=== PATIENT | male | born 1935 | race Caucasian/White ===

== ENCOUNTER 2022-09-28 23:37 | Inpatient (IN) ==
[2022-09-29] MEDS ORDERED: methylPREDNISolone 125 MG/2 ML VIAL IV STA (00:19)
--- NOTE | 2022-09-29 00:24 | Emergency Department Note ---
Impression & Plan Acute exacerbation of chronic obstructive pulmonary disease Admit to [facility] service ED Provider Note NAME: BORIS VASQUEZ AGE: 87 SEX: M ARRIVES VIA: Ambulance INFORMANT: Patient EMS ED PROVIDER(S): Lisa Fisher DO CHIEF COMPLAINT: Shortness of breath PLAN: Disposition: Admit to [facility] [place] Condition: Fair MEDICAL DECISION MAKING: This is an 87-year-old male patient with a history of COPD who presents to the emergency department with sudden worsening of shortness of breath this evening. Patient was seen here 3 days ago with similar complaints but they resolved. Patient describes sudden worsening of symptoms tonight with hypoxia. The pat ient normally uses 3 to 4 L of home oxygen but could not catch his breath. [facility] but dramatically worsened tonight. He received multiple DuoNeb treatments and albuterol treatments by EMS before he felt any improvement in his shortness of breath and wheezing. Chest x-ray here was unremarkable. EKG was unchanged. Troponin was negative. However, the patient had increased oxygen demands. He was given IV Solu-Medrol for what appears to be a COPD exacerbation. He was also given additional DuoNeb treatments. I did have some concern for fluid overload as the patient had rales on exam and had pitting edema in his lower extremities. BNP was unremarkable and chest x-ray showed no evidence of heart failure. I discussed the case with the [facility] and they will evaluate for further management. Triage Nursing notes reviewed and agree with them. Additional history obtained from EMS and the patient's son arrived at the bedside. Prior medical records reviewed including previous hospitalizations Vital Signs: reviewed and unremarkable Differential diagnosis: COPD exacerbation, CHF, pneumonia, bronchitis ER treatment provided: Cardiac monitoring, twelve-lead EKG, IV Solu-Medrol, supplemental O2, DuoNeb treatment Diagnostics interpreted by me: ECG: Normal sinus rhythm at a rate of 76 with PACs and right bundle branch block. There are no signs of ischemia Cardiac Monitoring: Normal sinus rhythm at 70 Laboratory studies: See below Imaging studies: As per my independent interpretation Portable chest x-ray: Chronic emphysematous changes but no obvious CHF. HPI: 87/M arrives for evaluation of shortness of breath. Patient describes h aving a fairly normal day until this evening when he developed sudden worsening of shortness of breath. He has a history of COPD and states that he was using his inhaler so much that he could not count anymore. He describes having tacos for supper and this seems to have made his symptoms worse including increasing abdominal pain. Patient has noted swelling in both of his legs that is worsened over the past 1 to 2 weeks. PAST MEDICAL HISTORY:See Below PAST SURGICAL HISTORY:See Below FAMILY HISTORY:See Below SOCIAL HISTORY:See Below HOME MEDICATIONS:See list ALLERGIES:See list VITALS:See Below PHYSICAL EXAMINATION: HEENT: Head - normocephalic and atraumatic. Patient has obvious left-sided facial droop which is chronic for him. Pupils are equal, round, and reactive to light. Extraocular eye muscles are intact, and sclera are anicteric. Nose - moist nasal mucosa without discharge. Mouth - moist buccal mucosa. Oropharynx is nonerythematous and there is no tonsillar exudate or edema noted. 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 Heart: Regular rate and rhythm. There is a normal S1 and S2 with no murmurs, clicks, or gallops appreciated. Lungs: Rales in all lung cox with expiratory wheezes Abdomen: Soft, completely nontender, nondistended, with good bowel sounds. There are no palpable pulsatile masses or hepatosplenomegaly. There is no guarding, rigidity, or rebound noted. Extremities: 2+ pitting edema there are easily palpable peripheral pulses. Skin: warm and dry with good turgor and no rashes. ED COURSE: Times/Reassessments: 2350: Patient was evaluated in room C5. A complete history and physical was performed. An order was placed for continuous cardiac monitoring. The patient is in a normal sinus rhythm at a rate of 70. A twelve- lead EKG was obtained as described above. Patient was given a dose of IV Solu- Medrol. He had continuous supplemental O2 by nasal cannula. Lisa Fisher DO Past Med/Surg History Medical History (Updated 09/29/22 @ 22:50 by Lisa Fisher DO) History of COPD Hx of agent [place] exposure Family History Other Family history non-contributory Social History Smoking Status: Former smoker Tobacco Type: Smokeless Tobacco (Dip or Chew) Smoking End Date: 1977; Hx Alcohol Use: No Hx Substance Use: No Preferred Language: Citizen Of [place] Communication Ability: Effective [employer] Required: No Beliefs That Will Affect Care: None marital status: Current Living Situation: Family Current Living Situation Comment: Patient lives with two sons current occupational status: retired Other Information That Helps Us Care for You: No Feels Safe at Home: Yes Safety Concerns: Feels Safe At This Time Assistive Devices: Cane, Denture - Upper, Denture - Lower, Oxygen - Continuous, Walker and Wheelchair Allergies Allergies Allergy/AdvReac Type Severity Reaction Status Date / Time ertapenem Allergy Unknown Unknown Verified 09/29/22 03:44 levofloxacin [From Levaquin] Allergy Unknown Unknown Verified 09/29/22 03:46 Home Meds Home Medications Medication Instructions Recorded Confirmed albuterol sulfate 2.5 mg/3 mL 3 ml inhalation Q6 PRN Shortness 10/04/18 09/29/22 (0.083 %) solution for nebulization Of Breath albuterol sulfate 90 mcg/actuation 2 puff inhalation Q6H PRN 10/04/18 09/29/22 aerosol inhaler Shortness Of Breath aspirin 81 mg tablet,delayed 81 mg PO DAILY 10/04/18 09/29/22 release budesonide-formoterol HFA 160 2 puff inhalation BID 10/04/18 09/29/22 mcg-4.5 mcg/actuation aerosol inhaler carboxymethylcellulose 0.5 1 drp ophthalmic (eye) QID 10/04/18 09/29/22 %-glycerin 0.9 % eye drops (Lubricating Drops) ferrous sulfate 325 mg (65 mg 325 mg PO DAILY 10/04/18 09/29/22 iron) tablet guaifenesin 200 mg tablet 400 mg PO TID 10/04/18 09/29/22 levothyroxine 25 mcg tablet 25 mcg PO DAILYBB 10/04/18 09/29/22 meclizine 12.5 mg tablet 12.5 mg PO QAM 10/04/18 09/29/22 omeprazole 20 mg capsule,delayed 20 mg PO DAILY 10/04/18 09/29/22 release tiotropium bromide 2.5 2 puff inhalation DAILY 10/04/18 09/29/22 mcg/actuation mist for inhalation diclofenac sodium 1 % topical gel 2 gm topical QID PRN Pain 09/26/22 09/29/22 roflumilast 500 mcg tablet 500 mcg PO DAILY 09/26/22 09/29/22 erythromycin 5 mg/gram (0.5 %) eye 1 applic ophthalmic (eye) HS 09/29/22 09/29/22 ointment isosorbide mononitrate 60 mg 30 mg PO QAM 09/29/22 09/29/22 tablet,extended release 24 hr multivitamin 1 tab PO DAILY 09/29/22 09/29/22 nitroglycerin 0.4 mg sublingual 0.4 mg sublingual UD PRN Chest Pain 09/29/22 09/29/22 tablet (Nitrostat) oxycodone-acetaminophen 5 mg-325 1 - 2 tab PO QID PRN Pain 09/29/22 09/29/22 mg tablet turmeric 450 mg-turmeric root 2 cap PO DAILY 09/29/22 09/29/22 extract 50 mg capsule Results & Data (ED) Vital Signs Vital Signs - 24 hr 09/28/22 23:41 09/28/22 23:46 09/29/22 00:21 Temperature 36.6 C Temperature Source Oral Pulse Rate 82 70 62 Pulse Rhythm Regular Respiratory Rate 14 22 Respiratory Effort / Characteristics Non-Labored Spontaneous Respiratory Depth Normal Respiratory Pattern Regular Blood Pressure 118/60 Blood Pressure Mean 79 Pulse Oximetry 96 99 Oxygen Delivery Method Room Air Room Air Sepsis Recent Fever Within 48 Hours No Sepsis New/Unexplained Change in Mental Status No Sepsis Action Taken by Nursing No Action Required 09/29/22 01:01 09/29/22 01:30 09/29/22 02:17 Temperature Temperature Source Pulse Rate 73 65 78 Pulse Rhythm Respiratory Rate 25 H 22 18 Respiratory Effort / Characteristics Respiratory Depth Respiratory Pattern Blood Pressure 129/65 125/73 111/61 Blood Pressure Mean 86 90 77 Pulse Oximetry 99 99 98 Oxygen Delivery Method Sepsis Recent Fever Within 48 Hours Sepsis New/Unexplained Change in Mental Status Sepsis Action Taken by Nursing 09/29/22 03:52 09/29/22 03:00 09/29/22 04:06 Temperature Temperature Source Pulse Rate 59 L 58 L 66 Pulse Rhythm Respiratory Rate 22 22 Respiratory Effort / Characteristics Respiratory Depth Respiratory Pattern Blood Pressure 134/59 L 121/66 Blood Pressure Mean 84 84 Pulse Oximetry 99 99 Oxygen Delivery Method Sepsis Recent Fever Within 48 Hours Sepsis New/Unexplained Change in Mental Status Sepsis Action Taken by Nursing Laboratory Data 09/29/22 06:47 09/29/22 06:47 Lab Results 09/28/22 09/28/22 09/28/22 Range/Units 23:51 23:51 23:51 WBC 7.94 (4.8-10.8) K/ul RBC 3.83 L (4.70-6.10) M/uL Hgb 9.1 L (14.0-18.0) g/dl Hct 30.9 L (42.0-52.0) % MCV 80.7 (80.0-100.0) fL MCH 23.8 L (25.0-34.0) pg MCHC 29.4 L (32.0-36.0) g/dL RDW Std Deviation 56.7 H (36.4-46.3) fL RDW Coeff of Jeison 19.2 H (11.5-14.5) % Plt Count 340 (130-400) K/uL MPV 9.5 (9.4-12.4) fL Immature Gran % (Auto) 0.6 % Neut % (Auto) 69.3 % Lymph % (Auto) 12.5 % [place] % (Auto) 15.0 % Eos % (Auto) 2.3 % Baso % (Auto) 0.3 % Neut # (Auto) 5.51 (1.40-6.50) K/uL Lymph # (Auto) 0.99 L (1.2-3.4) K/uL [place] # (Auto) 1.19 H (0.11-0.59) K/uL Eos # (Auto) 0.18 (0-0.50) K/uL Baso # (Auto) 0.02 (0-0.2) K/uL Immature Gran # (Auto) 0.05 (0.01-0.20) K/uL APTT (21.0-31.0) Seconds PTT Ratio Sodium 139 (136-145) mmol/L Potassium 4.4 (3.5-5.1) mmol/L Chloride 99 (98-107) mmol/L Carbon Dioxide 35 H (21-32) mmol/L Anion Gap 5 (3-11) BUN 21 (6-23) mg/dl Creatinine 1.01 (0.6-1.4) mg/dl Est Cr Clr Drug Dosing 46.4 ml/min Est GFR ( Amer) 76.1 ml/min Est GFR (Non-Af Amer) 65.6 ml/min BUN/Creatinine Ratio 20.8 H (10-20) Glucose 111 H (70-99(Fasting)) mg/dl Calcium 8.9 (8.6-10.3) mg/dl Magnesium 1.9 (1.7-2.4) mg/dl Total Bilirubin 0.4 (0.2-1.0) mg/dl AST 16 (13-39) U/L ALT 8 (7-52) U/L Alkaline Phosphatase 54 (34-104) U/L Troponin I High Sens 11.5 (0-20) pg/ml B-Natriuretic Peptide 42 (0-100) pg/ml Total Protein 6.5 (6.0-8.3) gm/dl Albumin 3.7 (3.4-5.0) gm/dl Globulin 2.8 (2.5-4.0) gm/dl Albumin/Globulin Ratio 1.3 (0.9-2) Lipase 17 (11-82) U/L TSH (0.300-4.500) uIu/ml Urine Color Urine Appearance (Clear) Urine pH (4.5-7.5) Ur Specific [place] (1.000-1.030) Urine Protein (Negative) Urine Glucose (UA) (Negative) Urine Ketones (Negative) Urine Blood (Negative) Urine Nitrite (Negative) Urine Bilirubin (Negative) Urine Urobilinogen (Negative) Ur Leukocyte Esterase (Negative) Urine WBC (Auto) (0-5) /hpf Urine RBC (Auto) (0-4) /hpf U Hyaline Cast (Auto) (0-5) /lpf U Epithel Cells (Auto) (0-5) /lpf Urine Bacteria (Auto) (Negative) 09/28/22 09/28/22 09/29/22 Range/Units 23:51 23:51 01:00 WBC (4.8-10.8) K/ul RBC (4.70-6.10) M/uL Hgb (14.0-18.0) g/dl Hct (42.0-52.0) % MCV (80.0-100.0) fL MCH (25.0-34.0) pg MCHC (32.0-36.0) g/dL RDW Std Deviation (36.4-46.3) fL RDW Coeff of Jeison (11.5-14.5) % Plt Count (130-400) K/uL MPV (9.4-12.4) fL Immature Gran % (Auto) % Neut % (Auto) % Lymph % (Auto) % [place] % (Auto) % Eos % (Auto) % Baso % (Auto) % Neut # (Auto) (1.40-6.50) K/uL Lymph # (Auto) (1.2-3.4) K/uL [place] # (Auto) (0.11-0.59) K/uL Eos # (Auto) (0-0.50) K/uL Baso # (Auto) (0-0.2) K/uL Immature Gran # (Auto) (0.01-0.20) K/uL APTT 30.9 (21.0-31.0) Seconds PTT Ratio 1.1 Sodium (136-145) mmol/L Potassium (3.5-5.1) mmol/L Chloride (98-107) mmol/L Carbon Dioxide (21-32) mmol/L Anion Gap (3-11) BUN (6-23) mg/dl Creatinine (0.6-1.4) mg/dl Est Cr Clr Drug Dosing ml/min Est GFR ( Amer) ml/min Est GFR (Non-Af Amer) ml/min BUN/Creatinine Ratio (10-20) Glucose (70-99(Fasting)) mg/dl Calcium (8.6-10.3) mg/dl Magnesium (1.7-2.4) mg/dl Total Bilirubin (0.2-1.0) mg/dl AST (13-39) U/L ALT (7-52) U/L Alkaline Phosphatase (34-104) U/L Troponin I High Sens (0-20) pg/ml B-Natriuretic Peptide (0-100) pg/ml Total Protein (6.0-8.3) gm/dl Albumin (3.4-5.0) gm/dl Globulin (2.5-4.0) gm/dl Albumin/Globulin Ratio (0.9-2) Lipase (11-82) U/L TSH 3.363 (0.300-4.500) uIu/ml Urine Color Dark Yellow Urine Appearance Clear (Clear) Urine pH 5.5 (4.5-7.5) Ur Specific Sullivan 1.025 (1.000-1.030) Urine Protein Trace H (Negative) Urine Glucose (UA) Negative (Negative) Urine Ketones Trace H (Negative) Urine Blood Negative (Negative) Urine Nitrite Negative (Negative) Urine Bilirubin Negative (Negative) Urine Urobilinogen Negative (Negative) Ur Leukocyte Esterase Negative (Negative) Urine WBC (Auto) 1-5 (0-5) /hpf Urine RBC (Auto) 0-4 (0-4) /hpf U Hyaline Cast (Auto) 0 (0-5) /lpf U Epithel Cells (Auto) 0-5 (0-5) /lpf Urine Bacteria (Auto) Negative (Negative) Administered Medications Albuterol (Albut/Ipratrop 3mg/0.5mg Neb 3 Ml Vial) 3 ml NEB Q2H PRN; Protocol PRN Reason: Shortness Of Breath Or Wheezing Stop: 10/29/22 09:59 Last Admin: 09/29/22 09:59 Dose: 3 ml Documented By: MARGI Artificial Tears (Artificial Tears) 1 drops OP QID [facility] Stop: 10/29/22 08:59 Last Admin: 09/29/22 20:31 Dose: 1 drops Documented By: [id number] Admin: 09/29/22 15:32 Dose: 1 drops Documented By: Admin: 09/29/22 12:52 Dose: Not Given Documented By: Admin: 09/29/22 11:29 Dose: Not Given Documented By: JONA Aspirin (Aspirin 81 Mg Ectab) 81 mg PO DAILY [facility] Stop: 10/29/22 08:59 Last Admin: 09/29/22 08:12 Dose: 81 mg Documented By: JONA Clindamycin HCl (Clindamycin Hcl 150 Mg Cap) 300 mg PO TID [facility] Stop: 10/06/22 13:59 Last Admin: 09/29/22 20:26 Dose: 300 mg Documented By: [id number] Admin: 09/29/22 14:26 Dose: 300 mg Documented By: JONA Erythromycin (Erythromycin Op Oint 5 Mg/Gm 3.5 Gm Tube) 1 appln OP HS ILIANA Stop: 10/09/22 20:59 Last Admin: 09/29/22 21:32 Dose: 1 appln Documented By: [id number] Ferrous Sulfate (Ferrous Sulfate 325 Mg Tab) 325 mg PO DAILY [facility] Stop: 10/29/22 08:59 Last Admin: 09/29/22 09:22 Dose: 325 mg Documented By: JONA Methylprednisolone 40 mg/ (Syringe) 0.64 mls @ 1.5 mls/min IV BID ILIANA Stop: 10/29/22 09:59 Last Admin: 09/29/22 20:26 Dose: 1.5 mls/min Documented By: [id number] Admin: 09/29/22 11:56 Dose: 1.5 mls/min Documented By: JONA Ipratropium [place] (Ipratropium [place] Neb Soln 0.02% 2.5 Ml Vial) 0.5 mg INH Q6R ILIANA Stop: 10/29/22 06:59 Last Admin: 09/29/22 19:58 Dose: 0.5 mg Documented By: Admin: 09/29/22 12:49 Dose: 0.5 mg Documented By: Admin: 09/29/22 07:21 Dose: 0.5 mg Documented By: JACQUIE Isosorbide Mononitrate (Isosorbide [place] Extended Rel 30 Mg Tabcr) 30 mg PO QAM [facility] Stop: 10/29/22 08:59 Last Admin: 09/29/22 09:22 Dose: 30 mg Documented By: JONA Levalbuterol HCl (Levalbuterol 1.25mg/0.5ml Neb) 1.25 mg INH Q6R ILIANA Stop: 10/29/22 06:59 Last Admin: 09/29/22 19:58 Dose: 1.25 mg Documented By: Admin: 09/29/22 12:49 Dose: 1.25 mg Documented By: Admin: 09/29/22 07:21 Dose: 1.25 mg Documented By: JACQUIE Levothyroxine Sodium (Levothyroxine Sodium 25 Mcg Tablet) 25 mcg PO DAILYBB [facility] Stop: 10/29/22 06:53 Last Admin: 09/29/22 09:22 Dose: 25 mcg Documented By: JONA Multivitamins (Multivitamin Tab) 1 tab PO DAILY [facility] Stop: 10/29/22 08:59 Last Admin: 09/29/22 08:13 Dose: 1 tab Documented By: JONA Pantoprazole Sodium (Pantoprazole 40 Mg Tab) 40 mg PO DAILY [facility] Stop: 10/29/22 08:59 Last Admin: 09/29/22 08:13 Dose: 40 mg Documented By: JONA Roflumilast (Roflumilast 500 Mcg Tab) 500 mcg PO DAILY [facility] Stop: 10/29/22 08:59 Last Admin: 09/29/22 09:22 Dose: 500 mcg Documented By: JONA Umeclidinium [place] (Umeclidinium [place] 62.5mcg/Blister 7 Puffs/Inhaler) 1 puffs INH DAILY [facility] Stop: 10/29/22 08:59 Last Admin: 09/29/22 08:13 Dose: 1 puffs Documented By: JONA Discontinued Medications Albuterol (Albut/Ipratrop 3mg/0.5mg Neb 3 Ml Vial) 3 ml NEB NOW STA; Protocol Stop: 09/29/22 02:24 Last Admin: 09/29/22 02:28 Dose: 3 ml Documented By: PETR Furosemide (Furosemide Inj 20 Mg/2 Ml Vial) 20 mg IV ONE ONE Stop: 09/29/22 04:18 Last Admin: 09/29/22 06:05 Dose: 20 mg Documented By: PETR Furosemide (Furosemide Inj 20 Mg/2 Ml Vial) 20 mg IV ONE ONE Stop: 09/29/22 08:55 Last Admin: 09/29/22 09:18 Dose: 20 mg Documented By: JONA Magnesium Sulfate/Dextrose (Magnesium Sulfate / D5w) 1 gm in 100 mls @ 50 mls/hr IV ONE ONE Stop: 09/29/22 05:31 Last Infusion: 09/29/22 07:51 Dose: 0 mls/hr Documented By: Admin: 09/29/22 04:35 Dose: 50 mls/hr Documented By: PETR Sodium Chloride (Nss 1000ml) 1,000 mls @ 60 mls/hr IV .[id number] ONE Stop: 09/29/22 20:14 Last Admin: 09/29/22 08:47 Dose: Not Given Documented By: JONA Albumin Human (Albumin 25% 100 Ml) 25 gm in 100 mls @ 50 mls/hr IV ONE ONE Stop: 09/29/22 05:48 Last Infusion: 09/29/22 07:51 Dose: 0 mls/hr Documented By: Admin: 09/29/22 04:36 Dose: 50 mls/hr Documented By: PETR Clindamycin Phosphate (Cleocin/D5w) 600 mg in 50 mls @ 100 mls/hr IV NOW ONE Stop: 09/29/22 04:49 Last Infusion: 09/29/22 08:46 Dose: 0 mls/hr Documented By: Admin: 09/29/22 07:50 Dose: 100 mls/hr Documented By: JONA Ioversol (Optiray 320 500ml) 125 ml IV ONCE ONE Stop: 09/29/22 05:24 Last Admin: 09/29/22 05:24 Dose: 117 ml Documented By: KELI Methylprednisolone (Methylprednisolone 125 Mg/2 Ml Vial) 125 mg IV NOW STA Stop: 09/29/22 00:20 Last Admin: 09/29/22 00:37 Dose: 125 mg Documented By: PETR Discharge Plan Visit Data Chief Complaint: Respiratory Problems ED Provider: Lisa Fisher Discharge Problem: Acute exacerbation of chronic obstructive pulmonary disease Patient Disposition: Admitted As Inpatient Discharge Instructions Interventions: ED Discharge Assessment Last Done: 09/29/22 06:55
[2022-09-29 00:42] LABS: Albumin Globulin Ratio 1.3 (0.9-2); Albumin Level 3.7 gm/dl (3.4-5.0); BUN Creatinine Ratio 20.8 (10-20); Bilirubin,Total 0.4 mg/dl (0.2-1.0); Calcium 8.9 mg/dl (8.6-10.3); Creatinine Clr Calc Pharmacy 46.4 ml/min; Est GFR (African American) 76.1 ml/min; Est GFR (Non-African American) 65.6 ml/min; Globulin 2.8 gm/dl (2.5-4.0); Potassium 4.4 mmol/L (3.5-5.1); Total Protein 6.5 gm/dl (6.0-8.3)
[2022-09-29 00:48] LABS: Basophils # (auto) 0.02 K/uL (0-0.2); Basophils % (auto) 0.3 %; Eosinophils # (auto) 0.18 K/uL (0-0.50); Eosinophils % (auto) 2.3 %; Hematocrit (blood only) 30.9 % (42.0-52.0); Hemoglobin 9.1 g/dl (14.0-18.0); Immature Granulocytes # (auto) 0.05 K/uL (0.01-0.20); Immature Granulocytes % (auto) 0.6 %; Lymphocytes # (auto) 0.99 K/uL (1.2-3.4); Lymphocytes % (auto) 12.5 %; Mean Corpuscular Hemoglobin 23.8 pg (25.0-34.0); Mean Corpuscular Hgb Conc 29.4 g/dL (32.0-36.0); Mean Corpuscular Volume 80.7 fL (80.0-100.0); Mean Platelet Volume 9.5 fL (9.4-12.4); Monocytes # (auto) 1.19 K/uL (0.11-0.59); Neutrophils # (auto) 5.51 K/uL (1.40-6.50); Neutrophils % (auto) 69.3 %; Platelet Count 340 K/uL (130-400); RDW Coefficient of Variation 19.2 % (11.5-14.5); RDW Standard Deviation 56.7 fL (36.4-46.3); Red Blood Count 3.83 M/uL (4.70-6.10); Troponin I High Sensitivity 11.5 pg/ml (0-20); White Blood Count 7.94 K/ul (4.8-10.8)
[2022-09-29 01:17] LABS: Appearance Urine Clear (Clear); Bilirubin Urine Negative (Negative); Blood Urine Negative (Negative); Color Urine Dark Yellow; Glucose Urine UA Negative (Negative); Ketones Urine Trace (Negative); Leukocyte Esterase Urine Negative (Negative); Nitrite Urine Negative (Negative); Protein Urine Trace (Negative); Specific Gravity Urine 1.025 (1.000-1.030); Urobilinogen Urine Negative (Negative); pH Urine 5.5 (4.5-7.5)
[2022-09-29 01:42] LABS: Bacteria Urine Automated Negative (Negative); Cast Urine Automated 0 /lpf (0-5); Epithelial Cell Urine Auto 0-5 /lpf (0-5); RBC Urine Automated 0-4 /hpf (0-4)
[2022-09-29] MEDS ORDERED: ALBUT/IPRATROP 3MG/0.5MG NEB 3 ML VIAL NEB STA (02:23)
[2022-09-29] MEDS ORDERED: MAGNESIUM SULFATE / D5W 1 GM/100 ML BAG IV ONE (03:32)
[2022-09-29] MEDS ORDERED: SODIUM CHLORIDE 0.9% 1000ML 1,000 ML IV ONE (03:35)
[2022-09-29] MEDS ORDERED: ALBUMIN 25% 100 mL 25 GM/100 ML VIAL IV ONE (03:49)
[2022-09-29 04:07] LABS: Magnesium 1.9 mg/dl (1.7-2.4)
[2022-09-29] MEDS ORDERED: FUROSEMIDE INJ 20 MG/2 ML VIAL IV ONE ×2 (04:17→08:54)
[2022-09-29] MEDS ORDERED: CLINDAMYCIN/D5W 600 MG/50 ML BAG IV ONE (04:20)
[2022-09-29 04:41] LABS: Partial Thromboplastin Ratio 1.1; Partial Thromboplastin Time 30.9 Seconds (21.0-31.0)
[2022-09-29 05:06] LABS: iSTAT Arterial Blood Gas HCO3 33 meg/L (19-24); iSTAT Arterial Blood Gas pCO2 57 mmHg (35-46); iSTAT Arterial Blood Gas pH 7.37 (7.35-7.45); iSTAT Arterial Blood Gas pO2 133 mmHg (80-95); iSTAT Carbon Dioxide 35 mmol/L (24-31); iSTAT Hematocrit 29 % (42-52); iSTAT Hemoglobin 9.9 g/dl (14.0-18.0); iSTAT Potassium 4.5 mmol/L (3.3-5.0); iSTAT Sodium 136 mmol/L (135-144)
[2022-09-29] MEDS ORDERED: OPTIRAY 320 500ml IV ONE (05:23)
--- NOTE | 2022-09-29 05:28 | History & Physical Report ---
Date of Service September 29, 2022 Assessment & Plan (1) SOB (shortness of breath): Plan: Worsening shortness of breath COPD exacerbation, possible aspiration pneumonitis no sepsis for now Rule out right-sided heart failure/underlying pulmonary hypertension given mamadou pheral edema without overt congestion on CXR hx chronic respiratory failure secondary to COPD on home O2 Rule out pulm embolism given hx of malignancy, hx head and neck cancer status post surgery currently on immunotherapy, patient family concerned about side effects of immunotherapy HTN, stable hx PVD on aspirin Rx hypothyroidism, euthyroid as of today stage Chronic anemia, hemoglobin at baseline, hx recent GI bleed 3 months ago as per family, hx gastric erosions/AVM as per records Postop left neck wound, no infection as per son. 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 Teds for now; SCDs if LE Dopplers negative for DVT Re: History GI bleed Full code as per family Patient son requesting updates providers. Mr. Rafael Dobbins, contact #[phone]. Total critical care time was 45 minutes. Text document was generated using [employer] voice recognition software. It may contain grammatical or spelling errors. Kindly contact undersigned for clarification of any documentation item in question. History of Present Illness Chief Complaint: Worsening shortness of breath Primary Care Provider: CT History obtained from patient, family, and records. 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 Patient underwent head and neck surgery for squamous cell cancer of the left ear at [place] last March 2022. Immunotherapy started a week ago as per family. Few days ago, patient noted cough symptoms productive of junky sputum with some shortness of breath. No chest pain. Patient admits to coughing with meals/water intake if not careful. Rash noted by patient's family. Patient consulted ER 3 days ago. Patient treated for COPD exacerbation. Admission offered by ER provider but patient declined. Worsening symptoms at home. Patient also with achy abdominal pain/distention complaints. Denies headache. Legs more swollen than usual. Patient family concerned about patient's symptoms as side effects of immunotherapy. Solu-Medrol and neb treatment administered at the ER for COPD exacerbation. 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, lives with sons Allergies Allergy/AdvReac Type Severity Reaction Status Date / Time ertapenem Allergy Unknown Unknown Verified 09/29/22 03:44 levofloxacin [From Levaquin] Allergy Unknown Unknown Verified 09/29/22 03:46 Home Medications Medication Instructions Recorded Confirmed Type albuterol sulfate 2.5 mg/3 mL 3 ml inhalation Q6 PRN Shortness 10/04/18 09/29/22 History (0.083 %) solution for nebulization Of Breath albuterol sulfate 90 mcg/actuation 2 puff inhalation Q6H PRN 10/04/18 09/29/22 History aerosol inhaler Shortness Of Breath aspirin 81 mg tablet,delayed 81 mg PO DAILY 10/04/18 09/29/22 History release budesonide-formoterol HFA 160 2 puff inhalation BID 10/04/18 09/29/22 History mcg-4.5 mcg/actuation aerosol inhaler carboxymethylcellulose 0.5 1 drp ophthalmic (eye) QID 10/04/18 09/29/22 History %-glycerin 0.9 % eye drops (Lubricating Drops) ferrous sulfate 325 mg (65 mg 325 mg PO DAILY 10/04/18 09/29/22 History iron) tablet guaifenesin 200 mg tablet 400 mg PO TID 10/04/18 09/29/22 History levothyroxine 25 mcg tablet 25 mcg PO DAILYBB 10/04/18 09/29/22 History meclizine 12.5 mg tablet 12.5 mg PO QAM 10/04/18 09/29/22 History omeprazole 20 mg capsule,delayed 20 mg PO DAILY 10/04/18 09/29/22 History release tiotropium bromide 2.5 2 puff inhalation DAILY 10/04/18 09/29/22 History mcg/actuation mist for inhalation diclofenac sodium 1 % topical gel 2 gm topical QID PRN Pain 09/26/22 09/29/22 History roflumilast 500 mcg tablet 500 mcg PO DAILY 09/26/22 09/29/22 History erythromycin 5 mg/gram (0.5 %) eye 1 applic ophthalmic (eye) HS 09/29/22 09/29/22 History ointment isosorbide mononitrate 60 mg 30 mg PO QAM 09/29/22 09/29/22 History tablet,extended release 24 hr multivitamin 1 tab PO DAILY 09/29/22 09/29/22 History nitroglycerin 0.4 mg sublingual 0.4 mg sublingual UD PRN Chest Pain 09/29/22 09/29/22 History tablet (Nitrostat) oxycodone-acetaminophen 5 mg-325 1 - 2 tab PO QID PRN Pain 09/29/22 09/29/22 History mg tablet turmeric 450 mg-turmeric root 2 cap PO DAILY 09/29/22 09/29/22 History extract 50 mg capsule Past Med/Surg History Medical History (Updated 09/29/22 @ 07:20 by Anthony Husain MD) History of COPD Hx of agent [place] exposure Family History Other Family history non-contributory Social History Smoking Status: Former smoker Tobacco Type: Smokeless Tobacco (Dip or Chew) Smoking End Date: 1977; Hx Alcohol Use: No Hx Substance Use: No Preferred Language: Hebrew Communication Ability: Effective Folding 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 Required: No Beliefs That Will Affect Care: None marital status: Current Living Situation: Family Current Living Situation Comment: Patient lives with two sons current occupational status: retired Other Information That Helps Us Care for You: No Feels Safe at Home: Yes Safety Concerns: Feels Safe At This Time Assistive Devices: Cane, Denture - Upper, Denture - Lower, Oxygen - Continuous, Walker and Wheelchair Review of Systems Review of Systems: As per HPI, all other systems reviewed and negative Physical Exam Physical Exam: GENERAL: Slightly uncomfortable, chronically ill, slightly hard of hearing, intermittent abdominal breathing SKIN: Pallor, warm HEENT: Pale palpebral conjunctiva, right, eye patch over left, left facial asymmetry (chronic as per family post surgery), dry buccal mucosa, nasal cannula in place NECK : Dressing over left neck, supple, minimal left cervical tenderness CHEST : Decreased breath sounds, bibasilar rales, expiratory wheezes, no tenderness HEART : Bradycardic, no obvious murmurs ABDOMEN: Some distention, nontender RECTAL : Intact sphincter, dark brown stool (FOBT negative) EXTREMITIES : Bilateral LE swelling, no LE tenderness, no other conspicuous deformities noted NEUROLOGIC : Coherent, chronic facial asymmetry, mild hearing impairment, gait and stance not assessed Results & Data Results & Data Vital Signs (Past 12 Hours) Vital Signs Temp Pulse Resp BP Pulse Ox O2 Del Method 09/29/22 04:06 66 22 121/66 99 09/29/22 03:00 58 L 22 134/59 L 99 09/29/22 03:52 59 L 09/29/22 02:17 78 18 111/61 98 09/29/22 01:30 65 22 125/73 99 09/29/22 01:01 73 25 H 129/65 99 09/29/22 00:21 62 22 99 Room Air 09/28/22 23:46 70 09/28/22 23:41 36.6 C 82 14 118/60 96 Room Air Laboratory Results Laboratory Results WBC 7.94 K/ul (4.8-10.8) 09/28/22 23:51 RBC 3.83 M/uL (4.70-6.10) L 09/28/22 23:51 Hgb 9.1 g/dl (14.0-18.0) L 09/28/22 23:51 POC Hgb 9.9 g/dl (14.0-18.0) L 09/29/22 04:52 Hct 30.9 % (42.0-52.0) L 09/28/22 23:51 POC Hct 29 % (42-52) L 09/29/22 04:52 MCV 80.7 fL (80.0-100.0) 09/28/22 23:51 MCH 23.8 pg (25.0-34.0) L 09/28/22 23:51 MCHC 29.4 g/dL (32.0-36.0) L 09/28/22 23:51 RDW Std Deviation 56.7 fL (36.4-46.3) H 09/28/22 23:51 RDW Coeff of Jeison 19.2 % (11.5-14.5) H 09/28/22 23:51 Plt Count 340 K/uL (130-400) 09/28/22 23:51 MPV 9.5 fL (9.4-12.4) 09/28/22 23:51 Immature Gran % (Auto) 0.6 % 09/28/22 23:51 Neut % (Auto) 69.3 % 09/28/22 23:51 Lymph % (Auto) 12.5 % 09/28/22 23:51 Smith % (Auto) 15.0 % 09/28/22 23:51 Eos % (Auto) 2.3 % 09/28/22 23:51 Baso % (Auto) 0.3 % 09/28/22 23:51 Neut # (Auto) 5.51 K/uL (1.40-6.50) 09/28/22 23:51 Lymph # (Auto) 0.99 K/uL (1.2-3.4) L 09/28/22 23:51 Smith # (Auto) 1.19 K/uL (0.11-0.59) H 09/28/22 23:51 Eos # (Auto) 0.18 K/uL (0-0.50) 09/28/22 23:51 Baso # (Auto) 0.02 K/uL (0-0.2) 09/28/22 23:51 Immature Gran # (Auto) 0.05 K/uL (0.01-0.20) 09/28/22 23:51 APTT 30.9 Seconds (21.0-31.0) 09/28/22 23:51 PTT Ratio 1.1 09/28/22 23:51 POC pH 7.37 (7.35-7.45) 09/29/22 04:52 POC pCO2 57 mmHg (35-46) H 09/29/22 04:52 POC pO2 133 mmHg (80-95) H 09/29/22 04:52 POC HCO3 33 surendra/L (19-24) H 09/29/22 04:52 POC Total CO2 35 mmol/L (24-31) H 09/29/22 04:52 POC Base Excess 7.0 surendra/L (-9-1.8) H 09/29/22 04:52 POC ABG O2 Sat 99.0 % (90-95) H 09/29/22 04:52 POC Sodium 136 mmol/L (135-144) 09/29/22 04:52 Sodium 139 mmol/L (136-145) 09/28/22 23:51 POC Potassium 4.5 mmol/L (3.3-5.0) 09/29/22 04:52 Potassium 4.4 mmol/L (3.5-5.1) 09/28/22 23:51 Chloride 99 mmol/L (98-107) 09/28/22 23:51 Carbon Dioxide 35 mmol/L (21-32) H 09/28/22 23:51 Anion Gap 5 (3-11) 09/28/22 23:51 BUN 21 mg/dl (6-23) 09/28/22 23:51 Creatinine 1.01 mg/dl (0.6-1.4) 09/28/22 23:51 Est Cr Clr Drug Dosing 46.4 ml/min 09/28/22 23:51 Est GFR ( Amer) 76.1 ml/min 09/28/22 23:51 Est GFR (Non-Af Amer) 65.6 ml/min 09/28/22 23:51 BUN/Creatinine Ratio 20.8 (10-20) H 09/28/22 23:51 Glucose 111 mg/dl (70-99(Fasting)) H 09/28/22 23:51 Calcium 8.9 mg/dl (8.6-10.3) 09/28/22 23:51 Magnesium 1.9 mg/dl (1.7-2.4) 09/28/22 23:51 Total Bilirubin 0.4 mg/dl (0.2-1.0) 09/28/22 23:51 AST 16 U/L (13-39) 09/28/22 23:51 ALT 8 U/L (7-52) 09/28/22 23:51 Alkaline Phosphatase 54 U/L (34-104) 09/28/22 23:51 Troponin I High Sens 11.5 pg/ml (0-20) 09/28/22 23:51 B-Natriuretic Peptide 42 pg/ml (0-100) 09/28/22 23:51 Total Protein 6.5 gm/dl (6.0-8.3) 09/28/22 23:51 Albumin 3.7 gm/dl (3.4-5.0) 09/28/22 23:51 Globulin 2.8 gm/dl (2.5-4.0) 09/28/22 23:51 Albumin/Globulin Ratio 1.3 (0.9-2) 09/28/22 23: Lipase 17 U/L (11-82) 09/28/22 23: TSH 3.363 uIu/ml (0.300-4.500) 09/28/22 23:51 Urine Color Dark Yellow 09/29/22 01:00 Urine Appearance Clear (Clear) 09/29/22 01:00 Urine pH 5.5 (4.5-7.5) 09/29/22 01:00 Ur Specific [place] 1.025 (1.000-1.030) 09/29/22 01:00 Urine Protein Trace (Negative) H 09/29/22 01:00 Urine Glucose (UA) Negative (Negative) 09/29/22 01:00 Urine Ketones Trace (Negative) H 09/29/22 01:00 Urine Blood Negative (Negative) 09/29/22 01:00 Urine Nitrite Negative (Negative) 09/29/22 01:00 Urine Bilirubin Negative (Negative) 09/29/22 01:00 Urine Urobilinogen Negative (Negative) 09/29/22 01:00 Ur Leukocyte Esterase Negative (Negative) 09/29/22 01:00 Urine WBC (Auto) 1-5 /hpf (0-5) 09/29/22 01:00 Urine RBC (Auto) 0-4 /hpf (0-4) 09/29/22 01:00 U Hyaline Cast (Auto) 0 /lpf (0-5) 09/29/22 01:00 U Epithel Cells (Auto) 0-5 /lpf (0-5) 09/29/22 01:00 Urine Bacteria (Auto) Negative (Negative) 09/29/22 01:00 SARS-CoV-2, RNA, NAAT NEGATIVE (NEGATIVE) 09/29/22 04:50 Diagnostic Findings Chest x-ray as per my interpretation cardiomegaly, atelectasis EKG as per my interpretation : Rate 75, NSR, LAD, LAFB, RBBB, septal infarct, no ischemia Code Status & VTE Plan VTE Prophylaxis Plan VTE Prophylaxis will be ordered: Yes
[2022-09-29] MEDS ORDERED: XOPENEX/ATROVENT 1.25mg/0.5MG NEB COMBO NEB SCH (06:00)
[2022-09-29] MEDS ORDERED: PROMETHAZINE HCL 6.25 MG in SODIUM CHLORIDE 0.9% 50 ML IV PRN (06:54)
[2022-09-29] MEDS ORDERED: DICLOFENAC SOD 1% GEL 100 GM TUBE EXT PRN (06:54)
[2022-09-29] MEDS ORDERED: oxyCODONE HCL IR 5 MG TAB (IMMEDIATE RELEASE) PO PRN (06:54)
[2022-09-29 07:14] LABS: Basophils # (auto) 0.01 K/uL (0-0.2); Basophils % (auto) 0.2 %; Eosinophils # (auto) 0.01 K/uL (0-0.50); Eosinophils % (auto) 0.2 %; Hematocrit (blood only) 28.2 % (42.0-52.0); Hemoglobin 8.5 g/dl (14.0-18.0); Immature Granulocytes # (auto) 0.04 K/uL (0.01-0.20); Immature Granulocytes % (auto) 0.8 %; Lymphocytes # (auto) 0.44 K/uL (1.2-3.4); Lymphocytes % (auto) 8.4 %; Mean Corpuscular Hemoglobin 24.1 pg (25.0-34.0); Mean Corpuscular Hgb Conc 30.1 g/dL (32.0-36.0); Mean Corpuscular Volume 80.1 fL (80.0-100.0); Mean Platelet Volume 9.2 fL (9.4-12.4); Monocytes # (auto) 0.11 K/uL (0.11-0.59); Monocytes % (auto) 2.1 %; Neutrophils # (auto) 4.62 K/uL (1.40-6.50); Neutrophils % (auto) 88.3 %; Platelet Count 274 K/uL (130-400); RDW Coefficient of Variation 19.1 % (11.5-14.5); RDW Standard Deviation 55.7 fL (36.4-46.3); Red Blood Count 3.52 M/uL (4.70-6.10); Reticulocyte % 1.5 % (0.5-2.0); Reticulocytes # 0.05 10^6/uL (0.02-0.10); White Blood Count 5.23 K/ul (4.8-10.8)
[2022-09-29] MEDS: IPRATROPIUM BROMIDE NEB SOLN 0.02% 2.5 ML VIAL INH SCH ×3 (07:21→19:58)
[2022-09-29] MEDS: LEVALBUTEROL 1.25MG/0.5ML NEB INH SCH ×3 (07:21→19:58)
--- NOTE | 2022-09-29 07:31 | XRay Report ---
XR chest 1V portable CLINICAL HISTORY: Dyspnea TECHNIQUE: Single frontal radiograph of the chest was obtained. Comparison: Comparison is made to chest radiographs September 26, 2022 FINDINGS: No lines and tubes are seen. Cardiomegaly is noted. Minimal atelectasis is noted in the bilateral low er lungs. No evidence of pleural effusion or pneumothorax. IMPRESSION: No acute chest disease. ACT 112: Negative or not required by law. Electronically signed by: Tyree Madison M.D. 09/29/2022 7:30 AM
[2022-09-29 07:39] LABS: Calcium 8.8 mg/dl (8.6-10.3); Potassium 4.5 mmol/L (3.5-5.1)
--- NOTE | 2022-09-29 07:40 | Ultrasound Report ---
ULTRASOUND BILATERAL LOWER EXTREMITY VENOUS CLINICAL HISTORY: Lower extremity edema. COMPARISON STUDY: No priors. TECHNIQUE: Real-time, grayscale, and color Doppler sonography of the deep veins of the right and left lower extremity was performed from the inguinal crease to the calf. Compression and augmentation wer e utilized. FINDINGS: There is no sonographic evidence of deep venous thrombosis identified in the right or left lower extremity. The common femoral, superficial femoral, and popliteal veins are patent and normally compressible bilaterally. The greater saphenous vein and the profunda femoris vein at the junction w ith the common femoral vein are clear in both legs. The visualized calf veins are patent bilaterally. IMPRESSION: There is no sonographic evidence of deep venous thrombosis identified in the right or lef t lower extremity. ACT 112: Negative or not required by law. Electronically signed by: Clark Juarez M.D. 09/29/2022 7:39 AM
[2022-09-29 07:45] LABS: BUN Creatinine Ratio 21.6 (10-20); Creatinine Clr Calc Pharmacy 48.3 ml/min; Est GFR (African American) 79.9 ml/min; Est GFR (Non-African American) 68.9 ml/min
[2022-09-29 07:49] LABS: Vitamin B12 485 pg/ml (180-914)
--- NOTE | 2022-09-29 07:59 | CT Scan Report ---
CT angio chest PE protocol CLINICAL HISTORY: sob TECHNIQUE: Multidetector row helical CT of the chest was performed with angiographic protocol. Telles l and sagittal reformations were obtained. Coronal and sagittal MIPS were obtained from the axial manuela a set and were submitted for review. Automated dose lowering techniques and/or adjustment according to patient size were utilized for this exam. Comparison: Comparison is made to CTA chest 10/04/2018 FINDINGS: Lungs and pleura: Emphysema is seen with bronchial wall thickening and bronchiectasis. No consolidati on is seen. Calcified granulomata are seen without suspicious pulmonary nodules. Heart and pericardium: Heart size is normal. No pericardial effusion. Vessels: No evidence of pulmonary embolism. Pulmonary trunk measures 34 mm. Mediastinum and yonny: Unremarkable. Chest wall and lower neck: Subcentimeter axillary lymph nodes noted. Abdomen: For findings below the diaphragm, please refer to CT of the abdomen dated the same. Bones: Degenerative changes in the thoracic spine. IMPRESSION: 1. No pulmonary embolus is seen. 2. Emphysema with pulmonary artery hypertension. 3. No interspace disease. ACT 112: Negative or not required by law. Electronically signed by: Tyree Madison M.D. 09/29/2022 7:56 AM
[2022-09-29 08:00] LABS: Ferritin 39.9 ng/ml (8-388)
[2022-09-29 08:08] LABS: Estimated Average Glucose 134 mg/dl; Hemoglobin A1C 6.3 % (4.5-5.6)
--- NOTE | 2022-09-29 08:08 | CT Scan Report ---
CT abd pelvis IV con only CLINICAL HISTORY: abd pain TECHNIQUE: Helical axial images of the abdomen and pelvis were obtained and displayed. Automated dose lowering techniques and/or adjustment according to patient size were utilized for this exam. This e xam was performed with intravenous contrast. CT DOSE: 749.83 mGy.cm COMPARISON: None available at the time of this dictation. FINDINGS: Lower chest: For findings above the diaphragm, please see CT chest performed same day. Liver: Unremarkable. No focal lesions are seen. Gallbladder and biliary tree: Cholelithiasis is seen without evidence of cholecystitis. No wall thick ening or pericholecystic fluid is seen. No intra- or extrahepatic biliary ductal dilation. Pancreas: Unremarkable, no focal lesions. Spleen: Unremarkable. Adrenals: Unremarkable. Kidneys and ureters: Unremarkable. Bladder: Unremarkable. Reproductive organs: Prostatic calcifications are seen which may represent prior hemorrhage or granul omatous disease. Bowel: The appendix is normal. A duodenal diverticulum is seen. A few diverticula are seen in the sig moid colon without evidence of acute diverticulitis. Lymph nodes Retroperitoneal: Unremarkable. Pelvic: Unremarkable. Mesenteric: Unremarkable. Peritoneum: Normal. Vessels: Atherosclerotic calcifications are seen. Abdominal wall: Left fat containing inguinal hernia. Bones: Degenerative changes in the visualized spine and bilateral hip joints. IMPRESSION: 1. No acute abnormalities are seen to explain abdominal pain. 2. Cholelithiasis without cholecystitis. ACT 112: Negative or not required by law. Electronically signed by: Tyree Madison M.D. 09/29/2022 8:07 AM
[2022-09-29] MEDS: ASPIRIN 81 MG ECTAB PO SCH (08:12)
[2022-09-29] MEDS: PANTOprazole 40 MG TAB PO SCH (08:13)
[2022-09-29] MEDS: MULTIVITAMIN TAB PO SCH (08:13)
[2022-09-29] MEDS: UMECLIDINIUM BROMIDE 62.5MCG/BLISTER 7 PUFFS/INHALER INH SCH (08:13)
[2022-09-29] MEDS: FERROUS SULFATE 325 MG TAB PO SCH (09:22)
[2022-09-29] MEDS: LEVOTHYROXINE SODIUM 25 MCG TABLET PO SCH (09:22)
[2022-09-29] MEDS: ROFLUMILAST 500 MCG TAB PO SCH (09:22)
[2022-09-29] MEDS: ISOSORBIDE MONO EXTENDED REL 30 MG TABCR PO SCH (09:22)
[2022-09-29] MEDS: ALBUT/IPRATROP 3MG/0.5MG NEB 3 ML VIAL NEB PRN (09:59)
[2022-09-29] MEDS: ARTIFICIAL TEARS OP SCH ×4 (11:29→20:31)
[2022-09-29] MEDS: methylPREDNISolone 40 MG in SYRINGE 0 ML IV SCH ×2 (11:56→20:26)
[2022-09-29] MEDS: CLINDAMYCIN HCL 150 MG CAP PO SCH ×2 (14:26→20:26)
--- NOTE | 2022-09-29 15:06 | Hospitalist Progress Note ---
Date of Service September 29, 2022 Assessment & Plan (1) Acute exacerbation of chronic obstructive airways disease: Plan: History of COPD and has been on home oxygen Worsening shortness of breath for the last few days No fever and/or chest pain Has significant exacerbation of COPD with possible aspiration No pneumonia on chest x-ray and/or CT scan and no pulmonary embolism Appreciate speech therapy input and evaluation Clears has been started will advance as tolerated Has been getting bronchodilators as needed and also Solu-Medrol small doses Clinically better Bibasilar crackles suggestive of edema No chest x-ray evidence of CHF Received Lasix 20 mg x 2 since admission with significant improvement of shortness of breath No history of CHF-echo of the heart showed normal EF with grade 1 diastolic dysfunction (2) SOB (shortness of breath): Plan: As above (3) Hypertension: Plan: Blood pressure remains on the lower side of normal Will monitor (4) Hypothyroidism: Plan: Hypothyroidism, euthyroid as of today stage (5) Chronic anemia: Plan: Chronic anemia, hemoglobin at baseline, hx recent GI bleed 3 months ago as per family, hx gastric erosions/AVM as per records Globin stable at 8.5 Iron level is low Will start oral iron (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 Wound care nurse consult for left neck wound Retrieve outpatient records from patient's PCP Plan History of PVD on aspirin DVT prophylaxis. Teds for now; SCDs if LE Dopplers negative for DVT Re: History GI bleed Full code as per family Patient son requesting updates providers. Mr. Rafael Dobbins, contact #[phone]. Admission and Anticipated Discharge Date Admission Date: September 29, 2022 Subjective 09/29/2022 The patient was seen and examined in telemetry unit He was noted to be very short of breath and wheezing this morning When I saw him he was conversing normally with minimal wheezing and shortness of breath Does not have any chest pain or palpitation but has cough Has been feeling a little better Review of Systems Review of Systems: All systems reviewed and are unremarkable except as noted below Respiratory: Minimal respiratory distress Physical Exam Physical Exam: Sitting at the edge of the bed with minimal respiratory distress Constitutional: + ill appearing and average body habitus Eyes: PERRL, conjunctivae normal, anicteric sclerae ENMT: external ear and nose normal, oropharynx normal Neck: trachea midline, no thyromegaly Respiratory: + respiratory distress (Mild to moderate respiratory distress) Auscultation: + diminished lung sounds, + crackles (Bibasilar crackles) and + wheezes (All over) Cardiovascular: Rate/Rhythm: regular rate, regular rhythm and + bradycardic Heart Sounds: normal S1, normal S2 and + murmur Extremities: + edema (Trace edema bilaterally) Gastrointestinal (Abdomen): Inspection/Auscultation: normal bowel sounds; abdomen not distended Percussion/Palpation: abdomen soft; abdomen nontender Musculoskeletal: No acute arthritis involving any joint Neurologic: Alert, awake and oriented x3. Generally very weak and lethargic Results & Data Results & Data Vital Signs (Past 12 Hours) Vital Signs Temp Pulse Pulse Resp BP BP Pulse Ox 09/29/22 08:00 543 H 09/29/22 12:49 59 L 20 95 09/29/22 11:05 36.5 C 58 L 18 108/63 100 09/29/22 08:00 09/29/22 09:57 62 22 95 09/29/22 07:22 54 L 28 H 100 09/29/22 06:54 36.4 C L 55 L 22 148/72 H 100 09/29/22 06:24 09/29/22 06:06 51 L 20 118/53 L 100 09/29/22 05:53 66 20 127/55 L 100 09/29/22 04:30 59 L 24 134/67 99 09/29/22 04:06 66 22 121/66 99 09/29/22 03:00 58 L 22 134/59 L 99 09/29/22 03:52 59 L O2 Del Method O2 Flow Rate 09/29/22 08:00 09/29/22 12:49 Nasal Cannula 3 09/29/22 11:05 Room Air 09/29/22 08:00 Nasal Cannula 3 09/29/22 09:57 Nasal Cannula 3 09/29/22 07:22 Nasal Cannula 6 09/29/22 06:54 Nasal Cannula 5 09/29/22 06:24 Nasal Cannula 09/29/22 06:06 09/29/22 05:53 09/29/22 04:30 09/29/22 04:06 09/29/22 03:00 09/29/22 03:52 Laboratory Results Short CBC 09/28/22 09/29/22 Range/Units 23:51 06:47 WBC 7.94 5.23 (4.8-10.8) K/ul Hgb 9.1 L 8.5 L (14.0-18.0) g/dl Hct 30.9 L 28.2 L (42.0-52.0) % Plt Count 340 274 (130-400) K/uL BMP 09/28/22 09/29/22 23:51 06:47 Sodium 139 136 Potassium 4.4 4.5 Chloride 99 97 L Carbon Dioxide 35 H 33 H BUN 21 21 Creatinine 1.01 0.97 Glucose 111 H 172 H Calcium 8.9 8.8 Liver Function 09/28/22 Range/Units 23:51 Total Bilirubin 0.4 (0.2-1.0) mg/dl AST 16 (13-39) U/L ALT 8 (7-52) U/L Alkaline Phosphatase 54 (34-104) U/L Albumin 3.7 (3.4-5.0) gm/dl Urine 09/29/22 Range/Units 01:00 Urine Color Dark Yellow Urine Appearance Clear (Clear) Urine pH 5.5 (4.5-7.5) Ur Specific [place] 1.025 (1.000-1.030) Urine Protein Trace H (Negative) Urine Glucose (UA) Negative (Negative) Medications Administered Current Inpatient Medications Acetaminophen (Acetaminophen 325 Mg Tab) 650 mg PO Q4H PRN PRN Reason: Pain or Fever Stop: 10/29/22 06:53 Albuterol (Albut/Ipratrop 3mg/0.5mg Neb 3 Ml Vial) 3 ml NEB Q2H PRN; Protocol PRN Reason: Shortness Of Breath Or Wheezing Stop: 10/29/22 09:59 Last Admin: 09/29/22 09:59 Dose: 3 ml Artificial Tears (Artificial Tears) 1 drops OP QID ILIANA Stop: 10/29/22 08:59 Last Admin: 09/29/22 12:52 Dose: Not Given Aspirin (Aspirin 81 Mg Ectab) 81 mg PO DAILY ILIANA Stop: 10/29/22 08:59 Last Admin: 09/29/22 08:12 Dose: 81 mg Clindamycin HCl (Clindamycin Hcl 150 Mg Cap) [address] [facility] Stop: 10/06/22 13:59 Last Admin: 09/29/22 14:26 Dose: 300 mg Diclofenac Sodium (Diclofenac Sod 1% Gel 100 Gm Tube) 2 gm EXT QID PRN; Protocol PRN Reason: Pain Stop: 10/29/22 06:53 Erythromycin (Erythromycin Op Oint 5 Mg/Gm 3.5 Gm Tube) [address] [facility] Stop: 10/09/22 20:59 Ferrous Sulfate (Ferrous Sulfate 325 Mg Tab) 325 mg PO DAILY ILIANA Stop: 10/29/22 08:59 Last Admin: 09/29/22 09:22 Dose: 325 mg Promethazine HCl 6.25 mg/ (Sodium Chloride) 50.25 mls @ 201 mls/hr IV Q6H PRN PRN Reason: Nausea And Vomiting Stop: 10/29/22 06:53 Methylprednisolone 40 mg/ (Syringe) 0.64 mls @ 1.5 mls/min IV BID ILIANA Stop: 10/29/22 09:59 Last Admin: 09/29/22 11:56 Dose: 1.5 mls/min Ipratropium Catarina (Ipratropium Catarina Neb Soln 0.02% 2.5 Ml Vial) 0.[address] [facility] Stop: 10/29/22 06:59 Last Admin: 09/29/22 12:49 Dose: 0.5 mg Isosorbide Mononitrate (Isosorbide Terry Extended Rel 30 Mg Tabcr) 30 mg PO QAM ILIANA Stop: 10/29/22 08:59 Last Admin: 09/29/22 09:22 Dose: 30 mg Levalbuterol HCl (Levalbuterol 1.25mg/0.5ml Neb) 1.[address] [facility] Stop: 10/29/22 06:59 Last Admin: 09/29/22 12:49 Dose: 1.25 mg Levothyroxine Sodium (Levothyroxine Sodium 25 Mcg Tablet) [address] [facility] Stop: 10/29/22 06:53 Last Admin: 09/29/22 09:22 Dose: 25 mcg Multivitamins (Multivitamin Tab) 1 tab PO DAILY ILIANA Stop: 10/29/22 08:59 Last Admin: 09/29/22 08:13 Dose: 1 tab Oxycodone HCl (Oxycodone Hcl Ir 5 Mg Tab (Immediate Release)) 5 mg PO Q4H PRN PRN Reason: Pain Stop: 10/13/22 06:53 Pantoprazole Sodium (Pantoprazole 40 Mg Tab) [address] [facility] Stop: 10/29/22 08:59 Last Admin: 09/29/22 08:13 Dose: 40 mg Roflumilast (Roflumilast 500 Mcg Tab) 500 mcg PO DAILY ILIANA Stop: 10/29/22 08:59 Last Admin: 09/29/22 09:22 Dose: 500 mcg Umeclidinium Catarina (Umeclidinium Catarina 62.5mcg/Blister 7 Puffs/Inhaler) 1 puffs INH DAILY ILIANA Stop: 10/29/22 08:59 Last Admin: 09/29/22 08:13 Dose: 1 puffs
[2022-09-29] MEDS: ERYTHROMYCIN OP OINT 5 MG/GM 3.5 GM TUBE OP SCH (21:32)
[2022-09-30] MEDS: IPRATROPIUM BROMIDE NEB SOLN 0.02% 2.5 ML VIAL INH SCH ×4 (01:11→19:59)
[2022-09-30] MEDS: LEVALBUTEROL 1.25MG/0.5ML NEB INH SCH ×4 (01:11→19:59)
--- NOTE | 2022-09-30 05:49 | Electrocardiogram Report ---
Test Reason : Blood Pressure : / mmHG Vent. Rate : 076 BPM Atrial Rate : 076 BPM P-R Int : 168 ms QRS Dur : 130 ms QT Int : 440 ms P-R-T Axes : 042 -53 058 degrees QTc Int : 495 ms Sinus rhythm with Premature atrial complexes Left axis deviation Right bundle branch block Septal infarct , age undetermined Abnormal ECG When compared with ECG of 26-SEP-2022 01:56, No significant change Confirmed by Ry Rivas ([id number]) on 09/30/2022 5:49:03 AM Referred By: REFERRED SELF Confirmed By:Ry Rivas
[2022-09-30] MEDS: LEVOTHYROXINE SODIUM 25 MCG TABLET PO SCH (06:04)
[2022-09-30] MEDS: ACETAMINOPHEN 325 MG TAB PO PRN ×2 (06:33→20:10)
[2022-09-30 06:55] LABS: Basophils # (auto) 0.01 K/uL (0-0.2); Basophils % (auto) 0.1 %; Hematocrit (blood only) 27.3 % (42.0-52.0); Hemoglobin 8.3 g/dl (14.0-18.0); Immature Granulocytes # (auto) 0.07 K/uL (0.01-0.20); Immature Granulocytes % (auto) 0.8 %; Lymphocytes # (auto) 0.77 K/uL (1.2-3.4); Mean Corpuscular Hemoglobin 23.9 pg (25.0-34.0); Mean Corpuscular Hgb Conc 30.4 g/dL (32.0-36.0); Mean Corpuscular Volume 78.7 fL (80.0-100.0); Mean Platelet Volume 9.3 fL (9.4-12.4); Monocytes # (auto) 0.67 K/uL (0.11-0.59); Monocytes % (auto) 7.8 %; Neutrophils # (auto) 7.02 K/uL (1.40-6.50); Neutrophils % (auto) 82.3 %; Platelet Count 339 K/uL (130-400); RDW Coefficient of Variation 18.9 % (11.5-14.5); RDW Standard Deviation 53.6 fL (36.4-46.3); Red Blood Count 3.47 M/uL (4.70-6.10); White Blood Count 8.54 K/ul (4.8-10.8)
[2022-09-30 07:12] LABS: BUN Creatinine Ratio 23.7 (10-20); Calcium 8.8 mg/dl (8.6-10.3); Creatinine Clr Calc Pharmacy 39.7 ml/min; Est GFR (Non-African American) 54.4 ml/min; Magnesium 2.1 mg/dl (1.7-2.4)
[2022-09-30] MEDS ORDERED: predniSONE 20 MG TAB PO SCH (09:00)
[2022-09-30] MEDS: ARTIFICIAL TEARS OP SCH ×4 (09:18→20:11)
[2022-09-30] MEDS: ASPIRIN 81 MG ECTAB PO SCH (09:19)
[2022-09-30] MEDS: CLINDAMYCIN HCL 150 MG CAP PO SCH ×3 (09:20→20:10)
[2022-09-30] MEDS: FERROUS SULFATE 325 MG TAB PO SCH (09:22)
[2022-09-30] MEDS: methylPREDNISolone 40 MG in SYRINGE 0 ML IV SCH ×2 (09:23→20:10)
[2022-09-30] MEDS: ISOSORBIDE MONO EXTENDED REL 30 MG TABCR PO SCH (09:23)
[2022-09-30] MEDS: ROFLUMILAST 500 MCG TAB PO SCH (09:24)
[2022-09-30] MEDS: MULTIVITAMIN TAB PO SCH (09:24)
[2022-09-30] MEDS: PANTOprazole 40 MG TAB PO SCH (09:24)
[2022-09-30] MEDS: UMECLIDINIUM BROMIDE 62.5MCG/BLISTER 7 PUFFS/INHALER INH SCH (09:25)
--- NOTE | 2022-09-30 16:16 | Hospitalist Progress Note ---
Date of Service September 30, 2022 Assessment & Plan (1) Acute exacerbation of chronic obstructive airways disease: Plan: History of COPD and has been on home oxygen Worsening shortness of breath for the last few days No fever and/or chest pain Has significant exacerbation of COPD with possible aspiration No pneumonia on chest x-ray and/or CT scan and no pulmonary embolism Appreciate speech therapy input and evaluation Clears has been started will advance as tolerated Has been getting bronchodilators as needed and also Solu-Medrol small doses Has cough with productive yellowish phlegm Sputum culture is pending but growing mixed daniel Will give Hycodan to suppress cough and take care of pain Bibasilar crackles suggestive of edema No chest x-ray evidence of CHF Received Lasix 20 mg x 2 since admission with significant improvement of shortness of breath No history of CHF-echo of the heart showed normal EF with grade 1 diastolic dysfunction Will give another small dose of Lasix this afternoon (2) SOB (shortness of breath): Plan: As above (3) Hypertension: Plan: Blood pressure remains on the lower side of normal Will monitor (4) Hypothyroidism: Plan: Hypothyroidism, euthyroid as of today stage (5) Chronic anemia: Plan: Chronic anemia, hemoglobin at baseline, hx recent GI bleed 3 months ago as per family, hx gastric erosions/AVM as per records Globin stable at 8.5 Iron level is low Will start oral iron (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 Wound care nurse consult for left neck wound Retrieve outpatient records from patient's PCP Denies any significant symptoms regarding the neck Plan History of PVD on aspirin DVT prophylaxis. Teds for now; SCDs if LE Dopplers negative for DVT Re: History GI bleed Full code as per family Patient son requesting updates providers. Mr. Rafael Dobbins, contact #[phone]. Admission and Anticipated Discharge Date Admission Date: September 29, 2022 Subjective 09/29/2022 The patient was seen and examined in telemetry unit He was noted to be very short of breath and wheezing this morning When I saw him he was conversing normally with minimal wheezing and shortness of breath Does not have any chest pain or palpitation but has cough Has been feeling a little better 09/30/2022 The patient was seen and examined in telemetry unit He has been feeling a little better and his breathing has improved There is no fever and or chills but he still has a cough which is causing some pain in the abdomen and lower chest wall He does not have any complaint regarding his neck Review of Systems Review of Systems: All systems reviewed and are unremarkable except as noted below Respiratory: Minimal respiratory distress Physical Exam Physical Exam: Sitting at the edge of the bed with minimal respiratory distress Constitutional: + ill appearing and average body habitus Eyes: PERRL, conjunctivae normal, anicteric sclerae ENMT: external ear and nose normal, oropharynx normal Neck: trachea midline, no thyromegaly Left neck is bandaged and has a wound. Ectropion involving the left lower lid Respiratory: + respiratory distress (Mild to moderate respiratory distress) Auscultation: + diminished lung sounds, + crackles (Bibasilar crackles) and + wheezes (All over) Cardiovascular: Rate/Rhythm: regular rate, regular rhythm and + bradycardic Heart Sounds: normal S1, normal S2 and + murmur Extremities: + edema (Trace edema bilaterally) Gastrointestinal (Abdomen): Inspection/Auscultation: normal bowel sounds; abdomen not distended Percussion/Palpation: abdomen soft; abdomen nontender Musculoskeletal: No acute arthritis involving any joint Neurologic: normal touch/pain/proprioception and moves all extremities Lymphatic: no cervical or axillary lymphadenopathy Results & Data Results & Data Vital Signs (Past 12 Hours) Vital Signs Temp Pulse Pulse Resp BP BP Pulse Ox 09/30/22 12:30 80 22 96 09/30/22 11:26 36.3 C L 66 16 138/62 96 09/30/22 10:06 67 09/30/22 09:16 108/49 L 09/30/22 09:10 09/30/22 06:54 09/30/22 07:56 36.4 C L 60 18 132/67 94 09/30/22 07:34 71 20 93 Pulse Ox O2 Del Method O2 Del Method O2 Flow Rate O2 Flow Rate 09/30/22 12:30 Nasal Cannula 3 09/30/22 11:26 Nasal Cannula 3 09/30/22 10:06 09/30/22 09:16 09/30/22 09:10 Nasal Cannula 3 09/30/22 06:54 94 Nasal Cannula 3 09/30/22 07:56 Nasal Cannula 3 09/30/22 07:34 Nasal Cannula 3 Laboratory Results Short CBC 09/30/22 Range/Units 05:59 WBC 8.54 (4.8-10.8) K/ul Hgb 8.3 L (14.0-18.0) g/dl Hct 27.3 L (42.0-52.0) % Plt Count 339 (130-400) K/uL BMP 09/30/22 05:59 Sodium 138 Potassium 4.0 Chloride 97 L Carbon Dioxide 36 H BUN 28 H Creatinine 1.18 Glucose 142 H Calcium 8.8 Medications Administered Current Inpatient Medications Acetaminophen (Acetaminophen 325 Mg Tab) 650 mg PO Q4H PRN PRN Reason: Pain or Fever Stop: 10/29/22 06:53 Last Admin: 09/30/22 06:33 Dose: 650 mg Albuterol (Albut/Ipratrop 3mg/0.5mg Neb 3 Ml Vial) 3 ml NEB Q2H PRN; Protocol PRN Reason: Shortness Of Breath Or Wheezing Stop: 10/29/22 09:59 Last Admin: 09/29/22 09:59 Dose: 3 ml Artificial Tears (Artificial Tears) 1 drops OP QID [place] Stop: 10/29/22 08:59 Last Admin: 09/30/22 13:45 Dose: 1 drops Aspirin (Aspirin 81 Mg Ectab) 81 mg PO DAILY [facility] Stop: 10/29/22 08:59 Last Admin: 09/30/22 09:19 Dose: 81 mg Clindamycin HCl (Clindamycin Hcl 150 Mg Cap) 300 mg PO TID [facility] Stop: 10/06/22 13:59 Last Admin: 09/30/22 13:45 Dose: 300 mg Diclofenac Sodium (Diclofenac Sod 1% Gel 100 Gm Tube) 2 gm EXT QID PRN; Protocol PRN Reason: Pain Stop: 10/29/22 06:53 Erythromycin (Erythromycin Op Oint 5 Mg/Gm 3.5 Gm Tube) 1 appln OP HS [facility] Stop: 10/09/22 20:59 Last Admin: 09/29/22 21:32 Dose: 1 appln Ferrous Sulfate (Ferrous Sulfate 325 Mg Tab) 325 mg PO DAILY [facility] Stop: 10/29/22 08:59 Last Admin: 09/30/22 09:22 Dose: 325 mg Hydrocodone Bit/Homatropine Methylb (Hydrocodone/Homatropine Syrup 5mg/1.5mg 5ml Udp) 5 ml PO Q6H PRN PRN Reason: Cough Stop: 10/14/22 10:10 Promethazine HCl 6.25 mg/ (Sodium Chloride) 50.25 mls @ 201 mls/hr IV Q6H PRN PRN Reason: Nausea And Vomiting Stop: 10/29/22 06:53 Methylprednisolone 40 mg/ (Syringe) 0.64 mls @ 1.5 mls/min IV BID [facility] Stop: 10/29/22 09:59 Last Admin: 09/30/22 09:23 Dose: 1.5 mls/min Ipratropium [place] (Ipratropium [place] Neb Soln 0.02% 2.5 Ml Vial) 0.5 mg INH Q6R [facility] Stop: 10/29/22 06:59 Last Admin: 09/30/22 12:30 Dose: 0.5 mg Isosorbide Mononitrate (Isosorbide [place] Extended Rel 30 Mg Tabcr) 30 mg PO QAM [facility] Stop: 10/29/22 08:59 Last Admin: 09/30/22 09:23 Dose: 30 mg Levalbuterol HCl (Levalbuterol 1.25mg/0.5ml Neb) 1.25 mg INH Q6R [facility] Stop: 10/29/22 06:59 Last Admin: 09/30/22 12:30 Dose: 1.25 mg Levothyroxine Sodium (Levothyroxine Sodium 25 Mcg Tablet) 25 mcg PO DAILYBB [facility] Stop: 10/29/22 06:53 Last Admin: 09/30/22 06:04 Dose: 25 mcg Multivitamins (Multivitamin Tab) 1 tab PO DAILY [facility] Stop: 10/29/22 08:59 Last Admin: 09/30/22 09:24 Dose: 1 tab Oxycodone HCl (Oxycodone Hcl Ir 5 Mg Tab (Immediate Release)) 5 mg PO Q4H PRN PRN Reason: Pain Stop: 10/13/22 06:53 Pantoprazole Sodium (Pantoprazole 40 Mg Tab) 40 mg PO DAILY [facility] Stop: 10/29/22 08:59 Last Admin: 09/30/22 09:24 Dose: 40 mg Roflumilast (Roflumilast 500 Mcg Tab) 500 mcg PO DAILY [facility] Stop: 10/29/22 08:59 Last Admin: 09/30/22 09:24 Dose: 500 mcg Umeclidinium [place] (Umeclidinium [place] 62.5mcg/Blister 7 Puffs/Inhaler) 1 puffs INH DAILY [facility] Stop: 10/29/22 08:59 Last Admin: 09/30/22 09:25 Dose: 1 puffs
[2022-09-30] MEDS ORDERED: FUROSEMIDE INJ 20 MG/2 ML VIAL IV ONE (16:19)
[2022-09-30] MEDS: ERYTHROMYCIN OP OINT 5 MG/GM 3.5 GM TUBE OP SCH (20:10)
[2022-09-30] MEDS: ALBUT/IPRATROP 3MG/0.5MG NEB 3 ML VIAL NEB PRN (22:53)
[2022-09-30] MEDS: HYDROcodone/HOMATROPINE SYRUP 5MG/1.5MG 5ML UDP PO PRN (23:27)
[2022-10-01] MEDS: IPRATROPIUM BROMIDE NEB SOLN 0.02% 2.5 ML VIAL INH SCH ×4 (01:19→20:10)
[2022-10-01] MEDS: LEVALBUTEROL 1.25MG/0.5ML NEB INH SCH ×4 (01:19→20:10)
[2022-10-01] MEDS: LEVOTHYROXINE SODIUM 25 MCG TABLET PO SCH (06:29)
[2022-10-01] MEDS: HYDROcodone/HOMATROPINE SYRUP 5MG/1.5MG 5ML UDP PO PRN ×3 (06:31→20:51)
[2022-10-01 06:36] LABS: Basophils # (auto) 0.01 K/uL (0-0.2); Basophils % (auto) 0.1 %; Hematocrit (blood only) 29.2 % (42.0-52.0); Hemoglobin 8.8 g/dl (14.0-18.0); Immature Granulocytes # (auto) 0.13 K/uL (0.01-0.20); Lymphocytes % (auto) 5.3 %; Mean Corpuscular Hemoglobin 23.6 pg (25.0-34.0); Mean Corpuscular Hgb Conc 30.1 g/dL (32.0-36.0); Mean Corpuscular Volume 78.3 fL (80.0-100.0); Mean Platelet Volume 9.1 fL (9.4-12.4); Monocytes # (auto) 1.05 K/uL (0.11-0.59); Monocytes % (auto) 7.9 %; Neutrophils # (auto) 11.38 K/uL (1.40-6.50); Neutrophils % (auto) 85.7 %; Platelet Count 405 K/uL (130-400); RDW Standard Deviation 53.7 fL (36.4-46.3); Red Blood Count 3.73 M/uL (4.70-6.10); White Blood Count 13.27 K/ul (4.8-10.8)
[2022-10-01 06:37] LABS: BUN Creatinine Ratio 21.9 (10-20); Creatinine Clr Calc Pharmacy 36.6 ml/min; Est GFR (African American) 57.1 ml/min; Est GFR (Non-African American) 49.3 ml/min; Potassium 3.6 mmol/L (3.5-5.1)
[2022-10-01] MEDS: UMECLIDINIUM BROMIDE 62.5MCG/BLISTER 7 PUFFS/INHALER INH SCH (08:59)
[2022-10-01] MEDS: FERROUS SULFATE 325 MG TAB PO SCH (09:01)
[2022-10-01] MEDS: CLINDAMYCIN HCL 150 MG CAP PO SCH ×3 (09:01→20:48)
[2022-10-01] MEDS: ASPIRIN 81 MG ECTAB PO SCH (09:01)
[2022-10-01] MEDS: methylPREDNISolone 40 MG in SYRINGE 0 ML IV SCH ×2 (09:01→20:49)
[2022-10-01] MEDS: PANTOprazole 40 MG TAB PO SCH (09:01)
[2022-10-01] MEDS: MULTIVITAMIN TAB PO SCH (09:01)
[2022-10-01] MEDS: ROFLUMILAST 500 MCG TAB PO SCH (09:01)
[2022-10-01] MEDS: ISOSORBIDE MONO EXTENDED REL 30 MG TABCR PO SCH (09:01)
[2022-10-01] MEDS: ARTIFICIAL TEARS OP SCH ×4 (09:02→20:48)
[2022-10-01] MEDS ORDERED: FUROSEMIDE 40 MG/4 ML VIAL IV ONE (10:04)
[2022-10-01] MEDS: FLUTICASONE/VILANTEROL 100/25MCG 14 PUFFS/INHALER INH SCH (11:31)
--- NOTE | 2022-10-01 14:18 | Hospitalist Progress Note ---
Date of Service October 01, 2022 Assessment & Plan (1) Acute exacerbation of chronic obstructive airways disease: Plan: History of COPD and has been on home oxygen Worsening shortness of breath for the last few days No fever and/or chest pain Has significant exacerbation of COPD with possible aspiration No pneumonia on chest x-ray and/or CT scan and no pulmonary embolism Appreciate speech therapy input and evaluation Clears has been started will advance as tolerated Has been getting bronchodilators as needed and also Solu-Medrol small doses Has cough with productive yellowish phlegm Sputum culture is pending but growing mixed daniel Will give Hycodan to suppress cough and take care of pain Clinically a little better-taking longer time to recover We will get PT and OT evaluation Bibasilar crackles suggestive of edema No chest x-ray evidence of CHF Received Lasix 20 mg x 2 since admission with significant improvement of shortness of breath No history of CHF-echo of the heart showed normal EF with grade 1 diastolic dysfunction We will give another dose of Lasix of 40 mg IV today (2) SOB (shortness of breath): Plan: As above (3) Hypertension: Plan: Blood pressure remains on the lower side of normal Will monitor (4) Hypothyroidism: Plan: Hypothyroidism, euthyroid as of today stage (5) Chronic anemia: Plan: Chronic anemia, hemoglobin at baseline, hx recent GI bleed 3 months ago as per family, hx gastric erosions/AVM as per records Globin stable at 8.5 Iron level is low Will start oral iron (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 Wound care nurse consult for left neck wound Retrieve outpatient records from patient's PCP Denies any significant symptoms regarding the neck Will discuss with the son about further management of the neck wound as an outpatient Plan History of PVD on aspirin DVT prophylaxis. Teds for now; SCDs if LE Dopplers negative for DVT Re: History GI bleed Full code as per family Patient son requesting updates providers. Mr. Rafael Dobbins, contact #[phone]. Admission and Anticipated Discharge Date Admission Date: September 29, 2022 Subjective 09/29/2022 The patient was seen and examined in telemetry unit He was noted to be very short of breath and wheezing this morning When I saw him he was conversing normally with minimal wheezing and shortness of breath Does not have any chest pain or palpitation but has cough Has been feeling a little better 09/30/2022 The patient was seen and examined in telemetry unit He has been feeling a little better and his breathing has improved There is no fever and or chills but he still has a cough which is causing some pain in the abdomen and lower chest wall He does not have any complaint regarding his neck 10/01/2022 The patient was seen and examined in telemetry unit He has been feeling a little better but he still has cough and shortness of breath at rest Denies any other significant symptoms he wants to go home Review of Systems Review of Systems: All systems reviewed and are unremarkable except as noted below Respiratory: Minimal respiratory distress Physical Exam Physical Exam: Sitting at the edge of the bed with minimal respiratory distress Constitutional: + ill appearing and average body habitus Eyes: PERRL, conjunctivae normal, anicteric sclerae ENMT: external ear and nose normal, oropharynx normal Neck: Has neck neck lesions under care of home health nurse and the outpatient provider Respiratory: + respiratory distress (Mild to moderate respiratory distress) Auscultation: + diminished lung sounds, + crackles (Bibasilar crackles) and + wheezes (All over) Cardiovascular: Rate/Rhythm: regular rate, regular rhythm and + bradycardic Heart Sounds: normal S1, normal S2 and + murmur Extremities: + edema (Trace edema bilaterally) Gastrointestinal (Abdomen): Inspection/Auscultation: normal bowel sounds; abdomen not distended Percussion/Palpation: abdomen soft; abdomen nontender Musculoskeletal: No acute arthritis involving any joint Neurologic: normal touch/pain/proprioception and moves all extremities Lymphatic: no cervical or axillary lymphadenopathy Results & Data Results & Data Vital Signs (Past 12 Hours) Vital Signs Temp Pulse Pulse Resp BP Pulse Ox O2 Del Method 10/01/22 08:00 72 10/01/22 13:27 99 H 22 94 Nasal Cannula 10/01/22 11:08 36.8 C 89 22 120/48 L 100 Nasal Cannula 10/01/22 07:27 80 18 96 Nasal Cannula 10/01/22 07:05 36.6 C 87 20 137/63 94 Nasal Cannula, Oxymask 10/01/22 05:07 36.8 C 75 18 126/65 97 Nasal Cannula O2 Flow Rate 04/14/23 08:00 10/01/22 13:27 4 10/01/22 11:08 4 10/01/22 07:27 3 10/01/22 07:05 3 10/01/22 05:07 3.0 Laboratory Results Short CBC 10/01/22 Range/Units 06:01 WBC 13.27 H (4.8-10.8) K/ul Hgb 8.8 L (14.0-18.0) g/dl Hct 29.2 L (42.0-52.0) % Plt Count 405 H (130-400) K/uL BMP 10/01/22 06:01 Sodium 140 Potassium 3.6 Chloride 98 Carbon Dioxide 35 H BUN 28 H Creatinine 1.28 Glucose 150 H Calcium 9.0 Medications Administered Current Inpatient Medications Acetaminophen (Acetaminophen 325 Mg Tab) 650 mg PO Q4H PRN PRN Reason: Pain or Fever Stop: 10/29/22 06:53 Last Admin: 09/30/22 20:10 Dose: 650 mg Albuterol (Albut/Ipratrop 3mg/0.5mg Neb 3 Ml Vial) 3 ml NEB Q2H PRN; Protocol PRN Reason: Shortness Of Breath Or Wheezing Stop: 10/29/22 09:59 Last Admin: 09/30/22 22:53 Dose: 3 ml Artificial Tears (Artificial Tears) 1 drops OP QID ILIANA Stop: 10/29/22 08:59 Last Admin: 10/01/22 12:47 Dose: 1 drops Aspirin (Aspirin 81 Mg Ectab) 81 mg PO DAILY [facility] Stop: 10/29/22 08:59 Last Admin: 10/01/22 09:01 Dose: 81 mg Clindamycin HCl (Clindamycin Hcl 150 Mg Cap) 300 mg PO TID [facility] Stop: 10/06/22 13:59 Last Admin: 10/01/22 09:01 Dose: 300 mg Diclofenac Sodium (Diclofenac Sod 1% Gel 100 Gm Tube) 2 gm EXT QID PRN; Protocol PRN Reason: Pain Stop: 10/29/22 06:53 Erythromycin (Erythromycin Op Oint 5 Mg/Gm 3.5 Gm Tube) 1 appln OP HS [facility] Stop: 10/09/22 20:59 Last Admin: 09/30/22 20:10 Dose: 1 appln Ferrous Sulfate (Ferrous Sulfate 325 Mg Tab) 325 mg PO DAILY [facility] Stop: 10/29/22 08:59 Last Admin: 10/01/22 09:01 Dose: 325 mg Fluticasone/Vilanterol (Fluticasone/Vilanterol 100/25mcg 14 Puffs/Inhaler) 1 puffs INH DAILY [facility] Stop: 10/31/22 10:14 Last Admin: 10/01/22 11:31 Dose: 1 puffs Hydrocodone Bit/Homatropine Methylb (Hydrocodone/Homatropine Syrup 5mg/1.5mg 5ml Udp) 5 ml PO Q6H PRN PRN Reason: Cough Stop: 10/14/22 10:10 Last Admin: 10/01/22 06:31 Dose: 5 ml Promethazine HCl 6.25 mg/ (Sodium Chloride) 50.25 mls @ 201 mls/hr IV Q6H PRN PRN Reason: Nausea And Vomiting Stop: 10/29/22 06:53 Methylprednisolone 40 mg/ (Syringe) 0.64 mls @ 1.5 mls/min IV BID [facility]IANA Stop: 10/29/22 09:59 Last Admin: 10/01/22 09:01 Dose: 1.5 mls/min Ipratropium [place] (Ipratropium [place] Neb Soln 0.02% 2.5 Ml Vial) 0.5 mg INH Q6R [facility] Stop: 10/29/22 06:59 Last Admin: 10/01/22 13:26 Dose: 0.5 mg Isosorbide Mononitrate (Isosorbide [place] Extended Rel 30 Mg Tabcr) 30 mg PO QAM [facility] Stop: 10/29/22 08:59 Last Admin: 10/01/22 09:01 Dose: 30 mg Levalbuterol HCl (Levalbuterol 1.25mg/0.5ml Neb) 1.25 mg INH Q6R [facility] Stop: 10/29/22 06:59 Last Admin: 10/01/22 13:27 Dose: 1.25 mg Levothyroxine Sodium (Levothyroxine Sodium 25 Mcg Tablet) 25 mcg PO DAILYBB [facility] Stop: 10/29/22 06:53 Last Admin: 10/01/22 06:29 Dose: 25 mcg Multivitamins (Multivitamin Tab) 1 tab PO DAILY [facility] Stop: 10/29/22 08:59 Last Admin: 10/01/22 09:01 Dose: 1 tab Oxycodone HCl (Oxycodone Hcl Ir 5 Mg Tab (Immediate Release)) 5 mg PO Q4H PRN PRN Reason: Pain Stop: 10/13/22 06:53 Pantoprazole Sodium (Pantoprazole 40 Mg Tab) 40 mg PO DAILY [facility] Stop: 10/29/22 08:59 Last Admin: 10/01/22 09:01 Dose: 40 mg Roflumilast (Roflumilast 500 Mcg Tab) 500 mcg PO DAILY [facility] Stop: 10/29/22 08:59 Last Admin: 10/01/22 09:01 Dose: 500 mcg Umeclidinium [place] (Umeclidinium [place] 62.5mcg/Blister 7 Puffs/Inhaler) 1 puffs INH DAILY [facility] Stop: 10/29/22 08:59 Last Admin: 10/01/22 08:59 Dose: 1 puffs
[2022-10-01] MEDS: ERYTHROMYCIN OP OINT 5 MG/GM 3.5 GM TUBE OP SCH (20:48)
[2022-10-02] MEDS: IPRATROPIUM BROMIDE NEB SOLN 0.02% 2.5 ML VIAL INH SCH ×4 (01:06→19:59)
[2022-10-02] MEDS: LEVALBUTEROL 1.25MG/0.5ML NEB INH SCH ×4 (01:06→19:59)
[2022-10-02] MEDS: LEVOTHYROXINE SODIUM 25 MCG TABLET PO SCH (05:42)
[2022-10-02 06:35] LABS: Hemoglobin 8.3 g/dl (14.0-18.0); Immature Granulocytes # (auto) 0.09 K/uL (0.01-0.20); Immature Granulocytes % (auto) 0.9 %; Lymphocytes # (auto) 0.67 K/uL (1.2-3.4); Lymphocytes % (auto) 6.7 %; Mean Corpuscular Hemoglobin 23.9 pg (25.0-34.0); Mean Corpuscular Hgb Conc 30.7 g/dL (32.0-36.0); Mean Corpuscular Volume 77.6 fL (80.0-100.0); Mean Platelet Volume 9.2 fL (9.4-12.4); Monocytes # (auto) 1.05 K/uL (0.11-0.59); Monocytes % (auto) 10.5 %; Neutrophils # (auto) 8.21 K/uL (1.40-6.50); Neutrophils % (auto) 81.9 %; Platelet Count 418 K/uL (130-400); RDW Coefficient of Variation 19.1 % (11.5-14.5); RDW Standard Deviation 54.5 fL (36.4-46.3); Red Blood Count 3.48 M/uL (4.70-6.10); White Blood Count 10.02 K/ul (4.8-10.8)
[2022-10-02 07:01] LABS: BUN Creatinine Ratio 26.2 (10-20); Calcium 8.9 mg/dl (8.6-10.3); Est GFR (African American) 56.1 ml/min; Est GFR (Non-African American) 48.4 ml/min; Potassium 4.1 mmol/L (3.5-5.1)
[2022-10-02] MEDS: ARTIFICIAL TEARS OP SCH ×4 (08:54→20:35)
[2022-10-02] MEDS: CLINDAMYCIN HCL 150 MG CAP PO SCH (08:54)
[2022-10-02] MEDS: ROFLUMILAST 500 MCG TAB PO SCH (08:56)
[2022-10-02] MEDS: PANTOprazole 40 MG TAB PO SCH (08:56)
[2022-10-02] MEDS: MULTIVITAMIN TAB PO SCH (08:56)
[2022-10-02] MEDS: ASPIRIN 81 MG ECTAB PO SCH (08:57)
[2022-10-02] MEDS: FLUTICASONE/VILANTEROL 100/25MCG 14 PUFFS/INHALER INH SCH (08:57)
[2022-10-02] MEDS: ISOSORBIDE MONO EXTENDED REL 30 MG TABCR PO SCH (08:57)
[2022-10-02] MEDS: FERROUS SULFATE 325 MG TAB PO SCH (08:57)
[2022-10-02] MEDS: UMECLIDINIUM BROMIDE 62.5MCG/BLISTER 7 PUFFS/INHALER INH SCH (08:58)
[2022-10-02] MEDS: methylPREDNISolone 40 MG in SYRINGE 0 ML IV SCH ×2 (08:58→20:23)
[2022-10-02] MEDS: ACETAMINOPHEN 325 MG TAB PO PRN (09:06)
[2022-10-02] MEDS ORDERED: oxyCODONE/ACETAMINOPHEN 5mg/325mg TAB PO PRN (09:34)
[2022-10-02] MEDS: CIPROFLOXACIN / D5W 400 MG/200 ML BAG IV SCH ×2 (10:37→22:29)
[2022-10-02] MEDS: ALBUT/IPRATROP 3MG/0.5MG NEB 3 ML VIAL NEB PRN (13:12)
--- NOTE | 2022-10-02 16:38 | Hospitalist Progress Note ---
Date of Service October 02, 2022 Assessment & Plan (1) Acute exacerbation of chronic obstructive airways disease: Plan: History of COPD and has been on home oxygen Worsening shortness of breath for the last few days No fever and/or chest pain Has significant exacerbation of COPD with possible aspiration No pneumonia on chest x-ray and/or CT scan and no pulmonary embolism Appreciate speech therapy input and evaluation Clears has been started will advance as tolerated Has been getting bronchodilators as needed and also Solu-Medrol small doses Has cough with productive yellowish phlegm Sputum culture is pending but growing mixed daniel Will give Hycodan to suppress cough and take care of pain Clinically a little better-taking longer time to recover We will get PT and OT evaluation Sputum culture grew Pseudomonas and is sensitive to fluoroquinolone He has a history of allergic reaction to levofloxacin but the patient cannot remember and there is no history of throat swelling or shortness of breath Discussed with the pharmacy and the patient and the family members and will try intravenous ciprofloxacin Plan to send him home on oral Cipro or Levaquin Bibasilar crackles suggestive of edema No chest x-ray evidence of CHF Received Lasix 20 mg x 2 since admission with significant improvement of shortness of breath No history of CHF-echo of the heart showed normal EF with grade 1 diastolic dysfunction We will give another dose of Lasix of 40 mg IV today Clinically better (2) SOB (shortness of breath): Plan: As above (3) Hypertension: Plan: Blood pressure remains on the lower side of normal Will monitor (4) Hypothyroidism: Plan: Hypothyroidism, euthyroid as of today stage (5) Chronic anemia: Plan: Chronic anemia, hemoglobin at baseline, hx recent GI bleed 3 months ago as per family, hx gastric erosions/AVM as per records Globin stable at 8.5 Iron level is low Will start oral iron (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 Wound care nurse consult for left neck wound Retrieve outpatient records from patient's PCP Denies any significant symptoms regarding the neck Will discuss with the son about further management of the neck wound as an outpatient Discussed with the son and the patient has an appointment with his outpatient provider for the neck wound Plan History of PVD on aspirin DVT prophylaxis. Teds for now; SCDs if LE Dopplers negative for DVT Re: History GI bleed Full code as per family Patient son requesting updates providers. Mr. Rafael Dobbins, contact #[phone]. Admission and Anticipated Discharge Date Admission Date: September 29, 2022 Subjective 09/29/2022 The patient was seen and examined in telemetry unit He was noted to be very short of breath and wheezing this morning When I saw him he was conversing normally with minimal wheezing and shortness of breath Does not have any chest pain or palpitation but has cough Has been feeling a little better 09/30/2022 The patient was seen and examined in telemetry unit He has been feeling a little better and his breathing has improved There is no fever and or chills but he still has a cough which is causing some pain in the abdomen and lower chest wall He does not have any complaint regarding his neck 10/01/2022 The patient was seen and examined in telemetry unit He has been feeling a little better but he still has cough and shortness of breath at rest Denies any other significant symptoms he wants to go home 10/02/2022 The patient was seen and examined in telemetry unit in presence of the family members specially the son He has been feeling much better Sputum has been growing Pseudomonas We will start Cipro intravenously Review of Systems Review of Systems: All systems reviewed and are unremarkable except as noted below Respiratory: Minimal respiratory distress Physical Exam Physical Exam: Sitting at the edge of the bed with minimal respiratory distress Constitutional: + ill appearing and average body habitus Eyes: PERRL, conjunctivae normal, anicteric sclerae ENMT: external ear and nose normal, oropharynx normal Neck: trachea midline, no thyromegaly Respiratory: + respiratory distress (Mild to moderate respiratory distress) Auscultation: + diminished lung sounds, + crackles (Bibasilar crackles) and + wheezes (All over) Cardiovascular: Rate/Rhythm: regular rate, regular rhythm and + bradycardic Heart Sounds: normal S1, normal S2 and + murmur Extremities: + edema (Trace edema bilaterally) Gastrointestinal (Abdomen): Inspection/Auscultation: normal bowel sounds; abdomen not distended Percussion/Palpation: abdomen soft; abdomen nontender Neurologic: normal touch/pain/proprioception and moves all extremities Lymphatic: no cervical or axillary lymphadenopathy Results & Data Results & Data Vital Signs (Past 12 Hours) Vital Signs Temp Pulse Pulse Resp BP Pulse Ox O2 Del Method 10/02/22 15:00 96 H 10/02/22 13:14 82 18 96 Nasal Cannula 10/02/22 11:48 36.7 C 86 21 117/50 L 93 Nasal Cannula 10/02/22 09:00 Nasal Cannula 10/02/22 08:03 36.9 C 77 20 132/62 98 Nasal Cannula 10/02/22 07:17 72 20 97 Nasal Cannula 10/02/22 07:00 79 O2 Flow Rate 10/02/22 15:00 10/02/22 13:14 3 10/02/22 11:48 3 10/02/22 09:00 4 10/02/22 08:03 3 10/02/22 07:17 3 10/02/22 07:00 Laboratory Results Short CBC 10/02/22 Range/Units 05:38 WBC 10.02 (4.8-10.8) K/ul Hgb 8.3 L (14.0-18.0) g/dl Hct 27.0 L (42.0-52.0) % Plt Count 418 H (130-400) K/uL BMP 10/02/22 05:38 Sodium 140 Potassium 4.1 Chloride 97 L Carbon Dioxide 38 H BUN 34 H Creatinine 1.30 Glucose 143 H Calcium 8.9 Medications Administered Current Inpatient Medications Acetaminophen (Acetaminophen 325 Mg Tab) 650 mg PO Q4H PRN PRN Reason: Mild Pain or Fever Stop: 10/29/22 06:53 Last Admin: 10/02/22 09:06 Dose: 650 mg Albuterol (Albut/Ipratrop 3mg/0.5mg Neb 3 Ml Vial) 3 ml NEB Q2H PRN; Protocol PRN Reason: Shortness Of Breath Or Wheezing Stop: 10/29/22 09:59 Last Admin: 09/30/22 22:53 Dose: 3 ml Artificial Tears (Artificial Tears) 1 drops OP QID [facility] Stop: 10/29/22 08:59 Last Admin: 10/02/22 16:20 Dose: Not Given Aspirin (Aspirin 81 Mg Ectab) 81 mg PO DAILY [facility] Stop: 10/29/22 08:59 Last Admin: 10/02/22 08:57 Dose: 81 mg Diclofenac Sodium (Diclofenac Sod 1% Gel 100 Gm Tube) 2 gm EXT QID PRN; Pr otocol PRN Reason: Pain Stop: 10/29/22 06:53 Erythromycin (Erythromycin Op Oint 5 Mg/Gm 3.5 Gm Tube) 1 appln OP HS [facility] Stop: 10/09/22 20:59 Last Admin: 10/01/22 20:48 Dose: 1 appln Ferrous Sulfate (Ferrous Sulfate 325 Mg Tab) 325 mg PO DAILY [facility] Stop: 10/29/22 08:59 Last Admin: 10/02/22 08:57 Dose: 325 mg Fluticasone/Vilanterol (Fluticasone/Vilanterol 100/25mcg 14 Puffs/Inhaler) 1 p uffs INH DAILY [facility] Stop: 10/31/22 10:14 Last Admin: 10/02/22 08:57 Dose: 1 puffs Hydrocodone Bit/Homatropine Methylb (Hydrocodone/Homatropine Syrup 5mg/1.5mg 5ml Udp) 5 ml PO Q6H PRN PRN Reason: Cough Stop: 10/14/22 10:10 Last Admin: 10/01/22 20:51 Dose: 5 ml Promethazine HCl 6.25 mg/ (Sodium Chloride) 50.25 mls @ 201 mls/hr IV Q6H PRN PRN Reason: Nausea And Vomiting Stop: 10/29/22 06:53 Methylprednisolone 40 mg/ (Syringe) 0.64 mls @ 1.5 mls/min IV BID [facility] Stop: 10/29/22 09:59 Last Admin: 10/02/22 08:58 Dose: 1.5 mls/min Ciprofloxacin (Cipro / D5w) 400 mg in 200 mls @ 100 mls/hr IV Q12H [facility]; Protocol Stop: 10/09/22 10:29 Last Infusion: 10/02/22 12:45 Dose: Infused Ipratropium [place] (Ipratropium [place] Neb Soln 0.02% 2.5 Ml Vial) 0.5 mg INH Q6R [facility] Stop: 10/29/22 06:59 Last Admin: 10/02/22 13:13 Dose: 0.5 mg Isosorbide Mononitrate (Isosorbide [place] Extended Rel 30 Mg Tabcr) 30 mg PO QAM [facility] Stop: 10/29/22 08:59 Last Admin: 10/02/22 08:57 Dose: 30 mg Levalbuterol HCl (Levalbuterol 1.25mg/0.5ml Neb) 1.25 mg INH Q6R [facility] Stop: 10/29/22 06:59 Last Admin: 10/02/22 13:13 Dose: 1.25 mg Levothyroxine Sodium (Levothyroxine Sodium 25 Mcg Tablet) 25 mcg PO DAILYBB [facility] Stop: 10/29/22 06:53 Last Admin: 10/02/22 05:42 Dose: 25 mcg Multivitamins (Multivitamin Tab) 1 tab PO DAILY [facility] Stop: 10/29/22 08:59 Last Admin: 10/02/22 08:56 Dose: 1 tab Oxycodone HCl (Oxycodone Hcl Ir 5 Mg Tab (Immediate Release)) 5 mg PO Q4H PRN PRN Reason: Pain Stop: 10/13/22 06:53 Oxycodone/Acetaminophen (Oxycodone/Acetaminophen 5mg/325mg Tab) 1 tab PO QID PRN PRN Reason: Moderate to severe pain Stop: 10/16/22 09:33 Pantoprazole Sodium (Pantoprazole 40 Mg Tab) 40 mg PO DAILY [facility] Stop: 10/29/22 08:59 Last Admin: 10/02/22 08:56 Dose: 40 mg Roflumilast (Roflumilast 500 Mcg Tab) 500 mcg PO DAILY [facility] Stop: 10/29/22 08:59 Last Admin: 10/02/22 08:56 Dose: 500 mcg Umeclidinium [place] (Umeclidinium [place] 62.5mcg/Blister 7 Puffs/Inhaler) 1 puffs INH DAILY [facility] Stop: 10/29/22 08:59 Last Admin: 10/02/22 08:58 Dose: 1 puffs
[2022-10-02] MEDS: ERYTHROMYCIN OP OINT 5 MG/GM 3.5 GM TUBE OP SCH (20:35)
[2022-10-03] MEDS: IPRATROPIUM BROMIDE NEB SOLN 0.02% 2.5 ML VIAL INH SCH ×4 (00:15→20:29)
[2022-10-03] MEDS: LEVALBUTEROL 1.25MG/0.5ML NEB INH SCH ×4 (00:15→20:29)
[2022-10-03] MEDS: LEVOTHYROXINE SODIUM 25 MCG TABLET PO SCH (05:13)
[2022-10-03 06:16] LABS: Basophils # (auto) 0.01 K/uL (0-0.2); Basophils % (auto) 0.1 %; Hematocrit (blood only) 30.1 % (42.0-52.0); Hemoglobin 9.1 g/dl (14.0-18.0); Immature Granulocytes # (auto) 0.18 K/uL (0.01-0.20); Immature Granulocytes % (auto) 1.3 %; Lymphocytes % (auto) 6.7 %; Mean Corpuscular Hemoglobin 23.7 pg (25.0-34.0); Mean Corpuscular Hgb Conc 30.2 g/dL (32.0-36.0); Mean Corpuscular Volume 78.4 fL (80.0-100.0); Mean Platelet Volume 9.2 fL (9.4-12.4); Monocytes # (auto) 1.21 K/uL (0.11-0.59); Neutrophils % (auto) 82.9 %; Platelet Count 472 K/uL (130-400); RDW Coefficient of Variation 19.4 % (11.5-14.5); RDW Standard Deviation 54.5 fL (36.4-46.3); Red Blood Count 3.84 M/uL (4.70-6.10)
[2022-10-03 06:28] LABS: BUN Creatinine Ratio 29.2 (10-20); Creatinine Clr Calc Pharmacy 41.4 ml/min; Est GFR (African American) 66.4 ml/min; Est GFR (Non-African American) 57.3 ml/min; Potassium 4.8 mmol/L (3.5-5.1)
--- NOTE | 2022-10-03 07:21 | Electrocardiogram Report ---
Test Reason : Blood Pressure : / mmHG Vent. Rate : 076 BPM Atrial Rate : 076 BPM P-R Int : 140 ms QRS Dur : 122 ms QT Int : 434 ms P-R-T Axes : 094 -44 052 degrees QTc Int : 488 ms Normal sinus rhythm Left axis deviation Right bundle branch block Abnormal ECG When compared with ECG of 28-SEP-2022 23:42, Premature atrial complexes are no longer Present Confirmed by Ash Barahona ([id number]) on 10/03/2022 7:21:01 AM Referred By: REFERRED SELF Confirmed By:Daniel Barahona
[2022-10-03] MEDS: ASPIRIN 81 MG ECTAB PO SCH (09:03)
[2022-10-03] MEDS: UMECLIDINIUM BROMIDE 62.5MCG/BLISTER 7 PUFFS/INHALER INH SCH (09:03)
[2022-10-03] MEDS: FLUTICASONE/VILANTEROL 100/25MCG 14 PUFFS/INHALER INH SCH (09:03)
[2022-10-03] MEDS: ISOSORBIDE MONO EXTENDED REL 30 MG TABCR PO SCH (09:03)
[2022-10-03] MEDS: ARTIFICIAL TEARS OP SCH ×4 (09:04→22:53)
[2022-10-03] MEDS: PANTOprazole 40 MG TAB PO SCH (09:04)
[2022-10-03] MEDS: ROFLUMILAST 500 MCG TAB PO SCH (09:04)
[2022-10-03] MEDS: FERROUS SULFATE 325 MG TAB PO SCH (09:04)
[2022-10-03] MEDS: MULTIVITAMIN TAB PO SCH (09:04)
[2022-10-03] MEDS: methylPREDNISolone 40 MG in SYRINGE 0 ML IV SCH ×2 (09:04→22:11)
[2022-10-03] MEDS: CIPROFLOXACIN / D5W 400 MG/200 ML BAG IV SCH ×2 (10:08→22:54)
--- NOTE | 2022-10-03 13:15 | Hospitalist Progress Note ---
Date of Service October 03, 2022 Assessment & Plan (1) Acute exacerbation of chronic obstructive airways disease: Plan: History of COPD and has been on home oxygen Worsening shortness of breath for the last few days No fever and/or chest pain Has significant exacerbation of COPD with possible aspiration No pneumonia on chest x-ray and/or CT scan and no pulmonary embolism Appreciate speech therapy input and evaluation Clears has been started will advance as tolerated Has been getting bronchodilators as needed and also Solu-Medrol small doses Has cough with productive yellowish phlegm Sputum culture is pending but growing mixed daniel Will give Hycodan to suppress cough and take care of pain Clinically a little better-taking longer time to recover We will get PT and OT evaluation Sputum culture grew Pseudomonas and is sensitive to fluoroquinolone He has a history of allergic reaction to levofloxacin but the patient cannot remember and there is no history of throat swelling or shortness of breath Discussed with the pharmacy and the patient and the family members and will try intravenous ciprofloxacin Tolerating intravenous ciprofloxacin well without any side effect and or allergic reaction Clinically much better Plan to discharge home on oral Levaquin to finish the course Bibasilar crackles suggestive of edema No chest x-ray evidence of CHF Received Lasix 20 mg x 2 since admission with significant improvement of shortness of breath No history of CHF-echo of the heart showed normal EF with grade 1 diastolic dysfunction We will give another dose of Lasix of 40 mg IV today Clinically better We will give a small amount of oral Fosamax on discharge (2) SOB (shortness of breath): Plan: As above (3) Hypertension: Plan: Blood pressure remains on the lower side of normal Will monitor (4) Hypothyroidism: Plan: Hypothyroidism, euthyroid as of today stage (5) Chronic anemia: Plan: Chronic anemia, hemoglobin at baseline, hx recent GI bleed 3 months ago as per family, hx gastric erosions/AVM as per records Globin stable at 8.5 Iron level is low Will start oral iron (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 Wound care nurse consult for left neck wound Retrieve outpatient records from patient's PCP Denies any significant symptoms regarding the neck Will discuss with the son about further management of the neck wound as an outpatient Discussed with the son and the patient has an appointment with his outpatient provider for the neck wound Plan History of PVD on aspirin DVT prophylaxis. Teds for now; SCDs if LE Dopplers negative for DVT Re: History GI bleed Full code as per family Patient son requesting updates providers. Mr. Rafael Dobbins, contact #[phone]. Admission and Anticipated Discharge Date Admission Date: September 29, 2022 Subjective 09/29/2022 The patient was seen and examined in telemetry unit He was noted to be very short of breath and wheezing this morning When I saw him he was conversing normally with minimal wheezing and shortness of breath Does not have any chest pain or palpitation but has cough Has been feeling a little better 09/30/2022 The patient was seen and examined in telemetry unit He has been feeling a little better and his breathing has improved There is no fever and or chills but he still has a cough which is causing some pain in the abdomen and lower chest wall He does not have any complaint regarding his neck 10/01/2022 The patient was seen and examined in telemetry unit He has been feeling a little better but he still has cough and shortness of breath at rest Denies any other significant symptoms he wants to go home 10/02/2022 The patient was seen and examined in telemetry unit in presence of the family members specially the son He has been feeling much better Sputum has been growing Pseudomonas We will start Cipro intravenously 10/03/2022 The patient was seen and examined in telemetry unit He has been feeling much better Cough and shortness of breath are improved No issues with intravenous ciprofloxacin We will do physical therapy and probable discharge tomorrow Review of Systems Review of Systems: All systems reviewed and are unremarkable except as noted below Respiratory: Minimal respiratory distress Physical Exam Physical Exam: Sitting at the edge of the bed with minimal respiratory distress Constitutional: + ill appearing and average body habitus Eyes: PERRL, conjunctivae normal, anicteric sclerae ENMT: external ear and nose normal, oropharynx normal Neck: trachea midline, no thyromegaly Respiratory: + respiratory distress (Mild to moderate respiratory distress) Auscultation: + diminished lung sounds, + crackles (Bibasilar crackles) and + wheezes (All over) Cardiovascular: Rate/Rhythm: regular rate, regular rhythm and + bradycardic Heart Sounds: normal S1, normal S2 and + murmur Extremities: + edema (Trace edema bilaterally) Gastrointestinal (Abdomen): Inspection/Auscultation: normal bowel sounds; abdomen not distended Percussion/Palpation: abdomen soft; abdomen nontender Neurologic: normal touch/pain/proprioception and moves all extremities Lymphatic: no cervical or axillary lymphadenopathy Results & Data Results & Data Vital Signs (Past 12 Hours) Vital Signs Temp Pulse Pulse Resp BP BP Pulse Ox 10/03/22 12:30 78 18 97 10/03/22 11:46 36.7 C 64 20 144/73 H 98 10/03/22 08:27 10/03/22 08:27 10/03/22 07:43 36.8 C 75 20 151/71 H 98 10/03/22 07:00 76 10/03/22 07:33 80 18 98 10/03/22 03:23 36.6 C 74 18 137/67 98 Pulse Ox O2 Del Method O2 Del Method O2 Flow Rate O2 Flow Rate 10/03/22 12:30 Nasal Cannula 3 10/03/22 11:46 Nasal Cannula 3.0 10/03/22 08:27 Nasal Cannula 3 10/03/22 08:27 98 Nasal Cannula 3 10/03/22 07:43 Nasal Cannula 3.0 10/03/22 07:00 10/03/22 07:33 Nasal Cannula 3 10/03/22 03:23 Nasal Cannula 3.0 Laboratory Results Short CBC 10/03/22 Range/Units 05:26 WBC 13.40 H (4.8-10.8) K/ul Hgb 9.1 L (14.0-18.0) g/dl Hct 30.1 L (42.0-52.0) % Plt Count 472 H (130-400) K/uL BMP 10/03/22 05:26 Sodium 138 Potassium 4.8 Chloride 98 Carbon Dioxide 35 H BUN 33 H Creatinine 1.13 Glucose 121 H Calcium 9.0 Medications Administered Current Inpatient Medications Acetaminophen (Acetaminophen 325 Mg Tab) 650 mg PO Q4H PRN PRN Reason: Mild Pain or Fever Stop: 10/29/22 06:53 Last Admin: 10/02/22 09:06 Dose: 650 mg Albuterol (Albut/Ipratrop 3mg/0.5mg Neb 3 Ml Vial) 3 ml NEB Q2H PRN; Protocol PRN Reason: Shortness Of Breath Or Wheezing Stop: 10/29/22 09:59 Last Admin: 09/30/22 22:53 Dose: 3 ml Artificial Tears (Artificial Tears) 1 drops OP QID [facility] Stop: 10/29/22 08:59 Last Admin: 10/03/22 12:04 Dose: Not Given Aspirin (Aspirin 81 Mg Ectab) 81 mg PO DAILY [facility] Stop: 10/29/22 08:59 Last Admin: 10/03/22 09:03 Dose: 81 mg Diclofenac Sodium (Diclofenac Sod 1% Gel 100 Gm Tube) 2 gm EXT QID PRN; Prot ocol PRN Reason: Pain Stop: 10/29/22 06:53 Erythromycin (Erythromycin Op Oint 5 Mg/Gm 3.5 Gm Tube) 1 appln OP HS [facility] Stop: 10/09/22 20:59 Last Admin: 10/02/22 20:35 Dose: Not Given Ferrous Sulfate (Ferrous Sulfate 325 Mg Tab) 325 mg PO DAILY [facility] Stop: 10/29/22 08:59 Last Admin: 10/03/22 09:04 Dose: 325 mg Fluticasone/Vilanterol (Fluticasone/Vilanterol 100/25mcg 14 Puffs/Inhaler) 1 p uffs INH DAILY [facility] Stop: 10/31/22 10:14 Last Admin: 10/03/22 09:03 Dose: 1 puffs Hydrocodone Bit/Homatropine Methylb (Hydrocodone/Homatropine Syrup 5mg/1.5mg 5ml Udp) 5 ml PO Q6H PRN PRN Reason: Cough Stop: 10/14/22 10:10 Last Admin: 10/01/22 20:51 Dose: 5 ml Promethazine HCl 6.25 mg/ (Sodium Chloride) 50.25 mls @ 201 mls/hr IV Q6H PRN PRN Reason: Nausea And Vomiting Stop: 10/29/22 06:53 Methylprednisolone 40 mg/ (Syringe) 0.64 mls @ 1.5 mls/min IV BID [facility] Stop: 10/29/22 09:59 Last Admin: 10/03/22 09:04 Dose: 1.5 mls/min Ciprofloxacin (Cipro / D5w) 400 mg in 200 mls @ 100 mls/hr IV Q12H [facility]; Protocol Stop: 10/09/22 10:29 Last Infusion: 10/03/22 12:04 Dose: Infused Ipratropium [place] (Ipratropium [place] Neb Soln 0.02% 2.5 Ml Vial) 0.5 mg INH Q6R [facility] Stop: 10/29/22 06:59 Last Admin: 10/03/22 12:30 Dose: 0.5 mg Isosorbide Mononitrate (Isosorbide [place] Extended Rel 30 Mg Tabcr) 30 mg PO QAM [facility] Stop: 10/29/22 08:59 Last Admin: 10/03/22 09:03 Dose: 30 mg Levalbuterol HCl (Levalbuterol 1.25mg/0.5ml Neb) 1.25 mg INH Q6R [facility] Stop: 10/29/22 06:59 Last Admin: 10/03/22 12:30 Dose: 1.25 mg Levothyroxine Sodium (Levothyroxine Sodium 25 Mcg Tablet) 25 mcg PO DAILYBB [facility] Stop: 10/29/22 06:53 Last Admin: 10/03/22 05:13 Dose: 25 mcg Multivitamins (Multivitamin Tab) 1 tab PO DAILY [facility] Stop: 10/29/22 08:59 Last Admin: 10/03/22 09:04 Dose: 1 tab Oxycodone HCl (Oxycodone Hcl Ir 5 Mg Tab (Immediate Release)) 5 mg PO Q4H PRN PRN Reason: Pain Stop: 10/13/22 06:53 Oxycodone/Acetaminophen (Oxycodone/Acetaminophen 5mg/325mg Tab) 1 tab PO QID PRN PRN Reason: Moderate to severe pain Stop: 10/16/22 09:33 Last Admin: 10/03/22 05:13 Dose: 1 tab Pantoprazole Sodium (Pantoprazole 40 Mg Tab) 40 mg PO DAILY [facility] Stop: 10/29/22 08:59 Last Admin: 10/03/22 09:04 Dose: 40 mg Roflumilast (Roflumilast 500 Mcg Tab) 500 mcg PO DAILY [facility] Stop: 10/29/22 08:59 Last Admin: 10/03/22 09:04 Dose: 500 mcg Umeclidinium [place] (Umeclidinium [place] 62.5mcg/Blister 7 Puffs/Inhaler) 1 puffs INH DAILY [facility] Stop: 10/29/22 08:59 Last Admin: 10/03/22 09:03 Dose: 1 puffs
[2022-10-03] MEDS ORDERED: guaiFENesin SUGAR FREE 200 MG/10 ML UDC PO PRN (21:54)
[2022-10-03] MEDS: ALBUT/IPRATROP 3MG/0.5MG NEB 3 ML VIAL NEB PRN (22:06)
[2022-10-03] MEDS: ERYTHROMYCIN OP OINT 5 MG/GM 3.5 GM TUBE OP SCH (22:53)
[2022-10-04] MEDS: LEVALBUTEROL 1.25MG/0.5ML NEB INH SCH ×3 (01:45→13:17)
[2022-10-04] MEDS: IPRATROPIUM BROMIDE NEB SOLN 0.02% 2.5 ML VIAL INH SCH ×3 (01:45→13:17)
[2022-10-04] MEDS: LEVOTHYROXINE SODIUM 25 MCG TABLET PO SCH (07:27)
[2022-10-04] MEDS: ARTIFICIAL TEARS OP SCH ×2 (09:07→13:40)
[2022-10-04] MEDS: FLUTICASONE/VILANTEROL 100/25MCG 14 PUFFS/INHALER INH SCH (09:10)
[2022-10-04] MEDS: UMECLIDINIUM BROMIDE 62.5MCG/BLISTER 7 PUFFS/INHALER INH SCH (09:11)
[2022-10-04] MEDS: methylPREDNISolone 40 MG in SYRINGE 0 ML IV SCH (09:13)
[2022-10-04] MEDS: CIPROFLOXACIN / D5W 400 MG/200 ML BAG IV SCH (09:22)
[2022-10-04] MEDS: ASPIRIN 81 MG ECTAB PO SCH (10:40)
[2022-10-04] MEDS: ISOSORBIDE MONO EXTENDED REL 30 MG TABCR PO SCH (10:41)
[2022-10-04] MEDS: FERROUS SULFATE 325 MG TAB PO SCH (10:41)
[2022-10-04] MEDS: MULTIVITAMIN TAB PO SCH (10:42)
[2022-10-04] MEDS: PANTOprazole 40 MG TAB PO SCH (10:42)
[2022-10-04] MEDS: ROFLUMILAST 500 MCG TAB PO SCH (10:43)
--- NOTE | 2022-10-04 12:44 | Hospitalist Progress Note ---
Date of Service October 04, 2022 Assessment & Plan (1) Acute exacerbation of chronic obstructive airways disease: Plan: History of COPD and has been on home oxygen Worsening shortness of breath for the last few days No fever and/or chest pain Has significant exacerbation of COPD with possible aspiration No pneumonia on chest x-ray and/or CT scan and no pulmonary embolism Appreciate speech therapy input and evaluation Clears has been started will advance as tolerated Has been getting bronchodilators as needed and also Solu-Medrol small doses Has cough with productive yellowish phlegm Sputum culture is pending but growing mixed daniel Will give Hycodan to suppress cough and take care of pain Clinically a little better-taking longer time to recover We will get PT and OT evaluation Sputum culture grew Pseudomonas and is sensitive to fluoroquinolone He has a history of allergic reaction to levofloxacin but the patient cannot remember and there is no history of throat swelling or shortness of breath Discussed with the pharmacy and the patient and the family members and will try intravenous ciprofloxacin Tolerating intravenous ciprofloxacin well without any side effect and or allergic reaction Stable and denies any other symptoms Levaquin as prescribed for the next few days to finish the course Bibasilar crackles suggestive of edema No chest x-ray evidence of CHF Received Lasix 20 mg x 2 since admission with significant improvement of shortness of breath No history of CHF-echo of the heart showed normal EF with grade 1 diastolic dysfunction We will give another dose of Lasix of 40 mg IV today Clinically better We will give a small amount of oral furosemide on discharge (2) SOB (shortness of breath): Plan: As above (3) Hypertension: Plan: Blood pressure remains on the lower side of normal Will monitor (4) Hypothyroidism: Plan: Hypothyroidism, euthyroid as of today stage (5) Chronic anemia: Plan: Chronic anemia, hemoglobin at baseline, hx recent GI bleed 3 months ago as per family, hx gastric erosions/AVM as per records Globin stable at 8.5 Iron level is low Will start oral iron (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 Wound care nurse consult for left neck wound Retrieve outpatient records from patient's PCP Denies any significant symptoms regarding the neck Will discuss with the son about further management of the neck wound as an outpatient Discussed with the son and the patient has an appointment with his outpatient provider for the neck wound Strongly advised to make an appointment with his oncologist Plan History of PVD on aspirin DVT prophylaxis. Teds for now; SCDs if LE Dopplers negative for DVT Re: History GI bleed Full code as per family Patient son requesting updates providers. Mr. Rafael Dobbins, contact #[phone]. Admission and Anticipated Discharge Date Admission Date: September 29, 2022 Subjective 09/29/2022 The patient was seen and examined in telemetry unit He was noted to be very short of breath and wheezing this morning When I saw him he was conversing normally with minimal wheezing and shortness of breath Does not have any chest pain or palpitation but has cough Has been feeling a little better 09/30/2022 The patient was seen and examined in telemetry unit He has been feeling a little better and his breathing has improved There is no fever and or chills but he still has a cough which is causing some pain in the abdomen and lower chest wall He does not have any complaint regarding his neck 10/01/2022 The patient was seen and examined in telemetry unit He has been feeling a little better but he still has cough and shortness of breath at rest Denies any other significant symptoms he wants to go home 10/02/2022 The patient was seen and examined in telemetry unit in presence of the family members specially the son He has been feeling much better Sputum has been growing Pseudomonas We will start Cipro intravenously 10/03/2022 The patient was seen and examined in telemetry unit He has been feeling much better Cough and shortness of breath are improved No issues with intravenous ciprofloxacin We will do physical therapy and probable discharge tomorrow 10/04/2022 The patient was seen and examined in telemetry unit He is ready to be discharged and already dressed up before I started the round Denies any significant symptoms Does not require 2 steps as he has been on oxygen already Review of Systems Review of Systems: All systems reviewed and are unremarkable except as noted below Respiratory: Minimal respiratory distress Physical Exam Physical Exam: Sitting at the edge of the bed with minimal respiratory distress Constitutional: + ill appearing and average body habitus Eyes: PERRL, conjunctivae normal, anicteric sclerae ENMT: external ear and nose normal, oropharynx normal Neck: trachea midline, no thyromegaly Respiratory: + respiratory distress (Mild to moderate respiratory distress) Auscultation: + diminished lung sounds, + crackles (Bibasilar crackles) and + wheezes (All over) Cardiovascular: Rate/Rhythm: regular rate, regular rhythm and + bradycardic Heart Sounds: normal S1, normal S2 and + murmur Extremities: + edema (Trace edema bilaterally) Gastrointestinal (Abdomen): Inspection/Auscultation: normal bowel sounds; abdomen not distended Percussion/Palpation: abdomen soft; abdomen nontender Neurologic: normal touch/pain/proprioception and moves all extremities Lymphatic: no cervical or axillary lymphadenopathy Results & Data Results & Data Vital Signs (Past 12 Hours) Vital Signs Temp Pulse Resp BP BP Pulse Ox Pulse Ox 10/04/22 11:39 10/04/22 11:32 36.7 C 74 18 129/49 L 92 10/04/22 08:00 95 10/04/22 10:38 77 135/65 10/04/22 07:57 36.8 C 76 18 125/69 96 10/04/22 07:10 79 18 95 10/04/22 04:09 36.8 C 85 20 122/55 L 95 10/04/22 01:46 18 94 O2 Del Method O2 Del Method O2 Flow Rate O2 Flow Rate 10/04/22 11:39 Room Air 10/04/22 11:32 Room Air 10/04/22 08:00 Nasal Cannula 2 10/04/22 10:38 10/04/22 07:57 Nasal Cannula 2 10/04/22 07:10 Nasal Cannula 2 10/04/22 04:09 Nasal Cannula 10/04/22 01:46 Nasal Cannula 3
--- NOTE | 2022-10-04 18:34 | Discharge Summary ---
Date of Service October 04, 2022 Admission HPI Per Admitting Provider History obtained from patient, family, and records. 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 Patient underwent head and neck surgery for squamous cell cancer of the left ear at [facility] last March 2022. Immunotherapy started a week ago as per family. Few days ago, patient noted cough symptoms productive of junky sputum with some shortness of breath. No chest pain. Patient admits to coughing with meals/water intake if not careful. Rash noted by patient's family. Patient consulted ER 3 days ago. Patient treated for COPD exacerbation. Admission offered by ER provider but patient declined. Worsening symptoms at home. Patient also with achy abdominal pain/distention complaints. Denies headache. Legs more swollen than usual. Patient family concerned about patient's symptoms as side effects of immunotherapy. Solu-Medrol and neb treatment administered at the ER for COPD exacerbation. 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, lives with sons Admission Exam Per Admitting Provider Physical Exam: GENERAL: Slightly uncomfortable, chronically ill, slightly hard of hearing, intermittent abdominal breathing SKIN: Pallor, warm HEENT: Pale palpebral conjunctiva, right, eye patch over left, left facial asymmetry (chronic as per family post surgery), dry buccal mucosa, nasal cannula in place NECK : Dressing over left neck, supple, minimal left cervical tenderness CHEST : Decreased breath sounds, bibasilar rales, expiratory wheezes, no tenderness HEART : Bradycardic, no obvious murmurs ABDOMEN: Some distention, nontender RECTAL : Intact sphincter, dark brown stool (FOBT negative) EXTREMITIES : Bilateral LE swelling, no LE tenderness, no other conspicuous deformities noted NEUROLOGIC : Coherent, chronic facial asymmetry, mild hearing impairment, gait and stance not assessed Principal Diagnosis Acute exacerbation of chronic obstructive airway disease, possible diastolic CHF, hypertension, history of neck cancer status post surgery and currently on immunotherapy and has left neck wound Discharge Exam Sitting at the edge of the bed with minimal respiratory distress Constitutional + ill appearing and average body habitus Eyes PERRL, conjunctivae normal, anicteric sclerae ENMT external ear and nose normal, oropharynx normal Neck trachea midline, no thyromegaly Respiratory + respiratory distress (Mild to moderate respiratory distress) Auscultation: + diminished lung sounds, + crackles (Bibasilar crackles) and + wheezes (All over) Cardiovascular Rate/Rhythm: regular rate, regular rhythm and + bradycardic Heart Sounds: normal S1, normal S2 and + murmur Extremities: + edema (Trace edema bilaterally) Gastrointestinal (Abdomen) Inspection/Auscultation: normal bowel sounds; abdomen not distended Percussion/Palpation: abdomen soft; abdomen nontender Neurologic normal touch/pain/proprioception and moves all extremities Lymphatic no cervical or axillary lymphadenopathy Discharge Data Allergies Allergy/AdvReac Type Severity Reaction Status Date / Time ertapenem Allergy Unknown Unknown Verified 09/29/22 03:44 levofloxacin [From Levaquin] Allergy Unknown Unknown Verified 09/29/22 03:46 Consultations 09/29/22 03:17 ED Decision to Admit Stat 09/29/22 04:52 HIM [Consult Health Information Management] Routine Ordered Studies 09/29/22 04:19 CT Abd and Pelvis [CT abd pelvis IV con only] Stat CT angio chest PE protocol Stat US venous doppler LE Stat Hospital Course (1) Acute exacerbation of chronic obstructive airways disease: History of COPD and has been on home oxygen Worsening shortness of breath for the last few days No fever and/or chest pain Has significant exacerbation of COPD with possible aspiration No pneumonia on chest x-ray and/or CT scan and no pulmonary embolism Appreciate speech therapy input and evaluation Clears has been started will advance as tolerated Has been getting bronchodilators as needed and also Solu-Medrol small doses Has cough with productive yellowish phlegm Sputum culture is pending but growing mixed daniel Will give Hycodan to suppress cough and take care of pain Clinically a little better-taking longer time to recover We will get PT and OT evaluation Sputum culture grew Pseudomonas and is sensitive to fluoroquinolone He has a history of allergic reaction to levofloxacin but the patient cannot remember and there is no history of throat swelling or shortness of breath Discussed with the pharmacy and the patient and the family members and will try intravenous ciprofloxacin Tolerating intravenous ciprofloxacin well without any side effect and or allergic reaction Stable and denies any other symptoms Levaquin as prescribed for the next few days to finish the course Bibasilar crackles suggestive of edema No chest x-ray evidence of CHF Received Lasix 20 mg x 2 since admission with significant improvement of shor tness of breath No history of CHF-echo of the heart showed normal EF with grade 1 diastolic dysfunction We will give another dose of Lasix of 40 mg IV today Clinically better We will give a small amount of oral furosemide on discharge (2) SOB (shortness of breath): As above (3) Hypertension: Blood pressure remains on the lower side of normal Will monitor (4) Hypothyroidism: Hypothyroidism, euthyroid as of today stage (5) Chronic anemia: Chronic anemia, hemoglobin at baseline, hx recent GI bleed 3 months ago as per family, hx gastric erosions/AVM as per records Globin stable at 8.5 Iron level is low Will start oral iron (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 Wound care nurse consult for left neck wound Retrieve outpatient records from patient's PCP Denies any significant symptoms regarding the neck Will discuss with the son about further management of the neck wound as an outpatient Discussed with the son and the patient has an appointment with his outpatient provider for the neck wound Strongly advised to make an appointment with his oncologist Plan History of PVD on aspirin DVT prophylaxis. Teds for now; SCDs if LE Dopplers negative for DVT Re: History GI bleed Full code as per family Patient son requesting updates providers. Mr. Rafael Dobbins, contact #[phone]. Total Time Total Time Spent Total Time Spent (In Minutes): 40 [facility] Discharge Plan Discharge Items Patient Disposition: Home - Home Health Services Reason For Visit: RESPIATORY FAILURE, POSSIBLE CHF Discharge Diagnosis: Acute exacerbation of chronic obstructive airway disease, possible diastolic CHF, hypertension, history of neck cancer status post surgery and currently on immunotherapy and has left neck wound Condition on Discharge: Fair Activity: Resume your previous activity Non-emergency contact: Primary Care Provider Call non-emergency contact if: you have any medication questions and your symptoms worsen [facility] - (Please make an appointment with your PCP within 1 week) Diet: Carb Consistent or DM2 Addtl Attending Provider Instructions: Please take precautions to avoid fall Finish the course of her antibiotic Take your medications as advised Please give a follow-up appointment with your primary care provider and also your outpatient oncologist for the neck wound Pending Studies at Discharge: No Stand-Alone Forms: My On[employer], Smoking Cessation Medications and DC Order Prescriptions: New prednisone 10 mg tablet 10 mg PO DIRECTED Qty: 20 0RF Rx Instructions: 4 p.o. daily for 2 days, 3 p.o. daily for 2 days, 2 p.o. daily for 2 days and then 1 p.o. daily for 2 days levofloxacin 500 mg tablet 500 mg PO DAILY 3 Days Qty: 3 0RF furosemide 20 mg tablet 20 mg PO UD Qty: 30 0RF Rx Instructions: Take 1 tablet daily for a day or 2 if there is weight gain of 2 to 3 pounds in a week. Continued albuterol sulfate 2.5 mg /3 mL (0.083 %) Solution For Nebulization 3 ml INHALATION Q6 PRN (Reason: Shortness Of Breath) meclizine 12.5 mg Tablet 12.5 mg PO QAM aspirin 81 mg Tablet,Delayed Release (Dr/Ec) 81 mg PO DAILY guaifenesin 200 mg Tablet 400 mg PO TID levothyroxine 25 mcg Tablet 25 mcg PO DAILYBB ferrous sulfate 325 mg (65 mg iron) Tablet 325 mg PO DAILY omeprazole 20 mg Capsule,Delayed Release(Dr/Ec) 20 mg PO DAILY albuterol sulfate 90 mcg/actuation Hfa Aerosol Inhaler 2 puff INHALATION Q6H PRN (Reason: Shortness Of Breath) budesonide-formoterol 160-4.5 mcg/actuation Hfa Aerosol Inhaler 2 puff INHALATION BID Lubricating Drops 0.5-0.9 % Drops 1 drp OPHTHALMIC (EYE) QID tiotropium bromide 2.5 mcg/actuation Mist 2 puff INHALATION DAILY roflumilast 500 mcg tablet 500 mcg PO DAILY diclofenac sodium 1 % gel 2 gm TOP QID PRN (Reason: Pain) Rx Instructions: apply to R upper chest area of pain oxycodone-acetaminophen 5-325 mg tablet 1 - 2 tab PO QID PRN (Reason: Pain) nitroglycerin [Nitrostat] 0.4 mg tablet, sublingual 0.4 mg sublingual UD PRN (Reason: Chest Pain) turmeric-turmeric root extract 450-50 mg capsule 2 cap PO DAILY multivitamin Tablet 1 tab PO DAILY isosorbide mononitrate 60 mg tablet extended release 24 hr 30 mg PO QAM erythromycin 5 mg/gram (0.5 %) ointment 1 applic ophthalmic (eye) HS Discharge Orders: Discharge Order (Routine); Ordered 10/04/22 Ordered By: Ariana Cannon/Other Patient Handouts: Prediabetes Admission Data Admit Date/Time: 09/29/22 04:25 Attending Provider: Ariana Hurst Admit Provider: Anthony Husain Primary Care Provider: PCP,NO Other Providers: Anthony Husain ; [facility] Other Interventions: Discharge Summary Assessment (RN) Last Done: 10/04/22 13:10
--- NOTE | 2022-10-07 13:48 | Coding Query ---
To promote full compliance with coding requirements relating to patient care, provider participation is requested in all cases of auditing coder uncertainty. Please assist us with the question(s) below: Coding Question(s): The diagnosis(es) below was documented on the 09/30 progres note and then subsequently fell off all further documentation. Please indicate if it is still a possible diagnosis or ruled out. Physician's Response(s): ACUTE HFpEF ( ) Diagnosed and POA ( +) Diagnosed and not POA ( ) Ruled out ( ) Other (please specify) Thank you, Marge Daniels - [employer] KALEYD
== END 2022-10-04 14:11 | disposition home health service (06) | DRG 190 ==
LOC: ED 23:37 → 2S 09-29 04:25

== ENCOUNTER 2023-01-19 13:31 | Inpatient (IN) ==
[2023-01-19] MEDS ORDERED: methylPREDNISolone 125 MG/2 ML VIAL IV STA ×2 (14:08→16:25)
[2023-01-19] MEDS ORDERED: ALBUT/IPRATROP 3MG/0.5MG NEB 3 ML VIAL NEB STA ×3 (14:08→17:10)
[2023-01-19 14:21] LABS: Basophils # (auto) 0.04 K/uL (0-0.2); Basophils % (auto) 0.5 %; Hematocrit (blood only) 27.4 % (42.0-52.0); Hemoglobin 8.5 g/dl (14.0-18.0); Immature Granulocytes # (auto) 0.09 K/uL (0.01-0.20); Immature Granulocytes % (auto) 1.2 %; Lymphocytes # (auto) 0.89 K/uL (1.2-3.4); Mean Corpuscular Hemoglobin 25.7 pg (25.0-34.0); Mean Corpuscular Volume 82.8 fL (80.0-100.0); Mean Platelet Volume 9.9 fL (9.4-12.4); Monocytes # (auto) 1.02 K/uL (0.11-0.59); Monocytes % (auto) 13.7 %; Neutrophils # (auto) 5.39 K/uL (1.40-6.50); Neutrophils % (auto) 72.6 %; Platelet Count 386 K/uL (130-400); RDW Coefficient of Variation 19.5 % (11.5-14.5); RDW Standard Deviation 58.4 fL (36.4-46.3); Red Blood Count 3.31 M/uL (4.70-6.10); White Blood Count 7.43 K/ul (4.8-10.8)
[2023-01-19 14:28] LABS: Albumin Globulin Ratio 1.3 (0.9-2); Albumin Level 3.5 gm/dl (3.4-5.0); Bilirubin,Total 0.2 mg/dl (0.2-1.0); Calcium 8.4 mg/dl (8.6-10.3); Creatinine Clr Calc Pharmacy 37.3 ml/min; Est GFR (African American) 61.1 ml/min; Est GFR (Non-African American) 52.8 ml/min; Globulin 2.7 gm/dl (2.5-4.0); Magnesium 1.9 mg/dl (1.7-2.4); Total Protein 6.2 gm/dl (6.0-8.3)
[2023-01-19 14:34] LABS: Troponin I High Sensitivity 3.7 pg/ml (0-20)
[2023-01-19 14:38] LABS: Partial Thromboplastin Ratio 1.1; Partial Thromboplastin Time 31.3 Seconds (21.0-31.0)
--- NOTE | 2023-01-19 14:51 | XRay Report ---
XR chest 1V portable CLINICAL HISTORY: Sepsis. COMPARISON STUDY: Chest radiograph and chest CT September 29, 2021. FINDINGS: Underlying emphysema is present. There is no pneumothorax or pleural effusion. Cardiac size is normal. There has been interval development of patchy right midlung airspace opacity. There may b e left basilar opacity. No evidence for pulmonary edema. IMPRESSION: 1. Interval development of right midlung opacity and possible left basilar opacity. The findings sugg est pneumonia. Posttreatment radiographs to ensure resolution are recommended. 2. Emphysema. ACT 112: Negative or not required by law. Electronically signed by: Skinny Raza M.D. 01/19/2023 2:50 PM
[2023-01-19 14:53] LABS: Base Excess VBG 5.3 mEq/L; HCO3 VBG 33 mmol/L; Oxygen Saturation VBG < 60.0 %; PCO2 VBG 63 mmHg (38-50); PO2 VBG 20 mmHg; pH VBG 7.33 (7.36-7.41)
--- NOTE | 2023-01-19 16:56 | History & Physical Report ---
Date of Service January 19, 2023 Assessment & Plan (1) Pneumonia: Plan: - Admit to med surg with tele - Sputum culture, mucinex, duonebs QID and Q2H prn, tessalon pearls - Wean O2 prn - wears 3-4 L at baseline - Covid negative - WBC at time of admission = 7.43 - BCx x 2, follow, check urine culture - Tmax = afebrile - Lactic acid and Procalcitonin pending - CXR reviewed as above showing LLL pneumonia - Antibiotic therapy with cefepime and azithromycin started - Patient appears to be on azithromycin 250 mg daily per med rec, he cannot recall what he takes this for, possible maintenance therapy for COPD versus purulent discharge from the left eye? - Consider pulmonology consultation with hx of pseudomonas infection in the lung - Check legionella urine (2) Acute exacerbation of chronic obstructive pulmonary disease: Plan: - Pt was given solumedrol 125 mg IV in the ER two times on review of AUG---no further steroids at this time. 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 Due for next session on Jan 30, occurs every 3 weeks - [facility] (4) Chronic anemia: Plan: - Hgb of 8.5 on admission, appears to be near his baseline as in September was also around 8-9. Will monitor with am labs - Pt has received blood transfusion before, currently no indication for transfusion - cont iron supplementation (5) Hypertension: (6) Diastolic CHF: Plan: - Last echo was completed on 09/29/2022 showing LVEF of 60 to 65%, grade 1 diastolic dysfunction, aortic valve moderately calcified, mild to moderate aortic stenosis, no left ventricular wall motion abnormalities. -Continue amlodipine daily, baby aspirin (7) Hypothyroidism: Plan: - cont levothyroxine 25 mcg daily DVT ppx: teds, scds, consider chemical ppx within 24 hrs CODE: FULL Dispo: From home, likely to remain in the hospital x 1-2 days A total of 76 minutes were spent with greater than 50% of that time face to face with the patient, personally reviewing all current laboratories, imaging studies, past medication reconciliation, outpatient chart review, and discussion with specialists to collaborate care for the patient with attending. Please see attending documentation for corrections and/or additions. History of Present Illness Chief Complaint: NAUSEA Primary Care Provider: Tyree Jones MD This is an 87-year-old male with PMHx of HTN, diastolic CHF, COPD, squamous cell carcinoma of the ear, head and neck, status post lesion removal, diagnosed October 2021. Pt has residual neck wound, currently on immunotherapy. Other history includes hypothyroidism, chronic anemia, blindness in left eye since 2013, who was recently admitted here to the hospital in September for COPD exacerbation with possible aspiration pneumonitis. He was discharged on a small amount of lasix for shortness of breath and associated pulmonary edema at time of discharge to use on an as needed basis which he has not needed. Pt notes that for the past few days he hasn't been feeling well. Pt admits to walking only 2 steps and feels short of breath and weak. Reports that he is having trouble breathing and wears 3-4 L NC at all times. Coughing up large amounts of sputum which he describes is bubblegum like in texture, but due to not being to able to see, cant describe it. Denies fever, chills or sweats. Pt has sometimes has trouble swallowing due to his cancer hx but otherwise eats and drinks normally, last ate cheerios this morning with some cherries. He is nauseous and having dry heaves intermittently today, no vomiting, diarrhea or abdominal pain. 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 Arroyo who plans to do surgery on the eyelid to correct it in Feb. Describes his eyelid as drooping. He cannot confirm antibiotic use for this but does use ointment in the eye. Denies pain. No visual changes with his right eye. Pt is on immunotherapy for head and neck cancer, had his last treatment on January 10, and is scheduled every 3 weeks, most recently competed his 6th cycle. He has had several blood transfusions in the past year due to low blood counts. Allergies Allergy/AdvReac Type Severity Reaction Status Date / Time cefuroxime Allergy Intermediate Rash Verified 01/19/23 17:04 ertapenem Allergy Unknown Unknown Verified 01/19/23 17:04 levofloxacin [From Levaquin] Allergy Unknown Unknown Verified 01/19/23 17:04 BETA-LACTAMS Allergy Intermediate Rash Uncoded 01/19/23 17:04 FLUOROQUINOLONES Allergy Intermediate Rash Uncoded 01/19/23 17:04 Home Medications Medication Instructions Recorded Confirmed Type albuterol sulfate 2.5 mg/3 mL 3 ml inhalation QID PRN Shortness 10/04/18 01/19/23 History (0.083 %) solution for nebulization Of Breath albuterol sulfate 90 mcg/actuation 2 puff inhalation Q4H PRN SHORT OF 10/04/18 01/19/23 History aerosol inhaler BREATH/COUGH/WHEEZING aspirin 81 mg tablet,delayed 81 mg PO DAILY 10/04/18 01/19/23 History release ferrous sulfate 325 mg (65 mg 325 mg PO DAILY 10/04/18 01/19/23 History iron) tablet levothyroxine 25 mcg tablet 25 mcg PO DAILYBB 10/04/18 01/19/23 History meclizine 12.5 mg tablet 12.5 mg PO TID PRN Dizziness 10/04/18 01/19/23 History tiotropium bromide 2.5 2 puff inhalation DAILY 10/04/18 01/19/23 History mcg/actuation mist for inhalation roflumilast 500 mcg tablet 500 mcg PO DAILY 09/26/22 01/19/23 History erythromycin 5 mg/gram (0.5 %) eye 1 applic OPL HS 09/29/22 01/19/23 History ointment isosorbide mononitrate 60 mg 30 mg PO QAM 09/29/22 01/19/23 History tablet,extended release 24 hr amlodipine 5 mg tablet 5 mg PO DAILY 01/19/23 01/19/23 History ascorbic acid (vitamin C) 500 mg 100 mg PO DAILY 01/19/23 01/19/23 History tablet (Vitamin C) azithromycin 250 mg tablet 250 mg PO DAILY 01/19/23 01/19/23 History cholecalciferol (vitamin D3) 25 25 mcg PO DAILY 01/19/23 01/19/23 History mcg (1,000 unit) capsule (Vitamin D3) fluticasone 250 mcg-salmeterol 50 1 inh inhalation BID 01/19/23 01/19/23 History mcg/dose blistr powdr for inhalation pantoprazole 40 mg tablet,delayed 40 mg PO DAILY 01/19/23 01/19/23 History release peg 400-propylene glycol (PF) 0.4 1 drp OPL BID 01/19/23 01/19/23 History %-0.3 % eye drops in a dropperette (Lubricant Eye (PG-PEG 400) (PF)) polyvinyl alcohol 1.4 % eye drops 1 drp ophthalmic (eye) QID PRN Dry 01/19/23 01/19/23 History (Artificial Tears (polyvinyl Eyes alcohol)) ropinirole 0.25 mg tablet 0.25 mg PO HS 01/19/23 01/19/23 History zonisamide 25 mg capsule 25 mg PO HS 01/19/23 01/19/23 History Past Med/Surg History Medical History Chronic anemia COPD (chronic obstructive pulmonary disease) Diastolic CHF Hx of agent [place] exposure Hypertension Hypothyroidism Squamous cell cancer of external ear Family History Other Family history non-contributory Social History Smoking Status: Former smoker Tobacco Type: Smokeless Tobacco (Dip or Chew) Hx Alcohol Use: No Hx Substance Use: No Preferred Language: [place]olan Communication Ability: Effective Supervisor Maintenance Required: No Beliefs That Will Affect Care: None marital status: Current Living Situation: Family Current Living Situation Comment: Patient lives with two sons current occupational status: retired Feels Safe at Home: Yes Assistive Devices: Nebulizer, Oxygen - Continuous and Wheelchair Review of Systems Review of Systems: Constitutional: No fever, sweats or chills Eyes: No diplopia, no worsening or blurred vision ENT: normal hearing, no trouble swallowing Respiratory: As per HPI, +cough, sputum, dyspnea at rest and on exertion Cardiovascular: No chest pain, tightness or palpitations Abdomen: No pain, +nausea, no vomiting, diarrhea or constipation Musculoskeletal: No joint pain, calf pain, swelling Neurologic: + generalized weakness, no numbness/tingling, or balance problems Psychiatric: No anxiety or depression Skin: No rash or itch Physical Exam Physical Exam: General: awake, alert, no apparent distress Head: Normocephalic, Left eye covered with patch, wound behind the left ear, previous mouth surgery with left sided lip droop ENT: PERRL, EOMI, no pharyngeal exudate, mucous membranes moist Chest: Coarse breath sounds throughout, + wheezing, on 4 L via NC, o2 sats 92% Cardiac: Regular rate and rhythm, no murmur, no JVD, normal peripheral pulses, good capillary refill Abdominal: NABS x 4 quadrants, soft, nondistended, nontender to palpation, no rebound or guarding Extremities: Normal inspection, no peripheral edema or erythema, calfs nontender to palpation Psych: Normal mood and affect Neuro: AAO x 3, strength intact bilaterally and rated 5/5, no motor deficits, speech is clear, no peripheral sensory deficits Results & Data Results & Data Vital Signs (Past 12 Hours) Vital Signs Temp Pulse Pulse Resp BP Pulse Ox O2 Del Method 01/19/23 14:40 105 H 01/19/23 14:48 81 20 148/45 H 95 Nasal Cannula 01/19/23 14:03 95 H 20 116/87 100 Nasal Cannula 01/19/23 13:53 100 Nasal Cannula 01/19/23 13:53 100 Nasal Cannula 01/19/23 13:45 87 20 134/74 98 Nasal Cannula 01/19/23 13:34 36.7 C 143 H 28 H 88 L Nasal Cannula O2 Flow Rate 01/19/23 14:40 01/19/23 14:48 4 01/19/23 14:03 4 01/19/23 13:53 4 01/19/23 13:53 4 01/19/23 13:45 4 01/19/23 13:34 4 Laboratory Results 01/19/23 13:58 Aerobic Blood Culture - Pending Blood Anaerobic Blood Culture - Pending 01/19/23 13:53 Aerobic Blood Culture - Pending Blood Anaerobic Blood Culture - Pending 01/19/23 01/19/23 01/19/23 14:42 14:42 14:42 WBC RBC Hgb Hct MCV MCH MCHC RDW Std Deviation RDW Coeff of Jeison Plt Count MPV Immature Gran % (Auto) Neut % (Auto) Lymph % (Auto) [place] % (Auto) Eos % (Auto) Baso % (Auto) Neut # (Auto) Lymph # (Auto) [place] # (Auto) Eos # (Auto) Baso # (Auto) Immature Gran # (Auto) PT INR APTT PTT Ratio VBG pH 7.33 L VBG pCO2 63 H VBG pO2 20 VBG HCO3 33 VBG O2 Saturation < 60.0 VBG Base Excess 5.3 Sodium Potassium Chloride Carbon Dioxide Anion Gap BUN Creatinine Est Cr Clr Drug Dosing Est GFR ( Amer) Est GFR (Non-Af Amer) BUN/Creatinine Ratio Glucose Lactate Calcium Magnesium Total Bilirubin AST ALT Alkaline Phosphatase Troponin I High Sens C-Reactive Protein B-Natriuretic Peptide 13 Total Protein Albumin Globulin Albumin/Globulin Ratio Procalcitonin Blood Type O Positive Antibody Screen NEGATIVE 01/19/23 01/19/23 01/19/23 13:53 13:53 13:53 WBC RBC Hgb Hct MCV MCH MCHC RDW Std Deviation RDW Coeff of Jeison Plt Count MPV Immature Gran % (Auto) Neut % (Auto) Lymph % (Auto) [place] % (Auto) Eos % (Auto) Baso % (Auto) Neut # (Auto) Lymph # (Auto) [place] # (Auto) Eos # (Auto) Baso # (Auto) Immature Gran # (Auto) PT 11.0 INR 1.0 APTT 31.3 H PTT Ratio 1.1 VBG pH VBG pCO2 VBG pO2 VBG HCO3 VBG O2 Saturation VBG Base Excess Sodium 139 Potassium 4.0 Chloride 104 Carbon Dioxide 30 Anion Gap 5 BUN 52 H Creatinine 1.21 Est Cr Clr Drug Dosing 37.3 Est GFR ( Amer) 61.1 Est GFR (Non-Af Amer) 52.8 BUN/Creatinine Ratio 43.0 H Glucose 153 H Lactate Calcium 8.4 L Magnesium 1.9 Total Bilirubin 0.2 AST 12 L ALT 6 L Alkaline Phosphatase 61 Troponin I High Sens 3.7 C-Reactive Protein 2.69 H B-Natriuretic Peptide Total Protein 6.2 Albumin 3.5 Globulin 2.7 Albumin/Globulin Ratio 1.3 Procalcitonin < 0.05 Blood Type Antibody Screen 01/19/23 01/19/23 13:53 13:53 WBC 7.43 RBC 3.31 L Hgb 8.5 L Hct 27.4 L MCV 82.8 MCH 25.7 MCHC 31.0 L RDW Std Deviation 58.4 H RDW Coeff of Jeison 19.5 H Plt Count 386 MPV 9.9 Immature Gran % (Auto) 1.2 Neut % (Auto) 72.6 Lymph % (Auto) 12.0 [place] % (Auto) 13.7 Eos % (Auto) 0.0 Baso % (Auto) 0.5 Neut # (Auto) 5.39 Lymph # (Auto) 0.89 L [place] # (Auto) 1.02 H Eos # (Auto) 0.00 Baso # (Auto) 0.04 Immature Gran # (Auto) 0.09 PT INR APTT PTT Ratio VBG pH VBG pCO2 VBG pO2 VBG HCO3 VBG O2 Saturation VBG Base Excess Sodium Potassium Chloride Carbon Dioxide Anion Gap BUN Creatinine Est Cr Clr Drug Dosing Est GFR ( Amer) Est GFR (Non-Af Amer) BUN/Creatinine Ratio Glucose Lactate 1.7 Calcium Magnesium Total Bilirubin AST ALT Alkaline Phosphatase Troponin I High Sens C-Reactive Protein B-Natriuretic Peptide Total Protein Albumin Globulin Albumin/Globulin Ratio Procalcitonin Blood Type Antibody Screen Diagnostic Findings Chest X-Ray 01/19/23 13:44 XR chest 1V portable CLINICAL HISTORY: Sepsis. COMPARISON STUDY: Chest radiograph and chest CT September 29, 2021. FINDINGS: Underlying emphysema is present. There is no pneumothorax or pleural effusion. Cardiac size is normal. There has been interval development of patchy right midlung airspace opacity. There may be left basilar opacity. No evidence for pulmonary edema. IMPRESSION: 1. Interval development of right midlung opacity and possible left basilar o pacity. The findings suggest pneumonia. Posttreatment radiographs to ensure resolution are recommended. 2. Emphysema. ACT 112: Negative or not required by law. Electronically signed by: Skinny Raza M.D. 01/19/2023 2:50 PM ECG Additional Comments: 19-JAN-2023 13:46:41 [facility]-EDSTAT ROUTINE RETRIEVAL Sinus rhythm with Premature supraventricular complexes Left axis deviation Right bundle branch block Septal infarct , age undetermined Abnormal ECG When compared with ECG of 03-OCT-2022 05:05, Premature supraventricular complexes are now Present Right bundle branch block has replaced RSR' pattern in V1 Septal infarct is now Present Vent. rate 92 BPM MD interval 152 ms QRS duration 124 ms QT/QTc 394/487 ms Code Status & VTE Plan Code Status Full code - discussed with pt at bedside Supervising Physician Co-Signing Physician Notes I have seen and examined the patient and have discussed the case with the provider above. I agree with the assessment and plan as stated with the following exceptions. 87 yo M with head and neck cancer presents with nausea and malaise and shortness of breath with productive cough over the past few days. He is undergoing treatments, takes baby aspirin and PP daily. He is on iron supplementation and reports that his baseline Hb is around 8.5. He denies any lightheadedness. He reports living with his two sons who help him as he is blind, however, they dont help him go to the toilet or wipe after a BM. He himself is not able to evaluate his BMs because he cannot see them, and these now appear to be blackish in color with some bright red blood mixed in. He is desperate for some ice water which was given to him and later he asked for a half cup of coffee. On exam he is mentating clearly and has a patch on his left eye. He is elderly and sitting on the side of the bed in NAD. He has a significant tremor present in hands. Lungs are difficult to assess as he is not taking deep breaths, but appear clear to auscultation in both posterior and anterior cox. CV exam reveals S1/2 without murmur. No peripheral edema. He appears euvolemic to dry. 1. multifocal pneumonia 2. GI bleeding 3. Tremor 4. chronic anemia 5. Squamous cell cancer head 6. Blindness Labs/images/ekg reviewed. Hb 8.5 and this is his baseline per record review. Normal WBC and PLTs. Some mild hypercarbia on VBG with pH 7.33 and pCO2 63. Baseline pCO2 is around 57. CRP elevated to 2.69. CXR with multifocal pneumonia and emphysema. In the ER he was given multiple bronchodilator treatments and back to back solumedrol 125mg IV. This may be contributing to his significant tremors. He was started on Cefepime and azithromycin. He has a h/o positive sputum culture for pseudomonas in the past. Will hold off on further steroids, especially in light of new GI bleeding and he was started on a PPI drip with GI consulted. Iron supplement may be contributing to blackish color of the stool. Cont IVF DO Mir
[2023-01-19] MEDS ORDERED: VANCOMYCIN CONSULT ACTIVE PRN (17:16)
[2023-01-19] MEDS ORDERED: PIPERACILLIN/TAZOBACTAM 4.5 GM in DEXTROSE 5% 100 ML IV ONE (17:16)
[2023-01-19] MEDS ORDERED: VANCOMYCIN HCL 1,000 MG in SODIUM CHLORIDE 0.9% 500 ML IV ONE (17:17)
[2023-01-19] MEDS ORDERED: PIPERACILLIN/TAZOBACTAM 4.5 GM/120ML D5W IV ONE (17:22)
[2023-01-19] MEDS ORDERED: ONDANSETRON INJ 2 MG/ML 2 ML VIAL IV STA (17:32)
[2023-01-19] MEDS ORDERED: METOCLOPRAMIDE HCL INJ 5 MG/ML 2 ML VIAL IV ONE (17:40)
[2023-01-19 17:54] LABS: C Reactive Protein 2.69 mg/dl (0-0.5)
[2023-01-19] MEDS ORDERED: AZITHROMYCIN 500 MG in DEXTROSE 5% 250 ML IV ONE (18:15)
[2023-01-19] MEDS: CEFEPIME 2,000 MG/20 ML VIAL ONE ×2 (18:37→18:38)
--- NOTE | 2023-01-19 19:57 | Emergency Department Note ---
History of Present Illness General Chief Complaint: Illness Stated Complaint: LOW BLOOD COUNT,SOB,WEAKNESS Time Seen by Provider: 01/19/23 14:03 History of Present Illness Provider Complaint: shortness of breath Onset (ago): week(s) (1) Severity: similar to previous episodes Consistency/Duration: + intermittent and + progressively worsening Relieved By: + nothing Exacerbated By: + exertion Context: no recent illness Known history of: COPD and congestive heart failure Associated symptoms: + wheezing; no chest pain, no pain with inspiration, no fever, no cough, no sputum production, no orthopnea or no hemoptysis HPI Narrative: Patient reports that it feels similar to when he needed a blood transfusion secondary to anemia. 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 Related Data Home oxygen amount: 4 liters Home Medications Medication Instructions Recorded Confirmed Type albuterol sulfate 2.5 mg/3 mL 3 ml inhalation QID PRN Shortness 10/04/18 01/19/23 History (0.083 %) solution for nebulization Of Breath albuterol sulfate 90 mcg/actuation 2 puff inhalation Q4H PRN SHORT OF 10/04/18 01/19/23 History aerosol inhaler BREATH/COUGH/WHEEZING aspirin 81 mg tablet,delayed 81 mg PO DAILY 10/04/18 01/19/23 History release ferrous sulfate 325 mg (65 mg 325 mg PO DAILY 10/04/18 01/19/23 History iron) tablet levothyroxine 25 mcg tablet 25 mcg PO DAILYBB 10/04/18 01/19/23 History meclizine 12.5 mg tablet 12.5 mg PO TID PRN Dizziness 10/04/18 01/19/23 History tiotropium bromide 2.5 2 puff inhalation DAILY 10/04/18 01/19/23 History mcg/actuation mist for inhalation roflumilast 500 mcg tablet 500 mcg PO DAILY 09/26/22 01/19/23 History erythromycin 5 mg/gram (0.5 %) eye 1 applic OPL HS 09/29/22 01/19/23 History ointment isosorbide mononitrate 60 mg 30 mg PO QAM 09/29/22 01/19/23 History tablet,extended release 24 hr amlodipine 5 mg tablet 5 mg PO DAILY 01/19/23 01/19/23 History ascorbic acid (vitamin C) 500 mg 100 mg PO DAILY 01/19/23 01/19/23 History tablet (Vitamin C) azithromycin 250 mg tablet 250 mg PO DAILY 01/19/23 01/19/23 History cholecalciferol (vitamin D3) 25 25 mcg PO DAILY 01/19/23 01/19/23 History mcg (1,000 unit) capsule (Vitamin D3) fluticasone 250 mcg-salmeterol 50 1 inh inhalation BID 01/19/23 01/19/23 History mcg/dose blistr powdr for inhalation pantoprazole 40 mg tablet,delayed 40 mg PO DAILY 01/19/23 01/19/23 History release peg 400-propylene glycol (PF) 0.4 1 drp OPL BID 01/19/23 01/19/23 History %-0.3 % eye drops in a dropperette (Lubricant Eye (PG-PEG 400) (PF)) polyvinyl alcohol 1.4 % eye drops 1 drp ophthalmic (eye) QID PRN Dry 01/19/23 01/19/23 History (Artificial Tears (polyvinyl Eyes alcohol)) ropinirole 0.25 mg tablet 0.25 mg PO HS 01/19/23 01/19/23 History zonisamide 25 mg capsule 25 mg PO HS 01/19/23 01/19/23 History Allergies Allergy/AdvReac Type Severity Reaction Status Date / Time cefuroxime Allergy Intermediate Rash Verified 01/19/23 17:04 ertapenem Allergy Unknown Unknown Verified 01/19/23 17:04 levofloxacin [From Levaquin] Allergy Unknown Unknown Verified 01/19/23 17:04 BETA-LACTAMS Allergy Intermediate Rash Uncoded 01/19/23 17:04 FLUOROQUINOLONES Allergy Intermediate Rash Uncoded 01/19/23 17:04 Past Med/Surg History Medical History Chronic anemia COPD (chronic obstructive pulmonary disease) Diastolic CHF Hx of agent [place] exposure Hypertension Hypothyroidism Squamous cell cancer of external ear Family History Other Family history non-contributory Social History Smoking Status: Former smoker Tobacco Type: Smokeless Tobacco (Dip or Chew) Hx Alcohol Use: No Hx Substance Use: No Preferred Language: Lao Communication Ability: Effective Ginseng Farmer Required: No Beliefs That Will Affect Care: None marital status: Current Living Situation: Family Current Living Situation Comment: Patient lives with two sons current occupational status: retired Feels Safe at Home: Yes Assistive Devices: Nebulizer, Oxygen - Continuous and Wheelchair Physical Exam Vital Signs: Vital Signs - 24 hr 01/19/23 13:34 01/19/23 13:45 01/19/23 13:53 Temperature 36.7 C Temperature Source Temporal Artery Sc an Pulse Rate 143 H Pulse Rate [Left A pical] 87 Pulse Rate from Sp O2 Sensor Pulse Rhythm [Left Apical] Regular Pulse Strength [Le ft Apical] Normal Respiratory Rate 28 H 20 Respiratory Effort / Characteristics Non-Labored Sponta neous Respiratory Depth Normal Blood Pressure Blood Pressure [Ri ght Arm] 134/74 Blood Pressure Charity n Blood Pressure Charity n [Right Arm] 94 Pulse Oximetry 88 L 98 100 Oxygen Delivery Me thod Nasal Cannula Nasal Cannula Nasal Cannula Oxygen Flow Rate 4 4 4 Sepsis Recent Feve r Within 48 Hours No Sepsis New/Unexpla ined Change in Men dao Status No Sepsis Action Take n by Nursing No Action Required 01/19/23 13:53 01/19/23 14:03 01/19/23 14:48 Temperature Temperature Source Pulse Rate Pulse Rate [Left A pical] 95 H 81 Pulse Rate from Sp O2 Sensor Pulse Rhythm [Left Apical] Irregular Regular Pulse Strength [Le ft Apical] Normal Respiratory Rate 20 20 Respiratory Effort / Characteristics Non-Labored Sponta neous Non-Labored Sponta neous Respiratory Depth Normal Normal Blood Pressure Blood Pressure [Ri ght Arm] 116/87 148/45 H Blood Pressure Charity n Blood Pressure Charity n [Right Arm] 96 79 Pulse Oximetry 100 100 95 Oxygen Delivery Me thod Nasal Cannula Nasal Cannula Nasal Cannula Oxygen Flow Rate 4 4 4 Sepsis Recent Feve r Within 48 Hours Sepsis New/Unexpla ined Change in Men dao Status Sepsis Action Take n by Nursing 01/19/23 14:40 01/19/23 18:05 01/19/23 13:45 Temperature Temperature Source Pulse Rate 105 H 88 Pulse Rate [Left A pical] Pulse Rate from Sp O2 Sensor Pulse Rhythm [Left Apical] Pulse Strength [Le ft Apical] Respiratory Rate 27 H Respiratory Effort / Characteristics Respiratory Depth Blood Pressure Blood Pressure [Ri ght Arm] Blood Pressure Charity n Blood Pressure Charity n [Right Arm] Pulse Oximetry Oxygen Delivery Me thod Oxygen Flow Rate Sepsis Recent Feve r Within 48 Hours Sepsis New/Unexpla ined Change in Men dao Status Sepsis Action Take n by Nursing 01/19/23 13:46 01/19/23 13:46 01/19/23 14:00 Temperature Temperature Source Pulse Rate 87 Pulse Rate [Left A pical] Pulse Rate from Sp O2 Sensor Pulse Rhythm [Left Apical] Pulse Strength [Le ft Apical] Respiratory Rate 28 H Respiratory Effort / Characteristics Respiratory Depth Blood Pressure 134/74 116/87 Blood Pressure [Ri ght Arm] Blood Pressure Charity n 90 97 Blood Pressure Charity n [Right Arm] Pulse Oximetry Oxygen Delivery Me thod Oxygen Flow Rate Sepsis Recent Feve r Within 48 Hours Sepsis New/Unexpla ined Change in Men dao Status Sepsis Action Take n by Nursing 01/19/23 14:00 01/19/23 14:30 01/19/23 14:31 Temperature Temperature Source Pulse Rate 86 91 H Pulse Rate [Left A pical] Pulse Rate from Sp O2 Sensor 82 78 Pulse Rhythm [Left Apical] Pulse Strength [Le ft Apical] Respiratory Rate 23 29 H Respiratory Effort / Characteristics Respiratory Depth Blood Pressure 148/45 H Blood Pressure [Ri ght Arm] Blood Pressure Charity n 69 Blood Pressure Charity n [Right Arm] Pulse Oximetry 98 98 Oxygen Delivery Me thod Nasal Cannula Oxygen Flow Rate 4 Sepsis Recent Feve r Within 48 Hours Sepsis New/Unexpla ined Change in Men dao Status Sepsis Action Take n by Nursing 01/19/23 14:31 01/19/23 15:00 01/19/23 15:01 Temperature Temperature Source Pulse Rate 83 87 85 Pulse Rate [Left A pical] Pulse Rate from Sp O2 Sensor 101 H 81 88 Pulse Rhythm [Left Apical] Pulse Strength [Le ft Apical] Respiratory Rate 38 H 22 21 Respiratory Effort / Characteristics Respiratory Depth Blood Pressure Blood Pressure [Ri ght Arm] Blood Pressure Charity n Blood Pressure Charity n [Right Arm] Pulse Oximetry 97 100 100 Oxygen Delivery Me thod Nasal Cannula Oxygen Flow Rate Sepsis Recent Feve r Within 48 Hours Sepsis New/Unexpla ined Change in Men dao Status Sepsis Action Take n by Nursing 01/19/23 15:30 01/19/23 15:30 01/19/23 16:00 Temperature Temperature Source Pulse Rate 91 H Pulse Rate [Left A pical] Pulse Rate from Sp O2 Sensor Pulse Rhythm [Left Apical] Pulse Strength [Le ft Apical] Respiratory Rate 23 Respiratory Effort / Characteristics Respiratory Depth Blood Pressure 132/87 142/57 H Blood Pressure [Ri ght Arm] Blood Pressure Charity n 100 94 Blood Pressure Charity n [Right Arm] Pulse Oximetry 98 Oxygen Delivery Me thod Nasal Cannula Oxygen Flow Rate 4 Sepsis Recent Feve r Within 48 Hours Sepsis New/Unexpla ined Change in Men dao Status Sepsis Action Take n by Nursing 01/19/23 16:00 01/19/23 16:30 01/19/23 16:30 Temperature Temperature Source Pulse Rate 87 93 H Pulse Rate [Left A pical] Pulse Rate from Sp O2 Sensor Pulse Rhythm [Left Apical] Pulse Strength [Le ft Apical] Respiratory Rate 26 H 25 H Respiratory Effort / Characteristics Respiratory Depth Blood Pressure 124/68 Blood Pressure [Ri ght Arm] Blood Pressure Charity n 99 Blood Pressure Charity n [Right Arm] Pulse Oximetry 92 98 Oxygen Delivery Me thod Nasal Cannula Oxygen Flow Rate 4 Sepsis Recent Feve r Within 48 Hours Sepsis New/Unexpla ined Change in Men dao Status Sepsis Action Take n by Nursing 01/19/23 17:00 01/19/23 17:00 01/19/23 17:30 Temperature Temperature Source Pulse Rate 92 H 89 Pulse Rate [Left A pical] Pulse Rate from Sp O2 Sensor 83 Pulse Rhythm [Left Apical] Pulse Strength [Le ft Apical] Respiratory Rate 25 H 18 Respiratory Effort / Characteristics Respiratory Depth Blood Pressure 128/64 Blood Pressure [Ri ght Arm] Blood Pressure Charity n 108 Blood Pressure Charity n [Right Arm] Pulse Oximetry 100 98 Oxygen Delivery Me thod Nasal Cannula Oxygen Flow Rate 4 Sepsis Recent Feve r Within 48 Hours Sepsis New/Unexpla ined Change in Men dao Status Sepsis Action Take n by Nursing 01/19/23 17:31 01/19/23 17:31 01/19/23 18:00 Temperature Temperature Source Pulse Rate 94 H 88 Pulse Rate [Left A pical] Pulse Rate from Sp O2 Sensor 78 Pulse Rhythm [Left Apical] Pulse Strength [Le ft Apical] Respiratory Rate 24 17 Respiratory Effort / Characteristics Respiratory Depth Blood Pressure 118/100 Blood Pressure [Ri ght Arm] Blood Pressure Charity n 111 Blood Pressure Charity n [Right Arm] Pulse Oximetry 92 100 Oxygen Delivery Me thod Oxygen Flow Rate Sepsis Recent Feve r Within 48 Hours Sepsis New/Unexpla ined Change in Men dao Status Sepsis Action Take n by Nursing 01/19/23 18:30 01/19/23 18:32 01/19/23 18:32 Temperature Temperature Source Pulse Rate 87 87 Pulse Rate [Left A pical] Pulse Rate from Sp O2 Sensor 69 Pulse Rhythm [Left Apical] Pulse Strength [Le ft Apical] Respiratory Rate 24 22 Respiratory Effort / Characteristics Respiratory Depth Blood Pressure 118/60 Blood Pressure [Ri ght Arm] Blood Pressure Charity n 77 Blood Pressure Charity n [Right Arm] Pulse Oximetry 93 93 Oxygen Delivery Me thod Oxygen Flow Rate Sepsis Recent Feve r Within 48 Hours Sepsis New/Unexpla ined Change in Men dao Status Sepsis Action Take n by Nursing 01/19/23 19:00 01/19/23 19:30 Temperature Temperature Source Pulse Rate 87 110 H Pulse Rate [Left A pical] Pulse Rate from Sp O2 Sensor Pulse Rhythm [Left Apical] Pulse Strength [Le ft Apical] Respiratory Rate 24 25 H Respiratory Effort / Characteristics Respiratory Depth Blood Pressure Blood Pressure [Ri ght Arm] Blood Pressure Charity n Blood Pressure Charity n [Right Arm] Pulse Oximetry 100 98 Oxygen Delivery Me thod Nasal Cannula Oxygen Flow Rate 4 Sepsis Recent Feve r Within 48 Hours Sepsis New/Unexpla ined Change in Men dao Status Sepsis Action Take n by Nursing Physical Exam: Physical Exam GENERAL: oriented to person, place, and time. appears well-developed and well- nourished. HENT: Exam performed. - Head: Normocephalic and atraumatic. EYES: Conjunctivae and EOM are normal. Right eye exhibits no discharge. Left eye exhibits no discharge. No scleral icterus. NECK: Normal range of motion. Neck supple. No JVD present. CV: Normal rate, regular rhythm, normal heart sounds and intact distal pulses. There is no peripheral edema. Palpable radial pulses bue. PULM/CHEST: Diffuse expiratory wheezes bilaterally. ABD: The abdomen is soft. There is no tenderness. NEURO: Motor and sensation grossly intact. SKIN: Skin is warm and dry. He is not diaphoretic. PSYCH: normal mood and affect. Behavior is normal. Judgment and thought content normal. Course Course 1403: The patient was evaluated in room B7. A complete history and physical exam was performed Cardiac monitoring: An order was placed for continuous cardiac monitoring. The monitor shows a rate of 100 with sinus rhythm interpreted by me 1715: Vital signs stable on home oxygen. Status post 2 DuoNeb's and Solu-Medrol in the emergency department the patient's wheezing is improved however the patient still states he feels short of breath. Labs show hemoglobin 8.5 white blood cell count 7.43 VBG shows venous pH 7.33 venous PCO2 of 63. BNP negative. Troponin negative. Chest x-ray read by radiology shows a right midlung opacity and possible left basilar opacity suggestive of pneumonia. Antibiotics will be ordered for the patient. Patient will be admitted to the hospital. Discussed case with [facility] hospitalist team for Dr. Hester. She re quested lactic and blood cultures to be ordered. CURB-65 Score for Pneumonia Severity from [employer] on 01/19/2023 All calculations should be rechecked by clinician prior to use RESULT SUMMARY: 3 points Severe risk group: 14.0% 30-day mortality. Consider inpatient treatment with possible intensive care admission. INPUTS: Confusion > 0 = No BUN >19 mg/dL (>7 mmol/L urea) > 1 = Yes Respiratory Rate >=0 > 1 = Yes Systolic BP <90 mmHg or Diastolic BP <=0 mmHg > 0 = No Age >=5 > 1 = Yes PSI/PORT Score: Pneumonia Severity Index for CAP from [employer] on 01/19/2023 All calculations should be rechecked by clinician prior to use RESULT SUMMARY: 179 points Risk Class V, 27.0-29.2% mortality. Hospitalization recommended based on risk. INPUTS: Age > 89 years Sex > 0 = Male [facility] resident > 0 = No Neoplastic disease > 30 = Yes Liver disease history > 0 = No CHF history > 10 = Yes Cerebrovascular disease history > 0 = No Renal disease history > 0 = No Altered mental status > 0 = No Respiratory rate >=0 breaths/min > 20 = Yes Systolic blood pressure <90 mmHg > 0 = No Temperature <35&deg;C (95&deg;F) or >39.9&deg;C (103.8&deg;F) > 0 = No Pulse >=25 beats/min > 0 = No pH <7.35 > 0 = No BUN >=0 mg/dL or >=1 mmol/L > 20 = Yes Sodium <130 mmol/L > 0 = No Glucose >=50 mg/dL or >=4 mmol/L > 0 = No Hematocrit <30% > 10 = Yes Partial pressure of oxygen <60 mmHg or <8 kPa > 0 = No Pleural effusion on x-ray > 0 = No Administered Medications Azithromycin 500 mg/ Dextrose 255 mls @ 125 mls/hr IV ONE ONE Stop: 01/19/23 20:17 Last Admin: 01/19/23 18:38 Dose: 125 mls/hr Documented By: ARS Discontinued Medications Albuterol (Albut/Ipratrop 3mg/0.5mg Neb 3 Ml Vial) 3 ml NEB NOW STA; Protocol Stop: 01/19/23 14:09 Last Admin: 01/19/23 14:13 Dose: 3 ml Documented By: TW Albuterol (Albut/Ipratrop 3mg/0.5mg Neb 3 Ml Vial) 3 ml NEB NOW STA; Protocol Stop: 01/19/23 14:10 Last Admin: 01/19/23 14:48 Dose: 3 ml Documented By: SELMA Albuterol (Albut/Ipratrop 3mg/0.5mg Neb 3 Ml Vial) 3 ml NEB NOW STA; Protocol Stop: 01/19/23 17:11 Last Admin: 01/19/23 18:38 Dose: 3 ml Documented By: VINH Cefepime HCl (Cefepime 2,000 Mg/20 Ml Vial) Confirm Administered Dose 2,000 mg .ROUTE .STK-MED ONE Stop: 01/19/23 18:34 Last Admin: 01/19/23 18:38 Dose: 2,000 mg Documented By: Admin: 01/19/23 18:37 Dose: Not Given Documented By: VINH Piperacillin Sod/Tazobactam (Sod 4.5 gm/ Dextrose) 120 mls @ 200 mls/hr IV NOW ONE; Protocol Stop: 01/19/23 17:51 Last Admin: 01/19/23 18:37 Dose: Not Given Documented By: VINH Vancomycin HCl 1,000 mg/ (Sodium Chloride) 520 mls @ 200 mls/hr IV ONCE ONE Stop: 01/19/23 19:52 Last Admin: 01/19/23 18:38 Dose: Not Given Documented By: VINH Methylprednisolone (Methylprednisolone 125 Mg/2 Ml Vial) 125 mg IV NOW STA Stop: 01/19/23 14:09 Last Admin: 01/19/23 14:13 Dose: 125 mg Documented By: TW Methylprednisolone (Methylprednisolone 125 Mg/2 Ml Vial) 125 mg IV NOW STA Stop: 01/19/23 16:26 Last Admin: 01/19/23 16:58 Dose: 125 mg Documented By: VINH Metoclopramide HCl (Metoclopramide Hcl Inj 5 Mg/Ml 2 Ml Vial) 5 mg IV ONE ONE Stop: 01/19/23 17:41 Last Admin: 01/19/23 18:38 Dose: 5 mg Documented By: VINH Ondansetron HCl (Ondansetron Inj 2 Mg/Ml 2 Ml Vial) 4 mg IV NOW STA Stop: 01/19/23 17:33 Last Admin: 01/19/23 18:44 Dose: Not Given Documented By: VINH Piperacillin Sod/Tazobactam Sod (Piperacillin/Tazobactam 4.5 Gm/120ml D5w) Confirm Administered Dose 4.5 gm IV .STK-MED ONE Stop: 01/19/23 17:23 Last Admin: 01/19/23 18:07 Dose: Not Given Documented By: VINH Medical Decision Making Laboratory Data Attestation: I reviewed the patient's lab results. 01/19/23 13:53 01/19/23 13:53 Lab Results 01/19/23 01/19/23 01/19/23 Range/Units 13:53 13:53 13:53 WBC 7.43 (4.8-10.8) K/ul RBC 3.31 L (4.70-6.10) M/uL Hgb 8.5 L (14.0-18.0) g/dl Hct 27.4 L (42.0-52.0) % MCV 82.8 (80.0-100.0) fL MCH 25.7 (25.0-34.0) pg MCHC 31.0 L (32.0-36.0) g/dL RDW Std Deviation 58.4 H (36.4-46.3) fL RDW Coeff of Jeison 19.5 H (11.5-14.5) % Plt Count 386 (130-400) K/uL MPV 9.9 (9.4-12.4) fL Immature Gran % (Auto) 1.2 % Neut % (Auto) 72.6 % Lymph % (Auto) 12.0 % Grimes % (Auto) 13.7 % Eos % (Auto) 0.0 % Baso % (Auto) 0.5 % Neut # (Auto) 5.39 (1.40-6.50) K/uL Lymph # (Auto) 0.89 L (1.2-3.4) K/uL Grimes # (Auto) 1.02 H (0.11-0.59) K/uL Eos # (Auto) 0.00 (0-0.50) K/uL Baso # (Auto) 0.04 (0-0.2) K/uL Immature Gran # (Auto) 0.09 (0.01-0.20) K/uL PT 11.0 (9.0-12.0) Seconds INR 1.0 (0.9-1.1) APTT 31.3 H (21.0-31.0) Seconds PTT Ratio 1.1 VBG pH (7.36-7.41) VBG pCO2 (38-50) mmHg VBG pO2 mmHg VBG HCO3 mmol/L VBG O2 Saturation % VBG Base Excess mEq/L Sodium (136-145) mmol/L Potassium (3.5-5.1) mmol/L Chloride (98-107) mmol/L Carbon Dioxide (21-32) mmol/L Anion Gap (3-11) BUN (6-23) mg/dl Creatinine (0.6-1.4) mg/dl Est Cr Clr Drug Dosing ml/min Est GFR ( Amer) ml/min Est GFR (Non-Af Amer) ml/min BUN/Creatinine Ratio (10-20) Glucose (70-99(Fasting)) mg/dl Lactate 1.7 (0.4-2.0) mmol/L Calcium (8.6-10.3) mg/dl Magnesium (1.7-2.4) mg/dl Total Bilirubin (0.2-1.0) mg/dl AST (13-39) U/L ALT (7-52) U/L Alkaline Phosphatase (34-104) U/L Troponin I High Sens (0-20) pg/ml C-Reactive Protein (0-0.5) mg/dl B-Natriuretic Peptide (0-100) pg/ml Total Protein (6.0-8.3) gm/dl Albumin (3.4-5.0) gm/dl Globulin (2.5-4.0) gm/dl Albumin/Globulin Ratio (0.9-2) Procalcitonin (0-0.5) ng/ml Blood Type Antibody Screen 01/19/23 01/19/23 01/19/23 Range/Units 13:53 13:53 14:42 WBC (4.8-10.8) K/ul RBC (4.70-6.10) M/uL Hgb (14.0-18.0) g/dl Hct (42.0-52.0) % MCV (80.0-100.0) fL MCH (25.0-34.0) pg MCHC (32.0-36.0) g/dL RDW Std Deviation (36.4-46.3) fL RDW Coeff of Jeison (11.5-14.5) % Plt Count (130-400) K/uL MPV (9.4-12.4) fL Immature Gran % (Auto) % Neut % (Auto) % Lymph % (Auto) % Grimes % (Auto) % Eos % (Auto) % Baso % (Auto) % Neut # (Auto) (1.40-6.50) K/uL Lymph # (Auto) (1.2-3.4) K/uL Grimes # (Auto) (0.11-0.59) K/uL Eos # (Auto) (0-0.50) K/uL Baso # (Auto) (0-0.2) K/uL Immature Gran # (Auto) (0.01-0.20) K/uL PT (9.0-12.0) Seconds INR (0.9-1.1) APTT (21.0-31.0) Seconds PTT Ratio VBG pH (7.36-7.41) VBG pCO2 (38-50) mmHg VBG pO2 mmHg VBG HCO3 mmol/L VBG O2 Saturation % VBG Base Excess mEq/L Sodium 139 (136-145) mmol/L Potassium 4.0 (3.5-5.1) mmol/L Chloride 104 (98-107) mmol/L Carbon Dioxide 30 (21-32) mmol/L Anion Gap 5 (3-11) BUN 52 H (6-23) mg/dl Creatinine 1.21 (0.6-1.4) mg/dl Est Cr Clr Drug Dosing 37.3 ml/min Est GFR ( Amer) 61.1 ml/min Est GFR (Non-Af Amer) 52.8 ml/min BUN/Creatinine Ratio 43.0 H (10-20) Glucose 153 H (70-99(Fasting)) mg/dl Lactate (0.4-2.0) mmol/L Calcium 8.4 L (8.6-10.3) mg/dl Magnesium 1.9 (1.7-2.4) mg/dl Total Bilirubin 0.2 (0.2-1.0) mg/dl AST 12 L (13-39) U/L ALT 6 L (7-52) U/L Alkaline Phosphatase 61 (34-104) U/L Troponin I High Sens 3.7 (0-20) pg/ml C-Reactive Protein 2.69 H (0-0.5) mg/dl B-Natriuretic Peptide (0-100) pg/ml Total Protein 6.2 (6.0-8.3) gm/dl Albumin 3.5 (3.4-5.0) gm/dl Globulin 2.7 (2.5-4.0) gm/dl Albumin/Globulin Ratio 1.3 (0.9-2) Procalcitonin < 0.05 (0-0.5) ng/ml Blood Type O Positive Antibody Screen NEGATIVE 01/19/23 01/19/23 Range/Units 14:42 14:42 WBC (4.8-10.8) K/ul RBC (4.70-6.10) M/uL Hgb (14.0-18.0) g/dl Hct (42.0-52.0) % MCV (80.0-100.0) fL MCH (25.0-34.0) pg MCHC (32.0-36.0) g/dL RDW Std Deviation (36.4-46.3) fL RDW Coeff of Jeison (11.5-14.5) % Plt Count (130-400) K/uL MPV (9.4-12.4) fL Immature Gran % (Auto) % Neut % (Auto) % Lymph % (Auto) % Grimes % (Auto) % Eos % (Auto) % Baso % (Auto) % Neut # (Auto) (1.40-6.50) K/uL Lymph # (Auto) (1.2-3.4) K/uL Grimes # (Auto) (0.11-0.59) K/uL Eos # (Auto) (0-0.50) K/uL Baso # (Auto) (0-0.2) K/uL Immature Gran # (Auto) (0.01-0.20) K/uL PT (9.0-12.0) Seconds INR (0.9-1.1) APTT (21.0-31.0) Seconds PTT Ratio VBG pH 7.33 L (7.36-7.41) VBG pCO2 63 H (38-50) mmHg VBG pO2 20 mmHg VBG HCO3 33 mmol/L VBG O2 Saturation < 60.0 % VBG Base Excess 5.3 mEq/L Sodium (136-145) mmol/L Potassium (3.5-5.1) mmol/L Chloride (98-107) mmol/L Carbon Dioxide (21-32) mmol/L Anion Gap (3-11) BUN (6-23) mg/dl Creatinine (0.6-1.4) mg/dl Est Cr Clr Drug Dosing ml/min Est GFR ( Amer) ml/min Est GFR (Non-Af Amer) ml/min BUN/Creatinine Ratio (10-20) Glucose (70-99(Fasting)) mg/dl Lactate (0.4-2.0) mmol/L Calcium (8.6-10.3) mg/dl Magnesium (1.7-2.4) mg/dl Total Bilirubin (0.2-1.0) mg/dl AST (13-39) U/L ALT (7-52) U/L Alkaline Phosphatase (34-104) U/L Troponin I High Sens (0-20) pg/ml C-Reactive Protein (0-0.5) mg/dl B-Natriuretic Peptide 13 (0-100) pg/ml Total Protein (6.0-8.3) gm/dl Albumin (3.4-5.0) gm/dl Globulin (2.5-4.0) gm/dl Albumin/Globulin Ratio (0.9-2) Procalcitonin (0-0.5) ng/ml Blood Type Antibody Screen Imaging Data Radiologist's Impression: Chest X-Ray 01/19/23 13:44 XR chest 1V portable CLINICAL HISTORY: Sepsis. COMPARISON STUDY: Chest radiograph and chest CT September 29, 2021. FINDINGS: Underlying emphysema is present. There is no pneumothorax or pleural effusion. Cardiac size is normal. There has been interval development of patchy right midlung airspace opacity. There may be left basilar opacity. No evidence for pulmonary edema. IMPRESSION: 1. Interval development of right midlung opacity and possible left basilar opacity. The findings suggest pneumonia. Posttreatment radiographs to ensure resolution are recommended. 2. Emphysema. ACT 112: Negative or not required by law. Electronically signed by: Skinny Raza M.D. 01/19/2023 2:50 PM ECG Data Attestation: I personally reviewed and interpreted this ECG as follows: Interpretation: Sinus rhythm with a rate of 92. [place] 152 QRS [address] elevation or ST depression. Right bundle branch block present. [facility] Narrative 1403: The patient was evaluated in room B7. A complete history and physical exam was performed Cardiac monitoring: An order was placed for continuous cardiac monitoring. The monitor shows a rate of 100 with sinus rhythm interpreted by nv 1715: Vital signs stable on home oxygen. Status post 2 DuoNeb's and Solu-Medrol in the emergency department the patient's wheezing is improved however the patient still states he feels short of breath. Labs show hemoglobin 8.5 white blood cell count 7.43 VBG shows venous pH 7.33 venous PCO2 of 63. BNP negative. Troponin negative. Chest x-ray read by radiology shows a right midlung opacity and possible left basilar opacity suggestive of pneumonia. Antibiotics will be ordered for the patient. Patient will be admitted to the hospital. Discussed case with [facility] hospitalist team for Dr. Hester. She requested lactic and blood cultures to be ordered. CURB-65 Score for Pneumonia Severity from [email or web address] on 01/19/2023 All calculations should be rechecked by clinician prior to use RESULT SUMMARY: 3 points Severe risk group: 14.0% 30-day mortality. Consider inpatient treatment with possible intensive care admission. INPUTS: Confusion > 0 = No BUN >19 mg/dL (>7 mmol/L urea) > 1 = Yes Respiratory Rate >=0 > 1 = Yes Systolic BP <90 mmHg or Diastolic BP <=0 mmHg > 0 = No Age >=5 > 1 = Yes PSI/PORT Score: Pneumonia Severity Index for CAP from [employer] on 01/19/2023 All calculations should be rechecked by clinician prior to use RESULT SUMMARY: 179 points Risk Class V, 27.0-29.2% mortality. Hospitalization recommended based on risk. INPUTS: Age > 89 years Sex > 0 = Male [facility] resident > 0 = No Neoplastic disease > 30 = Yes Liver disease history > 0 = No CHF history > 10 = Yes Cerebrovascular disease history > 0 = No Renal disease history > 0 = No Altered mental status > 0 = No Respiratory rate >=0 breaths/min > 20 = Yes Systolic blood pressure <90 mmHg > 0 = No Temperature <35&deg;C (95&deg;F) or >39.9&deg;C (103.8&deg;F) > 0 = No Pulse >=25 beats/min > 0 = No pH <7.35 > 0 = No BUN >=0 mg/dL or >=1 mmol/L > 20 = Yes Sodium <130 mmol/L > 0 = No Glucose >=50 mg/dL or >=4 mmol/L > 0 = No Hematocrit <30% > 10 = Yes Partial pressure of oxygen <60 mmHg or <8 kPa > 0 = No Pleural effusion on x-ray > 0 = No Impression & Plan Pneumonia, Acute exacerbation of chronic obstructive pulmonary disease Discharge Plan Visit Data Chief Complaint: Illness Stated Complaint: LOW BLOOD COUNT,SOB,WEAKNESS ED Provider: Anthony Johnston Discharge Problem: Pneumonia, Acute exacerbation of chronic obstructive pulmonary disease Patient Disposition: Admitted As Inpatient Forms Stand Alone Forms: [facility] Prescriptions Prescriptions: No Action albuterol sulfate 2.5 mg /3 mL (0.083 %) Solution For Nebulization 3 ml INHALATION QID PRN (Reason: Shortness Of Breath) meclizine 12.5 mg Tablet 12.5 mg PO TID PRN (Reason: Dizziness) aspirin 81 mg Tablet,Delayed Release (Dr/Ec) 81 mg PO DAILY levothyroxine 25 mcg Tablet 25 mcg PO DAILYBB ferrous sulfate 325 mg (65 mg iron) Tablet 325 mg PO DAILY albuterol sulfate 90 mcg/actuation Hfa Aerosol Inhaler 2 puff INHALATION Q4H PRN (Reason: SHORT OF BREATH/COUGH/WHEEZING) tiotropium bromide 2.5 mcg/actuation Mist 2 puff INHALATION DAILY roflumilast 500 mcg tablet 500 mcg PO DAILY isosorbide mononitrate 60 mg tablet extended release 24 hr 30 mg PO QAM erythromycin 5 mg/gram (0.5 %) ointment 1 applic OPL HS polyvinyl alcohol [Artificial Tears (polyvin alc)] 1.4 % Drops 1 drp OPHTHALMIC (EYE) QID PRN (Reason: Dry Eyes) amlodipine 5 mg Tablet 5 mg PO DAILY ascorbic acid (vitamin C) [Vitamin C] 500 mg Tablet 100 mg PO DAILY cholecalciferol (vitamin D3) [Vitamin D3] 25 mcg (1,000 unit) Capsule 25 mcg PO DAILY fluticasone propion-salmeterol 250-50 mcg/dose Blister With Device 1 inh INHALATION BID azithromycin 250 mg Tablet 250 mg PO DAILY ropinirole 0.25 mg Tablet 0.25 mg PO HS Rx Instructions: administer 1-3 hours before bedtime pantoprazole 40 mg Tablet,Delayed Release (Dr/Ec) 40 mg PO DAILY zonisamide 25 mg Capsule 25 mg PO HS Lubricant Eye (PG-PEG 400)(PF) 0.4-0.3 % Dropperette 1 drp OPL BID Referrals Referrals: Tyree Nieves MD [Primary Care Provider] -
[2023-01-19] MEDS ORDERED: ACETAMINOPHEN 325 MG TAB PO PRN (21:08)
[2023-01-19] MEDS ORDERED: ALBUT/IPRATROP 3MG/0.5MG NEB 3 ML VIAL NEB SCH (21:08)
[2023-01-19] MEDS ORDERED: ONDANSETRON INJ 2 MG/ML 2 ML VIAL IV PRN (21:08)
[2023-01-19] MEDS ORDERED: PANTOPRAZOLE BOLUS/DRIP 1 EACH IV STA (21:39)
[2023-01-19] MEDS ORDERED: PANTOprazole 80 MG in DEXTROSE 5% 100 ML IV ONE (21:39)
[2023-01-19] MEDS ORDERED: ALBUTEROL HFA 8 GM INHALER INH PRN (22:21)
[2023-01-19] MEDS: SODIUM CHLORIDE 0.9% 1000ML 1,000 ML IV SCH (22:24)
[2023-01-19] MEDS: BENZONATATE 100 MG CAPSULE PO SCH (22:24)
[2023-01-19] MEDS: guaiFENesin 600 MG TABCR PO SCH (22:24)
[2023-01-19] MEDS ORDERED: ALBUT/IPRATROP 3MG/0.5MG NEB 3 ML VIAL NEB PRN (22:26)
[2023-01-19] MEDS: PANTOprazole 40 MG in DEXTROSE 5% 100 ML IV SCH (22:58)
[2023-01-19] MEDS: rOPINIRole HCL 0.25 MG TABLET PO SCH (23:37)
[2023-01-20] MEDS ORDERED: DICLOFENAC SOD 1% GEL 100 GM TUBE EXT PRN (02:48)
[2023-01-20 03:20] LABS: Appearance Urine Clear (Clear); Bacteria Urine Automated Negative (Negative); Bilirubin Urine Negative (Negative); Blood Urine 2+ (Negative); Color Urine Yellow; Glucose Urine UA Negative (Negative); Ketones Urine Negative (Negative); Leukocyte Esterase Urine Negative (Negative); Nitrite Urine Negative (Negative); Protein Urine Trace (Negative); RBC Urine Automated 0-4 /hpf (0-4); Specific Gravity Urine 1.022 (1.000-1.030); Urobilinogen Urine Negative (Negative)
[2023-01-20] MEDS: PANTOprazole 40 MG in DEXTROSE 5% 100 ML IV SCH ×5 (03:49→23:50)
[2023-01-20] MEDS: LEVOTHYROXINE SODIUM 25 MCG TABLET PO SCH (05:42)
[2023-01-20] MEDS: CEFEPIME 2,000 MG in SYRINGE 0 ML IV SCH ×2 (05:42→17:48)
[2023-01-20] MEDS ORDERED: METOPROLOL TARTRATE 1 MG/ML VIAL IV STA (06:06)
[2023-01-20 07:59] LABS: Hematocrit (blood only) 20.7 % (42.0-52.0); Hemoglobin 6.5 g/dl (14.0-18.0); Mean Corpuscular Hemoglobin 25.8 pg (25.0-34.0); Mean Corpuscular Hgb Conc 31.4 g/dL (32.0-36.0); Mean Corpuscular Volume 82.1 fL (80.0-100.0); Mean Platelet Volume 9.7 fL (9.4-12.4); Platelet Count 338 K/uL (130-400); RDW Coefficient of Variation 19.7 % (11.5-14.5); RDW Standard Deviation 58.2 fL (36.4-46.3); Red Blood Count 2.52 M/uL (4.70-6.10); White Blood Count 7.37 K/ul (4.8-10.8)
[2023-01-20] MEDS: ISOSORBIDE MONO EXTENDED REL 30 MG TABCR PO SCH (08:01)
[2023-01-20] MEDS: UMECLIDINIUM BROMIDE 62.5MCG/BLISTER 7 PUFFS/INHALER INH SCH (08:01)
[2023-01-20] MEDS: BENZONATATE 100 MG CAPSULE PO SCH ×3 (08:01→20:45)
[2023-01-20] MEDS: guaiFENesin 600 MG TABCR PO SCH ×2 (08:02→20:45)
[2023-01-20] MEDS: ROFLUMILAST 500 MCG TAB PO SCH (08:02)
[2023-01-20 08:03] LABS: BUN Creatinine Ratio 44.9 (10-20); Calcium 8.3 mg/dl (8.6-10.3); Creatinine Clr Calc Pharmacy 35.6 ml/min; Est GFR (African American) 57.7 ml/min; Est GFR (Non-African American) 49.8 ml/min; Potassium 4.5 mmol/L (3.5-5.1)
[2023-01-20] MEDS: FLUTICASONE/VILANTEROL 200/25MCG 14 PUFFS/INHALER INH SCH (08:03)
[2023-01-20 08:14] LABS: Basophils # (auto) 0.01 K/uL (0-0.2); Basophils % (auto) 0.1 %; Hypochromasia Present; Immature Granulocytes # (auto) 0.16 K/uL (0.01-0.20); Immature Granulocytes % (auto) 2.2 %; Lymphocytes # (auto) 0.48 K/uL (1.2-3.4); Lymphocytes % (auto) 6.5 %; Monocytes # (auto) 0.29 K/uL (0.11-0.59); Monocytes % (auto) 3.9 %; Neutrophils # (auto) 6.43 K/uL (1.40-6.50); Neutrophils % (auto) 87.3 %; Polychromasia 1+
[2023-01-20] MEDS ORDERED: SODIUM CHLORIDE 0.9% 250 ML IV PRN (08:14)
--- NOTE | 2023-01-20 10:15 | Gastrointestinal Consultation ---
Date of Consultation January 20, 2023 Assessment & Plan (1) Melena: (2) Hematochezia: Most likely an UGI bleed from ulcer or gastritis vs a lower GI bleed - possibly proximal diverticular bleed. Plan 1. Will try to manage conservatively. 2. Continue PPI drip, IV fluids, careful monitoring of stool outputs, and blood indices. 3. Appreciate primary services management of blood and fluid resuscitation. 4. I placed a request for records for EGD and colonoscopy from [facility] and [facility]. He tells me he had both about 6m ago. 5. Full liquid diet today. History of Present Illness Reason for Consultation: blood per rectum Requesting Physician: Dr. Myers Attending Physician: Ariana Hurst MD History of Present Illness Mr. 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 Yesterday, his son happened to follow him into the bathroom when he had not flush the toilet and noticed that there was black/dark red blood and clots in the toilet. It looked like "dark cherries." For this reason he was brought to the emergency department. The patient denies any abdominal pain nausea or vomiting. However, he and his son who is in the room tell me that about 6 months ago he had vomited up dark black clots and underwent EGD by Sanju giraldo. However, they are unaware of the results of the EGD. Since then, he has been maintained on daily oral pantoprazole 40 mg. On arrival, hemoglobin 8.5-> 6.5 this morning. BUN is elevated at 57.Chest x- ray question and pneumonia, however patient is on O2 continuously at home NT tells me that his breathing is the same as his usual. He has been kept NPO. He is on Protonix drip. His nurse tells me that he had small black bowel movements through the night but has not had any bowel movements since 7 AM. He has not had any vomiting. Allergies Allergy/AdvReac Type Severity Reaction Status Date / Time cefuroxime Allergy Intermediate Rash Verified 01/19/23 17:04 ertapenem Allergy Unknown Unknown Verified 01/19/23 17:04 levofloxacin [From Levaquin] Allergy Unknown Unknown Verified 01/19/23 17:04 BETA-LACTAMS Allergy Intermediate Rash Uncoded 01/19/23 17:04 FLUOROQUINOLONES Allergy Intermediate Rash Uncoded 01/19/23 17:04 Home Medications Medication Instructions Recorded Confirmed Type albuterol sulfate 2.5 mg/3 mL 3 ml inhalation QID PRN Shortness 10/04/1801/19 History (0.083 %) solution for nebulization Of Breath albuterol sulfate 90 mcg/actuation 2 puff inhalation Q4H PRN SHORT OF 10/04/18 01/19/23 History aerosol inhaler BREATH/COUGH/WHEEZING aspirin 81 mg tablet,delayed 81 mg PO DAILY 10/04/18 01/19/23 History release ferrous sulfate 325 mg (65 mg 325 mg PO DAILY 10/04/18 01/19/23 History iron) tablet levothyroxine 25 mcg tablet 25 mcg PO DAILYBB 10/04/18 01/19/23 History meclizine 12.5 mg tablet 12.5 mg PO TID PRN Dizziness 10/04/18 01/19/23 History tiotropium bromide 2.5 2 puff inhalation DAILY 10/04/18 01/19/23 History mcg/actuation mist for inhalation roflumilast 500 mcg tablet 500 mcg PO DAILY 09/26/22 01/19/23 History erythromycin 5 mg/gram (0.5 %) eye 1 applic OPL HS 09/29/22 01/19/23 History ointment isosorbide mononitrate 60 mg 30 mg PO QAM 09/29/22 01/19/23 History tablet,extended release 24 hr amlodipine 5 mg tablet 5 mg PO DAILY 01/19/23 01/19/23 History ascorbic acid (vitamin C) 500 mg 100 mg PO DAILY 01/19/23 01/19/23 History tablet (Vitamin C) azithromycin 250 mg tablet 250 mg PO DAILY 01/19/23 01/19/23 History cholecalciferol (vitamin D3) 25 25 mcg PO DAILY 01/19/23 01/19/23 History mcg (1,000 unit) capsule (Vitamin D3) fluticasone 250 mcg-salmeterol 50 1 inh inhalation BID 01/19/23 01/19/23 History mcg/dose blistr powdr for inhalation pantoprazole 40 mg tablet,delayed 40 mg PO DAILY 01/19/23 01/19/23 History release peg 400-propylene glycol (PF) 0.4 1 drp OPL BID 01/19/23 01/19/23 History %-0.3 % eye drops in a dropperette (Lubricant Eye (PG-PEG 400) (PF)) polyvinyl alcohol 1.4 % eye drops 1 drp ophthalmic (eye) QID PRN Dry 01/19/23 01/19/23 History (Artificial Tears (polyvinyl Eyes alcohol)) ropinirole 0.25 mg tablet 0.25 mg PO HS 01/19/23 01/19/23 History zonisamide 25 mg capsule 25 mg PO HS 01/19/23 01/19/23 History Patient History Medical History Chronic anemia COPD (chronic obstructive pulmonary disease) Diastolic CHF Hx of agent [place] exposure Hypertension Hypothyroidism Squamous cell cancer of external ear Family History Other Family history non-contributory Social History Smoking Status: Former smoker Tobacco Type: Smokeless Tobacco (Dip or Chew) Second Hand Exposure: No; Do You Dip or Chew Tobacco: No; Hx Alcohol Use: No Hx Substance Use: No Preferred Language: Kiswahili Communication Ability: Effective Cribber Required: No Beliefs That Will Affect Care: None marital status: Current Living Situation: Family Current Living Situation Comment: Home with 2 Sons current occupational status: retired Other Information That Helps Us Care for You: No Feels Safe at Home: Yes Assistive Devices: Glasses and Oxygen - Continuous Review of Systems Review of Systems: ROS: Gen: Denies weakness, fevers, weight loss Eyes: No eye redness, or pain, no recent vision changes Resp: + chronic exertional SOB and chronic - not worsened Cardio: No palpitations/irregular beats, no chest pain GI: + as per HPI, otherwise (-); No abdominal pain, no nausea/vomiting : Denies pain on urination Skin: No jaundice, itching or new rashes Neuro: + chronic tremor Physical Exam Constitutional: + ill appearing (chronically), + thin, cooperative and comfortable sitting up, legs dangling off the side of the bed. Able to provide a detailed hx. Eyes: PERRL, conjunctivae normal, anicteric sclerae ENMT: left pinna surgical deformity; dressing in place near the posterior base of left pinna. Neck: trachea midline, no thyromegaly Respiratory: normal respiratory effort, lungs clear to auscultation Cardiovascular: RRR, no murmur, no edema Gastrointestinal (Abdomen): normal bowel sounds, soft, nontender, no hepatosplenomegaly Musculoskeletal: no cyanosis or clubbing, extremities motor strength 5/5 Skin: no rashes, warm and dry Neurologic: PERRL, EOMI, accommodation nl, no face palsy, no dysarthria (tremor of hands, head) Psychiatric: A+Ox3, euthymic affect Lymphatic: no cervical or axillary lymphadenopathy Results & Data Vital Signs (Past 12 Hours) Vital Signs Temp Pulse Pulse Pulse Resp BP Pulse Ox 01/20/23 09:42 85 01/20/23 07:39 36.4 C L 87 20 104/53 L 100 01/20/23 06:09 95 H 18 125/72 97 01/20/23 03:03 36.3 C L 74 18 141/50 H 100 01/19/23 22:53 36.5 C 18 139/53 L 01/19/23 22:13 86 96 O2 Del Method O2 Flow Rate 01/20/23 09:42 01/20/23 07:39 Nasal Cannula 3 01/20/23 06:09 Nasal Cannula 3 01/20/23 03:03 Nasal Cannula 3 01/19/23 22:53 01/19/23 22:13 Nasal Cannula 4 Laboratory Results WBC 7.3, Hb 6.5, HCT 20, PLT 338, NA 137, K4.5, CL 105, CO2 25, BUN 57, CR 1.27 Diagnostic Findings CXR 01/20/23: 1. Interval development of right midlung opacity and possible left basilar opacity. The findings suggest pneumonia. Posttreatment radiographs to ensure resolution are recommended. 2. Emphysema.
[2023-01-20] MEDS: SODIUM CHLORIDE 0.9% 1000ML 1,000 ML IV SCH (12:11)
--- NOTE | 2023-01-20 15:44 | Hospitalist Progress Note ---
Date of Service January 20, 2023 Assessment & Plan (1) Pneumonia: Plan: - Admit to med telemetry unit -Right midlung and left basilar infiltration - Sputum culture-pending, blood cultures -negative so far -Started on intravenous cefepime and azithromycin -Supportive measures for cough and wheezing - Wean O2 prn - wears 3-4 L at baseline - Covid negative -Lactic acid has been negative and procalcitonin negative to but CRP is mildly elevated - Consider pulmonology consultation with hx of pseudomonas infection in the lung - Check legionella urine-pending for now -Stable clinically and will continue current antibiotic GI bleed Likely lower given the history of melena Has chronic anemia Hemoglobin dropped to 6.5 this morning He will receive 2 units of PRBC Appreciate GI input and recommendation for outpatient EGD and colonoscopy We will monitor CBC (2) Acute exacerbation of chronic obstructive pulmonary disease: Plan: - Pt was given solumedrol 125 mg IV in the ER two times on review of AUG---no further steroids at this time. 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 Due for next session on Jan 30, occurs every 3 weeks - [facility] (4) Chronic anemia: Plan: - Hgb of 8.5 on admission, appears to be near his baseline as in September was also around 8-9. Will monitor with am labs - Pt has received blood transfusion before, currently no indication for transfusion - cont iron supplementation -As above (5) Hypertension: (6) Diastolic CHF: Plan: - Last echo was completed on 09/29/2022 showing LVEF of 60 to 65%, grade 1 diastolic dysfunction, aortic valve moderately calcified, mild to moderate aortic stenosis, no left ventricular wall motion abnormalities. -Continue amlodipine daily, baby aspirin (7) Hypothyroidism: Plan: - cont levothyroxine 25 mcg daily DVT ppx: teds, scds, consider chemical ppx within 24 hrs CODE: FULL Dispo: From home, likely to remain in the hospital x 1-2 days Discussed with the son Admission and Anticipated Discharge Date Admission Date: January 19, 2023 Subjective 01/20/2023 The patient was seen and examined in medical telemetry unit He has been stable and complains to have shortness of breath with exertion and some right-sided chest pain Has had black stool recently but no history of hematemesis Hemoglobin went down to below 7 this morning Review of Systems Review of Systems: All systems reviewed and are unremarkable except as noted below Physical Exam Physical Exam: Sitting at the edge of the bed without any acute distress Constitutional: well developed, well nourished, + ill appearing and average body habitus Eyes: PERRL, conjunctivae normal, anicteric sclerae ENMT: external ear and nose normal, oropharynx normal Neck: trachea midline, no thyromegaly Respiratory: + respiratory distress (Minimal distress at rest) Auscultation: + diminished lung sounds and + crackles (Right-sided crackles) Cardiovascular: Rate/Rhythm: regular rate and regular rhythm; not tachycardic Heart Sounds: normal S1 and normal S2; no murmur Extremities: no edema Gastrointestinal (Abdomen): Inspection/Auscultation: normal bowel sounds; abdomen not distended Percussion/Palpation: abdomen soft; abdomen nontender Musculoskeletal: No acute arthritis involving any joint Neurologic: normal touch/pain/proprioception and moves all extremities; no focal motor deficits Lymphatic: no cervical or axillary lymphadenopathy Results & Data Results & Data Vital Signs (Past 12 Hours) Vital Signs Temp Pulse Pulse Resp BP BP Pulse Ox 01/20/23 14:25 36.4 C L 74 18 114/48 L 99 01/20/23 13:55 36.6 C 80 18 122/68 98 01/20/23 13:40 36.6 C 72 18 114/86 98 01/20/23 13:58 36.3 C L 81 20 122/38 L 94 01/20/23 13:41 36.6 C 113 H 18 95/53 L 92 01/20/23 13:23 36.3 C L 73 18 133/69 99 01/20/23 13:20 36.3 C L 73 18 133/69 99 01/20/23 13:03 36.3 C L 72 18 126/72 97 01/20/23 12:03 36.6 C 68 18 101/50 L 98 01/20/23 11:03 36.4 C L 80 18 110/66 94 01/20/23 11:00 36.6 C 71 20 102/54 L 97 01/20/23 10:33 36.4 C L 72 20 108/60 96 01/20/23 10:18 36.1 C L 75 18 131/64 96 01/20/23 10:15 36.2 C L 71 18 190/115 H 98 01/20/23 10:00 36.2 C L 75 18 121/49 L 99 01/20/23 09:42 85 01/20/23 07:39 36.4 C L 87 20 104/53 L 100 01/20/23 06:09 95 H 18 125/72 97 O2 Del Method O2 Flow Rate 01/20/23 14:25 3 01/20/23 13:55 3 01/20/23 13:40 3 01/20/23 13:58 3 01/20/23 13:41 01/20/23 13:23 3 01/20/23 13:20 3 01/20/23 13:03 3 01/20/23 12:03 3 01/20/23 11:03 3 01/20/23 11:00 3 01/20/23 10:33 3 01/20/23 10:18 3 01/20/23 10:15 3 01/20/23 10:00 3 01/20/23 09:42 01/20/23 07:39 Nasal Cannula 3 01/20/23 06:09 Nasal Cannula 3 Laboratory Results Short CBC 01/20/23 Range/Units 07:30 WBC 7.37 (4.8-10.8) K/ul Hgb 6.5 L* (14.0-18.0) g/dl Hct 20.7 L* (42.0-52.0) % Plt Count 338 (130-400) K/uL BMP 01/20/23 07:30 Sodium 137 Potassium 4.5 Chloride 105 Carbon Dioxide 25 BUN 57 H Creatinine 1.27 Glucose 151 H Calcium 8.3 L Urine 01/20/23 Range/Units 00:45 Urine Color Yellow Urine Appearance Clear (Clear) Urine pH 5.0 (4.5-7.5) Ur Specific [place] 1.022 (1.000-1.030) Urine Protein Trace H (Negative) Urine Glucose (UA) Negative (Negative) Medications Administered Current Inpatient Medications Acetaminophen (Acetaminophen 325 Mg Tab) 650 mg PO Q4H PRN PRN Reason: Moderate Pain (Scale 4, 5, 6) Stop: 02/18/23 21:07 Last Admin: 01/20/23 14:12 Dose: 650 mg Albuterol (Albuterol Hfa 8 Gm Inhaler) 2 puffs INH Q4H PRN PRN Reason: SHORT OF BREATH/COUGH/WHEEZING Stop: 02/18/23 22:20 Albuterol (Albut/Ipratrop 3mg/0.5mg Neb 3 Ml Vial) 3 ml NEB Q4R PRN; Protocol PRN Reason: SOB/wheezing Stop: 02/18/23 21:07 Benzonatate (Benzonatate 100 Mg Capsule) 100 mg PO TID [facility] Stop: 02/18/23 21:07 Last Admin: 01/20/23 14:12 Dose: 100 mg Diclofenac Sodium (Diclofenac Sod 1% Gel 100 Gm Tube) 2 gm EXT BID PRN; Protocol PRN Reason: Pain Stop: 02/19/23 08:59 Erythromycin (Erythromycin Op Oint 5 Mg/Gm 3.5 Gm Tube) 1 appln OPL HS [facility] Stop: 01/30/23 20:59 Fluticasone/Vilanterol (Fluticasone/Vilanterol 200/25mcg 14 Puffs/Inhaler) 1 puffs INH DAILY [facility] Stop: 02/19/23 08:59 Last Admin: 01/20/23 08:03 Dose: 1 puffs Guaifenesin (Guaifenesin 600 Mg Tabcr) 1,200 mg PO Q12 [facility] Stop: 02/18/23 21:07 Last Admin: 01/20/23 08:02 Dose: 1,200 mg Cefepime HCl 2,000 mg/ Syringe 20 mls @ 5 mls/min IV Q12H [facility]; Protocol Stop: 01/26/23 05:59 Last Admin: 01/20/23 05:42 Dose: 5 mls/min Azithromycin 250 mg/ Dextrose 252.5 mls @ 125 mls/hr IV Q24H [facility] Stop: 01/27/23 17:59 Sodium Chloride (Nss 1000ml) 1,000 mls @ 80 mls/hr IV .[id number] [facility] Stop: 02/18/23 21:44 Last Admin: 01/20/23 12:11 Dose: 80 mls/hr Pantoprazole Sodium 40 mg/ (Dextrose) 100 mls @ 20 mls/hr IV Q5H [facility] Stop: 02/18/23 21:59 Last Admin: 01/20/23 14:05 Dose: 8 mg/hr, 20 mls/hr Sodium Chloride (Nss) 250 mls @ 15 mls/hr IV .[id number] PRN PRN Reason: For Transfusion Duration Stop: 01/20/23 18:20 Isosorbide Mononitrate (Isosorbide [place] Extended Rel 30 Mg Tabcr) 30 mg PO QAM [facility] Stop: 02/19/23 08:59 Last Admin: 01/20/23 08:01 Dose: 30 mg Levothyroxine Sodium (Levothyroxine Sodium 25 Mcg Tablet) 25 mcg PO DAILYBB [facility] Stop: 02/19/23 06:29 Last Admin: 01/20/23 05:42 Dose: 25 mcg Miscellaneous (Zonisamide: Order Awaiting Action) 1 each N/A QS [facility] Stop: 02/19/23 07:59 Last Admin: 01/20/23 15:30 Dose: Not Given Ondansetron HCl (Ondansetron Inj 2 Mg/Ml 2 Ml Vial) 4 mg IV Q4H PRN PRN Reason: Nausea And Vomiting Stop: 02/18/23 21:07 Roflumilast (Roflumilast 500 Mcg Tab) 500 mcg PO DAILY [facility] Stop: 02/19/23 08:59 Last Admin: 01/20/23 08:02 Dose: 500 mcg Ropinirole HCl (Ropinirole Hcl 0.25 Mg Tablet) 0.25 mg PO HS [facility] Stop: 02/18/23 22:24 Last Admin: 01/19/23 23:37 Dose: 0.25 mg Umeclidinium [place] (Umeclidinium [place] 62.5mcg/Blister 7 Puffs/Inhaler) 1 puffs INH DAILY [facility] Stop: 02/19/23 08:59 Last Admin: 01/20/23 08:01 Dose: 1 puffs
[2023-01-20] MEDS: AZITHROMYCIN 250 MG in DEXTROSE 5% 250 ML IV SCH (18:36)
[2023-01-20] MEDS: ERYTHROMYCIN OP OINT 5 MG/GM 3.5 GM TUBE OPL SCH (20:44)
[2023-01-20] MEDS: rOPINIRole HCL 0.25 MG TABLET PO SCH (20:45)
[2023-01-21] MEDS: SODIUM CHLORIDE 0.9% 1000ML 1,000 ML IV SCH ×2 (00:56→11:23)
[2023-01-21] MEDS: PANTOprazole 40 MG in DEXTROSE 5% 100 ML IV SCH ×4 (04:56→20:00)
[2023-01-21] MEDS: CEFEPIME 2,000 MG in SYRINGE 0 ML IV SCH ×2 (04:57→17:05)
[2023-01-21] MEDS: LEVOTHYROXINE SODIUM 25 MCG TABLET PO SCH (05:34)
[2023-01-21] MEDS: BENZONATATE 100 MG CAPSULE PO SCH ×3 (08:08→19:56)
[2023-01-21] MEDS: ISOSORBIDE MONO EXTENDED REL 30 MG TABCR PO SCH (08:08)
[2023-01-21] MEDS: ROFLUMILAST 500 MCG TAB PO SCH (08:08)
[2023-01-21] MEDS: guaiFENesin 600 MG TABCR PO SCH ×2 (08:08→19:57)
[2023-01-21] MEDS: FLUTICASONE/VILANTEROL 200/25MCG 14 PUFFS/INHALER INH SCH (08:08)
[2023-01-21] MEDS: UMECLIDINIUM BROMIDE 62.5MCG/BLISTER 7 PUFFS/INHALER INH SCH (08:09)
[2023-01-21 08:27] LABS: Basophils # (auto) 0.03 K/uL (0-0.2); Basophils % (auto) 0.4 %; Hematocrit (blood only) 23.3 % (42.0-52.0); Hemoglobin 7.5 g/dl (14.0-18.0); Immature Granulocytes # (auto) 0.21 K/uL (0.01-0.20); Immature Granulocytes % (auto) 2.5 %; Lymphocytes # (auto) 0.94 K/uL (1.2-3.4); Lymphocytes % (auto) 11.1 %; Mean Corpuscular Hgb Conc 32.2 g/dL (32.0-36.0); Mean Corpuscular Volume 83.8 fL (80.0-100.0); Mean Platelet Volume 9.6 fL (9.4-12.4); Monocytes # (auto) 0.85 K/uL (0.11-0.59); Neutrophils # (auto) 6.47 K/uL (1.40-6.50); Platelet Count 309 K/uL (130-400); RDW Coefficient of Variation 18.6 % (11.5-14.5); RDW Standard Deviation 56.2 fL (36.4-46.3); Red Blood Count 2.78 M/uL (4.70-6.10)
[2023-01-21 08:35] LABS: BUN Creatinine Ratio 29.2 (10-20); Est GFR (African American) 52.6 ml/min; Est GFR (Non-African American) 45.4 ml/min; Potassium 4.1 mmol/L (3.5-5.1)
[2023-01-21 08:59] LABS: Ovalocytes 1+
--- NOTE | 2023-01-21 13:52 | Gastroenterology Progress Note ---
Date of Service January 21, 2023 Assessment & Plan (1) Melena: (2) Hematochezia: Plan: After review of records brought to [facility] by the pt's son which include EGD in Apr 2022 w/o abnormalities and VCE soon after w possible AVM, most likely an UGI bleed from AVM - that would likely be lower than the duodenum. Those records suggest an obscure GI bleeding source that would be unlikely to be found on EGD such as small bowel or proximal large bowel AVM. Plan He is at risk for sedation:advanced age, appears to have pneumonia, and pt tells me that he was told that he should never have surgery (suggesting that card iopulmonary status is high risk). For this reason would continue conservative management with protonix drip another day. May advance diet. Will reconsider EGD on Tuesday or urgently on the weekend if he has brisk GI bleeding and another significant drop in Hb/Hct. May also consider a NM GES to help locate the bleed. Admission and Anticipated Discharge Date Admission Date: January 19, 2023 Subjective Nurse reports 2 small black BMs thus far today one of these with a small amt of red blood. Pt denies any pain, nausea or vomiting and says he doesn't think there is blood in his BMs, that he always has black BMs from iron pills. He is actually dressed in his jeans and cowboy boots as well as the hospital gown and he asks if he can go home. Review of Systems Review of Systems: ROS: Gen: Denies weakness, fevers, weight loss Eyes: No eye redness, or pain, no recent vision changes Resp: + chronic exertional SOB and chronic - not worsened Cardio: No palpitations/irregular beats, no chest pain GI: + as per HPI, otherwise (-); No abdominal pain, no nausea/vomiting : Denies pain on urination Skin: No jaundice, itching or new rashes Neuro: + chronic tremor Physical Exam Constitutional: + ill appearing (chronically), + thin, cooperative and comfortable Eyes: PERRL, conjunctivae normal, anicteric sclerae Neck: trachea midline, no thyromegaly Respiratory: normal respiratory effort, lungs clear to auscultation Cardiovascular: RRR, no murmur, no edema Gastrointestinal (Abdomen): normal bowel sounds, soft, nontender, no hepatosplenomegaly Musculoskeletal: no cyanosis or clubbing, extremities motor strength 5/5 Skin: no rashes, warm and dry Neurologic: PERRL, EOMI, accommodation nl, no face palsy, no dysarthria (tremor of hands, head) Psychiatric: A+Ox3, euthymic affect Lymphatic: no cervical or axillary lymphadenopathy Results & Data Vital Signs (Past 12 Hours) Vital Signs Temp Pulse Pulse Resp BP Pulse Ox O2 Del Method 01/21/23 12:23 36.3 C L 70 16 111/45 L 93 Nasal Cannula 01/21/23 08:00 Nasal Cannula 01/21/23 07:36 36.4 C L 55 L 16 103/51 L 99 Room Air 01/21/23 07:00 68 01/21/23 02:38 36.4 C L 55 L 18 115/49 L 98 Nasal Cannula O2 Flow Rate 01/21/23 12:23 3 01/21/23 08:00 3 01/21/23 07:36 01/21/23 07:00 01/21/23 02:38 3 Laboratory Results WBC 7, Hb 7.5, Hct 20,plts 338, Na 137, K 4.5, Cl 105, Co2 25, BUN 57, Cr 1.27, glucose 151. Diagnostic Findings CXR 8.2.23: 1. Interval development of right midlung opacity and possible left basilar opacity. The findings suggest pneumonia. Posttreatment radiographs to ensure resolution are recommended. 2. Emphysema.
--- NOTE | 2023-01-21 14:49 | Hospitalist Progress Note ---
Date of Service January 21, 2023 Assessment & Plan (1) Pneumonia: Plan: - Admit to med telemetry unit -Right midlung and left basilar infiltration - Sputum culture-pending, blood cultures -negative so far -Started on intravenous cefepime and azithromycin -Supportive measures for cough and wheezing - Wean O2 prn - wears 3-4 L at baseline - Covid negative -Lactic acid has been negative and procalcitonin negative to but CRP is mildly elevated - Consider pulmonology consultation with hx of pseudomonas infection in the lung - Check legionella urine-pending for now -Stable clinically and will continue current antibiotic -Remains afebrile and cough is improved -Clinically better and would continue current antibiotics GI bleed Likely lower given the history of melena Has chronic anemia Hemoglobin dropped to 6.5 this morning He will receive 2 units of PRBC Appreciate GI input and recommendation for outpatient EGD and colonoscopy We will monitor CBC-hemoglobin went up to 7.5 after 2 units of blood transfusion Has had small amount of bright red blood per rectum with black stool GI evaluated-Will have outpatient scope If hemoglobin remains stable he can be discharged tomorrow (2) Acute exacerbation of chronic obstructive pulmonary disease: Plan: - Pt was given solumedrol 125 mg IV in the ER two times on review of AUG---no further steroids at this time. 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 Due for next session on Jan 30, occurs every 3 weeks - [facility] (4) Chronic anemia: Plan: - Hgb of 8.5 on admission, appears to be near his baseline as in September was also around 8-9. Will monitor with am labs - Pt has received blood transfusion before, currently no indication for transfusion - cont iron supplementation -As above (5) Hypertension: (6) Diastolic CHF: Plan: - Last echo was completed on 09/29/2022 showing LVEF of 60 to 65%, grade 1 diastolic dysfunction, aortic valve moderately calcified, mild to moderate aortic stenosis, no left ventricular wall motion abnormalities. -Continue amlodipine daily, baby aspirin (7) Hypothyroidism: Plan: - cont levothyroxine 25 mcg daily DVT ppx: teds, scds, consider chemical ppx within 24 hrs CODE: FULL Dispo: From home, likely to remain in the hospital x 1-2 days Discussed with the son Likely discharge tomorrow Admission and Anticipated Discharge Date Admission Date: January 19, 2023 Subjective 01/20/2023 The patient was seen and examined in medical telemetry unit He has been stable and complains to have shortness of breath with exertion and some right-sided chest pain Has had black stool recently but no history of hematemesis Hemoglobin went down to below 7 this morning 01/21/2023 The patient was seen and examined in medical telemetry unit He has been feeling a little better following blood transfusion Denies any chest pain and the cough is minimal He has been requiring 3 L to maintain saturation Review of Systems Review of Systems: All systems reviewed and are unremarkable except as noted below Physical Exam Physical Exam: Sitting at the edge of the bed without any acute distress Constitutional: well developed, well nourished, + ill appearing and average body habitus Eyes: PERRL, conjunctivae normal, anicteric sclerae ENMT: external ear and nose normal, oropharynx normal Neck: trachea midline, no thyromegaly Respiratory: + respiratory distress (Minimal distress at rest) Auscultation: + diminished lung sounds and + crackles (Right-sided crackles) Cardiovascular: Rate/Rhythm: regular rate and regular rhythm; not tachycardic Heart Sounds: normal S1 and normal S2; no murmur Extremities: no edema Gastrointestinal (Abdomen): Inspection/Auscultation: normal bowel sounds; abdomen not distended Percussion/Palpation: abdomen soft; abdomen nontender Neurologic: normal touch/pain/proprioception and moves all extremities; no focal motor deficits Lymphatic: no cervical or axillary lymphadenopathy Results & Data Results & Data Vital Signs (Past 12 Hours) Vital Signs Temp Pulse Pulse Resp BP Pulse Ox O2 Del Method 01/21/23 12:23 36.3 C L 70 16 111/45 L 93 Nasal Cannula 01/21/23 08:00 Nasal Cannula 01/21/23 07:36 36.4 C L 55 L 16 103/51 L 99 Room Air 01/21/23 07:00 68 O2 Flow Rate 01/21/23 12:23 3 01/21/23 08:00 3 01/21/23 07:36 01/21/23 07:00 Laboratory Results Short CBC 01/21/23 Range/Units 07:53 WBC 8.50 (4.8-10.8) K/ul Hgb 7.5 L (14.0-18.0) g/dl Hct 23.3 L (42.0-52.0) % Plt Count 309 (130-400) K/uL [facility] 01/21/23 07:53 Sodium 138 Potassium 4.1 Chloride 109 H Carbon Dioxide 24 BUN 40 H Creatinine 1.37 Glucose 85 Calcium 8.0 L Medications Administered Current Inpatient Medications Acetaminophen (Acetaminophen 325 Mg Tab) 650 mg PO Q4H PRN PRN Reason: Moderate Pain (Scale 4, 5, 6) Stop: 02/18/23 21:07 Last Admin: 01/20/23 14:12 Dose: 650 mg Albuterol (Albuterol Hfa 8 Gm Inhaler) 2 puffs INH Q4H PRN PRN Reason: SHORT OF BREATH/COUGH/WHEEZING Stop: 02/18/23 22:20 Albuterol (Albut/Ipratrop 3mg/0.5mg Neb 3 Ml Vial) 3 ml NEB Q4R PRN; Protocol PRN Reason: SOB/wheezing Stop: 02/18/23 21:07 Benzonatate (Benzonatate 100 Mg Capsule) 100 mg PO TID [facility] Stop: 02/18/23 21:07 Last Admin: 01/21/23 14:17 Dose: 100 mg Diclofenac Sodium (Diclofenac Sod 1% Gel 100 Gm Tube) 2 gm EXT BID PRN; Protocol PRN Reason: Pain Stop: 02/19/23 08:59 Erythromycin (Erythromycin Op Oint 5 Mg/Gm 3.5 Gm Tube) 1 appln OPL HS [facility] Stop: 01/30/23 20:59 Last Admin: 01/20/23 20:44 Dose: 1 appln Fluticasone/Vilanterol (Fluticasone/Vilanterol 200/25mcg 14 Puffs/Inhaler) 1 puffs INH DAILY [facility] Stop: 02/19/23 08:59 Last Admin: 01/21/23 08:08 Dose: 1 puffs Guaifenesin (Guaifenesin 600 Mg Tabcr) 1,200 mg PO Q12 [facility] Stop: 02/18/23 21:07 Last Admin: 01/21/23 08:08 Dose: 1,200 mg Cefepime HCl 2,000 mg/ Syringe 20 mls @ 5 mls/min IV Q12H [facility]; Protocol Stop: 01/26/23 05:59 Last Admin: 01/21/23 04:57 Dose: 5 mls/min Azithromycin 250 mg/ Dextrose 252.5 mls @ 125 mls/hr IV Q24H [facility] Stop: 01/27/23 17:59 Last Infusion: 01/20/23 20:46 Dose: Infused Sodium Chloride (Nss 1000ml) 1,000 mls @ 80 mls/hr IV .[id number] [facility] Stop: 02/18/23 21:44 Last Admin: 01/21/23 11:23 Dose: 80 mls/hr Pantoprazole Sodium 40 mg/ (Dextrose) 100 mls @ 20 mls/hr IV Q5H [facility] Stop: 02/18/23 21:59 Last Admin: 01/21/23 14:17 Dose: 8 mg/hr, 20 mls/hr Isosorbide Mononitrate (Isosorbide [place] Extended Rel 30 Mg Tabcr) 30 mg PO QAM [facility] Stop: 02/19/23 08:59 Last Admin: 01/21/23 08:08 Dose: 30 mg Levothyroxine Sodium (Levothyroxine Sodium 25 Mcg Tablet) 25 mcg PO DAILYBB [facility] Stop: 02/19/23 06:29 Last Admin: 01/21/23 05:34 Dose: 25 mcg Ondansetron HCl (Ondansetron Inj 2 Mg/Ml 2 Ml Vial) 4 mg IV Q4H PRN PRN Reason: Nausea And Vomiting Stop: 02/18/23 21:07 Last Admin: 01/20/23 16:56 Dose: 4 mg Roflumilast (Roflumilast 500 Mcg Tab) 500 mcg PO DAILY [facility] Stop: 02/19/23 08:59 Last Admin: 01/21/23 08:08 Dose: 500 mcg Ropinirole HCl (Ropinirole Hcl 0.25 Mg Tablet) 0.25 mg PO HS [facility] Stop: 02/18/23 22:24 Last Admin: 01/20/23 20:45 Dose: 0.25 mg Umeclidinium [place] (Umeclidinium [place] 62.5mcg/Blister 7 Puffs/Inhaler) 1 puffs INH DAILY [facility] Stop: 02/19/23 08:59 Last Admin: 01/21/23 08:09 Dose: 1 puffs Zonisamide (Zonisamide 25mg Cap) 1 each PO HS [facility] Stop: 02/19/23 20:59 Last Admin: 01/20/23 20:45 Dose: 1 each
[2023-01-21] MEDS: AZITHROMYCIN 250 MG in DEXTROSE 5% 250 ML IV SCH (16:59)
--- NOTE | 2023-01-21 19:42 | Electrocardiogram Report ---
Test Reason : Blood Pressure : / mmHG Vent. Rate : 092 BPM Atrial Rate : 092 BPM P-R Int : 152 ms QRS Dur : 124 ms QT Int : 394 ms P-R-T Axes : 038 -59 090 degrees QTc Int : 487 ms Sinus rhythm with Premature supraventricular complexes Left axis deviation Right bundle branch block Septal infarct , age undetermined Abnormal ECG When compared with ECG of 03-OCT-2022 05:05, Premature supraventricular complexes are now Present Septal infarct is now Present Confirmed by Ry Rivas [id number] on 01/21/2023 7:42:12 PM Referred By: Confirmed By:Ry Rivas
[2023-01-21] MEDS: rOPINIRole HCL 0.25 MG TABLET PO SCH (19:56)
[2023-01-21] MEDS: ERYTHROMYCIN OP OINT 5 MG/GM 3.5 GM TUBE OPL SCH (19:58)
--- NOTE | 2023-01-21 22:08 | Electrocardiogram Report ---
Test Reason : Blood Pressure : / mmHG Vent. Rate : 159 BPM Atrial Rate : 085 BPM P-R Int : 000 ms QRS Dur : 126 ms QT Int : 302 ms P-R-T Axes : 000 -86 093 degrees QTc Int : 491 ms Possible Supraventricular tachycardia Left axis deviation Right bundle branch block Septal infarct , age undetermined Abnormal ECG When compared with ECG of 19-JAN-2023 13:46, Supraventricular tachycardia has replaced Sinus rhythm Vent. rate has increased BY [address] now depressed in Anterior leads T wave inversion now evident in Anterior leads Confirmed by Ry Rivas ([id number] on 01/21/2023 10:08:06 PM Referred By: REFERRED SELF Confirmed By:Ry Rivas
--- NOTE | 2023-01-21 22:09 | Electrocardiogram Report ---
Test Reason : Blood Pressure : / mmHG Vent. Rate : 085 BPM Atrial Rate : 085 BPM P-R Int : 192 ms QRS Dur : 126 ms QT Int : 362 ms P-R-T Axes : 071 -76 064 degrees QTc Int : 430 ms Sinus rhythm with Premature supraventricular complexes Left axis deviation Right bundle branch block Septal infarct , age undetermined Abnormal ECG When compared with ECG of 20-JAN-2023 06:08, Sinus rhythm has replaced Supraventricular tachycardia Vent. rate has decreased BY 74 BPM Confirmed by Ry Rivas ([id number] on 01/21/2023 10:08:41 PM Referred By: REFERRED SELF Confirmed By:Ry Rivas
[2023-01-22] MEDS: SODIUM CHLORIDE 0.9% 1000ML 1,000 ML IV SCH ×2 (00:43→11:29)
[2023-01-22] MEDS: PANTOprazole 40 MG in DEXTROSE 5% 100 ML IV SCH ×4 (00:43→17:00)
[2023-01-22] MEDS: CEFEPIME 2,000 MG in SYRINGE 0 ML IV SCH (05:46)
[2023-01-22] MEDS: LEVOTHYROXINE SODIUM 25 MCG TABLET PO SCH (05:46)
[2023-01-22 07:04] LABS: Basophils # (auto) 0.03 K/uL (0-0.2); Basophils % (auto) 0.5 %; Hematocrit (blood only) 26.2 % (42.0-52.0); Hemoglobin 8.2 g/dl (14.0-18.0); Immature Granulocytes # (auto) 0.26 K/uL (0.01-0.20); Lymphocytes # (auto) 0.95 K/uL (1.2-3.4); Lymphocytes % (auto) 14.6 %; Mean Corpuscular Hemoglobin 26.8 pg (25.0-34.0); Mean Corpuscular Hgb Conc 31.3 g/dL (32.0-36.0); Mean Corpuscular Volume 85.6 fL (80.0-100.0); Mean Platelet Volume 9.5 fL (9.4-12.4); Monocytes # (auto) 0.74 K/uL (0.11-0.59); Monocytes % (auto) 11.4 %; Neutrophils # (auto) 4.52 K/uL (1.40-6.50); Neutrophils % (auto) 69.5 %; Platelet Count 324 K/uL (130-400); RDW Coefficient of Variation 19.3 % (11.5-14.5); RDW Standard Deviation 59.4 fL (36.4-46.3); Red Blood Count 3.06 M/uL (4.70-6.10)
[2023-01-22 07:05] LABS: BUN Creatinine Ratio 15.9 (10-20); Calcium 7.7 mg/dl (8.6-10.3); Creatinine Clr Calc Pharmacy 27.6 ml/min; Est GFR (African American) 42.3 ml/min; Est GFR (Non-African American) 36.5 ml/min; Potassium 3.7 mmol/L (3.5-5.1)
[2023-01-22] MEDS: ISOSORBIDE MONO EXTENDED REL 30 MG TABCR PO SCH (08:37)
[2023-01-22] MEDS: guaiFENesin 600 MG TABCR PO SCH ×2 (08:37→20:03)
[2023-01-22] MEDS: ROFLUMILAST 500 MCG TAB PO SCH (08:37)
[2023-01-22] MEDS: BENZONATATE 100 MG CAPSULE PO SCH ×3 (08:37→20:01)
[2023-01-22] MEDS: FLUTICASONE/VILANTEROL 200/25MCG 14 PUFFS/INHALER INH SCH (08:38)
[2023-01-22] MEDS: UMECLIDINIUM BROMIDE 62.5MCG/BLISTER 7 PUFFS/INHALER INH SCH (08:38)
[2023-01-22] MEDS ORDERED: CEFDINIR 300 MG CAP PO STA (12:19)
--- NOTE | 2023-01-22 12:26 | Hospitalist Progress Note ---
Date of Service January 22, 2023 Assessment & Plan (1) Pneumonia: Plan: - Admit to med telemetry unit -Right midlung and left basilar infiltration - Sputum culture-pending, blood cultures -negative so far -Started on intravenous cefepime and azithromycin -Supportive measures for cough and wheezing - Wean O2 prn - wears 3-4 L at baseline - Covid negative -Lactic acid has been negative and procalcitonin negative to but CRP is mildly elevated - Consider pulmonology consultation with hx of pseudomonas infection in the lung - Check legionella urine-pending for now -Stable clinically and will continue current antibiotic -Remains afebrile and cough is improved -Clinically better and would continue current antibiotics Clinically much better with minimal cough and no shortness of breath, no fever and or chills Will start oral cefdinir and azithromycin to finish the course as an outpatient GI bleed Likely lower given the history of melena Has chronic anemia Hemoglobin dropped to 6.5 this morning He will receive 2 units of PRBC Appreciate GI input and recommendation for outpatient EGD and colonoscopy We will monitor CBC-hemoglobin went up to 7.5 after 2 units of blood transfusion Has had small amount of bright red blood per rectum with black stool GI evaluated-Will have outpatient scope If hemoglobin remains stable he can be discharged tomorrow No more bleeding and hemoglobin remains stable He will be discharged home this afternoon (2) Acute exacerbation of chronic obstructive pulmonary disease: Plan: - Pt was given solumedrol 125 mg IV in the ER two times on review of AUG---no fu rther steroids at this time. 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 Due for next session on Jan 30, occurs every 3 weeks - [facility] (4) Chronic anemia: Plan: - Hgb of 8.5 on admission, appears to be near his baseline as in September was also around 8-9. Will monitor with am labs - Pt has received blood transfusion before, currently no indication for transfusion - cont iron supplementation -As above (5) Hypertension: (6) Diastolic CHF: Plan: - Last echo was completed on 09/29/2022 showing LVEF of 60 to 65%, grade 1 diastolic dysfunction, aortic valve moderately calcified, mild to moderate aortic stenosis, no left ventricular wall motion abnormalities. -Continue amlodipine daily, baby aspirin -No signs and or symptoms of fluid overload (7) Hypothyroidism: Plan: - cont levothyroxine 25 mcg daily DVT ppx: teds, scds, consider chemical ppx within 24 hrs CODE: FULL Dispo: From home, likely to remain in the hospital x 1-2 days Discussed with the son Likely discharge tomorrow Discussed with the son and the patient will be discharged this afternoon Admission and Anticipated Discharge Date Admission Date: January 19, 2023 Subjective 01/20/2023 The patient was seen and examined in medical telemetry unit He has been stable and complains to have shortness of breath with exertion and some right-sided chest pain Has had black stool recently but no history of hematemesis Hemoglobin went down to below 7 this morning 01/21/2023 The patient was seen and examined in medical telemetry unit He has been feeling a little better following blood transfusion Denies any chest pain and the cough is minimal He has been requiring 3 L to maintain saturation 01/22/2023 The patient was seen and examined in medical telemetry unit He has been feeling much better and does not have any significant symptoms His bleeding has stopped and hemoglobin remains stable Does not have any cough and no shortness of breath and has been ambulating in the room without any difficulty Review of Systems Review of Systems: All systems reviewed and are unremarkable except as noted below Physical Exam Physical Exam: Sitting at the edge of the bed without any acute distress Constitutional: well developed, well nourished, + ill appearing and average body habitus Eyes: PERRL, conjunctivae normal, anicteric sclerae ENMT: external ear and nose normal, oropharynx normal Neck: trachea midline, no thyromegaly Respiratory: + respiratory distress (Minimal distress at rest) Auscultation: + diminished lung sounds and + crackles (Right-sided crackles, diminished) Cardiovascular: Rate/Rhythm: regular rate and regular rhythm; not tachycardic Heart Sounds: normal S1 and normal S2; no murmur Extremities: no edema Gastrointestinal (Abdomen): Inspection/Auscultation: normal bowel sounds; abdomen not distended Percussion/Palpation: abdomen soft; abdomen nontender Musculoskeletal: No acute arthritis involving any joint Neurologic: normal touch/pain/proprioception and moves all extremities; no focal motor deficits Lymphatic: no cervical or axillary lymphadenopathy Results & Data Results & Data Vital Signs (Past 12 Hours) Vital Signs Temp Pulse Pulse Resp BP Pulse Ox O2 Del Method 01/22/23 11:49 36.6 C 68 19 112/59 L 99 Room Air 01/22/23 08:00 62 01/22/23 08:00 Nasal Cannula 01/22/23 08:01 36.5 C 61 19 136/67 98 Nasal Cannula 01/22/23 03:54 36.5 C 65 18 146/66 H 99 Room Air O2 Flow Rate 01/22/23 11:49 01/22/23 08:00 01/22/23 08:00 3 01/22/23 08:01 3 01/22/23 03:54 Laboratory Results Short CBC 01/22/23 Range/Units 06:16 WBC 6.50 (4.8-10.8) K/ul Hgb 8.2 L (14.0-18.0) g/dl Hct 26.2 L (42.0-52.0) % Plt Count 324 (130-400) K/uL [facility] 01/22/23 06:16 Sodium 137 Potassium 3.7 Chloride 108 H Carbon Dioxide 26 BUN 26 H Creatinine 1.64 H Glucose 103 H Calcium 7.7 L Medications Administered Current Inpatient Medications Acetaminophen (Acetaminophen 325 Mg Tab) 650 mg PO Q4H PRN PRN Reason: Moderate Pain (Scale 4, 5, 6) Stop: 02/18/23 21:07 Last Admin: 01/20/23 14:12 Dose: 650 mg Albuterol (Albuterol Hfa 8 Gm Inhaler) 2 puffs INH Q4H PRN PRN Reason: SHORT OF BREATH/COUGH/WHEEZING Stop: 02/18/23 22:20 Albuterol (Albut/Ipratrop 3mg/0.5mg Neb 3 Ml Vial) 3 ml NEB Q4R PRN; Protocol PRN Reason: SOB/wheezing Stop: 02/18/23 21:07 Azithromycin (Azithromycin 250 Mg Tab) 250 mg PO QAM [facility] Stop: 01/30/23 08:59 Benzonatate (Benzonatate 100 Mg Capsule) 100 mg PO TID [facility] Stop: 02/18/23 21:07 Last Admin: 01/22/23 08:37 Dose: 100 mg Cefdinir (Cefdinir 300 Mg Cap) 300 mg PO BID [facility]; Protocol Stop: 01/29/23 20:59 Cefdinir (Cefdinir 300 Mg Cap) 300 mg PO ONE STA; Protocol Stop: 01/22/23 12:20 Diclofenac Sodium (Diclofenac Sod 1% Gel 100 Gm Tube) 2 gm EXT BID PRN; Protocol PRN Reason: Pain Stop: 02/19/23 08:59 Erythromycin (Erythromycin Op Oint 5 Mg/Gm 3.5 Gm Tube) 1 appln OPL HS [facility] Stop: 01/30/23 20:59 Last Admin: 01/21/23 19:58 Dose: 1 appln Fluticasone/Vilanterol (Fluticasone/Vilanterol 200/25mcg 14 Puffs/Inhaler) 1 puffs INH DAILY [facility] Stop: 02/19/23 08:59 Last Admin: 01/22/23 08:38 Dose: 1 puffs Guaifenesin (Guaifenesin 600 Mg Tabcr) 1,200 mg PO Q12 [facility] Stop: 02/18/23 21:07 Last Admin: 01/22/23 08:37 Dose: 1,200 mg Sodium Chloride (Nss 1000ml) 1,000 mls @ 80 mls/hr IV .[id number] [facility] Stop: 02/18/23 21:44 Last Admin: 01/22/23 11:29 Dose: Not Given Pantoprazole Sodium 40 mg/ (Dextrose) 100 mls @ 20 mls/hr IV Q5H [facility] Stop: 02/18/23 21:59 Last Admin: 01/22/23 11:29 Dose: Not Given Isosorbide Mononitrate (Isosorbide [place] Extended Rel 30 Mg Tabcr) 30 mg PO QAM [facility] Stop: 02/19/23 08:59 Last Admin: 01/22/23 08:37 Dose: 30 mg Levothyroxine Sodium (Levothyroxine Sodium 25 Mcg Tablet) 25 mcg PO DAILYBB [facility] Stop: 02/19/23 06:29 Last Admin: 01/22/23 05:46 Dose: 25 mcg Ondansetron HCl (Ondansetron Inj 2 Mg/Ml 2 Ml Vial) 4 mg IV Q4H PRN PRN Reason: Nausea And Vomiting Stop: 02/18/23 21:07 Last Admin: 01/20/23 16:56 Dose: 4 mg Roflumilast (Roflumilast 500 Mcg Tab) 500 mcg PO DAILY [facility] Stop: 02/19/23 08:59 Last Admin: 01/22/23 08:37 Dose: 500 mcg Ropinirole HCl (Ropinirole Hcl 0.25 Mg Tablet) 0.25 mg PO [facility] Stop: 02/18/23 22:24 Last Admin: 01/21/23 19:56 Dose: 0.25 mg Umeclidinium [place] (Umeclidinium [place] 62.5mcg/Blister 7 Puffs/Inhaler) 1 puffs INH DAILY [facility] Stop: 02/19/23 08:59 Last Admin: 01/22/23 08:38 Dose: 1 puffs Zonisamide (Zonisamide 25mg Cap) 1 each PO [facility] Stop: 02/19/23 20:59 Last Admin: 01/21/23 19:55 Dose: 1 each
[2023-01-22] MEDS: AZITHROMYCIN 250 MG TAB PO SCH (13:29)
[2023-01-22] MEDS: rOPINIRole HCL 0.25 MG TABLET PO SCH (20:03)
[2023-01-22] MEDS: ERYTHROMYCIN OP OINT 5 MG/GM 3.5 GM TUBE OPL SCH (20:04)
[2023-01-22] MEDS: PANTOprazole 40 MG TAB PO SCH (20:05)
[2023-01-23] MEDS: LEVOTHYROXINE SODIUM 25 MCG TABLET PO SCH (04:54)
[2023-01-23 07:39] LABS: Basophils # (auto) 0.03 K/uL (0-0.2); Basophils % (auto) 0.4 %; Hematocrit (blood only) 27.8 % (42.0-52.0); Hemoglobin 8.7 g/dl (14.0-18.0); Immature Granulocytes # (auto) 0.32 K/uL (0.01-0.20); Immature Granulocytes % (auto) 4.5 %; Lymphocytes # (auto) 0.76 K/uL (1.2-3.4); Lymphocytes % (auto) 10.8 %; Mean Corpuscular Hemoglobin 27.1 pg (25.0-34.0); Mean Corpuscular Hgb Conc 31.3 g/dL (32.0-36.0); Mean Corpuscular Volume 86.6 fL (80.0-100.0); Mean Platelet Volume 9.4 fL (9.4-12.4); Neutrophils # (auto) 4.74 K/uL (1.40-6.50); Neutrophils % (auto) 67.3 %; Platelet Count 330 K/uL (130-400); RDW Coefficient of Variation 19.7 % (11.5-14.5); RDW Standard Deviation 60.6 fL (36.4-46.3); Red Blood Count 3.21 M/uL (4.70-6.10); White Blood Count 7.05 K/ul (4.8-10.8)
[2023-01-23 07:53] LABS: BUN Creatinine Ratio 12.1 (10-20); Calcium 7.8 mg/dl (8.6-10.3); Creatinine Clr Calc Pharmacy 30.3 ml/min; Est GFR (African American) 47.5 ml/min; Potassium 3.6 mmol/L (3.5-5.1)
--- NOTE | 2023-01-23 10:13 | Hospitalist Progress Note ---
Date of Service January 23, 2023 Assessment & Plan (1) Pneumonia: Plan: - Admit to med telemetry unit -Right midlung and left basilar infiltration - Sputum culture-pending, blood cultures -negative so far -Started on intravenous cefepime and azithromycin -Supportive measures for cough and wheezing - Wean O2 prn - wears 3-4 L at baseline - Covid negative -Lactic acid has been negative and procalcitonin negative to but CRP is mildly elevated - Consider pulmonology consultation with hx of pseudomonas infection in the lung - Check legionella urine-pending for now -Stable clinically and will continue current antibiotic -Remains afebrile and cough is improved -Clinically better and would continue current antibiotics Clinically much better with minimal cough and no shortness of breath, no fever and or chills Will start oral cefdinir and azithromycin to finish the course as an outpatient Remains stable without any respiratory symptoms GI bleed Likely lower given the history of melena Has chronic anemia Hemoglobin dropped to 6.5 this morning He will receive 2 units of PRBC Appreciate GI input and recommendation for outpatient EGD and colonoscopy We will monitor CBC-hemoglobin went up to 7.5 after 2 units of blood transfusion Has had small amount of bright red blood per rectum with black stool GI evaluated-Will have outpatient scope If hemoglobin remains stable he can be discharged tomorrow No more bleeding and hemoglobin remains stable He will be discharged home this afternoon Bowel movement and no evidence of bleeding Hemoglobin is stable at 8.7 today 01/23/2023 ZURDO Likely secondary to dehydration Improved Creatinine is 1.49 as of 01/23/2023 Advised to drink more fluid (2) Acute exacerbation of chronic obstructive pulmonary disease: Plan: - Pt was given solumedrol 125 mg IV in the ER two times on review of AUG---no further steroids at this time. 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 Due for next session on Jan 30, occurs every 3 weeks - [facility] (4) Chronic anemia: Plan: - Hgb of 8.5 on admission, appears to be near his baseline as in September was also around 8-9. Will monitor with am labs - Pt has received blood transfusion before, currently no indication for transfusion - cont iron supplementation -As above (5) Hypertension: (6) Diastolic CHF: Plan: - Last echo was completed on 09/29/2022 showing LVEF of 60 to 65%, grade 1 diastolic dysfunction, aortic valve moderately calcified, mild to moderate aortic stenosis, no left ventricular wall motion abnormalities. -Continue amlodipine daily, baby aspirin -No signs and or symptoms of fluid overload (7) Hypothyroidism: Plan: - cont levothyroxine 25 mcg daily DVT ppx: teds, scds, consider chemical ppx within 24 hrs CODE: FULL Dispo: From home, likely to remain in the hospital x 1-2 days Discussed with the son Likely discharge tomorrow Likely discharge this morning Admission and Anticipated Discharge Date Admission Date: January 19, 2023 Subjective 01/20/2023 The patient was seen and examined in medical telemetry unit He has been stable and complains to have shortness of breath with exertion and some right-sided chest pain Has had black stool recently but no history of hematemesis Hemoglobin went down to below 7 this morning 01/21/2023 The patient was seen and examined in medical telemetry unit He has been feeling a little better following blood transfusion Denies any chest pain and the cough is minimal He has been requiring 3 L to maintain saturation 01/22/2023 The patient was seen and examined in medical telemetry unit He has been feeling much better and does not have any significant symptoms His bleeding has stopped and hemoglobin remains stable Does not have any cough and no shortness of breath and has been ambulating in the room without any difficulty 01/23/2023 The patient was seen and examined in medical telemetry unit He has been stable without any acute symptoms No shortness of breath and no cough Bowel movement no evidence of bleeding He is waiting to be discharged Review of Systems Review of Systems: All systems reviewed and are unremarkable except as noted below Physical Exam Physical Exam: Sitting at the edge of the bed without any acute distress Constitutional: well developed, well nourished, + ill appearing and average body habitus Eyes: PERRL, conjunctivae normal, anicteric sclerae ENMT: external ear and nose normal, oropharynx normal Neck: trachea midline, no thyromegaly Respiratory: + respiratory distress (Minimal distress at rest) Auscultation: + diminished lung sounds and + crackles (Right-sided crackles, diminished) Cardiovascular: Rate/Rhythm: regular rate and regular rhythm; not tachycardic Heart Sounds: normal S1 and normal S2; no murmur Extremities: no edema Gastrointestinal (Abdomen): Inspection/Auscultation: normal bowel sounds; abdomen not distended Percussion/Palpation: abdomen soft; abdomen nontender Neurologic: normal touch/pain/proprioception and moves all extremities; no focal motor deficits Lymphatic: no cervical or axillary lymphadenopathy Results & Data Results & Data Vital Signs (Past 12 Hours) Vital Signs Temp Pulse Resp BP Pulse Ox O2 Del Method 01/23/23 06:41 36.9 C 73 18 144/60 H 96 Room Air 01/23/23 03:34 36.8 C 81 18 133/68 95 Room Air Laboratory Results Short CBC 01/23/23 Range/Units 07:15 WBC 7.05 (4.8-10.8) K/ul Hgb 8.7 L (14.0-18.0) g/dl Hct 27.8 L (42.0-52.0) % Plt Count 330 (130-400) K/uL BMP 01/23/23 07:15 Sodium 139 Potassium 3.6 Chloride 110 H Carbon Dioxide 25 BUN 18 Creatinine 1.49 H Glucose 119 H Calcium 7.8 L Medications Administered Current Inpatient Medications Acetaminophen (Acetaminophen 325 Mg Tab) 650 mg PO Q4H PRN PRN Reason: Moderate Pain (Scale 4, 5, 6) Stop: 02/18/23 21:07 Last Admin: 01/20/23 14:12 Dose: 650 mg Albuterol (Albuterol Hfa 8 Gm Inhaler) 2 puffs INH Q4H PRN PRN Reason: SHORT OF BREATH/COUGH/WHEEZING Stop: 02/18/23 22:20 Albuterol (Albut/Ipratrop 3mg/0.5mg Neb 3 Ml Vial) 3 ml NEB Q4R PRN; Protocol PRN Reason: SOB/wheezing Stop: 02/18/23 21:07 Azithromycin (Azithromycin 250 Mg Tab) 250 mg PO QAM [facility]; Protocol Stop: 01/26/23 12:59 Last Admin: 01/22/23 13:29 Dose: 250 mg Benzonatate (Benzonatate 100 Mg Capsule) 100 mg PO TID [facility] Stop: 02/18/23 21:07 Last Admin: 01/22/23 20:01 Dose: 100 mg Cefdinir (Cefdinir 300 Mg Cap) 300 mg PO Q24H [facility]; Protocol Stop: 01/29/23 12:59 Diclofenac Sodium (Diclofenac Sod 1% Gel 100 Gm Tube) 2 gm EXT BID PRN; Protocol PRN Reason: Pain Stop: 02/19/23 08:59 Erythromycin (Erythromycin Op Oint 5 Mg/Gm 3.5 Gm Tube) 1 appln OPL HS [facility] Stop: 01/30/23 20:59 Last Admin: 01/22/23 20:04 Dose: 1 appln Fluticasone/Vilanterol (Fluticasone/Vilanterol 200/25mcg 14 Puffs/Inhaler) 1 puffs INH DAILY [facility] Stop: 02/19/23 08:59 Last Admin: 01/22/23 08:38 Dose: 1 puffs Guaifenesin (Guaifenesin 600 Mg Tabcr) 1,200 mg PO Q12 [facility] Stop: 02/18/23 21:07 Last Admin: 01/22/23 20:03 Dose: 1,200 mg Isosorbide Mononitrate (Isosorbide [place] Extended Rel 30 Mg Tabcr) 30 mg PO QAM [facility] Stop: 02/19/23 08:59 Last Admin: 01/22/23 08:37 Dose: 30 mg Levothyroxine Sodium (Levothyroxine Sodium 25 Mcg Tablet) 25 mcg PO DAILYBB [facility] Stop: 02/19/23 06:29 Last Admin: 01/23/23 04:54 Dose: 25 mcg Ondansetron HCl (Ondansetron Inj 2 Mg/Ml 2 Ml Vial) 4 mg IV Q4H PRN PRN Reason: Nausea And Vomiting Stop: 02/18/23 21:07 Last Admin: 01/20/23 16:56 Dose: 4 mg Pantoprazole Sodium (Pantoprazole 40 Mg Tab) 40 mg PO BID [facility] Stop: 02/21/23 20:59 Last Admin: 01/22/23 20:05 Dose: 40 mg Roflumilast (Roflumilast 500 Mcg Tab) 500 mcg PO DAILY [facility] Stop: 02/19/23 08:59 Last Admin: 01/22/23 08:37 Dose: 500 mcg Ropinirole HCl (Ropinirole Hcl 0.25 Mg Tablet) 0.25 mg PO [facility] Stop: 09/01/23 22:24 Last Admin: 01/22/23 20:03 Dose: 0.25 mg Umeclidinium [place] (Umeclidinium [place] 62.5mcg/Blister 7 Puffs/Inhaler) 1 puffs INH DAILY [facility] Stop: 02/19/23 08:59 Last Admin: 01/22/23 08:38 Dose: 1 puffs Zonisamide (Zonisamide 25mg Cap) 1 each PO HS [facility] Stop: 02/19/23 20:59 Last Admin: 01/22/23 20:01 Dose: 1 each
[2023-01-23] MEDS: PANTOprazole 40 MG TAB PO SCH (11:01)
[2023-01-23] MEDS: guaiFENesin 600 MG TABCR PO SCH (11:01)
[2023-01-23] MEDS: BENZONATATE 100 MG CAPSULE PO SCH (11:01)
[2023-01-23] MEDS: ROFLUMILAST 500 MCG TAB PO SCH (11:02)
[2023-01-23] MEDS: FLUTICASONE/VILANTEROL 200/25MCG 14 PUFFS/INHALER INH SCH (11:02)
[2023-01-23] MEDS: UMECLIDINIUM BROMIDE 62.5MCG/BLISTER 7 PUFFS/INHALER INH SCH (11:02)
[2023-01-23] MEDS: ISOSORBIDE MONO EXTENDED REL 30 MG TABCR PO SCH (11:02)
[2023-01-23] MEDS: AZITHROMYCIN 250 MG TAB PO SCH (11:02)
[2023-01-23] MEDS ORDERED: CEFDINIR 300 MG CAP PO SCH (13:00)
--- NOTE | 2023-01-24 07:16 | Discharge Summary ---
Date of Service January 24, 2023 Admission HPI Per Admitting Provider This is an 87-year-old male with PMHx of HTN, diastolic CHF, COPD, squamous cell carcinoma of the ear, head and neck, status post lesion removal, diagnosed October 2021. Pt has residual neck wound, currently on immunotherapy. Other history includes hypothyroidism, chronic anemia, blindness in left eye since 2013, who was recently admitted here to the hospital in September for COPD exacerbation with possible aspiration pneumonitis. He was discharged on a small amount of lasix for shortness of breath and associated pulmonary edema at time of discharge to use on an as needed basis which he has not needed. Pt notes that for the past few days he hasn't been feeling well. Pt admits to walking only 2 steps and feels short of breath and weak. Reports that he is having trouble breathing and wears 3-4 L NC at all times. Coughing up large amounts of sputum which he describes is bubblegum like in texture, but due to not being to able to see, cant describe it. Denies fever, chills or sweats. Pt has sometimes has trouble swallowing due to his cancer hx but otherwise eats and drinks normally, last ate cheerios this morning with some cherries. He is nauseous and having dry heaves intermittently today, no vomiting, diarrhea or abdominal pain. 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 Arroyo who plans to do surgery on the eyelid to correct it in Feb. Describes his eyelid as drooping. He cannot confirm antibiotic use for this but does use ointment in the eye. Denies pain. No visual changes with his right eye. Pt is on immunotherapy for head and neck cancer, had his last treatment on January 10, and is scheduled every 3 weeks, most recently competed his 6th cycle. He has had several blood transfusions in the past year due to low blood counts. Admission Exam Per Admitting Provider Physical Exam: General: awake, alert, no apparent distress Head: Normocephalic, Left eye covered with patch, wound behind the left ear, previous mouth surgery with left sided lip droop ENT: PERRL, EOMI, no pharyngeal exudate, mucous membranes moist Chest: Coarse breath sounds throughout, + wheezing, on 4 L via NC, o2 sats 92% Cardiac: Regular rate and rhythm, no murmur, no JVD, normal peripheral pulses, good capillary refill Abdominal: NABS x 4 quadrants, soft, nondistended, nontender to palpation, no rebound or guarding Extremities: Normal inspection, no peripheral edema or erythema, calfs nontender to palpation Psych: Normal mood and affect Neuro: AAO x 3, strength intact bilaterally and rated 5/5, no motor deficits, speech is clear, no peripheral sensory deficits Principal Diagnosis Right midlung and left basilar pneumonia, lower GI bleed status post 2 unit of blood transfusion, COPD, history of squamous cell cancer of external ear on the left side Discharge Exam Sitting at the edge of the bed without any acute distress Constitutional well developed, well nourished, + ill appearing and average body habitus Eyes PERRL, conjunctivae normal, anicteric sclerae ENMT external ear and nose normal, oropharynx normal Neck trachea midline, no thyromegaly Respiratory + respiratory distress (Minimal distress at rest) Auscultation: + diminished lung sounds and + crackles (Right-sided crackles, diminished) Cardiovascular Rate/Rhythm: regular rate and regular rhythm; not tachycardic Heart Sounds: normal S1 and normal S2; no murmur Extremities: no edema Gastrointestinal (Abdomen) Inspection/Auscultation: normal bowel sounds; abdomen not distended Percussion/Palpation: abdomen soft; abdomen nontender Neurologic normal touch/pain/proprioception and moves all extremities; no focal motor deficits Lymphatic no cervical or axillary lymphadenopathy Discharge Data Allergies Allergy/AdvReac Type Severity Reaction Status Date / Time cefuroxime Allergy Intermediate Rash Verified 01/19/23 17:04 ertapenem Allergy Unknown Unknown Verified 01/19/23 17:04 levofloxacin [From Levaquin] Allergy Unknown Unknown Verified 01/19/23 17:04 BETA-LACTAMS Allergy Intermediate Rash Uncoded 01/19/23 17:04 FLUOROQUINOLONES Allergy Intermediate Rash Uncoded 01/19/23 17:04 Consultations 01/19/23 16:25 ED Decision to Admit Stat 01/20/23 08:00 Consult Gastroenterology Routine Hospital Course (1) Pneumonia: - Admit to med telemetry unit -Right midlung and left basilar infiltration - Sputum culture-pending, blood cultures -negative so far -Started on intravenous cefepime and azithromycin -Supportive measures for cough and wheezing - Wean O2 prn - wears 3-4 L at baseline - Covid negative -Lactic acid has been negative and procalcitonin negative to but CRP is mildly elevated - Consider pulmonology consultation with hx of pseudomonas infection in the lung - Check legionella urine-pending for now -Stable clinically and will continue current antibiotic -Remains afebrile and cough is improved -Clinically better and would continue current antibiotics Clinically much better with minimal cough and no shortness of breath, no fever and or chills Will start oral cefdinir and azithromycin to finish the course as an outpatient Remains stable without any respiratory symptoms GI bleed Likely lower given the history of melena Has chronic anemia Hemoglobin dropped to 6.5 this morning He will receive 2 units of PRBC Appreciate GI input and recommendation for outpatient EGD and colonoscopy We will monitor CBC-hemoglobin went up to 7.5 after 2 units of blood transfusion Has had small amount of bright red blood per rectum with black stool GI evaluated-Will have outpatient scope If hemoglobin remains stable he can be discharged tomorrow No more bleeding and hemoglobin remains stable He will be discharged home this afternoon Bowel movement and no evidence of bleeding Hemoglobin is stable at 8.7 today 01/23/2023 ZURDO Likely secondary to dehydration Improved Creatinine is 1.49 as of 01/23/2023 Advised to drink more fluid (2) Acute exacerbation of chronic obstructive pulmonary disease: - Pt was given solumedrol 125 mg IV in the ER two times on review of AUG---no further steroids at this time. 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 Due for next session on Jan 30, occurs every 3 weeks - [facility] (4) Chronic anemia: - Hgb of 8.5 on admission, appears to be near his baseline as in September was also around 8-9. Will monitor with am labs - Pt has received blood transfusion before, currently no indication for transfusion - cont iron supplementation -As above (5) Hypertension: (6) Diastolic CHF: - Last echo was completed on 09/29/2022 showing LVEF of 60 to 65%, grade 1 diastolic dysfunction, aortic valve moderately calcified, mild to moderate aortic stenosis, no left ventricular wall motion abnormalities. -Continue amlodipine daily, baby aspirin -No signs and or symptoms of fluid overload (7) Hypothyroidism: - cont levothyroxine 25 mcg daily DVT ppx: teds, scds, consider chemical ppx within 24 hrs CODE: FULL Dispo: From home, likely to remain in the hospital x 1-2 days Discussed with the son Likely discharge tomorrow Likely discharge this morning Total Time Total Time Spent Total Time Spent (In Minutes): 35 minutes Discharge Plan Discharge Items Patient Disposition: Home - Home Health Services Reason For Visit: PNEUMONIA Discharge Diagnosis: Right midlung and left basilar pneumonia, lower GI bleed status post 2 unit of blood transfusion, COPD, history of squamous cell cancer of external ear on the left side Condition on Discharge: Fair Activity: Resume your previous activity Non-emergency contact: Primary Care Provider Call non-emergency contact if: you have any medication questions and your symptoms worsen Follow-up/Referrals: Tyree Nieves MD [Primary Care Provider] - (You will be called with an appointment with your primary care physician within 7 days) Diet: Low Fiber Addtl Attending Provider Instructions: Please take precautions to avoid falls Finish the course of antibiotic Take your other medications as advised Please give appointment with your healthcare provider Pending Studies at Discharge: No Stand-Alone Forms: My [employer], Smoking Cessation Medications and DC Order Prescriptions: New azithromycin 250 mg Tablet 250 mg PO QAM 4 Days Qty: 4 0RF benzonatate 100 mg Capsule 100 mg PO TID Qty: 30 0RF cefdinir 300 mg Capsule 300 mg PO Q24H 7 Days Qty: 7 0RF pantoprazole [Protonix] 40 mg tablet,delayed release (DR/EC) 40 mg PO BID Qty: 60 0RF Continued albuterol sulfate 2.5 mg /3 mL (0.083 %) Solution For Nebulization 3 ml INHALATION QID PRN (Reason: Shortness Of Breath) meclizine 12.5 mg Tablet 12.5 mg PO TID PRN (Reason: Dizziness) levothyroxine 25 mcg Tablet 25 mcg PO DAILYBB ferrous sulfate 325 mg (65 mg iron) Tablet 325 mg PO DAILY albuterol sulfate 90 mcg/actuation Hfa Aerosol Inhaler 2 puff INHALATION Q4H PRN (Reason: SHORT OF BREATH/COUGH/WHEEZING) tiotropium bromide 2.5 mcg/actuation Mist 2 puff INHALATION DAILY roflumilast 500 mcg tablet 500 mcg PO DAILY isosorbide mononitrate 60 mg tablet extended release 24 hr 30 mg PO QAM erythromycin 5 mg/gram (0.5 %) ointment 1 applic OPL HS polyvinyl alcohol [Artificial Tears (polyvin alc)] 1.4 % Drops 1 drp OPHTHALMIC (EYE) QID PRN (Reason: Dry Eyes) amlodipine 5 mg Tablet 5 mg PO DAILY ascorbic acid (vitamin C) [Vitamin C] 500 mg Tablet 100 mg PO DAILY cholecalciferol (vitamin D3) [Vitamin D3] 25 mcg (1,000 unit) Capsule 25 mcg PO DAILY fluticasone propion-salmeterol 250-50 mcg/dose Blister With Device 1 inh INHALATION BID ropinirole 0.25 mg Tablet 0.25 mg PO HS Rx Instructions: administer 1-3 hours before bedtime zonisamide 25 mg Capsule 25 mg PO HS Lubricant Eye (PG-PEG 400)(PF) 0.4-0.3 % Dropperette 1 drp OPL BID Discontinued aspirin 81 mg Tablet,Delayed Release (Dr/Ec) 81 mg PO DAILY azithromycin 250 mg Tablet 250 mg PO DAILY pantoprazole 40 mg Tablet,Delayed Release (Dr/Ec) 40 mg PO DAILY Discharge Orders: Discharge Order (Routine); Ordered 01/23/23 Ordered By: Ariana Hurst Admission Data Admit Date/Time: 01/19/23 17:11 Attending Provider: Ariana Hurst Admit Provider: Mishel Hester Primary Care Provider: Tyree Nieves Other Providers: Mishel Hester ; Vernon Osorio ; [facility] ; [facility] Fax Other Interventions: Discharge Summary Assessment (RN) Last Done: 01/23/23 12:37
== END 2023-01-23 13:29 | disposition home health service (06) | DRG 194 ==
LOC: ED 13:31 → SUATTDRO 17:11 → 2N 17:11

== ENCOUNTER 2023-04-28 17:23 | Inpatient (IN) ==
--- NOTE | 2023-04-28 18:19 | Emergency Department Note ---
Impression & Plan Symptomatic anemia, Acute GI bleeding ED Provider Note NAME: BORIS VASQUEZ AGE: 87 SEX: M : 1935 ARRIVES VIA: Walk-In INFORMANT: Patient ED PROVIDER(S): Nilesh Butler DO CHIEF COMPLAINT: abdominal pain HPI: Patient is an 87-year-old male with a past medical history of chronic anemia, squamous cell cancer of the ear, CHF, chronically on 3 L nasal cannula presents the ER for abdominal pain. Notes its been present for the last 3 days. Suprapubic region and radiates to both the right and left lower quadrants. Associated with nausea but no vomiting. He denies any headache or change in vision. No chest pain or shortness of breath. He notes he always has shortness of breath that is unchanged in any way currently. No new cough or congestion. No fevers. No other exacerbating or remitting factors. He notes he has urinary, urgency, and frequency. He cannot stop urinating. ADDITIONAL HISTORY OBTAINED: Per HPI Chronic Medical/Social Conditions Affecting Care: Per HPI PAST MEDICAL HISTORY:See Below PAST SURGICAL HISTORY:See Below FAMILY HISTORY:See Below SOCIAL HISTORY:See Below HOME MEDICATIONS:See Below ALLERGIES:See Below VITALS:See Below PHYSICAL EXAMINATION: GENERAL: Sitting up in bed, alert, chronically ill-appearing, pale, disheveled on 3 L nasal cannula EYE EXAM: Normal conjunctiva of the right eye. Patch on left eye. OROPHARYNX: mucous membranes are moist NECK: supple, no nuchal rigidity, no adenopathy, non-tender LUNGS: Clear to auscultation. Normal chest wall mechanics HEART: no murmurs, S1 normal and S2 normal ABDOMEN: abdomen soft, diffuse tenderness in the lower pelvis, normo-active bowel sounds, no masses, no rebound or guarding. UPPER EXTREMITIES: upper extremities are grossly normal. LOWER EXTREMITIES: No pitting edema. NEURO EXAM: Normal sensorium, cranial nerves II-XII grossly intact, normal speech, no gross weakness of arms, no gross weakness of legs. MEDICAL DECISION MAKING: Patient is an 87-year-old male who presents the ER for abdominal pain and feeling as though he cannot pee with dysuria urgency and frequency. IV was established blood work was obtained. Initially complained of shortness of breath and then notes that he does not have any. Labs show no significant leukocytosis. Significant anemia at 4.6. Patient was typed and crossed and given 2 units of PRBCs while in the ER. BMP with an elevated BUN. Rectally he was heme positive with black stool. LFTs bilirubin was unremarkable. Lipase was normal. UA was contaminated. Blood pressures were slightly low in the 90s. He is placed on Protonix drip and bolus. He was given IV fluids and commendation with [address] abdomen pelvis showed no acute pathology. Patient was consented at bedside by myself for PRBCs. External Records Reviewed: Previous admission reviewed which was for GI bleed but patient was not scoped while in the ER. Consults/Care Managements Discussions: Per [facility] Triage Nursing notes reviewed. Limited review of prior medical records performed Vital Signs: reviewed and remarkable for hypotension Differential diagnosis: Differential diagnoses includes but is not limited to gastritis, peptic ulcer disease, GERD, gallbladder disease, pancreatitis, small bowel obstruction, appendicitis, diverticulitis, hernia, urinary tract infection, torsion, perforation, trauma, infectious. ER treatment provided: See below Diagnostics interpreted by me include EKG and cardiac monitoring as listed below: -Cardiac Monitoring: An order was placed for continuous cardiac monitoring. The monitor shows a rate of 80 with sinus rhythm. -ECG: Sinus rhythm rate of 72 Left axis Right bundle branch block QTc 499 -Laboratory studies:Interpreted by me as stated above in MDM and shown below. Imaging studies: Xrays: As interpreted by me:none CTs show: CT abdomen pelvis showed no acute pathology per radiology Procedures:none Critical Care: I have personally spent 40 minutes of critical care time in the direct management of this patient. This includes bedside care, interpretation of diagnostic studies, and testing, discussion with consultants, patient, and family members, and other required patient management activities. This 40 minutes is in excess of all separately billable procedures. Past Med/Surg History Medical History Chronic anemia COPD (chronic obstructive pulmonary disease) Diastolic CHF Hx of agent [place] exposure Hypertension Hypothyroidism Squamous cell cancer of external ear Family History Other Family history non-contributory Social History Smoking Status: Unknown if ever smoked Tobacco Type: Cigarettes Second Hand Exposure: No; Do You Dip or Chew Tobacco: No; Hx Alcohol Use: No Hx Substance Use: No Preferred Language: Guyanese Communication Ability: Effective Airframe Technician Required: No Beliefs That Will Affect Care: None marital status: Current Living Situation: Family Current Living Situation Comment: Home with 2 Sons current occupational status: retired Feels Safe at Home: Yes Assistive Devices: Walker Allergies Allergies Allergy/AdvReac Type Severity Reaction Status Date / Time cefuroxime Allergy Intermediate Rash Verified 04/28/23 20:56 ertapenem Allergy Unknown Unknown Verified 04/28/23 20:56 levofloxacin [From Levaquin] Allergy Unknown Unknown Verified 04/28/23 20:56 BETA-LACTAMS Allergy Intermediate Rash Uncoded 04/28/23 20:56 FLUOROQUINOLONES Allergy Intermediate Rash Uncoded 04/28/23 20:56 Home Meds Home Medications Medication Instructions Recorded Confirmed albuterol sulfate 2.5 mg/3 mL 3 ml inhalation QID PRN Shortness 10/04/18 04/28/23 (0.083 %) solution for nebulization Of Breath albuterol sulfate 90 mcg/actuation 2 puff inhalation Q4H PRN SHORT OF 10/04/18 04/28/23 aerosol inhaler BREATH/COUGH/WHEEZING ferrous sulfate 325 mg (65 mg 325 mg PO DAILY 10/04/18 04/28/23 iron) tablet tiotropium bromide 2.5 2 puff inhalation DAILY 10/04/18 04/28/23 mcg/actuation mist for inhalation isosorbide mononitrate 60 mg 30 mg PO QAM 09/29/22 04/28/23 tablet,extended release 24 hr amlodipine 5 mg tablet 5 mg PO DAILY 01/19/23 04/28/23 cholecalciferol (vitamin D3) 25 25 mcg PO DAILY 01/19/23 04/28/23 mcg (1,000 unit) capsule (Vitamin D3) fluticasone 250 mcg-salmeterol 50 1 inh inhalation BID 01/19/23 04/28/23 mcg/dose blistr powdr for inhalation peg 400-propylene glycol (PF) 0.4 1 drp OPL BID 01/19/23 04/28/23 %-0.3 % eye drops in a dropperette (Lubricant Eye (PG-PEG 400) (PF)) ropinirole 0.25 mg tablet 0.25 mg PO HS 01/19/23 04/28/23 zonisamide 25 mg capsule 25 mg PO HS 01/19/23 04/28/23 ascorbic acid (vitamin C) 500 mg 500 mg PO BID 04/28/23 04/28/23 tablet aspirin 81 mg tablet,delayed 81 mg PO DAILY 04/28/23 04/28/23 release diclofenac sodium 1 % topical gel 2 g topical QID PRN Pain 04/28/23 04/28/23 gabapentin 100 mg capsule 100 mg PO QAM 04/28/23 04/28/23 gabapentin 100 mg capsule 300 mg PO HS 04/28/23 04/28/23 levothyroxine 50 mcg tablet 50 mcg PO DAILY 04/28/23 04/28/23 multivitamin with minerals 1 tab PO DAILY 04/28/23 04/28/23 (Multiple Vitamin-Minerals tablet) nitroglycerin 0.4 mg sublingual 0.4 mg sublingual .PRN/UD PRN 04/28/23 04/28/23 tablet Chest Pain pantoprazole 40 mg tablet,delayed 40 mg PO DAILY 04/28/23 04/28/23 release (Protonix) roflumilast 250 mcg tablet 250 mcg PO DAILY 04/28/23 04/28/23 Results & Data (ED) Vital Signs Vital Signs - 24 hr 04/28/23 17:25 04/28/23 17:46 04/28/23 18:32 Temperature 37.1 C Temperature Source Temporal Artery Scan Pulse Rate 88 85 Pulse Rate from SpO2 Sensor Respiratory Rate 22 Respiratory Effort / Characteristics Non-Labored Respiratory Depth Normal Blood Pressure 136/114 H Blood Pressure Mean 121 Pulse Oximetry 96 100 Oxygen Delivery Method Nasal Cannula Room Air Oxygen Flow Rate 3 3 Sepsis Recent Fever Within 48 Hours No Sepsis New/Unexplained Change in Mental Status N/A Sepsis Action Taken by Nursing No Action Required 04/28/23 18:32 04/28/23 19:00 04/28/23 19:12 Temperature Temperature Source Pulse Rate 80 76 Pulse Rate from SpO2 Sensor 74 79 Respiratory Rate 29 H 27 H Respiratory Effort / Characteristics Respiratory Depth Blood Pressure 114/44 L Blood Pressure Mean 67 Pulse Oximetry 100 100 100 Oxygen Delivery Method Nasal Cannula Oxygen Flow Rate 3 Sepsis Recent Fever Within 48 Hours Sepsis New/Unexplained Change in Mental Status Sepsis Action Taken by Nursing 04/28/23 19:32 04/28/23 19:32 04/28/23 20:00 Temperature Temperature Source Pulse Rate 81 74 Pulse Rate from SpO2 Sensor 77 67 Respiratory Rate 38 H 26 H Respiratory Effort / Characteristics Respiratory Depth Blood Pressure Blood Pressure Mean 152 Pulse Oximetry 96 96 Oxygen Delivery Method Oxygen Flow Rate Sepsis Recent Fever Within 48 Hours Sepsis New/Unexplained Change in Mental Status Sepsis Action Taken by Nursing 04/28/23 20:34 04/28/23 20:36 04/28/23 20:44 Temperature Temperature Source Pulse Rate 73 72 Pulse Rate from SpO2 Sensor 72 73 Respiratory Rate 23 24 Respiratory Effort / Characteristics Non-Labored Spontaneous Respiratory Depth Normal Blood Pressure 94/46 L Blood Pressure Mean 62 Pulse Oximetry 100 98 Oxygen Delivery Method Oxygen Flow Rate Sepsis Recent Fever Within 48 Hours Sepsis New/Unexplained Change in Mental Status Sepsis Action Taken by Nursing 04/28/23 20:50 04/28/23 21:05 04/28/23 21:20 Temperature 36.9 C 36.4 C L 36.8 C Temperature Source Oral Oral Oral Pulse Rate 74 77 74 Pulse Rate from SpO2 Sensor Respiratory Rate 25 H 18 24 Respiratory Effort / Characteristics Respiratory Depth Blood Pressure 99/46 L 99/48 L 100/61 Blood Pressure Mean 63 65 74 Pulse Oximetry 100 100 100 Oxygen Delivery Method Oxygen Flow Rate 3 3.5 3 Sepsis Recent Fever Within 48 Hours Sepsis New/Unexplained Change in Mental Status Sepsis Action Taken by Nursing 04/28/23 21:50 04/28/23 21:50 04/28/23 21:50 Temperature 36.8 C 36.6 C Temperature Source Oral Oral Pulse Rate 72 74 73 Pulse Rate from SpO2 Sensor Respiratory Rate 22 14 Respiratory Effort / Characteristics Respiratory Depth Blood Pressure 117/76 97/40 L Blood Pressure Mean 89 59 Pulse Oximetry 100 98 Oxygen Delivery Method Oxygen Flow Rate 3 3 Sepsis Recent Fever Within 48 Hours Sepsis New/Unexplained Change in Mental Status Sepsis Action Taken by Nursing 04/28/23 22:01 Temperature Temperature Source Pulse Rate 77 Pulse Rate from SpO2 Sensor Respiratory Rate Respiratory Effort / Characteristics Respiratory Depth Blood Pressure Blood Pressure Mean Pulse Oximetry Oxygen Delivery Method Oxygen Flow Rate Sepsis Recent Fever Within 48 Hours Sepsis New/Unexplained Change in Mental Status Sepsis Action Taken by Nursing Laboratory Data 04/28/23 18:24 04/28/23 18:24 Lab Results 04/28/23 04/28/23 04/28/23 Range/Units 18:24 19:38 20:54 WBC 9.39 (4.8-10.8) K/ul RBC 1.78 L (4.70-6.10) M/uL Hgb 4.6 L* (14.0-18.0) g/dl Hct 15.2 L* (42.0-52.0) % MCV 85.4 (80.0-100.0) fL MCH 25.8 (25.0-34.0) pg MCHC 30.3 L (32.0-36.0) g/dL RDW Std Deviation 46.5 H (36.4-46.3) fL RDW Coeff of [place] 15.3 H (11.5-14.5) % Plt Count 448 H (130-400) K/uL MPV 9.8 (9.4-12.4) fL Immature Gran % (Auto) 6.1 % Neut % (Auto) 66.2 % Lymph % (Auto) 11.0 % [place] % (Auto) 16.6 % Eos % (Auto) 0.0 % Baso % (Auto) 0.1 % Neut # (Auto) 6.22 (1.40-6.50) K/uL Lymph # (Auto) 1.03 L (1.20-3.40) K/uL [place] # (Auto) 1.56 H (0.11-0.59) K/uL Eos # (Auto) 0.00 (0.00-0.50) K/uL Baso # (Auto) 0.01 (0.00-0.20) K/uL Immature Gran # (Auto) 0.57 H (0.01-0.20) K/uL Absolute Nucleated RBC 0.02 (0.00-0.12) K/uL Nucleated RBC % (auto) 0.2 % Polychromasia 1+ Sodium 138 (136-145) mmol/L Potassium 4.3 (3.5-5.1) mmol/L Chloride 102 (98-107) mmol/L Carbon Dioxide 30 (21-32) mmol/L Anion Gap 6 (3-11) BUN 38 H (6-23) mg/dl Creatinine 1.46 H (0.6-1.4) mg/dl Est Cr Clr Drug Dosing Not Reportable Est GFR ( Amer) 48.7 ml/min Est GFR (Non-Af Amer) 42.0 ml/min BUN/Creatinine Ratio 26.0 H (10-20) Glucose 132 H (70-99(Fasting)) mg/dl Calcium 8.8 (8.6-10.3) mg/dl Total Bilirubin 0.3 (0.2-1.0) mg/dl AST 10 L (13-39) U/L ALT 5 L (7-52) U/L Alkaline Phosphatase 69 (34-104) U/L Total Protein 6.0 (6.0-8.3) gm/dl Albumin 3.2 L (3.4-5.0) gm/dl Globulin 2.8 (2.5-4.0) gm/dl Albumin/Globulin Ratio 1.1 (0.9-2) Lipase 22 (11-82) U/L Urine Color Yellow Urine Appearance Turbid A (Clear) Urine pH >= 9.0 H (4.5-7.5) Ur Specific [place] 1.016 (1.000-1.030) Urine Protein 1+ H (Negative) Urine Glucose (UA) Negative (Negative) Urine Ketones Negative (Negative) Urine Blood Negative (Negative) Urine Nitrite Positive A (Negative) Urine Bilirubin Negative (Negative) Urine Urobilinogen Negative (Negative) Ur Leukocyte Esterase 3+ H (Negative) Urine WBC (Auto) 10-30 H (0-5) /hpf Urine RBC (Auto) 0-4 (0-4) /hpf U Hyaline Cast (Auto) 1-5 (0-5) /lpf U Epithel Cells (Auto) >30 H (0-5) /lpf Urine Bacteria (Auto) 2+ H (Negative) Ur Renal Epithelial Cell Not Reportable Blood Type O Positive Antibody Screen NEGATIVE Crossmatch See Detail Administered Medications Pantoprazole Sodium 40 mg/ (Dextrose) 100 mls @ 20 mls/hr IV Q5H [facility] Stop: 05/28/23 20:59 Last Admin: 04/28/23 22:01 Dose: 8 mg/hr, 20 mls/hr Documented By: ASHA Discontinued Medications Pantoprazole Sodium 80 mg/ (Dextrose) 120 mls @ 400 mls/hr IV NOW ONE Stop: 04/28/23 21:00 Last Infusion: 04/28/23 22:01 Dose: Infused Documented By: Admin: 04/28/23 21:32 Dose: 400 mls/hr Documented By: ASHA Sodium Chloride (Nss) 500 mls @ 999 mls/hr IV .Q31M ONE Stop: 04/28/23 21:21 Last Infusion: 04/28/23 22:14 Dose: Infused Documented By: Admin: 04/28/23 21:32 Dose: 999 mls/hr Documented By: ASHA Ioversol (Optiray 320 100ml) 89 ml IV ONCE ONE Stop: 04/28/23 20:19 Last Admin: 04/28/23 20:18 Dose: 89 ml Documented By: PRASHANTH Pantoprazole Sodium (Pantoprazole Bolus/Drip) 1 each IV NOW STA Stop: 04/28/23 20:44 Last Admin: 04/28/23 21:37 Dose: Not Given Documented By: ASHA Imaging Data Radiologist's Impression: Abdomen/Pelvis CT 04/28/23 18:01 Exam(s): CT ABDOMEN + PELVIS With Contrast IV Amt: 89 ml optiray 320 EXAM: CT Abdomen and Pelvis With Intravenous Contrast CLINICAL HISTORY: Reason for exam: r mid abd pain. TECHNIQUE: Axial computed tomography images of the abdomen and pelvis with intravenous contrast. CTDI is 18.79 mGy and DLP is 822.76 mGy-cm. Automated exposure control was utilized for the study. A dose lowering technique was utilized adhering to the principles of ALARA. CONTRAST: Patient received 89 ml optiray 320 of IV contrast COMPARISON: 09/29/2022 FINDINGS: Lung bases: Linear atelectasis within the lingula. ABDOMEN: Liver: Unremarkable. No mass. Gallbladder and bile ducts: Cholelithiasis without CT evidence to suggest acute cholecystitis. There is a multiloculated air-fluid collection within the right upper quadrant adjacent to the head of the pancreas and the second and third portions of the duodenum. Overall this area measures 4.2 x 4.6 cm and is unchanged from prior exam. No ductal dilation. Pancreas: Unremarkable. No mass. No ductal dilation. Spleen: Unremarkable. No splenomegaly. Adrenals: Unremarkable. No mass. Kidneys and ureters: Unremarkable. No solid mass. No hydronephrosis. Stomach and bowel: Diverticulosis without evidence of diverticulitis. No obstruction. PELVIS: Appendix: No findings to suggest acute appendicitis. Bladder: Circumferential wall thickening of the urinary bladder of uncertain the etiology. Reproductive: Unremarkable as visualized. ABDOMEN and PELVIS: Intraperitoneal space: Unremarkable. No free air. No significant fluid collection. Bones/joints: No acute fracture. No dislocation. Soft tissues: Unremarkable. Vasculature: Unremarkable. No abdominal aortic aneurysm. Lymph nodes: Unremarkable. No enlarged lymph nodes. IMPRESSION: Multiloculated air-fluid level within the right upper quadrant. This is stable when compared to prior exam Electronically signed by: Nilesh Harris MD 04/28/23 21:11 PM Discharge Plan Visit Data Chief Complaint: Shortness of Breath/Dyspnea Stated Complaint: SOB, KIDNEY PROBLEMS, RT FLANK PAIN, URINARY SYMP ED Provider: Nilesh Butler Discharge Problem: Symptomatic anemia, Acute GI bleeding Forms Stand Alone Forms: My [facility] [employer] Prescriptions Prescriptions: No Action albuterol sulfate 2.5 mg /3 mL (0.083 %) Solution For Nebulization 3 ml INHALATION QID PRN (Reason: Shortness Of Breath) ferrous sulfate 325 mg (65 mg iron) Tablet 325 mg PO DAILY albuterol sulfate 90 mcg/actuation Hfa Aerosol Inhaler 2 puff INHALATION Q4H PRN (Reason: SHORT OF BREATH/COUGH/WHEEZING) tiotropium bromide 2.5 mcg/actuation Mist 2 puff INHALATION DAILY isosorbide mononitrate 60 mg tablet extended release 24 hr 30 mg PO QAM ascorbic acid (vitamin C) 500 mg Tablet 500 mg PO BID aspirin [Aspir-Low] 81 mg Tablet,Delayed Release (Dr/Ec) 81 mg PO DAILY diclofenac sodium 1 % Gel 2 g TOPICAL QID PRN (Reason: Pain) Rx Instructions: one application to left inner elbow four times daily, if needed. levothyroxine 50 mcg Tablet 50 mcg PO DAILY gabapentin 100 mg Capsule 100 mg PO QAM gabapentin 100 mg Capsule 300 mg PO HS Multiple Vitamin-Minerals Tablet 1 tab PO DAILY nitroglycerin 0.4 mg Tablet, Sublingual 0.4 mg sublingual .PRN/UD PRN (Reason: Chest Pain) Rx Instructions: as needed for chest pain : one tablet under the tongue every 5 minutes times three doses. pantoprazole [Protonix] 40 mg tablet,delayed release (DR/EC) 40 mg PO DAILY roflumilast 250 mcg Tablet 250 mcg PO DAILY amlodipine 5 mg Tablet 5 mg PO DAILY cholecalciferol (vitamin D3) [Vitamin D3] 25 mcg (1,000 unit) Capsule 25 mcg PO DAILY fluticasone propion-salmeterol 250-50 mcg/dose Blister With Device 1 inh INHALATION BID ropinirole 0.25 mg Tablet 0.25 mg PO HS Rx Instructions: administer 1-3 hours before bedtime zonisamide 25 mg Capsule 25 mg PO HS Lubricant Eye (PG-PEG 400)(PF) 0.4-0.3 % Dropperette 1 drp OPL BID Referrals Referrals: Tyree Nieves MD [Outside Practitioners] -
[2023-04-28 19:10] LABS: Alanine Aminotransferase 5 U/L (7-52); Albumin Globulin Ratio 1.1 (0.9-2); Albumin Level 3.2 gm/dl (3.4-5.0); Alkaline Phosphatase 69 U/L (34-104); Anion Gap 6 (3-11); Aspartate Aminotransferase 10 U/L (13-39); Bilirubin,Total 0.3 mg/dl (0.2-1.0); Blood Urea Nitrogen 38 mg/dl (6-23); Calcium 8.8 mg/dl (8.6-10.3); Carbon Dioxide 30 mmol/L (21-32); Chloride 102 mmol/L (98-107); Est GFR (African American) 48.7 ml/min; Globulin 2.8 gm/dl (2.5-4.0); Glucose 132 mg/dl (70-99(Fasting)); Lipase 22 U/L (11-82); Potassium 4.3 mmol/L (3.5-5.1); Sodium 138 mmol/L (136-145)
[2023-04-28 19:22] LABS: Hematocrit (blood only) 15.2 % (42.0-52.0); Hemoglobin 4.6 g/dl (14.0-18.0); Mean Corpuscular Hemoglobin 25.8 pg (25.0-34.0); Mean Corpuscular Hgb Conc 30.3 g/dL (32.0-36.0); Mean Corpuscular Volume 85.4 fL (80.0-100.0); Mean Platelet Volume 9.8 fL (9.4-12.4); Nucleated RBC # (auto) 0.02 K/uL (0.00-0.12); Nucleated RBC % (auto) 0.2 %; Platelet Count 448 K/uL (130-400); RDW Coefficient of Variation 15.3 % (11.5-14.5); RDW Standard Deviation 46.5 fL (36.4-46.3); Red Blood Count 1.78 M/uL (4.70-6.10); White Blood Count 9.39 K/ul (4.8-10.8)
[2023-04-28] MEDS ORDERED: SODIUM CHLORIDE 0.9% 250 ML IV PRN (19:25)
[2023-04-28 19:27] LABS: Basophils # (auto) 0.01 K/uL (0.00-0.20); Basophils % (auto) 0.1 %; Immature Granulocytes # (auto) 0.57 K/uL (0.01-0.20); Immature Granulocytes % (auto) 6.1 %; Lymphocytes # (auto) 1.03 K/uL (1.20-3.40); Monocytes # (auto) 1.56 K/uL (0.11-0.59); Monocytes % (auto) 16.6 %; Neutrophils # (auto) 6.22 K/uL (1.40-6.50); Neutrophils % (auto) 66.2 %; Polychromasia 1+
[2023-04-28] MEDS ORDERED: OPTIRAY 320 100ml IV ONE (20:18)
[2023-04-28] MEDS ORDERED: PANTOPRAZOLE BOLUS/DRIP IV STA (20:43)
[2023-04-28] MEDS ORDERED: PANTOprazole 80 MG in DEXTROSE 5% 100 ML IV ONE (20:43)
[2023-04-28] MEDS ORDERED: SODIUM CHLORIDE 0.9% 500 ML IV ONE (20:51)
--- NOTE | 2023-04-28 21:12 | CT Scan Report ---
Exam(s): CT ABDOMEN + PELVIS With Contrast IV Amt: 89 ml optiray 320 EXAM: CT Abdomen and Pelvis With Intravenous Contrast CLINICAL HISTORY: Reason for exam: r mid abd pain. TECHNIQUE: Axial computed tomography images of the abdomen and pelvis with intravenous contrast. CTDI is 18.79 mGy and DLP is 822.76 mGy-cm. Automated exposure control was utilized for the study. A dose lowering technique was utilized adhering to the principles of ALARA. CONTRAST: Patient received 89 ml optiray 320 of IV contrast COMPARISON: 09/29/2022 FINDINGS: Lung bases: Linear atelectasis within the lingula. ABDOMEN: Liver: Unremarkable. No mass. Gallbladder and bile ducts: Cholelithiasis without CT evidence to suggest acute cholecystitis. There is a multiloculated air-fluid collection within the right upper quadrant adjacent to the head of the pancreas and the second and third portions of the duodenum. Overall this area measures 4.2 x 4.6 cm and is unchanged from prior exam. No ductal dilation. Pancreas: Unremarkable. No mass. No ductal dilation. Spleen: Unremarkable. No splenomegaly. Adrenals: Unremarkable. No mass. Kidneys and ureters: Unremarkable. No solid mass. No hydronephrosis. Stomach and bowel: Diverticulosis without evidence of diverticulitis. No obstruction. PELVIS: Appendix: No findings to suggest acute appendicitis. Bladder: Circumferential wall thickening of the urinary bladder of uncertain the etiology. Reproductive: Unremarkable as visualized. ABDOMEN and PELVIS: Intraperitoneal space: Unremarkable. No free air. No significant fluid collection. Bones/joints: No acute fracture. No dislocation. Soft tissues: Unremarkable. Vasculature: Unremarkable. No abdominal aortic aneurysm. Lymph nodes: Unremarkable. No enlarged lymph nodes. IMPRESSION: Multiloculated air-fluid level within the right upper quadrant. This is stable when compared to prior exam Electronically signed by: Nilesh Harris MD 04/28/23 21:11 PM
[2023-04-28 21:44] LABS: Appearance Urine Turbid (Clear); Bacteria Urine Automated 2+ (Negative); Bilirubin Urine Negative (Negative); Blood Urine Negative (Negative); Color Urine Yellow; Epithelial Cell Urine Auto >30 /lpf (0-5); Glucose Urine UA Negative (Negative); Ketones Urine Negative (Negative); Leukocyte Esterase Urine 3+ (Negative); Nitrite Urine Positive (Negative); RBC Urine Automated 0-4 /hpf (0-4); Specific Gravity Urine 1.016 (1.000-1.030); Urobilinogen Urine Negative (Negative); pH Urine >= 9.0 (4.5-7.5)
[2023-04-28 21:50] LABS: Protein Urine 1+ (Negative)
[2023-04-28] MEDS: PANTOprazole 40 MG in DEXTROSE 5% MINI-B 100 ML IV SCH (22:01)
--- NOTE | 2023-04-28 23:00 | History & Physical Report ---
Date of Service April 28, 2023 Assessment & Plan (1) Acute anemia: Plan: 87-year-old male with past medical history significant for HTN, diastolic CHF, COPD, chronic respiratory failure with 3 to 4 L oxygen at home, squamous cell carcinoma of the ear, head and neck, status post lesion removal, diagnosed October 2021, hypothyroidism, blindness in left eye since 2013, hx of COPD exacerbation with possible aspiration pneumonitis, history of chronic anemia and history of GI bleed presents with not feeling good at home for the last week. Acute profound anemia Acute on chronic anemia History of GI bleed and PRBC transfusions Hemoglobin 4.6 ER ordered 2 units of PRBC Hold aspirin We will follow H&H Protonix drip N.p.o. Gentle fluids Close monitoring telemetry Consult GI in a.m. History of COPD Chronic respiratory failure 3 to 4 L oxygen Continue home inhalers will monitor. Chronic diastolic CHF Monitor for volume overload History of essential tremor Continues mild and recoup at home Squamous cell cancer of external ear S/p excision and immunotherapy Follow-up with heme-onc Hypertension Continue amlodipine Imdur with holding parameters Hypothyroidism On Synthyroid DVT prophylaxis SCDs Disposition telemetry floor CODE STATUS full code as per discussion with the patient History of Present Illness Chief Complaint: Illness Primary Care Provider: Larry Siegel MD 87-year-old male with past medical history significant for HTN, diastolic CHF, COPD, chronic respiratory failure with 3 to 4 L oxygen at home, squamous cell carcinoma of the ear, head and neck, status post lesion removal, diagnosed October 2021, hypothyroidism, blindness in left eye since 2013, hx of COPD exacerba tion with possible aspiration pneumonitis, history of chronic anemia and history of GI bleed presents with not feeling good at home for the last week. Says he did not move his bowels for 1 week. Prior to that he had black stools for 1 week. Says he has some lower abdominal pain thinks he has UTI. Denies headache. Has chronic neck and back pain. Has some cough and brings mucus. Appetite is down. Has some runny nose. Some sore throat. Feeling short of breath. No nausea or vomiting. No fevers. Ambulates with a walker. Lives with his 2 sons. Currently hemodynamically stable. Past medical history. As mentioned above Past surgical history. Removal of the squamous cell carcinoma of the head and neck. Social history. Former smoker. No alcohol use. No drug use. Lives with his sons. Family history. Noncontributory. Allergies Allergy/AdvReac Type Severity Reaction Status Date / Time cefuroxime Allergy Intermediate Rash Verified 04/28/23 20:56 ertapenem Allergy Unknown Unknown Verified 04/28/23 20:56 levofloxacin [From Levaquin] Allergy Unknown Unknown Verified 04/28/23 20:56 BETA-LACTAMS Allergy Intermediate Rash Uncoded 04/28/23 20:56 FLUOROQUINOLONES Allergy Intermediate Rash Uncoded 04/28/23 20:56 Home Medications Medication Instructions Recorded Confirmed Type albuterol sulfate 2.5 mg/3 mL 3 ml inhalation QID PRN Shortness 10/04/18 04/28/23 History (0.083 %) solution for nebulization Of Breath albuterol sulfate 90 mcg/actuation 2 puff inhalation Q4H PRN SHORT OF 10/04/18 04/28/23 History aerosol inhaler BREATH/COUGH/WHEEZING ferrous sulfate 325 mg (65 mg 325 mg PO DAILY 10/04/18 04/28/23 History iron) tablet tiotropium bromide 2.5 2 puff inhalation DAILY 10/04/18 04/28/23 History mcg/actuation mist for inhalation isosorbide mononitrate 60 mg 30 mg PO QAM 09/29/22 04/28/23 History tablet,extended release 24 hr amlodipine 5 mg tablet 5 mg PO DAILY 01/19/23 04/28/23 History cholecalciferol (vitamin D3) 25 25 mcg PO DAILY 01/19/23 04/28/23 History mcg (1,000 unit) capsule (Vitamin D3) fluticasone 250 mcg-salmeterol 50 1 inh inhalation BID 01/19/23 04/28/23 History mcg/dose blistr powdr for inhalation peg 400-propylene glycol (PF) 0.4 1 drp OPL BID 01/19/23 04/28/23 History %-0.3 % eye drops in a dropperette (Lubricant Eye (PG-PEG 400) (PF)) ropinirole 0.25 mg tablet 0.25 mg PO HS 01/19/23 04/28/23 History zonisamide 25 mg capsule 25 mg PO HS 01/19/23 04/28/23 History ascorbic acid (vitamin C) 500 mg 500 mg PO BID 04/28/23 04/28/23 History tablet aspirin 81 mg tablet,delayed 81 mg PO DAILY 04/28/23 04/28/23 History release diclofenac sodium 1 % topical gel 2 g topical QID PRN Pain 04/28/23 04/28/23 History gabapentin 100 mg capsule 100 mg PO QAM 04/28/23 04/28/23 History gabapentin 100 mg capsule 300 mg PO HS 04/28/23 04/28/23 History levothyroxine 50 mcg tablet 50 mcg PO DAILY 04/28/23 04/28/23 History multivitamin with minerals 1 tab PO DAILY 04/28/23 04/28/23 History (Multiple Vitamin-Minerals tablet) nitroglycerin 0.4 mg sublingual 0.4 mg sublingual .PRN/UD PRN 04/28/23 04/28/23 History tablet Chest Pain pantoprazole 40 mg tablet,delayed 40 mg PO DAILY 04/28/23 04/28/23 History release (Protonix) roflumilast 250 mcg tablet 250 mcg PO DAILY 04/28/23 04/28/23 History Past Med/Surg History Medical History Chronic anemia COPD (chronic obstructive pulmonary disease) Diastolic CHF Hx of agent [place] exposure Hypertension Hypothyroidism Squamous cell cancer of external ear Family History Other Family history non-contributory Social History Smoking Status: Never smoker Tobacco Type: Smokeless Tobacco (Dip or Chew) Second Hand Exposure: No; Do You Dip or Chew Tobacco: Yes; Tobacco Cessation Education Requested by Patient: No Hx Alcohol Use: No Hx Substance Use: No Preferred Language: Scottish Communication Ability: Effective Communication Ability Comment: pt cannot see to read 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 [employer] Required: No Beliefs That Will Affect Care: None marital status: Current Living Situation: Family Current Living Situation Comment: lives with son current occupational status: retired Other Information That Helps Us Care for You: No Feels Safe at Home: No Is there a partner from a previous relationship who is making you feel unsafe now?: No Any Concerns about Your Family Situation: No Would You Like to Speak to Someone About Your Situation: No Safety Concerns: Feels Safe At This Time Assistive Devices: Cane, Denture - Upper, Oxygen - Continuous and Walker Review of Systems Review of Systems: All systems reviewed & are unremarkable except as noted in HPI & below Physical Exam Physical Exam: General- Not in distress Head- atraumatic Eyes- Left eye in bandage. ENT- oropharynx clear Neck- supple, no JVD. Lungs- clear to auscultation , no wheezing or crackles. Heart- regular rate and rhythm; no murmur, no gallop. Abdomen- normal bowel sounds, soft, mild right lower abdomen tenderness no guarding no distension. Extremities- no pretibial edema, no erythema seen. Neuro- alert, oriented x 3; no facial palsy; no dysarthria; moves extremities. Skin- warm & dry Results & Data Results & Data Vital Signs (Past 12 Hours) Vital Signs Temp Pulse Resp BP Pulse Ox O2 Del Method O2 Flow Rate 04/28/23 22:01 77 04/28/23 21:50 36.6 C 73 14 97/40 L 98 3 04/28/23 21:50 74 04/28/23 21:50 36.8 C 72 22 117/76 100 3 04/28/23 21:20 36.8 C 74 24 100/61 100 3 04/28/23 21:05 36.4 C L 77 18 99/48 L 100 3.5 04/28/23 20:50 36.9 C 74 25 H 99/46 L 100 3 04/28/23 20:44 72 24 94/46 L 98 04/28/23 20:34 73 23 100 04/28/23 20:00 74 26 H 96 04/28/23 19:32 81 38 H 96 04/28/23 19:12 76 27 H 114/44 L 100 04/28/23 19:00 80 29 H 100 04/28/23 18:32 100 Nasal Cannula 3 04/28/23 18:32 100 Room Air 3 04/28/23 17:46 85 04/28/23 17:25 37.1 C 88 22 136/114 H 96 Nasal Cannula 3 Diagnostic Findings Laboratory Results WBC 9.39 K/ul (4.8-10.8) 04/28/23 18:24 RBC 1.78 M/uL (4.70-6.10) L 04/28/23 18:24 Hgb 4.6 g/dl (14.0-18.0) L* 04/28/23 18: Hct 15.2 % (42.0-52.0) L* 04/28/23 18: MCV 85.4 fL (80.0-100.0) 04/28/23 18: MCH 25.8 pg (25.0-34.0) 04/28/23 18: MCHC 30.3 g/dL (32.0-36.0) L 04/28/23 18: RDW Std Deviation 46.5 fL (36.4-46.3) H 04/28/23 18: RDW Coeff of Jeison 15.3 % (11.5-14.5) H 04/28/23 18: Plt Count 448 K/uL (130-400) H 04/28/23 18: MPV 9.8 fL (9.4-12.4) 04/28/23 18: Immature Gran % (Auto) 6.1 % 04/28/23 18: Neut % (Auto) 66.2 % 04/28/23 18: Lymph % (Auto) 11.0 % 04/28/23 18: [place] % (Auto) 16.6 % 04/28/23 18: Eos % (Auto) 0.0 % 04/28/23 18: Baso % (Auto) 0.1 % 04/28/23 18: Neut # (Auto) 6.22 K/uL (1.40-6.50) 04/28/23 18: Lymph # (Auto) 1.03 K/uL (1.20-3.40) L 04/28/23 18: [place] # (Auto) 1.56 K/uL (0.11-0.59) H 04/28/23 18: Eos # (Auto) 0.00 K/uL (0.00-0.50) 04/28/23 18: Baso # (Auto) 0.01 K/uL (0.00-0.20) 04/28/23 18: Immature Gran # (Auto) 0.57 K/uL (0.01-0.20) H 04/28/23 18: Absolute Nucleated RBC 0.02 K/uL (0.00-0.12) 04/28/23 18:24 Nucleated RBC % (auto) 0.2 % 04/28/23 18:24 Polychromasia 1+ 04/28/23 18:24 Sodium 138 mmol/L (136-145) 04/28/23 18:24 Potassium 4.3 mmol/L (3.5-5.1) 04/28/23 18:24 Chloride 102 mmol/L (98-107) 04/28/23 18:24 Carbon Dioxide 30 mmol/L (21-32) 04/28/23 18:24 Anion Gap 6 (3-11) 04/28/23 18:24 BUN 38 mg/dl (6-23) H 04/28/23 18:24 Creatinine 1.46 mg/dl (0.6-1.4) H 04/28/23 18:24 Est Cr Clr Drug Dosing Not Reportable 04/28/23 18:24 Est GFR ( Amer) 48.7 ml/min 04/28/23 18:24 Est GFR (Non-Af Amer) 42.0 ml/min 04/28/23 18:24 BUN/Creatinine Ratio 26.0 (10-20) H 04/28/23 18:24 Glucose 132 mg/dl (70-99(Fasting)) H 04/28/23 18:24 Calcium 8.8 mg/dl (8.6-10.3) 04/28/23 18:24 Total Bilirubin 0.3 mg/dl (0.2-1.0) 04/28/23 18:24 AST 10 U/L (13-39) L 04/28/23 18:24 ALT 5 U/L (7-52) L 04/28/23 18:24 Alkaline Phosphatase 69 U/L (34-104) 04/28/23 18:24 Total Protein 6.0 gm/dl (6.0-8.3) 04/28/23 18:24 Albumin 3.2 gm/dl (3.4-5.0) L 04/28/23 18:24 Globulin 2.8 gm/dl (2.5-4.0) 04/28/23 18:24 Albumin/Globulin Ratio 1.1 (0.9-2) 04/28/23 18:24 Lipase 22 U/L (11-82) 04/28/23 18:24 Urine Color Yellow 04/28/23 20:54 Urine Appearance Turbid (Clear) A 04/28/23 20:54 Urine pH >= 9.0 (4.5-7.5) H 04/28/23 20:54 Ur Specific [place] 1.016 (1.000-1.030) 04/28/23 20:54 Urine Protein 1+ (Negative) H 04/28/23 20:54 Urine Glucose (UA) Negative (Negative) 04/28/23 20:54 Urine Ketones Negative (Negative) 04/28/23 20:54 Urine Blood Negative (Negative) 04/28/23 20:54 Urine Nitrite Positive (Negative) A 04/28/23 20:54 Urine Bilirubin Negative (Negative) 04/28/23 20:54 Urine Urobilinogen Negative (Negative) 04/28/23 20:54 Ur Leukocyte Esterase 3+ (Negative) H 04/28/23 20:54 Urine WBC (Auto) 10-30 /hpf (0-5) H 04/28/23 20:54 Urine RBC (Auto) 0-4 /hpf (0-4) 04/28/23 20:54 U Hyaline Cast (Auto) 1-5 /lpf (0-5) 04/28/23 20:54 U Epithel Cells (Auto) >30 /lpf (0-5) H 04/28/23 20:54 Urine Bacteria (Auto) 2+ (Negative) H 04/28/23 20:54 Ur Renal Epithelial Cell Not Reportable 04/28/23 20:54 Blood Type O Positive 04/28/23 19:38 Antibody Screen NEGATIVE 04/28/23 19:38 Crossmatch See Detail 04/28/23 19:38 Impressions Abdomen/Pelvis CT 04/28/23 18:01 Exam(s): CT ABDOMEN + PELVIS With Contrast IV Amt: 89 ml optiray 320 EXAM: CT Abdomen and Pelvis With Intravenous Contrast CLINICAL HISTORY: Reason for exam: r mid abd pain. TECHNIQUE: Axial computed tomography images of the abdomen and pelvis with intravenous contrast. CTDI is 18.79 mGy and DLP is 822.76 mGy-cm. Automated exposure control was utilized for the study. A dose lowering technique was utilized adhering to the principles of ALARA. CONTRAST: Patient received 89 ml optiray 320 of IV contrast COMPARISON: 09/29/2022 FINDINGS: Lung bases: Linear atelectasis within the lingula. ABDOMEN: Liver: Unremarkable. No mass. Gallbladder and bile ducts: Cholelithiasis without CT evidence to suggest acute cholecystitis. There is a multiloculated air-fluid collection within the right upper quadrant adjacent to the head of the pancreas and the second and third portions of the duodenum. Overall this area measures 4.2 x 4.6 cm and is unchanged from prior exam. No ductal dilation. Pancreas: Unremarkable. No mass. No ductal dilation. Spleen: Unremarkable. No splenomegaly. Adrenals: Unremarkable. No mass. Kidneys and ureters: Unremarkable. No solid mass. No hydronephrosis. Stomach and bowel: Diverticulosis without evidence of diverticulitis. No obstruction. PELVIS: Appendix: No findings to suggest acute appendicitis. Bladder: Circumferential wall thickening of the urinary bladder of uncertain the etiology. Reproductive: Unremarkable as visualized. ABDOMEN and PELVIS: Intraperitoneal space: Unremarkable. No free air. No significant fluid collection. Bones/joints: No acute fracture. No dislocation. Soft tissues: Unremarkable. Vasculature: Unremarkable. No abdominal aortic aneurysm. Lymph nodes: Unremarkable. No enlarged lymph nodes. IMPRESSION: Multiloculated air-fluid level within the right upper quadrant. This is stable when compared to prior exam Electronically signed by: Nilesh Harris MD 04/28/23 21:11 PM ECG Additional Comments: ECG normal sinus rhythm with rate of 72. Right bundle branch block. Left anterior fascicle block. Bifascicular block Code Status & VTE Plan VTE Prophylaxis Plan VTE Prophylaxis will be ordered: Yes
[2023-04-29] MEDS ORDERED: PANTOPRAZOLE BOLUS/DRIP IV STA (00:07)
[2023-04-29] MEDS ORDERED: NITROGLYCERIN SL 0.4 MG/TAB TAB SL PRN ×2 (00:07)
[2023-04-29] MEDS ORDERED: ALBUTEROL 0.083% NEBU SOLN 3 ML VIAL INH PRN (00:07)
[2023-04-29] MEDS ORDERED: PANTOprazole 40 MG in DEXTROSE 5% MINI-B 100 ML IV SCH (00:07)
[2023-04-29] MEDS ORDERED: SODIUM CHLORIDE 0.9% 250 ML IV PRN ×2 (00:30→06:48)
[2023-04-29] MEDS: ALBUTEROL HFA 8 GM INHALER INH PRN ×2 (00:34→08:53)
[2023-04-29] MEDS: SODIUM CHLORIDE 0.9% 1,000 ML IV SCH ×2 (01:03→13:29)
[2023-04-29] MEDS: PANTOprazole 40 MG in DEXTROSE 5% MINI-B 100 ML IV SCH ×5 (02:39→22:24)
[2023-04-29] MEDS: LEVOTHYROXINE SODIUM 50 MCG TABLET PO SCH (05:26)
[2023-04-29 06:45] LABS: Hematocrit (blood only) 20.7 % (42.0-52.0); Hemoglobin 6.6 g/dl (14.0-18.0); Mean Corpuscular Hemoglobin 26.7 pg (25.0-34.0); Mean Corpuscular Hgb Conc 31.9 g/dL (32.0-36.0); Mean Corpuscular Volume 83.8 fL (80.0-100.0); Nucleated RBC # (auto) 0.05 K/uL (0.00-0.12); Nucleated RBC % (auto) 0.6 %; Platelet Count 378 K/uL (130-400); RDW Coefficient of Variation 15.3 % (11.5-14.5); RDW Standard Deviation 46.2 fL (36.4-46.3); Red Blood Count 2.47 M/uL (4.70-6.10); White Blood Count 7.95 K/ul (4.8-10.8)
[2023-04-29] MEDS ORDERED: FUROSEMIDE INJ 20 MG/2 ML VIAL IV STA (06:48)
[2023-04-29 06:49] LABS: BUN Creatinine Ratio 30.9 (10-20); Creatinine Clr Calc Pharmacy 34.4 ml/min; Est GFR (African American) 53.1 ml/min; Est GFR (Non-African American) 45.8 ml/min; Magnesium 1.9 mg/dl (1.7-2.4); Potassium 4.5 mmol/L (3.5-5.1)
[2023-04-29 07:20] LABS: Basophils # (auto) 0.04 K/uL (0.00-0.20); Basophils % (auto) 0.5 %; Immature Granulocytes # (auto) 0.53 K/uL (0.01-0.20); Immature Granulocytes % (auto) 6.7 %; Lymphocytes # (auto) 1.08 K/uL (1.20-3.40); Lymphocytes % (auto) 13.6 %; Monocytes # (auto) 1.19 K/uL (0.11-0.59); Neutrophils # (auto) 5.11 K/uL (1.40-6.50); Neutrophils % (auto) 64.2 %
[2023-04-29] MEDS: GABAPENTIN 100 MG CAP PO SCH (08:33)
[2023-04-29] MEDS: [UNRECOGNIZED DRUG - OTHER] SCH ×3 (08:33→23:56)
[2023-04-29] MEDS: ROFLUMILAST 500 MCG TAB PO SCH (08:33)
[2023-04-29] MEDS: ISOSORBIDE MONO EXTENDED REL 30 MG TABCR PO SCH (08:33)
[2023-04-29] MEDS: CEROVITE ADV FORMULA TAB PO SCH (08:33)
[2023-04-29] MEDS: FERROUS SULFATE 325 MG TAB PO SCH (08:33)
[2023-04-29] MEDS: ASCORBIC ACID 500 MG TAB PO SCH ×2 (08:34→20:07)
[2023-04-29] MEDS: CHOLECALCIFEROL 1,000 UNITS 25 MCG TAB PO SCH (08:34)
[2023-04-29] MEDS: ARTIFICIAL TEARS OP SCH ×2 (08:34→20:07)
[2023-04-29] MEDS: amLODIPine BESYLATE 5 MG TAB PO SCH (08:34)
[2023-04-29] MEDS: UMECLIDINIUM BROMIDE 62.5MCG/BLISTER 7 PUFFS/INHALER INH SCH (08:38)
[2023-04-29] MEDS: FLUTICASONE/VILANTEROL 200/25MCG 14 PUFFS/INHALER INH SCH (08:38)
--- NOTE | 2023-04-29 08:39 | Gastrointestinal Consultation ---
Date of Consultation April 29, 2023 Assessment & Plan (1) Symptomatic anemia: (2) Black stool: Plan This is an 87 y/o male with multiple co-morbidities, h/o chronic anemia, h/o recurrent GIB w/o clear source, s/p EGD 04/2022, h/o ? AVM on VCE done earlier this year at OSH. Now admitted w/ profound anemia, weakness, CTAP w/ an air-fluid collection near the HOP/small bowel of unclear etiology. Abd soft, mild TTP RUQ/RLQ. - Keep NPO - Transfuse for HGB > 7 - Continue PPI gtt - Monitor and document GI output - Recommended EGD today to evaluate for UGI source of severe anemia, black stool; pt says he may do, so will tentatively add, but would like to discuss this further with his son and his son is coming to see him later this AM and will make definitive decision then. Prior to endoscopic evaluation, we appreciate assistance in the management and correction of leach laboratory elements including the following: Please optimize pt's hemoglobin >7, INR <2, platelets >50,000, potassium levels >3.5 but <5.3, and sodium levels within 5 points of the reference range. Thank you for allowing us to participate in the care of this patient. Please call with any acute changes, questions or concerns. Please see addendum below with additional recommendation from my supervising physician. Supervising Physician Co-Signing Physician Notes I performed a history and physical examination of the patient today, including specifically on physical exam - soft abdomen. I have discussed the patient's management with the advanced practitioner. Please refer to the nurse practitioner's note for the documented findings and plan of care. EGD today. Fluid collection on CT scan is possible diverticulum. Less likely contained perforation. Patient was explained in detail regarding risks, benefits, limitations and alternatives of the above endoscopic procedure. Risks of intravenous sedation used for procedure were also explained. Risks include, but not limited to perforation, bleeding, infection, respiratory distress, cardiac arrest and . Patient is also aware about the possibility of missed lesion. Patient's questions were answered. The patient verbalized understanding the information and agreed to undergo the procedure. History of Present Illness Reason for Consultation: gi bleed, anemia Requesting Physician: Dr. Myers Attending Physician: Ariana Hurst MD History of Present Illness Mr. Melo Dobbins is an 87 yr old male pt with a hx of COPD,chronic anemia (on iron), CHF, HTN, Hypothyroidism, SCC L ear, h/o chronic anemia and recurrent obscure overt GIB of unclear source s/p EGD, VCE thru [facility] within the last year, and recent admission to this facility in 01/2023 for GIB/anemia. Admitted now after presenting yesterday with not feeling well, some abd discomfort (bilateral, lower, vaguely described). Found to have profound anemia w/ HGB 4.6, elevated BUN. Last HGB 8.7 in January. CTAP w/ an air-fluid collec tion near the HOP/small bowel of unclear etiology. Transfused 2 units of blood overnight and HGB 6.6 today; a 3rd unit of blood is currently hanging. Pt has not had any GIB since arrival; has not had a real BM in the last week. Before that, reported having patricia than normal formed stools. He is on oral iron at home so stools are typically black. No melena, hematochezia, hematemesis, dysphagia, heartburn. has chronic unchanged SOB, denies CP, leg edema, hematuria. Currently HD stable w/ low-normal BPs, not tachy. He states he was scheduled to have some sort of procedure (? he thinks here, though not listed in his chart) earlier this month for (? treatment of AVM) but pt states he cancelled this b/c he had blood taken from his arm and had arm pain after that. Pt also concerned about his risk of complication given his respiratory co-morbidities. He lives with his son, Adan, who I spoke with on the phone and who helped with the history during my exam, as requested per pt. Denies blood thinners; unclear if he takes NSAIDS. Chews tobacco at times. No ETOH EGD [facility] 04/2022: No abnormalities VCE [facility] 2021: Possible AVM Last colonoscopy several years ago OSH: No report available but pt states normal Allergies Allergy/AdvReac Type Severity Reaction Status Date / Time cefuroxime Allergy Intermediate Rash Verified 04/28/23 20:56 ertapenem Allergy Unknown Unknown Verified 04/28/23 20:56 levofloxacin [From Levaquin] Allergy Unknown Unknown Verified 04/28/23 20:56 BETA-LACTAMS Allergy Intermediate Rash Uncoded 04/28/23 20:56 FLUOROQUINOLONES Allergy Intermediate Rash Uncoded 04/28/23 20:56 Home Medications Medication Instructions Recorded Confirmed Type albuterol sulfate 2.5 mg/3 mL 3 ml inhalation QID PRN Shortness 10/04/18 04/28/23 History (0.083 %) solution for nebulization Of Breath albuterol sulfate 90 mcg/actuation 2 puff inhalation Q4H PRN SHORT OF 10/04/18 04/28/23 History aerosol inhaler BREATH/COUGH/WHEEZING ferrous sulfate 325 mg (65 mg 325 mg PO DAILY 10/04/18 04/28/23 History iron) tablet tiotropium bromide 2.5 2 puff inhalation DAILY 10/04/18 04/28/23 History mcg/actuation mist for inhalation isosorbide mononitrate 60 mg 30 mg PO QAM 09/29/22 04/28/23 History tablet,extended release 24 hr amlodipine 5 mg tablet 5 mg PO DAILY 01/19/23 04/28/23 History cholecalciferol (vitamin D3) 25 25 mcg PO DAILY 01/19/23 04/28/23 History mcg (1,000 unit) capsule (Vitamin D3) fluticasone 250 mcg-salmeterol 50 1 inh inhalation BID 01/19/23 04/28/23 History mcg/dose blistr powdr for inhalation peg 400-propylene glycol (PF) 0.4 1 drp OPL BID 01/19/23 04/28/23 History %-0.3 % eye drops in a dropperette (Lubricant Eye (PG-PEG 400) (PF)) ropinirole 0.25 mg tablet 0.25 mg PO HS 01/19/23 04/28/23 History zonisamide 25 mg capsule 25 mg PO HS 01/19/23 04/28/23 History ascorbic acid (vitamin C) 500 mg 500 mg PO BID 04/28/23 04/28/23 History tablet aspirin 81 mg tablet,delayed 81 mg PO DAILY 04/28/23 04/28/23 History release diclofenac sodium 1 % topical gel 2 g topical QID PRN Pain 04/28/23 04/28/23 History gabapentin 100 mg capsule 100 mg PO QAM 04/28/23 04/28/23 History gabapentin 100 mg capsule 300 mg PO HS 04/28/23 04/28/23 History levothyroxine 50 mcg tablet 50 mcg PO DAILY 04/28/23 04/28/23 History multivitamin with minerals 1 tab PO DAILY 04/28/23 04/28/23 History (Multiple Vitamin-Minerals tablet) nitroglycerin 0.4 mg sublingual 0.4 mg sublingual .PRN/UD PRN 04/28/23 04/28/23 History tablet Chest Pain pantoprazole 40 mg tablet,delayed 40 mg PO DAILY 04/28/23 04/28/23 History release (Protonix) roflumilast 250 mcg tablet 250 mcg PO DAILY 04/28/23 04/28/23 History Patient History Medical History (Updated 04/29/23 @ 11:01 by Tracy Kim PA-C) Encounter for pre-operative examination COPD (chronic obstructive pulmonary disease) 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 Chronic anemia Hypothyroidism Hypertension Hx of agent [place] exposure Family History Other Family history non-contributory Social History Smoking Status: Never smoker Tobacco Type: Smokeless Tobacco (Dip or Chew) Second Hand Exposure: No; Do You Dip or Chew Tobacco: Yes; Tobacco Cessation Education Requested by Patient: No Hx Alcohol Use: No Hx Substance Use: No Preferred Language: [place] Communication Ability: Effective Communication Ability Comment: pt cannot see to read [employer] Developer Required: No Beliefs That Will Affect Care: None marital status: Current Living Situation: Family Current Living Situation Comment: lives with son current occupational status: retired Other Information That Helps Us Care for You: No Feels Safe at Home: No Is there a partner from a previous relationship who is making you feel unsafe now?: No Any Concerns about Your Family Situation: No Would You Like to Speak to Someone About Your Situation: No Safety Concerns: Feels Safe At This Time Assistive Devices: Cane, Denture - Upper, Oxygen - Continuous and Walker Review of Systems Review of Systems: All systems reviewed & are unremarkable except as noted in HPI & below Physical Exam Constitutional: well developed and comfortable; no acute distress + chronically ill Eyes: Sclera anicteric ENMT: moist mucous membranes. + pallor Neck: trachea midline supple Respiratory: O2 in place VIA NC, intermittent hacky cough; lung sounds diminished w/ scattered wheezing Cardiovascular: regular rate. No leg edema Gastrointestinal (Abdomen): Inspection/Auscultation: abdomen not distended soft, mildly ttp RUQ/RLQ, BS x 4 quadrants Skin: no rashes, warm and dry Neurologic: alert and oriented x 3, no obvious focal neuro deficit Psychiatric: normal mood and affect Results & Data Vital Signs (Past 12 Hours) Vital Signs Temp Pulse Pulse Resp BP BP Pulse Ox 04/29/23 07:40 64 04/29/23 07:40 04/29/23 07:18 37 C 64 16 101/47 L 95 04/29/23 07:04 36.6 C 63 18 108/51 L 95 04/29/23 03:30 36.6 C 62 16 106/54 L 92 04/29/23 02:30 36.6 C 69 20 103/51 L 98 04/29/23 02:27 36.5 C 71 103/51 L 98 04/29/23 01:30 36.7 C 62 16 91/41 L 97 04/29/23 01:00 74 04/29/23 01:00 36.5 C 65 22 88/38 L 97 04/29/23 00:45 36.4 C L 69 16 91/48 L 98 04/29/23 00:45 36.4 C L 69 16 91/48 L 98 04/29/23 00:43 04/29/23 00:35 69 18 95 04/29/23 00:24 36.3 C L 63 98/36 L 99 04/29/23 00:08 36.7 C 18 98/36 L 99 04/28/23 23:15 04/28/23 22:50 36.8 C 72 22 103/58 L 98 04/28/23 22:01 77 04/28/23 21:50 36.6 C 73 14 97/40 L 98 04/28/23 21:50 74 04/28/23 21:50 36.8 C 72 22 117/76 100 04/28/23 21:20 36.8 C 74 24 100/61 100 04/28/23 21:05 36.4 C L 77 18 99/48 L 100 04/28/23 20:50 36.9 C 74 25 H 99/46 L 100 04/28/23 20:44 72 24 94/46 L 98 04/28/23 20:34 73 23 100 O2 Del Method O2 Flow Rate 04/29/23 07:40 04/29/23 07:40 Nasal Cannula 3 04/29/23 07:18 3 04/29/23 07:04 Nasal Cannula 1 04/29/23 03:30 3 04/29/23 02:30 04/29/23 02:27 04/29/23 01:30 04/29/23 01:00 04/29/23 01:00 3 04/29/23 00:45 3 04/29/23 00:45 3 04/29/23 00:43 Nasal Cannula 3 04/29/23 00:35 Nasal Cannula 2 04/29/23 00:24 3 04/29/23 00:08 Nasal Cannula 2 04/28/23 23:15 Room Air 04/28/23 22:50 3 04/28/23 22:01 04/28/23 21:50 3 04/28/23 21:50 04/28/23 21:50 3 04/28/23 21:20 3 04/28/23 21:05 3.5 04/28/23 20:50 3 04/28/23 20:44 04/28/23 20:34 Laboratory Results 04/29/23 04/28/23 04/28/23 Range/Units 05:24 20:54 19:38 WBC 7.95 (4.8-10.8) K/ul RBC 2.47 L (4.70-6.10) M/uL Hgb 6.6 L* (14.0-18.0) g/dl Hct 20.7 L* (42.0-52.0) % MCV 83.8 (80.0-100.0) fL MCH 26.7 (25.0-34.0) pg MCHC 31.9 L (32.0-36.0) g/dL RDW Std Deviation 46.2 (36.4-46.3) fL RDW Coeff of Jeison 15.3 H (11.5-14.5) % Plt Count 378 (130-400) K/uL MPV 10.0 (9.4-12.4) fL Immature Gran % (Auto) 6.7 % Neut % (Auto) 64.2 % Lymph % (Auto) 13.6 % [place] % (Auto) 15.0 % Eos % (Auto) 0.0 % Baso % (Auto) 0.5 % Neut # (Auto) 5.11 (1.40-6.50) K/uL Lymph # (Auto) 1.08 L (1.20-3.40) K/uL [place] # (Auto) 1.19 H (0.11-0.59) K/uL Eos # (Auto) 0.00 (0.00-0.50) K/uL Baso # (Auto) 0.04 (0.00-0.20) K/uL Immature Gran # (Auto) 0.53 H (0.01-0.20) K/uL Absolute Nucleated RBC 0.05 (0.00-0.12) K/uL Nucleated RBC % (auto) 0.6 % Polychromasia Sodium 138 (136-145) mmol/L Potassium 4.5 (3.5-5.1) mmol/L Chloride 104 (98-107) mmol/L Carbon Dioxide 29 (21-32) mmol/L Anion Gap 5 (3-11) BUN 42 H (6-23) mg/dl Creatinine 1.36 (0.6-1.4) mg/dl Est Cr Clr Drug Dosing 34.4 Est GFR ( Amer) 53.1 ml/min Est GFR (Non-Af Amer) 45.8 ml/min BUN/Creatinine Ratio 30.9 H (10-20) Glucose 102 H (70-99(Fasting)) mg/dl Calcium 8.0 L (8.6-10.3) mg/dl Magnesium 1.9 (1.7-2.4) mg/dl Total Bilirubin (0.2-1.0) mg/dl AST (13-39) U/L ALT (7-52) U/L Alkaline Phosphatase (34-104) U/L Total Protein (6.0-8.3) gm/dl Albumin (3.4-5.0) gm/dl Globulin (2.5-4.0) gm/dl Albumin/Globulin Ratio (0.9-2) Lipase (11-82) U/L Urine Color Yellow Urine Appearance Turbid A (Clear) Urine pH >= 9.0 H (4.5-7.5) Ur Specific [place] 1.016 (1.000-1.030) Urine Protein 1+ H (Negative) Urine Glucose (UA) Negative (Negative) Urine Ketones Negative (Negative) Urine Blood Negative (Negative) Urine Nitrite Positive A (Negative) Urine Bilirubin Negative (Negative) Urine Urobilinogen Negative (Negative) Ur Leukocyte Esterase 3+ H (Negative) Urine WBC (Auto) 10-30 H (0-5) /hpf Urine RBC (Auto) 0-4 (0-4) /hpf U Hyaline Cast (Auto) 1-5 (0-5) /lpf U Epithel Cells (Auto) >30 H (0-5) /lpf Urine Bacteria (Auto) 2+ H (Negative) Ur Renal Epithelial Cell Not Reportable Blood Type O Positive Antibody Screen NEGATIVE Crossmatch See Detail 04/28/23 Range/Units 18:24 WBC 9.39 (4.8-10.8) K/ul RBC 1.78 L (4.70-6.10) M/uL Hgb 4.6 L* (14.0-18.0) g/dl Hct 15.2 L* (42.0-52.0) % MCV 85.4 (80.0-100.0) fL MCH 25.8 (25.0-34.0) pg MCHC 30.3 L (32.0-36.0) g/dL RDW Std Deviation 46.5 H (36.4-46.3) fL RDW Coeff of Jeison 15.3 H (11.5-14.5) % Plt Count 448 H (130-400) K/uL MPV 9.8 (9.4-12.4) fL Immature Gran % (Auto) 6.1 % Neut % (Auto) 66.2 % Lymph % (Auto) 11.0 % [place] % (Auto) 16.6 % Eos % (Auto) 0.0 % Baso % (Auto) 0.1 % Neut # (Auto) 6.22 (1.40-6.50) K/uL Lymph # (Auto) 1.03 L (1.20-3.40) K/uL [place] # (Auto) 1.56 H (0.11-0.59) K/uL Eos # (Auto) 0.00 (0.00-0.50) K/uL Baso # (Auto) 0.01 (0.00-0.20) K/uL Immature Gran # (Auto) 0.57 H (0.01-0.20) K/uL Absolute Nucleated RBC 0.02 (0.00-0.12) K/uL Nucleated RBC % (auto) 0.2 % Polychromasia 1+ Sodium 138 (136-145) mmol/L Potassium 4.3 (3.5-5.1) mmol/L Chloride 102 (98-107) mmol/L Carbon Dioxide 30 (21-32) mmol/L Anion Gap 6 (3-11) BUN 38 H (6-23) mg/dl Creatinine 1.46 H (0.6-1.4) mg/dl Est Cr Clr Drug Dosing Not Reportable Est GFR ( Amer) 48.7 ml/min Est GFR (Non-Af Amer) 42.0 ml/min BUN/Creatinine Ratio 26.0 H (10-20) Glucose 132 H (70-99(Fasting)) mg/dl Calcium 8.8 (8.6-10.3) mg/dl Magnesium (1.7-2.4) mg/dl Total Bilirubin 0.3 (0.2-1.0) mg/dl AST 10 L (13-39) U/L ALT 5 L (7-52) U/L Alkaline Phosphatase 69 (34-104) U/L Total Protein 6.0 (6.0-8.3) gm/dl Albumin 3.2 L (3.4-5.0) gm/dl Globulin 2.8 (2.5-4.0) gm/dl Albumin/Globulin Ratio 1.1 (0.9-2) Lipase 22 (11-82) U/L Urine Color Urine Appearance (Clear) Urine pH (4.5-7.5) Ur Specific [place] (1.000-1.030) Urine Protein (Negative) Urine Glucose (UA) (Negative) Urine Ketones (Negative) Urine Blood (Negative) Urine Nitrite (Negative) Urine Bilirubin (Negative) Urine Urobilinogen (Negative) Ur Leukocyte Esterase (Negative) Urine WBC (Auto) (0-5) /hpf Urine RBC (Auto) (0-4) /hpf U Hyaline Cast (Auto) (0-5) /lpf U Epithel Cells (Auto) (0-5) /lpf Urine Bacteria (Auto) (Negative) Ur Renal Epithelial Cell Blood Type Antibody Screen Crossmatch Diagnostic Findings CTAP 04/28/23: Lung bases: Linear atelectasis within the lingula. ABDOMEN: Liver: Unremarkable. No mass. Gallbladder and bile ducts: Cholelithiasis without CT evidence to suggest acute cholecystitis. There is a multiloculated air-fluid collection within the right upper quadrant adjacent to the head of the pancreas and the second and third portions of the duodenum. Overall this area measures 4.2 x 4.6 cm and is unchanged from prior exam. No ductal dilation. Pancreas: Unremarkable. No mass. No ductal dilation. Spleen: Unremarkable. No splenomegaly. Adrenals: Unremarkable. No mass. Kidneys and ureters: Unremarkable. No solid mass. No hydronephrosis. Stomach and bowel: Diverticulosis without evidence of diverticulitis. No obstruction. PELVIS: Appendix: No findings to suggest acute appendicitis. Bladder: Circumferential wall thickening of the urinary bladder of uncertain the etiology. Reproductive: Unremarkable as visualized. ABDOMEN and PELVIS: Intraperitoneal space: Unremarkable. No free air. No significant fluid collection. Bones/joints: No acute fracture. No dislocation. Soft tissues: Unremarkable. Vasculature: Unremarkable. No abdominal aortic aneurysm. Lymph nodes: Unremarkable. No enlarged lymph nodes. IMPRESSION: Multiloculated air-fluid level within the right upper quadrant. This is stable when compared to prior exam
--- NOTE | 2023-04-29 09:16 | Anesthesiology Consultation ---
Date of Service April 29, 2023 Assessment & Plan (1) Encounter for pre-operative examination: Chart Review Chart Review: Acceptable Risk for Surgery, Patient NOT seen in Pre Admission Testing and data entry representative initiated Consults Requested none Proposed Anesthesia Anesthesia Type: MAC History Surgery Operation Date: 04/29/23 16:45 Proposed Procedures p Esophagogastroduodenoscopy Dr Benavidez - Kita Benavidez MD Height/Weight Height: 5 ft 7 in Weight: 71.5 kg Allergies Allergy/AdvReac Type Severity Reaction Status Date / Time cefuroxime Allergy Intermediate Rash Verified 04/28/23 20:56 ertapenem Allergy Unknown Unknown Verified 04/28/23 20:56 levofloxacin [From Levaquin] Allergy Unknown Unknown Verified 04/28/23 20:56 BETA-LACTAMS Allergy Intermediate Rash Uncoded 04/28/23 20:56 FLUOROQUINOLONES Allergy Intermediate Rash Uncoded 04/28/23 20:56 Medications Home Medications Medication Instructions Recorded Confirmed Last Taken albuterol sulfate 2.5 mg/3 mL 3 ml inhalation QID PRN Shortness 10/04/18 04/28/23 Unknown (0.083 %) solution for nebulization Of Breath albuterol sulfate 90 mcg/actuation 2 puff inhalation Q4H PRN SHORT OF 10/04/18 04/28/23 Unknown aerosol inhaler BREATH/COUGH/WHEEZING ferrous sulfate 325 mg (65 mg 325 mg PO DAILY 10/04/18 04/28/23 01/19/23 iron) tablet tiotropium bromide 2.5 2 puff inhalation DAILY 10/04/18 04/28/23 01/19/23 mcg/actuation mist for inhalation isosorbide mononitrate 60 mg 30 mg PO QAM 09/29/22 04/28/23 01/19/23 tablet,extended release 24 hr amlodipine 5 mg tablet 5 mg PO DAILY 01/19/23 04/28/23 01/19/23 cholecalciferol (vitamin D3) 25 25 mcg PO DAILY 01/19/23 04/28/23 01/19/23 mcg (1,000 unit) capsule (Vitamin D3) fluticasone 250 mcg-salmeterol 50 1 inh inhalation BID 01/19/23 04/28/23 01/19/23 08:00 mcg/dose blistr powdr for inhalation peg 400-propylene glycol (PF) 0.4 1 p OPL BID 01/19/23 04/28/23 01/19/23 08:00 %-0.3 % eye drops in a dropperette (Lubricant Eye (PG-PEG 400) (PF)) ropinirole 0.25 mg tablet 0.25 mg PO HS 01/19/23 04/28/23 01/18/23 zonisamide 25 mg capsule 25 mg PO HS 01/19/23 04/28/23 01/18/23 ascorbic acid (vitamin C) 500 mg 500 mg PO BID 04/28/23 04/28/23 Unknown tablet aspirin 81 mg tablet,delayed 81 mg PO DAILY 04/28/23 04/28/23 Unknown release diclofenac sodium 1 % topical gel 2 g topical QID PRN Pain 04/28/23 04/28/23 Unknown gabapentin 100 mg capsule 100 mg PO QAM 04/28/23 04/28/23 Unknown gabapentin 100 mg capsule 300 mg PO HS 04/28/23 04/28/23 Unknown levothyroxine 50 mcg tablet 50 mcg PO DAILY 04/28/23 04/28/23 Unknown multivitamin with minerals 1 tab PO DAILY 04/28/23 04/28/23 Unknown (Multiple Vitamin-Minerals tablet) nitroglycerin 0.4 mg sublingual 0.4 mg sublingual .PRN/UD PRN 04/28/23 04/28/23 Unknown tablet Chest Pain pantoprazole 40 mg tablet,delayed 40 mg PO DAILY 04/28/23 04/28/23 Unknown release (Protonix) roflumilast 250 mcg tablet 250 mcg PO DAILY 04/28/23 04/28/23 Unknown Active Medications Generic Name Dose Route Start Last Admin Trade Name Freq PRN Reason Stop Dose Admin Albuterol 2 puffs 04/29/23 00:07 04/29/23 08:53 Albuterol Hfa 8 Gm Inhaler INH 05/29/23 00:06 2 puffs Q4H PRN Administration SHORT OF BREATH/COUGH/WHEEZING Amlodipine Besylate 5 mg 04/29/23 09:00 04/29/23 08:34 Amlodipine Besylate 5 Mg Tab PO 05/29/23 08:59 5 mg DAILY ILIANA Administration Artificial Tears 1 drops 04/29/23 09:00 04/29/23 08:34 Artificial Tears OP 05/29/23 08:59 1 drops BID ILIANA Administration Ascorbic Acid 500 mg 04/29/23 09:00 04/29/23 08:34 Ascorbic Acid 500 Mg Tab PO 05/29/23 08:59 500 mg BID ILIANA Administration Ferrous Sulfate 325 mg 04/29/23 09:00 04/29/23 08:33 Ferrous Sulfate 325 Mg Tab PO 05/29/23 08:59 325 mg DAILY ILIANA Administration Fluticasone/Vilanterol 1 puffs 04/29/23 09:00 04/29/23 08:38 Fluticasone/Vilanterol 200/25mcg 14 Puffs/Inhaler INH 05/29/23 08:59 Not Given DAILY ILIANA Gabapentin 100 mg 04/29/23 09:00 04/29/23 08:33 Gabapentin 100 Mg Cap PO 05/29/23 08:59 100 mg QAM ILIANA Administration Pantoprazole Sodium 40 mg/ 100 mls @ 20 mls/hr 04/28/23 21:00 04/29/23 07:25 Dextrose IV 05/28/23 20:59 8 mg/hr Q5H ILIANA 20 mls/hr Administration 8 MG/HR Sodium Chloride 1,000 mls @ 75 mls/hr 04/29/23 00:07 04/29/23 01:03 Nss IV 04/30/23 02:46 75 mls/hr .[id number] ILIANA Administration Isosorbide Mononitrate 30 mg 04/29/23 09:00 04/29/23 08:33 Isosorbide [place] Extended Rel 30 Mg Tabcr PO 05/29/23 08:59 30 mg QAM ILIANA Administration Levothyroxine Sodium 50 mcg 04/29/23 06:30 04/29/23 05:26 Levothyroxine Sodium 50 Mcg Tablet PO 05/29/23 06:29 50 mcg DAILYBB ILAINA Administration Miscellaneous 1 each 04/29/23 08:00 04/29/23 08:33 Zonisamide - Order Awaiting Action N/A 05/29/23 07:59 Not Given QS ILIANA Multivitamins/Minerals 1 tab 04/29/23 09:00 04/29/23 08:33 Cerovite Adv Formula Tab PO 05/29/23 08:59 1 tab DAILY ILIANA Administration Roflumilast 250 mcg 04/29/23 09:00 04/29/23 08:33 Roflumilast 500 Mcg Tab PO 05/29/23 08:59 250 mcg DAILY ILIANA Administration Umeclidinium [place] 1 puffs 04/29/23 09:00 04/29/23 08:38 Umeclidinium [place] 62.5mcg/Blister 7 Puffs/Inhaler INH 05/29/23 08:59 Not Given DAILY ILIANA Vitamin D 1,000 units 04/29/23 09:00 04/29/23 08:34 Cholecalciferol 1,000 Units 25 Mcg Tab PO 05/29/23 08:59 1,000 units DAILY ILIANA Administration Past Medical History Medical History (Updated 04/29/23 @ 09:28 by Ash Carreon MD) Encounter for pre-operative examination COPD (chronic obstructive pulmonary disease) 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 Chronic anemia Hypothyroidism Hypertension Hx of agent [place] exposure Past Family History Family History Other Family history non-contributory Social History Smoking Status: Never smoker Do You Dip or Chew Tobacco: Yes Hx Alcohol Use: No Hx Substance Use: No Physical Exam Vital Signs Last Vital Signs Temp 37 C 04/29/23 07:18 Pulse 66 04/29/23 08:53 Resp 18 04/29/23 08:53 BP 101/47 L 04/29/23 07:18 Pulse Ox 97 04/29/23 08:53 O2 Del Method Nasal Cannula 04/29/23 07:40 O2 Flow Rate 2 04/29/23 08:53 Testing Laboratory Results 04/29/23 05:24 04/29/23 05:24 Urine Color Yellow 04/28/23 20:54 Urine Appearance Turbid (Clear) A 04/28/23 20:54 Urine pH >= 9.0 (4.5-7.5) H 04/28/23 20:54 Ur Specific [place] 1.016 (1.000-1.030) 04/28/23 20:54 Urine Protein 1+ (Negative) H 04/28/23 20:54 Urine Glucose (UA) Negative (Negative) 04/28/23 20:54 Urine Ketones Negative (Negative) 04/28/23 20:54 Urine Nitrite Positive (Negative) A 04/28/23 20:54 Ur Leukocyte Esterase 3+ (Negative) H 04/28/23 20:54 Urine WBC (Auto) 10-30 /hpf (0-5) H 04/28/23 20:54 Urine RBC (Auto) 0-4 /hpf (0-4) 04/28/23 20:54 U Hyaline Cast (Auto) 1-5 /lpf (0-5) 04/28/23 20:54 U Epithel Cells (Auto) >30 /lpf (0-5) H 04/28/23 20:54 Urine Bacteria (Auto) 2+ (Negative) H 04/28/23 20:54 Blood Type O Positive 04/28/23 19:38 Antibody Screen NEGATIVE 04/28/23 19:38 Electrocardiogram Date: 04/28/23 9 [facility]-ED[facility] ROUTINE RETRIEVAL Normal sinus rhythm Right bundle branch block Left anterior fascicular block Bifascicular block Septal infarct (cited on or before 19-JAN-2023) Abnormal ECG When compared with ECG of 20-JAN-2023 06:09, Premature supraventricular complexes are no longer Present Questionable change in initial forces of Septal leads ST no longer depressed in Anterior leads ... 25mm/[id number] 243CID: [id number] by: Larry Siegel Unconfirmed Vent. rate 72 BPM SD interval 158 ms QRS duration 136 ms QT/QTc 456/499 ms Chest X-Ray Date: 01/19/23 XR chest 1V portable CLINICAL HISTORY: Sepsis. COMPARISON STUDY: Chest radiograph and chest CT September 29, 2021. FINDINGS: Underlying emphysema is present. There is no pneumothorax or pleural effusion. Cardiac size is normal. There has been interval development of patchy right midlung airspace opacity. There may be left basilar opacity. No evidence for pulmonary edema. IMPRESSION: 1. Interval development of right midlung opacity and possible left basilar opacity. The findings suggest pneumonia. Posttreatment radiographs to ensure resolution are recommended. 2. Emphysema. Echocardiogram Date: 09/29/22 EF: 60-65 LV Function: normal RWMA: + none Other Findings: + diastolic dysfunction (grade 1) Small pericardial effusion
[2023-04-29 12:00] LABS: Hematocrit (blood only) 21.7 % (42.0-52.0); Hemoglobin 6.9 g/dl (14.0-18.0)
[2023-04-29] MEDS ORDERED: LIDOCAINE 2% 2 ML VIAL/AMP(20MG/ML) INFIL ONE (12:12)
[2023-04-29] MEDS ORDERED: PROPOFOL IV EMULSION 10 MG/ML 20 ML VIAL IV ONE (12:12)
[2023-04-29] MEDS ORDERED: ePHEDrine sulfate 50 MG/5 ML SYR ONE (12:32)
[2023-04-29] MEDS ORDERED: PHENYLEPHRINE HCL 10 MG/ML VIAL ONE (12:32)
--- NOTE | 2023-04-29 12:41 | Operative Report ---
Post Operative Report Pre & Post Diagnosis Operation Date: 04/29/23 10:20 Pre-Op Diagnosis: SICKNESS, PROFOUND ANEMIA Post-Op Diagnosis: GIB I identified the patient and participated in the time-out.: Yes Procedure Operation Date: 04/29/23 10:20 Actual Procedures p Esophagogastroduodenoscopy - Kita Benavidez MD Surgeon Kita Benavidez MD Machine Rug Cleaner None Estimated Blood Loss 0 Findings See Below (Bleeding gastric AVMs) Specimens None Description of Procedure EGD I attest to the content of the Intraoperative Record and any orders documented therein. Any exceptions are noted below.
--- NOTE | 2023-04-29 13:01 | Electrocardiogram Report ---
Test Reason : Blood Pressure : / mmHG Vent. Rate : 072 BPM Atrial Rate : 072 BPM P-R Int : 158 ms QRS Dur : 136 ms QT Int : 456 ms P-R-T Axes : 086 -53 094 degrees QTc Int : 499 ms Normal sinus rhythm Right bundle branch block Left anterior fascicular block Bifascicular block Abnormal ECG When compared with ECG of 20-JAN-2023 06:09, Premature supraventricular complexes are no longer Present Questionable change in initial forces of Septal leads ST no longer depressed in Anterior leads QT has lengthened Confirmed by Micheal Ureña ([id number]) on 04/29/2023 1:01:13 PM Referred By: Larry Siegel Confirmed By:Micheal Ureña
--- NOTE | 2023-04-29 14:10 | Anesthesiology Progress Note ---
Date of Service April 29, 2023 Anesthesia Post Procedure Vital Signs Vital Signs: Temp Pulse Pulse Pulse Resp BP BP 04/29/23 13:15 65 22 101/45 L 04/29/23 13:05 36.4 C L 69 20 104/47 L 04/29/23 12:55 64 19 97/44 L 04/29/23 12:49 36.0 C L 67 18 101/57 L 04/29/23 11:14 36.6 C 67 24 101/48 L 04/29/23 09:53 36.9 C 62 20 108/56 L 04/29/23 09:48 36.9 C 62 18 105/49 L 04/29/23 09:00 36.9 C 63 20 106/52 L 04/29/23 08:53 66 18 04/29/23 08:00 37 C 64 22 106/48 L 04/29/23 07:40 36.9 C 662 H 18 105/49 L 04/29/23 07:40 36.8 C 61 20 112/44 L 04/29/23 07:40 64 04/29/23 07:40 04/29/23 07:18 37 C 64 16 101/47 L 04/29/23 07:04 36.6 C 63 18 108/51 L 04/29/23 03:30 36.6 C 62 16 106/54 L 04/29/23 02:30 36.6 C 69 20 103/51 L 04/29/23 02:27 36.5 C 71 103/51 L 04/29/23 01:30 36.7 C 62 16 91/41 L 04/29/23 01:00 74 04/29/23 01:00 36.5 C 65 22 88/38 L 04/29/23 00:45 36.4 C L 69 16 91/48 L 04/29/23 00:45 36.4 C L 69 16 91/48 L 04/29/23 00:43 04/29/23 00:35 69 18 04/29/23 00:24 36.3 C L 63 98/36 L 04/29/23 00:08 36.7 C 18 98/36 L 04/28/23 23:15 04/28/23 22:50 36.8 C 72 22 103/58 L 04/28/23 22:01 77 04/28/23 21:50 36.6 C 73 14 97/40 L 04/28/23 21:50 74 04/28/23 21:50 36.8 C 72 22 117/76 04/28/23 21:20 36.8 C 74 24 100/61 04/28/23 21:05 36.4 C L 77 18 99/48 L 04/28/23 20:50 36.9 C 74 25 H 99/46 L 04/28/23 20:44 72 24 94/46 L 04/28/23 20:34 73 23 04/28/23 20:00 74 26 H 04/28/23 19:32 81 38 H 04/28/23 19:12 76 27 H 114/44 L 04/28/23 19:00 80 29 H 04/28/23 18:32 04/28/23 18:32 04/28/23 17:46 85 04/28/23 17:25 37.1 C 88 22 136/114 H Pulse Ox O2 Del Method O2 Flow Rate 04/29/23 13:15 98 Nasal Cannula 1 04/29/23 13:05 98 Nasal Cannula 1 04/29/23 12:55 98 Nasal Cannula 2 04/29/23 12:49 99 Nasal Cannula 2 04/29/23 11:14 100 Nasal Cannula 3 04/29/23 09:53 95 3 04/29/23 09:48 95 3 04/29/23 09:00 94 3 04/29/23 08:53 97 2 04/29/23 08:00 93 3 04/29/23 07:40 94 3 04/29/23 07:40 94 3 04/29/23 07:40 04/29/23 07:40 Nasal Cannula 3 04/29/23 07:18 95 3 04/29/23 07:04 95 Nasal Cannula 1 04/29/23 03:30 92 3 04/29/23 02:30 98 04/29/23 02:27 98 04/29/23 01:30 97 04/29/23 01:00 04/29/23 01:00 97 3 04/29/23 00:45 98 3 04/29/23 00:45 98 3 04/29/23 00:43 Nasal Cannula 3 04/29/23 00:35 95 Nasal Cannula 2 04/29/23 00:24 99 3 04/29/23 00:08 99 Nasal Cannula 2 04/28/23 23:15 Room Air 04/28/23 22:50 98 3 04/28/23 22:01 04/28/23 21:50 98 3 04/28/23 21:50 04/28/23 21:50 100 3 04/28/23 21:20 100 3 04/28/23 21:05 100 3.5 04/28/23 20:50 100 3 04/28/23 20:44 98 04/28/23 20:34 100 04/28/23 20:00 96 04/28/23 19:32 96 04/28/23 19:12 100 04/28/23 19:00 100 04/28/23 18:32 100 Nasal Cannula 3 04/28/23 18:32 100 Room Air 3 04/28/23 17:46 04/28/23 17:25 96 Nasal Cannula 3 Transfer of Care Handoff Completed per policy Notes Mental Status: alert / awake / arousable and participated in evaluation Patient Amnestic to Procedure: Yes Nausea / Vomiting: adequately controlled Pain: adequately controlled Airway Patency, RR, SpO2: stable & adequate BP & HR: stable & adequate Hydration State: stable & adequate Anesthetic Complications: no major complications apparent
--- NOTE | 2023-04-29 15:54 | Hospitalist Progress Note ---
Date of Service April 29, 2023 Assessment & Plan (1) Acute anemia: Plan: 87-year-old male with past medical history significant for HTN, diastolic CHF, COPD, chronic respiratory failure with 3 to 4 L oxygen at home, squamous cell carcinoma of the ear, head and neck, status post lesion removal, diagnosed October 2021, hypothyroidism, blindness in left eye since 2013, hx of COPD exacerbation with possible aspiration pneumonitis, history of chronic anemia and history of GI bleed presents with not feeling good at home for the last week. Acute blood loss anemia likely secondary to upper GI bleed History of GI bleed and PRBC transfusions Hemoglobin 4.6 at presentation and received 3 units of PRBCs so far-globin went up to 6.9 Hold aspirin Continue with Protonix drip Appreciate GI input and recommendation Status post EGD Bleeding gastric AVMs-cauterized We will monitor H&H and give blood transfusion if needed History of COPD Chronic respiratory failure 3 to 4 L oxygen Continue home inhalers No acute respiratory symptoms and has been saturating normally on 2 L Chronic diastolic CHF Monitor for volume overload No signs and or symptoms of volume overload History of essential tremor Continues mild and recoup at home Squamous cell cancer of external ear S/p excision and immunotherapy Follow-up with heme-onc Hypertension Continue amlodipine Imdur with holding parameters Hypothyroidism On Synthyroid DVT prophylaxis SCDs Disposition telemetry floor CODE STATUS full code as per discussion with the patient Admission and Anticipated Discharge Date Admission Date: April 28, 2023 Subjective 04/29/2023 The patient was seen and examined in telemetry unit He was admitted with acute blood loss anemia with hemoglobin as low as 4.6 He has been receiving blood transfusions And will have EGD in the afternoon Review of Systems Review of Systems: All systems reviewed and are unremarkable except as noted below Physical Exam Physical Exam: Lying in bed without any apparent distress Constitutional: well developed, well nourished, + ill appearing and average body habitus Eyes: PERRL, conjunctivae normal, anicteric sclerae ENMT: external ear and nose normal, oropharynx normal Neck: trachea midline, no thyromegaly Respiratory: no respiratory distress Auscultation: lungs clear to auscultation bilaterally Cardiovascular: Rate/Rhythm: regular rate and regular rhythm; not tachycardic Heart Sounds: normal S1 and normal S2; no murmur Gastrointestinal (Abdomen): Inspection/Auscultation: normal bowel sounds; abdomen not distended Percussion/Palpation: + abdomen tender (Epigastrium) and abdomen soft Musculoskeletal: No acute arthritis involving any joint Neurologic: normal touch/pain/proprioception and moves all extremities; no focal motor deficits Lymphatic: no cervical or axillary lymphadenopathy Results & Data Results & Data Vital Signs (Past 12 Hours) Vital Signs Temp Pulse Pulse Pulse Resp BP BP 04/29/23 15:32 36.5 C 63 18 106/47 L 04/29/23 13:15 65 22 101/45 L 04/29/23 13:05 36.4 C L 69 20 104/47 L 04/29/23 12:55 64 19 97/44 L 04/29/23 12:49 36.0 C L 67 18 101/57 L 04/29/23 11:14 36.6 C 67 24 101/48 L 04/29/23 09:53 36.9 C 62 20 108/56 L 04/29/23 09:48 36.9 C 62 18 105/49 L 04/29/23 09:00 36.9 C 63 20 106/52 L 04/29/23 08:53 66 18 04/29/23 08:00 37 C 64 22 106/48 L 04/29/23 07:40 36.9 C 662 H 18 105/49 L 04/29/23 07:40 36.8 C 61 20 112/44 L 04/29/23 07:40 64 04/29/23 07:40 04/29/23 07:18 37 C 64 16 101/47 L 04/29/23 07:04 36.6 C 63 18 108/51 L Pulse Ox O2 Del Method O2 Flow Rate 04/29/23 15:32 95 Nasal Cannula 2 04/29/23 13:15 98 Nasal Cannula 1 04/29/23 13:05 98 Nasal Cannula 1 04/29/23 12:55 98 Nasal Cannula 2 04/29/23 12:49 99 Nasal Cannula 2 04/29/23 11:14 100 Nasal Cannula 3 04/29/23 09:53 95 3 04/29/23 09:48 95 3 04/29/23 09:00 94 3 04/29/23 08:53 97 2 04/29/23 08:00 93 3 04/29/23 07:40 94 3 04/29/23 07:40 94 3 04/29/23 07:40 04/29/23 07:40 Nasal Cannula 3 04/29/23 07:18 95 3 04/29/23 07:04 95 Nasal Cannula 1 Laboratory Results Short CBC 04/28/23 04/29/23 04/29/23 Range/Units 18:24 05:24 11:31 WBC 9.39 7.95 (4.8-10.8) K/ul Hgb 4.6 L* 6.6 L* Cancelled (14.0-18.0) g/dl Hct 15.2 L* 20.7 L* (42.0-52.0) % Plt Count 448 H 378 (130-400) K/uL 04/29/23 04/29/23 Range/Units 11:31 11:31 WBC (4.8-10.8) K/ul Hgb 6.9 L* (14.0-18.0) g/dl Hct Cancelled 21.7 L (42.0-52.0) % Plt Count (130-400) K/uL BMP 04/28/23 04/29/23 18:24 05:24 Sodium 138 138 Potassium 4.3 4.5 Chloride 102 104 Carbon Dioxide 30 29 BUN 38 H 42 H Creatinine 1.46 H 1.36 Glucose 132 H 102 H Calcium 8.8 8.0 L Liver Function 04/28/23 Range/Units 18:24 Total Bilirubin 0.3 (0.2-1.0) mg/dl AST 10 L (13-39) U/L ALT 5 L (7-52) U/L Alkaline Phosphatase 69 (34-104) U/L Albumin 3.2 L (3.4-5.0) gm/dl Urine 04/28/23 Range/Units 20:54 Urine Color Yellow Urine Appearance Turbid A (Clear) Urine pH >= 9.0 H (4.5-7.5) Ur Specific [place] 1.016 (1.000-1.030) Urine Protein 1+ H (Negative) Urine Glucose (UA) Negative (Negative) Medications Administered Current Inpatient Medications Albuterol (Albuterol 0.083% Nebu Soln 3 Ml Vial) 2.5 mg INH QID PRN; Protocol PRN Reason: Shortness Of Breath Stop: 05/29/23 00:06 Albuterol (Albuterol Hfa 8 Gm Inhaler) 2 puffs INH Q4H PRN PRN Reason: SHORT OF BREATH/COUGH/WHEEZING Stop: 05/29/23 00:06 Last Admin: 04/29/23 08:53 Dose: 2 puffs Amlodipine Besylate (Amlodipine Besylate 5 Mg Tab) 5 mg PO DAILY [facility] Stop: 05/29/23 08:59 Last Admin: 04/29/23 08:34 Dose: 5 mg Artificial Tears (Artificial Tears) 1 drops OP BID [facility]IANA Stop: 05/29/23 08:59 Last Admin: 04/29/23 08:34 Dose: 1 drops Ascorbic Acid (Ascorbic Acid 500 Mg Tab) 500 mg PO BID [facility] Stop: 05/29/23 08:59 Last Admin: 04/29/23 08:34 Dose: 500 mg Ferrous Sulfate (Ferrous Sulfate 325 Mg Tab) 325 mg PO DAILY [facility] Stop: 05/29/23 08:59 Last Admin: 04/29/23 08:33 Dose: 325 mg Fluticasone/Vilanterol (Fluticasone/Vilanterol 200/25mcg 14 Puffs/Inhaler) 1 puffs INH DAILY [facility] Stop: 05/29/23 08:59 Last Admin: 04/29/23 08:38 Dose: Not Given Gabapentin (Gabapentin 100 Mg Cap) 100 mg PO QAM [facility] Stop: 05/29/23 08:59 Last Admin: 04/29/23 08:33 Dose: 100 mg Gabapentin (Gabapentin 300 Mg Cap) 300 mg PO HS [facility] Stop: 05/29/23 20:59 Pantoprazole Sodium 40 mg/ (Dextrose) 100 mls @ 20 mls/hr IV Q5H [facility] Stop: 05/28/23 20:59 Last Admin: 04/29/23 13:32 Dose: 8 mg/hr, 20 mls/hr Sodium Chloride (Nss) 1,000 mls @ 75 mls/hr IV .[id number] [facility] Stop: 04/30/23 02:46 Last Admin: 04/29/23 13:29 Dose: 75 mls/hr Sodium Chloride (Nss) 250 mls @ 15 mls/hr IV .[id number] PRN PRN Reason: For Transfusion Duration Stop: 04/29/23 16:48 Isosorbide Mononitrate (Isosorbide [place] Extended Rel 30 Mg Tabcr) 30 mg PO QAM [facility] Stop: 05/29/23 08:59 Last Admin: 04/29/23 08:33 Dose: 30 mg Levothyroxine Sodium (Levothyroxine Sodium 50 Mcg Tablet) 50 mcg PO DAILYBB [facility] Stop: 05/29/23 06:29 Last Admin: 04/29/23 05:26 Dose: 50 mcg Miscellaneous (Zonisamide - Order Awaiting Action) 1 each N/A QS [facility] Stop: 05/29/23 07:59 Last Admin: 04/29/23 14:00 Dose: Not Given Multivitamins/Minerals (Cerovite Adv Formula Tab) 1 tab PO DAILY [facility] Stop: 05/29/23 08:59 Last Admin: 04/29/23 08:33 Dose: 1 tab Nitroglycerin (Nitroglycerin Sl 0.4 Mg/Tab Tab) 0.4 mg SL Q5M PRN PRN Reason: Chest Pain Stop: 05/29/23 00:06 Ondansetron HCl (Ondansetron Inj 2 Mg/Ml 2 Ml Vial) 4 mg IV Q6H PRN PRN Reason: Nausea Stop: 05/29/23 00:06 Roflumilast (Roflumilast 500 Mcg Tab) 250 mcg PO DAILY [facility] Stop: 05/29/23 08:59 Last Admin: 04/29/23 08:33 Dose: 250 mcg Ropinirole HCl (Ropinirole Hcl 0.25 Mg Tablet) 0.25 mg PO DAILY@1900 [facility] Stop: 05/29/23 18:59 Umeclidinium Ethel (Umeclidinium Ethel 62.5mcg/Blister 7 Puffs/Inhaler) 1 puffs INH DAILY [facility] Stop: 05/29/23 08:59 Last Admin: 04/29/23 08:38 Dose: Not Given Vitamin D (Cholecalciferol 1,000 Units 25 Mcg Tab) 1,000 units PO DAILY [facility] Stop: 05/29/23 08:59 Last Admin: 04/29/23 08:34 Dose: 1,000 units
[2023-04-29 17:10] LABS: Hematocrit (blood only) 20.9 % (42.0-52.0); Hemoglobin 6.9 g/dl (14.0-18.0)
[2023-04-29] MEDS: rOPINIRole HCL 0.25 MG TABLET PO SCH (20:00)
[2023-04-29] MEDS: GABAPENTIN 300 MG CAP PO SCH (20:07)
[2023-04-29 22:51] LABS: Hematocrit (blood only) 22.1 % (42.0-52.0)
[2023-04-30] MEDS: PANTOprazole 40 MG in DEXTROSE 5% MINI-B 100 ML IV SCH ×4 (03:09→19:53)
[2023-04-30] MEDS: LEVOTHYROXINE SODIUM 50 MCG TABLET PO SCH (05:46)
[2023-04-30 07:37] LABS: Basophils # (auto) 0.03 K/uL (0.00-0.20); Basophils % (auto) 0.4 %; Hematocrit (blood only) 23.9 % (42.0-52.0); Hemoglobin 7.5 g/dl (14.0-18.0); Immature Granulocytes # (auto) 0.33 K/uL (0.01-0.20); Immature Granulocytes % (auto) 4.6 %; Lymphocytes # (auto) 0.65 K/uL (1.20-3.40); Mean Corpuscular Hgb Conc 31.4 g/dL (32.0-36.0); Mean Platelet Volume 9.8 fL (9.4-12.4); Monocytes # (auto) 1.18 K/uL (0.11-0.59); Monocytes % (auto) 16.3 %; Neutrophils # (auto) 5.03 K/uL (1.40-6.50); Neutrophils % (auto) 69.7 %; Platelet Count 341 K/uL (130-400); RDW Coefficient of Variation 15.3 % (11.5-14.5); RDW Standard Deviation 47.3 fL (36.4-46.3); Red Blood Count 2.78 M/uL (4.70-6.10); White Blood Count 7.22 K/ul (4.8-10.8)
[2023-04-30 08:00] LABS: Calcium 7.7 mg/dl (8.6-10.3)
[2023-04-30 08:05] LABS: BUN Creatinine Ratio 20.8 (10-20); Est GFR (African American) 56.1 ml/min; Est GFR (Non-African American) 48.4 ml/min
[2023-04-30 08:22] LABS: RBC Morphology Unremarkable
[2023-04-30] MEDS: ASCORBIC ACID 500 MG TAB PO SCH ×2 (08:40→20:00)
[2023-04-30] MEDS: CHOLECALCIFEROL 1,000 UNITS 25 MCG TAB PO SCH (08:40)
[2023-04-30] MEDS: GABAPENTIN 100 MG CAP PO SCH (08:40)
[2023-04-30] MEDS: ROFLUMILAST 500 MCG TAB PO SCH (08:40)
[2023-04-30] MEDS: amLODIPine BESYLATE 5 MG TAB PO SCH (08:40)
[2023-04-30] MEDS: FERROUS SULFATE 325 MG TAB PO SCH (08:40)
[2023-04-30] MEDS: UMECLIDINIUM BROMIDE 62.5MCG/BLISTER 7 PUFFS/INHALER INH SCH (08:41)
[2023-04-30] MEDS: CEROVITE ADV FORMULA TAB PO SCH (08:41)
[2023-04-30] MEDS: ISOSORBIDE MONO EXTENDED REL 30 MG TABCR PO SCH (08:41)
[2023-04-30] MEDS: FLUTICASONE/VILANTEROL 200/25MCG 14 PUFFS/INHALER INH SCH (08:42)
[2023-04-30] MEDS: ARTIFICIAL TEARS OP SCH ×2 (08:43→20:02)
[2023-04-30] MEDS ORDERED: SOD PHOSPHATE/SOD BIPHOSPHATE ENEMA 132 ML BTL PR STA (11:42)
[2023-04-30] MEDS: [UNRECOGNIZED DRUG - OTHER] SCH ×2 (11:49→16:43)
--- NOTE | 2023-04-30 14:32 | Hospitalist Progress Note ---
Date of Service April 30, 2023 Assessment & Plan (1) Acute anemia: Plan: 87-year-old male with past medical history significant for HTN, diastolic CHF, COPD, chronic respiratory failure with 3 to 4 L oxygen at home, squamous cell carcinoma of the ear, head and neck, status post lesion removal, diagnosed October 2021, hypothyroidism, blindness in left eye since 2013, hx of COPD exacerbation with possible aspiration pneumonitis, history of chronic anemia and history of GI bleed presents with not feeling good at home for the last week. Acute blood loss anemia likely secondary to upper GI bleed History of GI bleed and PRBC transfusions Hemoglobin 4.6 at presentation and received 3 units of PRBCs so far-globin went up to 6.9 Hold aspirin Continue with Protonix drip Appreciate GI input and recommendation Hemoglobin went up to 7.5-we will hold any blood transfusion right now Monitor CBC and continue current Protonix drip Chest x-ray showed possible consolidation Will start intravenous doxycycline Status post EGD Bleeding gastric AVMs-cauterized We will monitor H&H and give blood transfusion if needed Hemoglobin 7.5-we will monitor History of COPD Chronic respiratory failure 3 to 4 L oxygen Continue home inhalers No acute respiratory symptoms and has been saturating normally on 2 L No other respiratory symptoms Chronic diastolic CHF Monitor for volume overload No signs and or symptoms of volume overload History of essential tremor Continues mild and recoup at home Squamous cell cancer of external ear S/p excision and immunotherapy Follow-up with heme-onc Hypertension Continue amlodipine Imdur with holding parameters Hypothyroidism On Synthyroid DVT prophylaxis SCDs Disposition telemetry floor CODE STATUS full code as per discussion with the patient Admission and Anticipated Discharge Date Admission Date: April 28, 2023 Subjective 04/29/2023 The patient was seen and examined in telemetry unit He was admitted with acute blood loss anemia with hemoglobin as low as 4.6 He has been receiving blood transfusions And will have EGD in the afternoon 12/28/2022 The patient was seen and examined in telemetry unit He has been feeling much better today Has not had any bowel movement for the last 5 to 7 days Denies any significant abdominal distention and her discomfort Has cough without any phlegm Review of Systems Review of Systems: All systems reviewed and are unremarkable except as noted below Physical Exam Physical Exam: Lying in bed without any apparent distress Constitutional: well developed, well nourished, + ill appearing and average body habitus Eyes: PERRL, conjunctivae normal, anicteric sclerae ENMT: external ear and nose normal, oropharynx normal Neck: trachea midline, no thyromegaly Respiratory: no respiratory distress Auscultation: lungs clear to auscultation bilaterally Cardiovascular: Rate/Rhythm: regular rate and regular rhythm; not tachycardic Heart Sounds: normal S1 and normal S2; no murmur Gastrointestinal (Abdomen): Inspection/Auscultation: normal bowel sounds; abdomen not distended Percussion/Palpation: + abdomen tender (Epigastrium) and abdomen soft Neurologic: normal touch/pain/proprioception and moves all extremities; no focal motor deficits Lymphatic: no cervical or axillary lymphadenopathy Results & Data Results & Data Vital Signs (Past 12 Hours) Vital Signs Temp Pulse Pulse Resp BP Pulse Ox O2 Del Method 04/30/23 12:27 36.6 C 67 18 103/46 L 94 Room Air 04/30/23 10:51 73 04/30/23 10:23 Nasal Cannula 04/30/23 08:30 36.5 C 72 18 105/57 L 100 Nasal Cannula 04/30/23 03:26 36.4 C L 63 18 96/41 L 93 Room Air O2 Flow Rate 04/30/23 12:27 04/30/23 10:51 04/30/23 10:23 3 04/30/23 08:30 3 04/30/23 03:26
[2023-04-30] MEDS: DOXYCYCLINE HYCLATE 100 MG CAP PO SCH (19:59)
[2023-04-30] MEDS: rOPINIRole HCL 0.25 MG TABLET PO SCH (20:00)
[2023-04-30] MEDS: GABAPENTIN 300 MG CAP PO SCH (20:01)
[2023-04-30] MEDS: ZONISAMIDE PO SCH (20:13)
--- NOTE | 2023-04-30 23:18 | CT Scan Report ---
Exam(s): CT C SPINE EXAM: CT Cervical Spine Without Intravenous Contrast CLINICAL HISTORY: Reason for exam: left shoulder pain and tingling in hand.. TECHNIQUE: Axial computed tomography images of the cervical spine without intravenous contrast. CTDI is 28.03 mGy and DLP is 1014.15 mGy-cm. Automated exposure control was utilized for the study. A dose lowering technique was utilized adhering to the principles of ALARA. COMPARISON: No relevant prior studies available. FINDINGS: Vertebrae: Right-sided laminectomies at C6 and C7. No fracture. No misalignment. Discs/spinal canal/neural foramina: Multilevel degenerative disc disease. Mild to moderate neural foraminal narrowing on the left at C3/C4 C4/C5 and C5/C6. Soft tissues: Unremarkable. IMPRESSION: No acute findings in the cervical spine. Mild to moderate multilevel neural foraminal narrowing on the left. Electronically signed by: Keshawn Cardenas MD 04/30/23 23:18 PM
--- NOTE | 2023-04-30 23:54 | CT Scan Report ---
Exam(s): CT LEFT SHOULDER Without Contrast EXAM: CT Left Upper Extremity Without Intravenous Contrast, Shoulder CLINICAL HISTORY: Reason for exam: left shoulder pain. TECHNIQUE: Axial computed tomography images of the left shoulder without intravenous contrast. CTDI is 28.03 mGy and DLP is 1014.15 mGy-cm. Automated exposure control was utilized for the study. A dose lowering technique was utilized adhering to the principles of ALARA. COMPARISON: No relevant prior studies available. FINDINGS: Bones/joints: No advanced glenohumeral degenerative arthropathy.. No acute fracture. No dislocation. Moderately severe degenerative arthropathy of the acromioclavicular joint. Soft tissues: Unremarkable. IMPRESSION: No acute abnormality. Electronically signed by: Keshawn Cardenas MD 04/30/23 23:53 PM
[2023-05-01] MEDS: PANTOprazole 40 MG in DEXTROSE 5% MINI-B 100 ML IV SCH ×4 (02:18→17:01)
[2023-05-01] MEDS: ACETAMINOPHEN 325 MG TAB PO PRN ×2 (04:58→20:07)
[2023-05-01 05:20] LABS: Basophils # (auto) 0.02 K/uL (0.00-0.20); Basophils % (auto) 0.4 %; Hematocrit (blood only) 24.6 % (42.0-52.0); Hemoglobin 7.7 g/dl (14.0-18.0); Immature Granulocytes # (auto) 0.25 K/uL (0.01-0.20); Immature Granulocytes % (auto) 4.4 %; Lymphocytes # (auto) 0.62 K/uL (1.20-3.40); Mean Corpuscular Hemoglobin 26.8 pg (25.0-34.0); Mean Corpuscular Hgb Conc 31.3 g/dL (32.0-36.0); Mean Corpuscular Volume 85.7 fL (80.0-100.0); Mean Platelet Volume 9.6 fL (9.4-12.4); Monocytes # (auto) 0.85 K/uL (0.11-0.59); Monocytes % (auto) 15.1 %; Neutrophils # (auto) 3.89 K/uL (1.40-6.50); Neutrophils % (auto) 69.1 %; Platelet Count 333 K/uL (130-400); RDW Coefficient of Variation 15.9 % (11.5-14.5); RDW Standard Deviation 49.1 fL (36.4-46.3); Red Blood Count 2.87 M/uL (4.70-6.10); White Blood Count 5.63 K/ul (4.8-10.8)
[2023-05-01 05:29] LABS: BUN Creatinine Ratio 16.2 (10-20); Calcium 7.8 mg/dl (8.6-10.3); Creatinine Clr Calc Pharmacy 31.6 ml/min; Est GFR (African American) 47.9 ml/min; Est GFR (Non-African American) 41.4 ml/min; Phosphorus 2.8 mg/dl (2.5-4.9); Potassium 3.9 mmol/L (3.5-5.1)
[2023-05-01 05:41] LABS: Polychromasia 1+
[2023-05-01] MEDS: LEVOTHYROXINE SODIUM 50 MCG TABLET PO SCH (05:46)
[2023-05-01] MEDS: DOXYCYCLINE HYCLATE 100 MG CAP PO SCH ×2 (08:32→20:08)
[2023-05-01] MEDS: ISOSORBIDE MONO EXTENDED REL 30 MG TABCR PO SCH (08:33)
[2023-05-01] MEDS: ROFLUMILAST 500 MCG TAB PO SCH (08:33)
[2023-05-01] MEDS: CHOLECALCIFEROL 1,000 UNITS 25 MCG TAB PO SCH (08:33)
[2023-05-01] MEDS: ASCORBIC ACID 500 MG TAB PO SCH ×2 (08:34→20:07)
[2023-05-01] MEDS: CEROVITE ADV FORMULA TAB PO SCH (08:34)
[2023-05-01] MEDS: FERROUS SULFATE 325 MG TAB PO SCH (08:34)
[2023-05-01] MEDS: GABAPENTIN 100 MG CAP PO SCH (08:34)
[2023-05-01] MEDS: amLODIPine BESYLATE 5 MG TAB PO SCH (08:34)
[2023-05-01] MEDS: ARTIFICIAL TEARS OP SCH ×2 (08:35→20:08)
[2023-05-01] MEDS: FLUTICASONE/VILANTEROL 200/25MCG 14 PUFFS/INHALER INH SCH (08:35)
[2023-05-01] MEDS: UMECLIDINIUM BROMIDE 62.5MCG/BLISTER 7 PUFFS/INHALER INH SCH (08:35)
[2023-05-01] MEDS: ONDANSETRON INJ 2 MG/ML 2 ML VIAL IV PRN (16:51)
[2023-05-01] MEDS: PANTOprazole 40 MG TAB PO SCH (20:07)
[2023-05-01] MEDS: GABAPENTIN 300 MG CAP PO SCH (20:07)
[2023-05-01] MEDS: rOPINIRole HCL 0.25 MG TABLET PO SCH (20:08)
[2023-05-01] MEDS: ZONISAMIDE PO SCH (20:08)
[2023-05-02] MEDS: ACETAMINOPHEN 325 MG TAB PO PRN ×2 (03:43→14:50)
--- NOTE | 2023-05-02 05:56 | Electrocardiogram Report ---
Test Reason : Blood Pressure : / mmHG Vent. Rate : 067 BPM Atrial Rate : 067 BPM P-R Int : 166 ms QRS Dur : 128 ms QT Int : 466 ms P-R-T Axes : 029 -50 061 degrees QTc Int : 492 ms Normal sinus rhythm Left axis deviation Right bundle branch block Septal infarct (cited on or before 30-APR-2023) Abnormal ECG When compared with ECG of 28-APR-2023 20:40, No significant change Confirmed by Emerson Pradhan ([id number]) on 05/02/2023 5:55:49 AM Referred By: Larry Siegel Confirmed By:Emerson Pradhan
[2023-05-02] MEDS: DOXYCYCLINE HYCLATE 100 MG CAP PO SCH ×2 (06:00→19:24)
[2023-05-02] MEDS: LEVOTHYROXINE SODIUM 50 MCG TABLET PO SCH (06:00)
[2023-05-02] MEDS: CEROVITE ADV FORMULA TAB PO SCH (09:20)
[2023-05-02 09:21] LABS: Basophils # (auto) 0.03 K/uL (0.00-0.20); Basophils % (auto) 0.4 %; Hemoglobin 7.4 g/dl (14.0-18.0); Immature Granulocytes # (auto) 0.26 K/uL (0.01-0.20); Immature Granulocytes % (auto) 3.5 %; Lymphocytes % (auto) 8.1 %; Mean Corpuscular Hemoglobin 26.9 pg (25.0-34.0); Mean Corpuscular Hgb Conc 30.8 g/dL (32.0-36.0); Mean Corpuscular Volume 87.3 fL (80.0-100.0); Mean Platelet Volume 9.5 fL (9.4-12.4); Monocytes # (auto) 1.54 K/uL (0.11-0.59); Monocytes % (auto) 20.7 %; Neutrophils % (auto) 67.3 %; Platelet Count 327 K/uL (130-400); RDW Coefficient of Variation 15.9 % (11.5-14.5); RDW Standard Deviation 49.6 fL (36.4-46.3); Red Blood Count 2.75 M/uL (4.70-6.10); White Blood Count 7.43 K/ul (4.8-10.8)
[2023-05-02] MEDS: GABAPENTIN 100 MG CAP PO SCH (09:21)
[2023-05-02] MEDS: amLODIPine BESYLATE 5 MG TAB PO SCH (09:21)
[2023-05-02] MEDS: ISOSORBIDE MONO EXTENDED REL 30 MG TABCR PO SCH (09:21)
[2023-05-02] MEDS: PANTOprazole 40 MG TAB PO SCH ×2 (09:21→20:19)
[2023-05-02] MEDS: ASCORBIC ACID 500 MG TAB PO SCH ×2 (09:21→20:18)
[2023-05-02] MEDS: FERROUS SULFATE 325 MG TAB PO SCH (09:22)
[2023-05-02] MEDS: CHOLECALCIFEROL 1,000 UNITS 25 MCG TAB PO SCH (09:22)
[2023-05-02] MEDS: ROFLUMILAST 500 MCG TAB PO SCH (09:23)
[2023-05-02] MEDS: UMECLIDINIUM BROMIDE 62.5MCG/BLISTER 7 PUFFS/INHALER INH SCH (09:24)
[2023-05-02] MEDS: FLUTICASONE/VILANTEROL 200/25MCG 14 PUFFS/INHALER INH SCH (09:24)
[2023-05-02] MEDS: ARTIFICIAL TEARS OP SCH ×2 (09:32→20:21)
[2023-05-02 09:39] LABS: Polychromasia 1+
[2023-05-02 09:43] LABS: BUN Creatinine Ratio 14.9 (10-20); Calcium 7.9 mg/dl (8.6-10.3); Creatinine Clr Calc Pharmacy 27.9 ml/min; Est GFR (African American) 41.1 ml/min; Est GFR (Non-African American) 35.5 ml/min; Potassium 4.5 mmol/L (3.5-5.1)
--- NOTE | 2023-05-02 16:08 | GI REPORT ---
Patient Name: Melo Dobbins Procedure Date: 04/29/2023 11:57 AM Date of : 1935 Admit Type: Inpatient Age: 87 Gender: Male Attending MD: Kita Benavidez MD, Procedure: Upper GI endoscopy Providers: Kita Benavidez MD Referring MD: Larry Siegel Md Indications: Melena Medicines: Propofol per Anesthesia Complications: No immediate complications. Estimated Blood Loss: Estimated blood loss: none. Procedure: Pre-Anesthesia Assessment: - Prior to the procedure, a History and Physical was performed, and patient medications, allergies and sensitivities were reviewed. The patient's tolerance of previous anesthesia was reviewed. - The risks and benefits of the procedure and the sedation options and risks were discussed with the patient. All questions were answered and informed consent was obtained. - Patient identification and proposed procedure were verified prior to the procedure by the physician and the nurse. The procedure was verified in the procedure room. - Pre-procedure physical examination revealed no contraindications to sedation. After obtaining informed consent, the endoscope was passed under direct vision. Throughout the procedure, the patient's blood pressure, pulse, and oxygen saturations were monitored continuously. The Endoscope was introduced through the mouth, and advanced to the second part of duodenum. The upper GI endoscopy was accomplished without difficulty. The patient tolerated the procedure well. Findings: The examined esophagus was normal. Two angioectasias with bleeding were found in the gastric body. Vaporization for hemostasis using argon plasma was successful. For hemostasis, six hemostatic clips were successfully placed (MR conditional). 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 There was no bleeding at the end of the procedure. The duodenal bulb and second portion of the duodenum were normal. A large diverticulum was found in the area of the papilla. Impression: - Normal esophagus. 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 Treated with argon plasma coagulation (APC). Clips (MR conditional) were placed. - Normal duodenal bulb and second portion of the duodenum. - The peripancreatic fluid collection seen on imaging is actually a large periampullary diverticulum. - No specimens collected. Recommendation: - Return patient to hospital [facility] for ongoing care. - Clear liquid diet for 1 day, then advance as tolerated to full liquid diet. - Use a proton pump inhibitor PO. Kita Benavidez MD 04/29/2023 12:46:48 PM This report has been signed electronically. Note Initiated On: 04/29/2023 11:57 AM Number of Addenda: 0 I attest to the content of the Intraoperative Record and orders documented therein, exceptions below {[id number]}
--- NOTE | 2023-05-02 17:18 | Hospitalist Progress Note ---
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 Acute blood loss anemia likely secondary to upper GI bleed History of GI bleed and PRBC transfusions Hemoglobin 4.6 at presentation and received 3 units of PRBCs so far-globin went up to 6.9 Hold aspirin Continue with Protonix drip Appreciate GI input and recommendation Hemoglobin went up to 7.5-we will hold any blood transfusion right now Monitor CBC and continue current Protonix drip Hemoglobin remains stable black stool continued No significant abdominal pain Will change the drip to p.o. medication Chest x-ray showed possible consolidation Will start intravenous doxycycline Has been getting doxycycline for possible bronchitis/pneumonia Status post EGD Bleeding gastric AVMs-cauterized We will monitor H&H and give blood transfusion if needed Hemoglobin 7.5-we will monitor History of COPD Chronic respiratory failure 3 to 4 L oxygen Continue home inhalers No acute respiratory symptoms and has been saturating normally on 2 L No other respiratory symptoms Chronic diastolic CHF Monitor for volume overload No signs and or symptoms of volume overload History of essential tremor Continues mild and recoup at home Squamous cell cancer of external ear S/p excision and immunotherapy Follow-up with heme-onc Hypertension Continue amlodipine Imdur with holding parameters Hypothyroidism On Synthyroid DVT prophylaxis SCDs Disposition telemetry floor CODE STATUS full code as per discussion with the patient Admission and Anticipated Discharge Date Admission Date: April 28, 2023 Subjective 04/29/2023 The patient was seen and examined in telemetry unit He was admitted with acute blood loss anemia with hemoglobin as low as 4.6 He has been receiving blood transfusions And will have EGD in the afternoon 04/30/2023 The patient was seen and examined in telemetry unit He has been feeling much better today Has not had any bowel movement for the last 5 to 7 days Denies any significant abdominal distention and her discomfort Has cough without any phlegm 05/01/2023 The patient was seen and examined in telemetry unit in presence of the family members He has been doing much better with a hemoglobin went up to 7.7 Has constipation but no other symptoms Review of Systems Review of Systems: All systems reviewed and are unremarkable except as noted below Physical Exam Physical Exam: Lying in bed without any apparent distress Constitutional: well developed, well nourished, + ill appearing and average body habitus Eyes: PERRL, conjunctivae normal, anicteric sclerae ENMT: external ear and nose normal, oropharynx normal Neck: trachea midline, no thyromegaly Respiratory: no respiratory distress Auscultation: lungs clear to auscultation bilaterally Cardiovascular: Rate/Rhythm: regular rate and regular rhythm; not tachycardic Heart Sounds: normal S1 and normal S2; no murmur Gastrointestinal (Abdomen): Inspection/Auscultation: normal bowel sounds; abdomen not distended Percussion/Palpation: + abdomen tender (Epigastrium) and abdomen soft Neurologic: normal touch/pain/proprioception and moves all extremities; no focal motor deficits Lymphatic: no cervical or axillary lymphadenopathy Results & Data Results & Data Vital Signs (Past 12 Hours) Vital Signs Temp Pulse Pulse Resp BP BP Pulse Ox 05/02/23 15:30 37.1 C 67 18 127/61 96 05/02/23 14:00 37.2 C 64 16 114/48 L 96 05/02/23 12:37 37.5 C 72 20 118/61 93 05/02/23 11:05 71 05/02/23 11:05 05/02/23 07:37 37.0 C 69 20 107/50 L 94 O2 Del Method O2 Flow Rate 05/02/23 15:30 Nasal Cannula 2 05/02/23 14:00 Nasal Cannula 2 05/02/23 12:37 Nasal Cannula 2.0 05/02/23 11:05 05/02/23 11:05 Nasal Cannula 2 05/02/23 07:37 Nasal Cannula 2.0
--- NOTE | 2023-05-02 17:23 | Hospitalist Progress Note ---
Date of Service May 02, 2023 Assessment & Plan (1) Acute anemia: Plan: 87-year-old male with past medical history significant for HTN, diastolic CHF, COPD, chronic respiratory failure with 3 to 4 L oxygen at home, squamous cell carcinoma of the ear, head and neck, status post lesion removal, diagnosed October 2021, hypothyroidism, blindness in left eye since 2013, hx of COPD exacerbation with possible aspiration pneumonitis, history of chronic anemia and history of GI bleed presents with not feeling good at home for the last week. Acute blood loss anemia likely secondary to upper GI bleed History of GI bleed and PRBC transfusions Hemoglobin 4.6 at presentation and received 3 units of PRBCs so far-globin went up to 6.9 Hold aspirin Continue with Protonix drip Appreciate GI input and recommendation Hemoglobin went up to 7.5-we will hold any blood transfusion right now Monitor CBC and continue current Protonix drip Hemoglobin remains stable black stool continued No significant abdominal pain Will change the drip to p.o. medication Hemoglobin remains stable at 7.4 Creatinine went up a little-could be secondary to ongoing bleeding and/or recent bleeding Will monitor CBC and PRP Continue PT OT and likely discharge tomorrow Chest x-ray showed possible consolidation Will start intravenous doxycycline Has been getting doxycycline for possible bronchitis/pneumonia Status post EGD: Normal esophagus, 2 bleeding angiectasis in the stomach treated with argon plasma coagulation. Clips were placed as well We will monitor H&H and give blood transfusion if needed Hemoglobin 7.5-we will monitor Will continue PPI 2 times a day Add sucralfate for ongoing abdominal pain Complains to abdominal pain CT scan did not show any diverticulitis Minimally tender epigastrium and right lower quadrant Will add sucralfate on top up PPI May be secondary to constipation we will start MiraLAX History of COPD Chronic respiratory failure 3 to 4 L oxygen Continue home inhalers No acute respiratory symptoms and has been saturating normally on 2 L No other respiratory symptoms Chronic diastolic CHF Monitor for volume overload No signs and or symptoms of volume overload History of essential tremor Continues mild and recoup at home Squamous cell cancer of external ear S/p excision and immunotherapy Follow-up with heme-onc Hypertension Continue amlodipine Imdur with holding parameters Hypothyroidism On Synthyroid DVT prophylaxis SCDs Disposition telemetry floor CODE STATUS full code as per discussion with the patient Admission and Anticipated Discharge Date Admission Date: April 28, 2023 Subjective 04/29/2023 The patient was seen and examined in telemetry unit He was admitted with acute blood loss anemia with hemoglobin as low as 4.6 He has been receiving blood transfusions And will have EGD in the afternoon 04/30/2023 The patient was seen and examined in telemetry unit He has been feeling much better today Has not had any bowel movement for the last 5 to 7 days Denies any significant abdominal distention and her discomfort Has cough without any phlegm 05/01/2023 The patient was seen and examined in telemetry unit in presence of the family members He has been doing much better with a hemoglobin went up to 7.7 Has constipation but no other symptoms 05/02/2023 The patient was seen and examined in telemetry unit He has been complaining of abdominal pain and discomfort without nausea or vomiting Bowel movement yesterday but not today Complains to have some feverish feeling as well Review of Systems Review of Systems: All systems reviewed and are unremarkable except as noted below Physical Exam Physical Exam: Lying in bed without any apparent distress Constitutional: well developed, well nourished, + ill appearing and average body habitus Eyes: PERRL, conjunctivae normal, anicteric sclerae ENMT: external ear and nose normal, oropharynx normal Neck: trachea midline, no thyromegaly Respiratory: no respiratory distress Auscultation: lungs clear to auscultation bilaterally Cardiovascular: Rate/Rhythm: regular rate and regular rhythm; not tachycardic Heart Sounds: normal S1 and normal S2; no murmur Gastrointestinal (Abdomen): Inspection/Auscultation: + abdomen distended (Soft) and normal bowel sounds Percussion/Palpation: + abdomen tender (Right lower quadrant) and abdomen soft Neurologic: normal touch/pain/proprioception and moves all extremities; no focal motor deficits Lymphatic: no cervical or axillary lymphadenopathy Results & Data Results & Data Vital Signs (Past 12 Hours) Vital Signs Temp Pulse Pulse Resp BP BP Pulse Ox 05/02/23 15:30 37.1 C 67 18 127/61 96 05/02/23 14:00 37.2 C 64 16 114/48 L 96 05/02/23 12:37 37.5 C 72 20 118/61 93 05/02/23 11:05 71 05/02/23 11:05 05/02/23 07:37 37.0 C 69 20 107/50 L 94 O2 Del Method O2 Flow Rate 05/02/23 15:30 Nasal Cannula 2 05/02/23 14:00 Nasal Cannula 2 05/02/23 12:37 Nasal Cannula 2.0 05/02/23 11:05 05/02/23 11:05 Nasal Cannula 2 05/02/23 07:37 Nasal Cannula 2.0 Laboratory Results Short CBC 05/02/23 Range/Units 09:00 WBC 7.43 (4.8-10.8) K/ul Hgb 7.4 L (14.0-18.0) g/dl Hct 24.0 L (42.0-52.0) % Plt Count 327 (130-400) K/uL BMP 05/02/23 09:00 Sodium 135 L Potassium 4.5 Chloride 102 Carbon Dioxide 29 BUN 25 H Creatinine 1.68 H Glucose 124 H Calcium 7.9 L Medications Administered Current Inpatient Medications Acetaminophen (Acetaminophen 325 Mg Tab) 650 mg PO Q4H PRN PRN Reason: Pain or Fever Stop: 05/31/23 04:15 Last Admin: 05/02/23 14:50 Dose: 650 mg Albuterol (Albuterol 0.083% Nebu Soln 3 Ml Vial) 2.5 mg INH QID PRN; Protocol PRN Reason: Shortness Of Breath Stop: 05/29/23 00:06 Albuterol (Albuterol Hfa 8 Gm Inhaler) 2 puffs INH Q4H PRN PRN Reason: SHORT OF BREATH/COUGH/WHEEZING Stop: 05/29/23 00:06 Last Admin: 04/29/23 08:53 Dose: 2 puffs Amlodipine Besylate (Amlodipine Besylate 5 Mg Tab) 5 mg PO DAILY [facility] Stop: 05/29/23 08:59 Last Admin: 05/02/23 09:21 Dose: 5 mg Artificial Tears (Artificial Tears) 1 drops OP BID [facility] Stop: 05/29/23 08:59 Last Admin: 05/02/23 09:32 Dose: 1 drops Ascorbic Acid (Ascorbic Acid 500 Mg Tab) 500 mg PO BID [facility] Stop: 05/29/23 08:59 Last Admin: 05/02/23 09:21 Dose: 500 mg Doxycycline Hyclate (Doxycycline Hyclate 100 Mg Cap) 100 mg PO BID@0700,1900 [facility] Stop: 05/07/23 18:59 Last Admin: 05/02/23 06:00 Dose: 100 mg Ferrous Sulfate (Ferrous Sulfate 325 Mg Tab) 325 mg PO DAILY [facility] Stop: 05/29/23 08:59 Last Admin: 05/02/23 09:22 Dose: 325 mg Fluticasone/Vilanterol (Fluticasone/Vilanterol 200/25mcg 14 Puffs/Inhaler) 1 puffs INH DAILY [facility] Stop: 05/29/23 08:59 Last Admin: 05/02/23 09:24 Dose: 1 puffs Gabapentin (Gabapentin 100 Mg Cap) 100 mg PO QAM [facility] Stop: 05/29/23 08:59 Last Admin: 05/02/23 09:21 Dose: 100 mg Gabapentin (Gabapentin 300 Mg Cap) 300 mg PO HS [facility] Stop: 05/29/23 20:59 Last Admin: 05/01/23 20:07 Dose: 300 mg Isosorbide Mononitrate (Isosorbide [place] Extended Rel 30 Mg Tabcr) 30 mg PO QAM [facility] Stop: 05/29/23 08:59 Last Admin: 05/02/23 09:21 Dose: 30 mg Levothyroxine Sodium (Levothyroxine Sodium 50 Mcg Tablet) 50 mcg PO DAILYBB [facility] Stop: 05/29/23 06:29 Last Admin: 05/02/23 06:00 Dose: 50 mcg Multivitamins/Minerals (Cerovite Adv Formula Tab) 1 tab PO DAILY [facility] Stop: 05/29/23 08:59 Last Admin: 05/02/23 09:20 Dose: 1 tab Nitroglycerin (Nitroglycerin Sl 0.4 Mg/Tab Tab) 0.4 mg SL Q5M PRN PRN Reason: Chest Pain Stop: 05/29/23 00:06 Ondansetron HCl (Ondansetron Inj 2 Mg/Ml 2 Ml Vial) 4 mg IV Q6H PRN PRN Reason: Nausea Stop: 05/29/23 00:06 Last Admin: 05/01/23 16:51 Dose: 4 mg Pantoprazole Sodium (Pantoprazole 40 Mg Tab) 40 mg PO BID [facility] Stop: 05/31/23 20:59 Last Admin: 05/02/23 09:21 Dose: 40 mg Polyethylene Glycol (Polyethylene (Miralax) 17 Gm Pack) 17 gm PO DAILY [facility] Stop: 06/01/23 15:59 Roflumilast (Roflumilast 500 Mcg Tab) 250 mcg PO DAILY [facility] Stop: 05/29/23 08:59 Last Admin: 05/02/23 09:23 Dose: 250 mcg Ropinirole HCl (Ropinirole Hcl 0.25 Mg Tablet) 0.25 mg PO DAILY@1900 [facility] Stop: 05/29/23 18:59 Last Admin: 05/01/23 20:08 Dose: 0.25 mg Sucralfate (Sucralfate 1 Gm/10 Ml Udc) 1 gm PO BID [facility] Stop: 06/01/23 20:59 Umeclidinium [place] (Umeclidinium [place] 62.5mcg/Blister 7 Puffs/Inhaler) 1 puffs INH DAILY [facility] Stop: 05/29/23 08:59 Last Admin: 05/02/23 09:24 Dose: 1 puffs Vitamin D (Cholecalciferol 1,000 Units 25 Mcg Tab) 1,000 units PO DAILY [facility] Stop: 05/29/23 08:59 Last Admin: 05/02/23 09:22 Dose: 1,000 units Zonisamide (Zonisamide) 1 each PO HS [facility] Stop: 05/30/23 20:59 Last Admin: 05/01/23 20:08 Dose: 1 each
[2023-05-02] MEDS: POLYETHYLENE (MIRALAX) 17 GM PACK PO SCH (17:44)
[2023-05-02] MEDS: rOPINIRole HCL 0.25 MG TABLET PO SCH (19:24)
[2023-05-02] MEDS: ZONISAMIDE PO SCH (20:17)
[2023-05-02] MEDS: GABAPENTIN 300 MG CAP PO SCH (20:19)
[2023-05-02] MEDS: SUCRALFATE 1 GM/10 ML UDC PO SCH (20:20)
[2023-05-03 04:30] LABS: Basophils # (auto) 0.03 K/uL (0.00-0.20); Basophils % (auto) 0.4 %; Hematocrit (blood only) 24.5 % (42.0-52.0); Hemoglobin 7.4 g/dl (14.0-18.0); Immature Granulocytes # (auto) 0.18 K/uL (0.01-0.20); Immature Granulocytes % (auto) 2.6 %; Lymphocytes # (auto) 0.86 K/uL (1.20-3.40); Lymphocytes % (auto) 12.5 %; Mean Corpuscular Hemoglobin 26.4 pg (25.0-34.0); Mean Corpuscular Hgb Conc 30.2 g/dL (32.0-36.0); Mean Corpuscular Volume 87.5 fL (80.0-100.0); Mean Platelet Volume 9.7 fL (9.4-12.4); Monocytes # (auto) 1.24 K/uL (0.11-0.59); Neutrophils # (auto) 4.59 K/uL (1.40-6.50); Neutrophils % (auto) 66.5 %; Platelet Count 348 K/uL (130-400); RDW Coefficient of Variation 15.7 % (11.5-14.5); RDW Standard Deviation 49.9 fL (36.4-46.3)
[2023-05-03 04:48] LABS: BUN Creatinine Ratio 14.7 (10-20); Calcium 8.1 mg/dl (8.6-10.3); Creatinine Clr Calc Pharmacy 26.5 ml/min; Est GFR (African American) 38.6 ml/min; Est GFR (Non-African American) 33.3 ml/min; Potassium 4.2 mmol/L (3.5-5.1)
[2023-05-03 05:00] LABS: Polychromasia 1+
[2023-05-03] MEDS: LEVOTHYROXINE SODIUM 50 MCG TABLET PO SCH (06:40)
[2023-05-03] MEDS: CEROVITE ADV FORMULA TAB PO SCH (08:03)
[2023-05-03] MEDS: amLODIPine BESYLATE 5 MG TAB PO SCH (08:03)
[2023-05-03] MEDS: ASCORBIC ACID 500 MG TAB PO SCH ×2 (08:03→21:28)
[2023-05-03] MEDS: PANTOprazole 40 MG TAB PO SCH ×2 (08:03→21:28)
[2023-05-03] MEDS: GABAPENTIN 100 MG CAP PO SCH (08:03)
[2023-05-03] MEDS: DOXYCYCLINE HYCLATE 100 MG CAP PO SCH (08:03)
[2023-05-03] MEDS: CHOLECALCIFEROL 1,000 UNITS 25 MCG TAB PO SCH (08:03)
[2023-05-03] MEDS: ISOSORBIDE MONO EXTENDED REL 30 MG TABCR PO SCH (08:03)
[2023-05-03] MEDS: FERROUS SULFATE 325 MG TAB PO SCH (08:03)
[2023-05-03] MEDS: POLYETHYLENE (MIRALAX) 17 GM PACK PO SCH (08:04)
[2023-05-03] MEDS: ROFLUMILAST 500 MCG TAB PO SCH (08:04)
[2023-05-03] MEDS: SUCRALFATE 1 GM/10 ML UDC PO SCH ×2 (08:04→21:28)
[2023-05-03] MEDS: UMECLIDINIUM BROMIDE 62.5MCG/BLISTER 7 PUFFS/INHALER INH SCH (08:05)
[2023-05-03] MEDS: FLUTICASONE/VILANTEROL 200/25MCG 14 PUFFS/INHALER INH SCH (08:06)
[2023-05-03] MEDS: ONDANSETRON INJ 2 MG/ML 2 ML VIAL IV PRN (08:16)
[2023-05-03] MEDS: ARTIFICIAL TEARS OP SCH ×2 (09:03→21:29)
[2023-05-03] MEDS ORDERED: SOD PHOSPHATE/SOD BIPHOSPHATE ENEMA 132 ML BTL PR STA (11:02)
--- NOTE | 2023-05-03 15:57 | XRay Report ---
XR chest 1V portable CLINICAL HISTORY: CHF TECHNIQUE: Single frontal radiograph of the chest was obtained. Comparison: Comparison is made to chest radiograph dated 01/19/2023 and CTA chest 09/29/2022 FINDINGS: No lines and tubes are seen. The cardiomediastinal silhouette is normal. Emphysema is noted. Perihila r prominence may represent pulmonary vasculature, underlying lymphadenopathy cannot be excluded. Prom inence of the pulmonary vasculature is noted. No evidence of pleural effusion or pneumothorax. IMPRESSION: Mild pulmonary vascular congestion. ACT 112: Negative or not required by law. Electronically signed by: Tyree Madison M.D. 05/03/2023 3:56 PM
[2023-05-03] MEDS ORDERED: FUROSEMIDE INJ 20 MG/2 ML VIAL IV ONE (17:27)
--- NOTE | 2023-05-03 17:33 | Hospitalist Progress Note ---
Date of Service May 03, 2023 Assessment & Plan (1) Acute anemia: Plan: 87-year-old male with past medical history significant for HTN, diastolic CHF, COPD, chronic respiratory failure with 3 to 4 L oxygen at home, squamous cell carcinoma of the ear, head and neck, status post lesion removal, diagnosed October 2021, hypothyroidism, blindness in left eye since 2013, hx of COPD exacerbation with possible aspiration pneumonitis, history of chronic anemia and history of GI bleed presents with not feeling good at home for the last week. Acute blood loss anemia likely secondary to upper GI bleed History of GI bleed and PRBC transfusions Hemoglobin 4.6 at presentation and received 3 units of PRBCs so far-globin went up to 6.9 Hold aspirin Continue with Protonix drip Appreciate GI input and recommendation Hemoglobin went up to 7.5-we will hold any blood transfusion right now Monitor CBC and continue current Protonix drip Hemoglobin remains stable black stool continued No significant abdominal pain Will change the drip to p.o. medication Hemoglobin remains stable at 7.4 Creatinine went up a little-could be secondary to ongoing bleeding and/or recent bleeding Will monitor CBC and PRP Hemoglobin remains stable at 7.4-we will monitor CBC tomorrow and may need more blood transfusion ZURDO- Creatinine is a little up-could be secondary to ongoing bleeding Was given 20 of Lasix IV with chest x-ray finding this morning Creatinine may go up further but the patient was advised to drink more fluid Monitor PRP Chest x-ray showed possible consolidation Will start intravenous doxycycline Has been getting doxycycline for possible bronchitis/pneumonia Will get repeat chest [id number] possible congestion without any consolidation Will give a small dose of Lasix 20 mg IV this evening Is stopped doxycycline which may cause abdominal pain Status post EGD: Normal esophagus, 2 bleeding angiectasis in the stomach treated with argon plasma coagulation. Clips were placed as well We will monitor H&H and give blood transfusion if needed Hemoglobin 7.5-we will monitor Will continue PPI 2 times a day Add sucralfate for ongoing abdominal pain Will check CBC and if hemoglobin is below 7 will get blood transfusion Complains to abdominal pain CT scan did not show any diverticulitis Minimally tender epigastrium and right lower quadrant Will add sucralfate on top up PPI May be secondary to constipation we will start MiraLAX Bowel is not moved again-Will give enema He takes castor oil as an outpatient which is nonformulary History of COPD Chronic respiratory failure 3 to 4 L oxygen Continue home inhalers No acute respiratory symptoms and has been saturating normally on 2 L No other respiratory symptoms Chronic diastolic CHF Monitor for volume overload No signs and or symptoms of volume overload Chest x-ray did show mild congestion-give a small dose of Lasix History of essential tremor Continues mild and recoup at home Squamous cell cancer of external ear S/p excision and immunotherapy Follow-up with heme-onc Hypertension Continue amlodipine Imdur with holding parameters Hypothyroidism On Synthyroid DVT prophylaxis SCDs Disposition telemetry floor CODE STATUS full code as per discussion with the patient Admission and Anticipated Discharge Date Admission Date: April 28, 2023 Subjective 04/29/2023 The patient was seen and examined in telemetry unit He was admitted with acute blood loss anemia with hemoglobin as low as 4.6 He has been receiving blood transfusions And will have EGD in the afternoon 04/30/2023 The patient was seen and examined in telemetry unit He has been feeling much better today Has not had any bowel movement for the last 5 to 7 days Denies any significant abdominal distention and her discomfort Has cough without any phlegm 05/01/2023 The patient was seen and examined in telemetry unit in presence of the family members He has been doing much better with a hemoglobin went up to 7.7 Has constipation but no other symptoms 05/02/2023 The patient was seen and examined in telemetry unit He has been complaining of abdominal pain and discomfort without nausea or v omiting Bowel movement yesterday but not today Complains to have some feverish feeling as well 05/03/2023 The patient was seen and examined in telemetry unit He still complains to have some abdominal discomfort without nausea or vomiting Bowel is not moved Has been requiring oxygen up to 3 L/min to maintain saturation Not yet ready to be discharged Review of Systems Review of Systems: All systems reviewed and are unremarkable except as noted below Physical Exam Physical Exam: Lying in bed without any apparent distress Constitutional: well developed, well nourished, + ill appearing and average body habitus Eyes: PERRL, conjunctivae normal, anicteric sclerae ENMT: external ear and nose normal, oropharynx normal Neck: trachea midline, no thyromegaly Respiratory: no respiratory distress Auscultation: lungs clear to auscultation bilaterally Cardiovascular: Rate/Rhythm: regular rate and regular rhythm; not tachycardic Heart Sounds: normal S1 and normal S2; no murmur Gastrointestinal (Abdomen): Inspection/Auscultation: + abdomen distended (Soft) and normal bowel sounds Percussion/Palpation: + abdomen tender (Right lower quadrant) and abdomen soft Neurologic: normal touch/pain/proprioception and moves all extremities; no focal motor deficits Lymphatic: no cervical or axillary lymphadenopathy Results & Data Results & Data Vital Signs (Past 12 Hours) Vital Signs Temp Pulse Pulse Resp BP Pulse Ox O2 Del Method 05/03/23 15:51 66 05/03/23 15:23 37.3 C 71 18 121/52 L 99 Nasal Cannula 05/03/23 11:35 37.1 C 71 19 127/63 96 Nasal Cannula 05/03/23 08:04 37.1 C 68 19 117/52 L 92 Nasal Cannula 05/03/23 07:54 68 05/03/23 07:41 Nasal Cannula O2 Flow Rate 05/03/23 15:51 05/03/23 15: 3.0 05/03/23 11:35 3.0 05/03/23 08:04 3.0 05/03/23 07:54 05/03/23 07:41 2 Laboratory Results Short CBC 05/03/23 Range/Units 03:14 WBC 6.90 (4.8-10.8) K/ul Hgb 7.4 L (14.0-18.0) g/dl Hct 24.5 L (42.0-52.0) % Plt Count 348 (130-400) K/uL BMP 05/03/23 03:14 Sodium 135 L Potassium 4.2 Chloride 101 Carbon Dioxide 30 BUN 26 H Creatinine 1.77 H Glucose 102 H Calcium 8.1 L Medications Administered Current Inpatient Medications Acetaminophen (Acetaminophen 325 Mg Tab) 650 mg PO Q4H PRN PRN Reason: Pain or Fever Stop: 05/31/23 04:15 Last Admin: 05/02/23 14:50 Dose: 650 mg Albuterol (Albuterol 0.083% Nebu Soln 3 Ml Vial) 2.5 mg INH QID PRN; Protocol PRN Reason: Shortness Of Breath Stop: 05/29/23 00:06 Albuterol (Albuterol Hfa 8 Gm Inhaler) 2 puffs INH Q4H PRN PRN Reason: SHORT OF BREATH/COUGH/WHEEZING Stop: 05/29/23 00:06 Last Admin: 04/29/23 08:53 Dose: 2 puffs Amlodipine Besylate (Amlodipine Besylate 5 Mg Tab) 5 mg PO DAILY [facility] Stop: 05/29/23 08:59 Last Admin: 05/03/23 08:03 Dose: 5 mg Artificial Tears (Artificial Tears) 1 drops OP BID [facility] Stop: 05/29/23 08:59 Last Admin: 05/03/23 09:03 Dose: 1 drops Ascorbic Acid (Ascorbic Acid 500 Mg Tab) 500 mg PO BID [facility] Stop: 05/29/23 08:59 Last Admin: 05/03/23 08:03 Dose: 500 mg Doxycycline Hyclate (Doxycycline Hyclate 100 Mg Cap) 100 mg PO BID@0700,1900 [facility] Stop: 05/07/23 18:59 Last Admin: 05/03/23 08:03 Dose: 100 mg Ferrous Sulfate (Ferrous Sulfate 325 Mg Tab) 325 mg PO DAILY [facility] Stop: 05/29/23 08:59 Last Admin: 05/03/23 08:03 Dose: 325 mg Fluticasone/Vilanterol (Fluticasone/Vilanterol 200/25mcg 14 Puffs/Inhaler) 1 puffs INH DAILY [facility] Stop: 05/29/23 08:59 Last Admin: 05/03/23 08:06 Dose: 1 puffs Furosemide (Furosemide Inj 20 Mg/2 Ml Vial) 20 mg IV ONE ONE Stop: 05/03/23 17:28 Gabapentin (Gabapentin 100 Mg Cap) 100 mg PO QAM [facility] Stop: 05/29/23 08:59 Last Admin: 05/03/23 08:03 Dose: 100 mg Gabapentin (Gabapentin 300 Mg Cap) 300 mg PO HS [facility] Stop: 05/29/23 20:59 Last Admin: 05/02/23 20:19 Dose: 300 mg Isosorbide Mononitrate (Isosorbide [place] Extended Rel 30 Mg Tabcr) 30 mg PO QAM [facility] Stop: 05/29/23 08:59 Last Admin: 05/03/23 08:03 Dose: 30 mg Levothyroxine Sodium (Levothyroxine Sodium 50 Mcg Tablet) 50 mcg PO DAILYBB [facility] Stop: 05/29/23 06:29 Last Admin: 05/03/23 06:40 Dose: 50 mcg Multivitamins/Minerals (Cerovite Adv Formula Tab) 1 tab PO DAILY [facility] Stop: 05/29/23 08:59 Last Admin: 05/03/23 08:03 Dose: 1 tab Nitroglycerin (Nitroglycerin Sl 0.4 Mg/Tab Tab) 0.4 mg SL Q5M PRN PRN Reason: Chest Pain Stop: 05/29/23 00:06 Ondansetron HCl (Ondansetron Inj 2 Mg/Ml 2 Ml Vial) 4 mg IV Q6H PRN PRN Reason: Nausea Stop: 05/29/23 00:06 Last Admin: 05/03/23 08:16 Dose: 4 mg Pantoprazole Sodium (Pantoprazole 40 Mg Tab) 40 mg PO BID [facility] Stop: 05/31/23 20:59 Last Admin: 05/03/23 08:03 Dose: 40 mg Polyethylene Glycol (Polyethylene (Miralax) 17 Gm Pack) 17 gm PO DAILY [facility] Stop: 06/01/23 15:59 Last Admin: 05/03/23 08:04 Dose: 17 gm Roflumilast (Roflumilast 500 Mcg Tab) 250 mcg PO DAILY [facility] Stop: 05/29/23 08:59 Last Admin: 05/03/23 08:04 Dose: 250 mcg Ropinirole HCl (Ropinirole Hcl 0.25 Mg Tablet) 0.25 mg PO DAILY@1900 [facility] Stop: 05/29/23 18:59 Last Admin: 05/02/23 19:24 Dose: 0.25 mg Sucralfate (Sucralfate 1 Gm/10 Ml Udc) 1 gm PO BID [facility] Stop: 06/01/23 20:59 Last Admin: 05/03/23 08:04 Dose: 1 gm Umeclidinium [place] (Umeclidinium [place] 62.5mcg/Blister 7 Puffs/Inhaler) 1 puffs INH DAILY [facility] Stop: 05/29/23 08:59 Last Admin: 05/03/23 08:05 Dose: 1 puffs Vitamin D (Cholecalciferol 1,000 Units 25 Mcg Tab) 1,000 units PO DAILY [facility] Stop: 05/29/23 08:59 Last Admin: 05/03/23 08:03 Dose: 1,000 units Zonisamide (Zonisamide) 1 each PO HS [facility] Stop: 05/30/23 20:59 Last Admin: 05/02/23 20:17 Dose: 1 each
[2023-05-03] MEDS: rOPINIRole HCL 0.25 MG TABLET PO SCH (17:55)
[2023-05-03] MEDS: GABAPENTIN 300 MG CAP PO SCH (21:28)
[2023-05-03] MEDS: ZONISAMIDE PO SCH (21:31)
[2023-05-04 05:30] LABS: Basophils # (auto) 0.02 K/uL (0.00-0.20); Basophils % (auto) 0.3 %; Hematocrit (blood only) 22.3 % (42.0-52.0); Immature Granulocytes # (auto) 0.12 K/uL (0.01-0.20); Immature Granulocytes % (auto) 1.8 %; Lymphocytes # (auto) 0.77 K/uL (1.20-3.40); Lymphocytes % (auto) 11.7 %; Mean Corpuscular Hemoglobin 26.6 pg (25.0-34.0); Mean Corpuscular Hgb Conc 31.4 g/dL (32.0-36.0); Mean Corpuscular Volume 84.8 fL (80.0-100.0); Mean Platelet Volume 9.5 fL (9.4-12.4); Monocytes # (auto) 1.33 K/uL (0.11-0.59); Monocytes % (auto) 20.3 %; Neutrophils # (auto) 4.32 K/uL (1.40-6.50); Neutrophils % (auto) 65.9 %; Platelet Count 338 K/uL (130-400); RDW Coefficient of Variation 15.7 % (11.5-14.5); RDW Standard Deviation 48.5 fL (36.4-46.3); Red Blood Count 2.63 M/uL (4.70-6.10); White Blood Count 6.56 K/ul (4.8-10.8)
[2023-05-04 05:47] LABS: BUN Creatinine Ratio 14.4 (10-20); Calcium 7.9 mg/dl (8.6-10.3); Creatinine Clr Calc Pharmacy 25.9 ml/min; Est GFR (African American) 37.6 ml/min; Est GFR (Non-African American) 32.4 ml/min; Potassium 4.1 mmol/L (3.5-5.1)
[2023-05-04 05:49] LABS: Hypochromasia Present; Tear Drop Cells 1+
[2023-05-04] MEDS: LEVOTHYROXINE SODIUM 50 MCG TABLET PO SCH (06:26)
[2023-05-04] MEDS ORDERED: SODIUM CHLORIDE 0.9% 250 ML IV PRN (08:40)
[2023-05-04] MEDS ORDERED: ACETAMINOPHEN 325 MG TAB PO ONE (08:42)
[2023-05-04] MEDS: CHOLECALCIFEROL 1,000 UNITS 25 MCG TAB PO SCH (08:58)
[2023-05-04] MEDS: amLODIPine BESYLATE 5 MG TAB PO SCH (08:58)
[2023-05-04] MEDS: GABAPENTIN 100 MG CAP PO SCH (08:58)
[2023-05-04] MEDS: ARTIFICIAL TEARS OP SCH ×2 (08:58→20:43)
[2023-05-04] MEDS: ISOSORBIDE MONO EXTENDED REL 30 MG TABCR PO SCH (08:58)
[2023-05-04] MEDS: ASCORBIC ACID 500 MG TAB PO SCH ×2 (08:58→20:43)
[2023-05-04] MEDS: FERROUS SULFATE 325 MG TAB PO SCH (08:58)
[2023-05-04] MEDS: ROFLUMILAST 500 MCG TAB PO SCH (08:59)
[2023-05-04] MEDS: UMECLIDINIUM BROMIDE 62.5MCG/BLISTER 7 PUFFS/INHALER INH SCH (08:59)
[2023-05-04] MEDS: SUCRALFATE 1 GM/10 ML UDC PO SCH ×2 (08:59→20:42)
[2023-05-04] MEDS: FLUTICASONE/VILANTEROL 200/25MCG 14 PUFFS/INHALER INH SCH (08:59)
[2023-05-04] MEDS: POLYETHYLENE (MIRALAX) 17 GM PACK PO SCH (08:59)
[2023-05-04] MEDS: CEROVITE ADV FORMULA TAB PO SCH (08:59)
[2023-05-04] MEDS: PANTOprazole 40 MG TAB PO SCH ×2 (10:08→20:42)
--- NOTE | 2023-05-04 11:36 | Nephrology Consultation ---
Date of Consultation May 04, 2023 Assessment & Plan (1) Acute renal failure superimposed on stage 3 chronic kidney disease: Nonoliguric stage I acute kidney injury on CKD 3. Baseline CKD has been progressive this year moving from creatinine 1.1-1.3 more to the 1.3-1.4 range in the second half of the year. Few outpatient data points available. No exposure to IV contrast (since 02/26 admission) or to NSAIDs. In the setting of Proteus UTI and severe ongoing anemia. He is 3.6 L positive on the admission, though UOP not fully tracked so true positivity likely less. He did have protracted relative systolic hypotension w/ SBP 90-100s for about 48 hrs 04/28- 04/30 > seems delayed to have renal function worsen only now from this. he did have a 20 mg lasix dose yesterday. he is currently getting 250 mL NS as well as a unit of pRBC. Data are limited but working dx at this point is ischemic ATN. Repeat UA CM Daily basic metabolic panel check post void residual -continue to transfuse prn for hgb 7 or lower or w/ sx History of Present Illness Reason for Consultation: ZURDO Requesting Physician: Dr Arredondo Attending Physician: Sherwin Arredondo MD History of Present Illness 87-year-old male whom I am asked to evaluate for acute kidney injury was admitted on April 28 within acute blood loss anemia and presenting hemoglobin 4.6. Found subsequently to have UGIB. so far has had 3 units pRBC. Creatinine on presentation was 1.5, downtrended to 1.3 on April 30 and then began an uptrend to peak at 1.8 today. 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 No OP labs in [facility] but in [place] in early 2022 his baseline creatinine appears around 1.1- 1.3. This is with some progression since September >> since January he is more consistently 1.3-1.4, though data points are limited. He had LLQ twinges of abdominal pain a few days back; he endorses stable chronic urinary frequency. No sob, no current abdominal chest or musculoskeletal pain. no edema. Allergies Allergy/AdvReac Type Severity Reaction Status Date / Time cefuroxime Allergy Intermediate Rash Verified 04/28/23 20:56 ertapenem Allergy Unknown Unknown Verified 04/28/23 20:56 levofloxacin [From Levaquin] Allergy Unknown Unknown Verified 04/28/23 20:56 BETA-LACTAMS Allergy Intermediate Rash Uncoded 04/28/23 20:56 FLUOROQUINOLONES Allergy Intermediate Rash Uncoded 04/28/23 20:56 Home Medications Medication Instructions Recorded Confirmed Type albuterol sulfate 2.5 mg/3 mL 3 ml inhalation QID PRN Shortness 10/04/18 04/28/23 History (0.083 %) solution for nebulization Of Breath albuterol sulfate 90 mcg/actuation 2 puff inhalation Q4H PRN SHORT OF 10/04/18 04/28/23 History aerosol inhaler BREATH/COUGH/WHEEZING ferrous sulfate 325 mg (65 mg 325 mg PO DAILY 10/04/18 04/28/23 History iron) tablet tiotropium bromide 2.5 2 puff inhalation DAILY 10/04/18 04/28/23 History mcg/actuation mist for inhalation isosorbide mononitrate 60 mg 30 mg PO QAM 09/29/22 04/28/23 History tablet,extended release 24 hr amlodipine 5 mg tablet 5 mg PO DAILY 01/19/23 04/28/23 History cholecalciferol (vitamin D3) 25 25 mcg PO DAILY 01/19/23 04/28/23 History mcg (1,000 unit) capsule (Vitamin D3) fluticasone 250 mcg-salmeterol 50 1 inh inhalation BID 01/19/23 04/28/23 History mcg/dose blistr powdr for inhalation peg 400-propylene glycol (PF) 0.4 1 drp OPL BID 01/19/23 04/28/23 History %-0.3 % eye drops in a dropperette (Lubricant Eye (PG-PEG 400) (PF)) ropinirole 0.25 mg tablet 0.25 mg PO HS 01/19/23 04/28/23 History zonisamide 25 mg capsule 25 mg PO HS 01/19/23 04/28/23 History ascorbic acid (vitamin C) 500 mg 500 mg PO BID 04/28/23 04/28/23 History tablet aspirin 81 mg tablet,delayed 81 mg PO DAILY 04/28/23 04/28/23 History release diclofenac sodium 1 % topical gel 2 g topical QID PRN Pain 04/28/23 04/28/23 History gabapentin 100 mg capsule 100 mg PO QAM 04/28/23 04/28/23 History gabapentin 100 mg capsule 300 mg PO HS 04/28/23 04/28/23 History levothyroxine 50 mcg tablet 50 mcg PO DAILY 04/28/23 04/28/23 History multivitamin with minerals 1 tab PO DAILY 04/28/23 04/28/23 History (Multiple Vitamin-Minerals tablet) nitroglycerin 0.4 mg sublingual 0.4 mg sublingual .PRN/UD PRN 04/28/23 04/28/23 History tablet Chest Pain pantoprazole 40 mg tablet,delayed 40 mg PO DAILY 04/28/23 04/28/23 History release (Protonix) roflumilast 250 mcg tablet 250 mcg PO DAILY 04/28/23 04/28/23 History Patient History Medical History (Updated 05/04/23 @ 11:48 by Tracy Villalpando MD, PhD) Encounter for pre-operative examination COPD (chronic obstructive pulmonary disease) 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 Chronic anemia Hypothyroidism Hypertension Hx 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 Family History Other Family history non-contributory Social History Smoking Status: Never smoker Tobacco Type: Smokeless Tobacco (Dip or Chew) Second Hand Exposure: No; Do You Dip or Chew Tobacco: Yes; Tobacco Cessation Education Requested by Patient: No Hx Alcohol Use: No Hx Substance Use: No Preferred Language: Slovak Communication Ability: Effective Communication Ability Comment: pt cannot see to read Obgyn Hospitalist Physician Required: No Beliefs That Will Affect Care: None marital status: Current Living Situation: Family Current Living Situation Comment: lives with son current occupational status: retired Other Information That Helps Us Care for You: No Feels Safe at Home: No Is there a partner from a previous relationship who is making you feel unsafe now?: No Any Concerns about Your Family Situation: No Would You Like to Speak to Someone About Your Situation: No Safety Concerns: Feels Safe At This Time Assistive Devices: Oxygen - Continuous and Walker Review of Systems 2 Review of Systems: All systems reviewed & are unremarkable except as noted in HPI & below Physical Exam 2 Constitutional: well developed, well nourished and cooperative; no acute distress Eyes: L eye patch. R eomi ENMT: Ears: no external ear abnormality Nose: no external nose abnormality Mouth: + dry oral mucous membranes Neck: no nuchal rigidity Respiratory: normal respiratory effort (on 3L 02), + prolonged expiratory phase and + paradoxical thoraco-abdominal movement Auscultation: + diminished lung sounds Cardiovascular: Rate/Rhythm: regular rate and regular rhythm Extremities: + edema (trace) Gastrointestinal (Abdomen): Inspection/Auscultation: normal bowel sounds P ercussion/Palpation: abdomen soft; abdomen nontender Musculoskeletal: Extremities: strength 5/5 throughout Skin: no rashes, warm and dry Neurologic: guadalupe, fluent speech, no tremor Psychiatric: Orientation: alert, oriented to person and oriented to place Results & Data Vital Signs (Past 12 Hours) Vital Signs Temp Pulse Pulse Pulse Resp BP BP 05/04/23 11:27 36.8 C 69 20 115/55 L 05/04/23 09:00 56 L 05/04/23 09:00 05/04/23 07:05 36.7 C 69 18 91/42 L 05/04/23 03:33 36.7 C 66 18 107/48 L Pulse Ox O2 Del Method O2 Flow Rate 05/04/23 11:27 95 3 05/04/23 09:00 05/04/23 09:00 Nasal Cannula 3 05/04/23 07:05 96 Nasal Cannula 3 05/04/23 03:33 92 Room Air Laboratory Results 05/04/23 04:58 05/04/23 04:58 Admission urinalysis with turbid yellow urine and a pH greater than 9 with 1+ protein positive nitrites 3+ leukocyte esterase and 10-30 white cells. Specific gravity 1016. Also with 2+ bacteria and greater than 30 epithelial cells April 28 urine culture positive for Proteus mirabilis Diagnostic Findings cxr yest > mild vasc congestion CT a/p non con 04/30 Lung bases: Linear atelectasis within the lingula. ABDOMEN: Liver: Unremarkable. No mass. Gallbladder and bile ducts: Cholelithiasis without CT evidence to suggest acute cholecystitis. There is a multiloculated air-fluid collection within the right upper quadrant adjacent to the head of the pancreas and the second and third portions of the duodenum. Overall this area measures 4.2 x 4.6 cm and is unchanged from prior exam. No ductal dilation. Pancreas: Unremarkable. No mass. No ductal dilation. Spleen: Unremarkable. No splenomegaly. Adrenals: Unremarkable. No mass. Kidneys and ureters: Unremarkable. No solid mass. No hydronephrosis. Stomach and bowel: Diverticulosis without evidence of diverticulitis. No obstruction. PELVIS: Appendix: No findings to suggest acute appendicitis. Bladder: Circumferential wall thickening of the urinary bladder of uncertain the etiology. Reproductive: Unremarkable as visualized. ABDOMEN and PELVIS: Intraperitoneal space: Unremarkable. No free air. No significant fluid collection. Bones/joints: No acute fracture. No dislocation. Soft tissues: Unremarkable. Vasculature: Unremarkable. No abdominal aortic aneurysm. Lymph nodes: Unremarkable. No enlarged lymph nodes. IMPRESSION: Multiloculated air-fluid level within the right upper quadrant. This is stable when compared to prior exam
--- NOTE | 2023-05-04 11:44 | XRay Report ---
XR foot LT 2V HISTORY: 87 years-old Male forefoot pain acute pain of the left foot without trauma COMPARISON: None TECHNIQUE: 2 views of the left foot FINDINGS: Demineralized appearance of the bones. Multifocal osteoarthritis, severe within the first tarsometata rsal joint. Type I accessory navicular. No acute fracture, dislocation or osseous erosion. Unremarkab le soft tissues. Arterial calcifications. IMPRESSION: 1. No acute fracture or dislocation. 2. 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 ACT 112: Negative or not required by law. The above report was generated using voice recognition software. It may contain grammatical, syntax o r spelling errors. Electronically signed by: Perez Gamez M.D. 05/04/2023 11:43 AM
[2023-05-04 16:41] LABS: Hematocrit (blood only) 26.8 % (42.0-52.0); Hemoglobin 8.3 g/dl (14.0-18.0)
[2023-05-04] MEDS: rOPINIRole HCL 0.25 MG TABLET PO SCH (18:34)
--- NOTE | 2023-05-04 19:48 | Hospitalist Progress Note ---
Date of Service May 04, 2023 Assessment & Plan (1) Acute anemia: Plan: 87-year-old male with past medical history significant for HTN, diastolic CHF, COPD, chronic respiratory failure with 3 to 4 L oxygen at home, squamous cell carcinoma of the ear, head and neck, status post lesion removal, diagnosed October 2021, hypothyroidism, blindness in left eye since 2013, hx of COPD exacerbation with possible aspiration pneumonitis, history of chronic anemia and history of GI bleed presents with not feeling good at home for the last week. Acute blood loss anemia likely secondary to upper GI bleed History of GI bleed and PRBC transfusions Hemoglobin 4.6 at presentation and received 3 units of PRBCs so far-globin went up to 6.9 Hold aspirin Continue with Protonix drip Appreciate GI input and recommendation Hemoglobin went up to 7.5-we will hold any blood transfusion right now Monitor CBC and continue current Protonix drip Hemoglobin remains stable black stool continued No significant abdominal pain Will change the drip to p.o. medication Hemoglobin remains stable at 7.4 Creatinine went up a little-could be secondary to ongoing bleeding and/or recent bleeding Will monitor CBC and PRP Hemoglobin remains stable at 7.4-we will monitor CBC tomorrow and may need more blood transfusion ZURDO- Creatinine is a little up-could be secondary to ongoing bleeding Was given 20 of Lasix IV with chest x-ray finding this morning Creatinine may go up further but the patient was advised to drink more fluid Monitor PRP Chest x-ray showed possible consolidation Will start intravenous doxycycline Has been getting doxycycline for possible bronchitis/pneumonia Will get repeat chest [id number] possible congestion without any consolidation Will give a small dose of Lasix 20 mg IV this evening Is stopped doxycycline which may cause abdominal pain Status post EGD: Normal esophagus, 2 bleeding angiectasis in the stomach treated with argon plasma coagulation. Clips were placed as well We will monitor H&H and give blood transfusion if needed Hemoglobin 7.5-we will monitor Will continue PPI 2 times a day Add sucralfate for ongoing abdominal pain Will check CBC and if hemoglobin is below 7 will get blood transfusion Complains to abdominal pain CT scan did not show any diverticulitis Minimally tender epigastrium and right lower quadrant Will add sucralfate on top up PPI May be secondary to constipation we will start MiraLAX Bowel is not moved again-Will give enema He takes castor oil as an outpatient which is nonformulary History of COPD Chronic respiratory failure 3 to 4 L oxygen Continue home inhalers No acute respiratory symptoms and has been saturating normally on 2 L No other respiratory symptoms Chronic diastolic CHF Monitor for volume overload No signs and or symptoms of volume overload Chest x-ray did show mild congestion-give a small dose of Lasix History of essential tremor Continues mild and recoup at home Squamous cell cancer of external ear S/p excision and immunotherapy Follow-up with heme-onc Hypertension Continue amlodipine Imdur with holding parameters Hypothyroidism On Synthyroid DVT prophylaxis SCDs Disposition telemetry floor CODE STATUS full code as per discussion with the patient Admission and Anticipated Discharge Date Admission Date: April 28, 2023 Results & Data Results & Data Vital Signs (Past 12 Hours) Vital Signs Temp Pulse Pulse Resp BP BP Pulse Ox 05/04/23 19:13 36.9 C 58 L 16 120/55 L 96 05/04/23 15:25 36.7 C 72 20 152/54 H 94 05/04/23 15:20 70 05/04/23 14:29 36.8 C 79 16 108/51 L 96 05/04/23 13:29 36.8 C 67 20 127/63 94 05/04/23 12:29 37.2 C 69 16 122/49 L 96 05/04/23 11:59 36.2 C L 72 20 134/48 L 95 05/04/23 11:59 36.2 C L 72 20 134/48 L 95 05/04/23 11:44 36.5 C 69 18 134/54 L 96 05/04/23 11:27 36.8 C 69 20 115/55 L 95 05/04/23 09:00 56 L 05/04/23 09:00 O2 Del Method O2 Flow Rate 05/04/23 19:13 Nasal Cannula 3 05/04/23 15:25 3 05/04/23 15:20 05/04/23 14:29 05/04/23 13:29 3 05/04/23 12:29 3 05/04/23 11:59 3 05/04/23 11:59 3 05/04/23 11:44 05/04/23 11:27 3 05/04/23 09:00 05/04/23 09:00 Nasal Cannula 3
[2023-05-04] MEDS ORDERED: XOPENEX/ATROVENT 1.25mg/0.5MG NEB COMBO NEB SCH (19:55)
[2023-05-04] MEDS: GABAPENTIN 300 MG CAP PO SCH (20:43)
[2023-05-04] MEDS: ZONISAMIDE PO SCH (20:43)
[2023-05-04] MEDS: IPRATROPIUM BROMIDE NEB SOLN 0.02% 2.5 ML VIAL INH SCH (21:05)
[2023-05-04] MEDS: LEVALBUTEROL 1.25 MG/3 ML NEB NEB SCH (21:06)
[2023-05-04 23:09] LABS: Appearance Urine Cloudy (Clear); Bacteria Urine Automated 2+ (Negative); Bilirubin Urine Negative (Negative); Blood Urine Negative (Negative); Cast Urine Automated 0 /lpf (0-5); Color Urine Yellow; Epithelial Cell Urine Auto 0-5 /lpf (0-5); Glucose Urine UA Negative (Negative); Ketones Urine Negative (Negative); Leukocyte Esterase Urine 2+ (Negative); Nitrite Urine Positive (Negative); RBC Urine Automated 0-4 /hpf (0-4); Specific Gravity Urine 1.016 (1.000-1.030); Urobilinogen Urine Negative (Negative); WBC Urine Automated >30 /hpf (0-5)
[2023-05-04 23:11] LABS: Protein Urine 1+ (Negative)
[2023-05-05] MEDS: IPRATROPIUM BROMIDE NEB SOLN 0.02% 2.5 ML VIAL INH SCH ×4 (02:13→19:20)
[2023-05-05] MEDS: LEVALBUTEROL 1.25 MG/3 ML NEB NEB SCH ×4 (02:13→19:20)
[2023-05-05] MEDS: LEVOTHYROXINE SODIUM 50 MCG TABLET PO SCH (05:52)
[2023-05-05 06:41] LABS: Basophils # (auto) 0.03 K/uL (0.00-0.20); Basophils % (auto) 0.5 %; Hematocrit (blood only) 25.6 % (42.0-52.0); Hemoglobin 8.1 g/dl (14.0-18.0); Immature Granulocytes # (auto) 0.08 K/uL (0.01-0.20); Immature Granulocytes % (auto) 1.3 %; Lymphocytes # (auto) 0.74 K/uL (1.20-3.40); Lymphocytes % (auto) 12.2 %; Mean Corpuscular Hemoglobin 27.4 pg (25.0-34.0); Mean Corpuscular Hgb Conc 31.6 g/dL (32.0-36.0); Mean Corpuscular Volume 86.5 fL (80.0-100.0); Mean Platelet Volume 9.2 fL (9.4-12.4); Monocytes # (auto) 1.25 K/uL (0.11-0.59); Monocytes % (auto) 20.6 %; Neutrophils # (auto) 3.97 K/uL (1.40-6.50); Neutrophils % (auto) 65.4 %; Platelet Count 332 K/uL (130-400); RDW Coefficient of Variation 15.3 % (11.5-14.5); RDW Standard Deviation 48.4 fL (36.4-46.3); Red Blood Count 2.96 M/uL (4.70-6.10); White Blood Count 6.07 K/ul (4.8-10.8)
[2023-05-05 06:50] LABS: BUN Creatinine Ratio 16.3 (10-20); Creatinine Clr Calc Pharmacy 30.6 ml/min; Est GFR (Non-African American) 39.7 ml/min; Potassium 4.4 mmol/L (3.5-5.1)
[2023-05-05] MEDS: UMECLIDINIUM BROMIDE 62.5MCG/BLISTER 7 PUFFS/INHALER INH SCH (08:51)
[2023-05-05] MEDS: FLUTICASONE/VILANTEROL 200/25MCG 14 PUFFS/INHALER INH SCH (08:51)
[2023-05-05] MEDS: ARTIFICIAL TEARS OP SCH ×2 (08:51→21:32)
[2023-05-05] MEDS: amLODIPine BESYLATE 5 MG TAB PO SCH (08:52)
[2023-05-05] MEDS: FERROUS SULFATE 325 MG TAB PO SCH (08:52)
[2023-05-05] MEDS: ISOSORBIDE MONO EXTENDED REL 30 MG TABCR PO SCH (08:52)
[2023-05-05] MEDS: CHOLECALCIFEROL 1,000 UNITS 25 MCG TAB PO SCH (08:52)
[2023-05-05] MEDS: GABAPENTIN 100 MG CAP PO SCH (08:52)
[2023-05-05] MEDS: CEROVITE ADV FORMULA TAB PO SCH (08:52)
[2023-05-05] MEDS: PANTOprazole 40 MG TAB PO SCH ×2 (08:53→21:33)
[2023-05-05] MEDS: ROFLUMILAST 500 MCG TAB PO SCH (08:53)
[2023-05-05] MEDS: POLYETHYLENE (MIRALAX) 17 GM PACK PO SCH (08:54)
[2023-05-05] MEDS: SUCRALFATE 1 GM/10 ML UDC PO SCH ×2 (08:54→21:31)
[2023-05-05] MEDS: ASCORBIC ACID 500 MG TAB PO SCH ×2 (08:54→21:31)
--- NOTE | 2023-05-05 09:15 | XRay Report ---
XR chest 1V portable CLINICAL HISTORY: ff up wheezing TECHNIQUE: Single frontal radiograph of the chest was obtained. Comparison: Comparison is made to chest radiograph 05/03/2023 FINDINGS: No lines and tubes are seen. Mediastinal prominence bilaterally likely reflects pulmonary vasculature . Right lower lung airspace opacity is seen. No evidence of pleural effusion or pneumothorax. IMPRESSION: Right lower lung airspace opacity is new from prior exam and may represent atelectasis, pneumonia, an d/or aspiration. ACT 112: Negative or not required by law. Electronically signed by: Tyree Madison M.D. 05/05/2023 9:14 AM
--- NOTE | 2023-05-05 10:29 | Nephrology Progress Note ---
Date of Service May 05, 2023 Assessment & Plan (1) Acute renal failure superimposed on stage 3 chronic kidney disease: Plan: Improving nonoliguric stage I acute kidney injury on CKD 3. Baseline CKD has been progressive this year moving from creatinine 1.1-1.3 more to the 1.3-1.4 range in the second half of the year. Few outpatient data points available. No exposure to IV contrast (since 02/26 admission) or to NSAIDs. In the setting of Proteus UTI and severe ongoing anemia. He is 4 L positive on the admission, though UOP not fully tracked so true positivity likely less. He did have protracted relative systolic hypotension w/ SBP 90-100s for about 48 hrs 04/28- 04/30 > seems delayed to have renal function worsen only now from this. he did have a 20 mg lasix dose 05/03 and believe this contributed; improved today after 05/04 250 mL NS as well as a unit of pRBC. Data are limited but working dx at this point is ischemic ATN. Repeat UACM >> ongoing inflammation in UA and still some intermittent sx >> concern for abtx not sufficiently penetrating space versus possibly prostatitis Daily basic metabolic panel f/u on post void residual -continue to transfuse prn for hgb 7 or lower or w/ sx -recommend renal f/u after d/c to ensure renal function stabilizes Admission and Anticipated Discharge Date Admission Date: April 28, 2023 Subjective family at bedside. pt denies n/v, thirst, sob, worsening abd distension, anxiety. dysuria from admission improved but still happens intermittently. feels better overall Review of Systems 2 Review of Systems: All systems reviewed & are unremarkable except as noted in Subjective Physical Exam 2 Constitutional: well developed, well nourished and cooperative; no acute distress (sitting up in chair) ENMT: Ears: no external ear abnormality Nose: no external nose abnormality Mouth: + dry oral mucous membranes Neck: no nuchal rigidity Respiratory: normal respiratory effort (on 3L 02) Auscultation: + diminished lung sounds Cardiovascular: Rate/Rhythm: regular rate and regular rhythm Extremities: + edema (trace-1+) Gastrointestinal (Abdomen): Inspection/Auscultation: normal bowel sounds P ercussion/Palpation: abdomen soft; abdomen nontender Musculoskeletal: Extremities: strength 5/5 throughout Skin: no rashes, warm and dry Psychiatric: Orientation: alert, oriented to person and oriented to place Results & Data Vital Signs (Past 12 Hours) Vital Signs Temp Pulse Pulse Resp BP Pulse Ox O2 Del Method 05/05/23 08:57 109/45 L 05/05/23 07:48 Nasal Cannula 05/05/23 07:25 67 18 91 Nasal Cannula 05/05/23 07:11 36.8 C 71 18 104/36 L 94 Nasal Cannula 05/05/23 03:13 38.1 C H 62 20 105/54 L 92 Nasal Cannula 05/05/23 02:20 Nasal Cannula 05/05/23 02:13 84 18 92 Nasal Cannula 05/04/23 22:54 37.0 C 66 20 101/49 L 95 Nasal Cannula O2 Flow Rate 05/05/23 08:57 05/05/23 07:48 3 05/05/23 07:25 3 05/05/23 07:11 3 05/05/23 03:13 3 05/05/23 02:20 3 05/05/23 02:13 3 05/04/23 22:54 3 Laboratory Results 05/05/23 05:53 05/05/23 05:53 repeat UA > cloudy, pH 8, 1+ protein, positive nitrites, + LE, 2+ bacteria > 30 WBC
[2023-05-05] MEDS: ADVANCED PROBIOTIC 1250 MG CAPSULE PO SCH (10:49)
[2023-05-05] MEDS: AMOXICILLIN/CLAVULANATE 875 MG TAB PO SCH ×2 (11:24→16:28)
--- NOTE | 2023-05-05 18:21 | Hospitalist Progress Note ---
Date of Service May 05, 2023 Assessment & Plan (1) Acute anemia: Plan: 87-year-old male with past medical history significant for HTN, diastolic CHF, COPD, chronic respiratory failure with 3 to 4 L oxygen at home, squamous cell carcinoma of the ear, head and neck, status post lesion removal, diagnosed October 2021, hypothyroidism, blindness in left eye since 2013, hx of COPD exacerbation with possible aspiration pneumonitis, history of chronic anemia and history of GI bleed presents with not feeling good at home for the last week. Acute blood loss anemia likely secondary to upper GI bleed History of GI bleed and PRBC transfusions Hemoglobin 4.6 at presentation and received 3 units of PRBCs so far-globin went up to 6.9 Hold aspirin Continue with Protonix drip Appreciate GI input and recommendation Hemoglobin went up to 7.5-we will hold any blood transfusion right now Monitor CBC and continue current Protonix drip Hemoglobin remains stable black stool continued No significant abdominal pain Will change the drip to p.o. medication Hemoglobin remains stable at 7.4 Creatinine went up a little-could be secondary to ongoing bleeding and/or recent bleeding Will monitor CBC and PRP Hemoglobin remains stable at 7.4-we will monitor CBC tomorrow and may need more blood transfusion 05/05 Status post 1 unit of packed RBC Hemoglobin improved currently 8.1 Upper GI bleed resolved Continue to monitor ZURDO- Creatinine is a little up-could be secondary to ongoing bleeding Was given 20 of Lasix IV with chest x-ray finding this morning Creatinine may go up further but the patient was advised to drink more fluid Monitor PRP 05/05 Creatinine improving, now 1.5 Chest x-ray showed possible consolidation Will start intravenous doxycycline Has been getting doxycycline for possible bronchitis/pneumonia Will get repeat chest [id number] possible congestion without any consolidation Will give a small dose of Lasix 20 mg IV this evening Is stopped doxycycline which may cause abdominal pain 05/05 Nebs every 6 hours started Wheezing improving Chest x-ray showing possible right lower lobe consolidation versus atelectasis Start Augmentin 8 7 5 mg twice daily to complete 1 week Status post EGD: Normal esophagus, 2 bleeding angiectasis in the stomach treated with argon plasma coagulation. Clips were placed as well We will monitor H&H and give blood transfusion if needed Hemoglobin 7.5-we will monitor Will continue PPI 2 times a day Add sucralfate for ongoing abdominal pain 05/05 Management per above Complains to abdominal pain CT scan did not show any diverticulitis Minimally tender epigastrium and right lower quadrant Will add sucralfate on top up PPI May be secondary to constipation we will start MiraLAX Bowel is not moved again-Will give enema He takes castor oil as an outpatient which is nonformulary 05/05 Resolved History of COPD Chronic respiratory failure 3 to 4 L oxygen Continue home inhalers No acute respiratory symptoms and has been saturating normally on 2 L Management of acute bronchitis per above Chronic diastolic CHF Monitor for volume overload No signs and or symptoms of volume overload Chest x-ray did show mild congestion-give a small dose of Lasix History of essential tremor Continues mild and recoup at home Squamous cell cancer of external ear S/p excision and immunotherapy Follow-up with heme-onc Hypertension Continue amlodipine Imdur with holding parameters Hypothyroidism On Synthyroid DVT prophylaxis SCDs Disposition Anticipate discharge to home tomorrow CODE STATUS full code as per discussion with the patient Admission and Anticipated Discharge Date Admission Date: April 28, 2023 Subjective Follow-up for GI bleed, etc. Seen resting in chair, comfortable, not in distress States he feels improved today compared to yesterday Last week Breathing is improving, less cough, having yellowish sputum No chest pain Denies abdominal pain, nausea vomiting, melena or hematochezia No other new symptoms Review of Systems Review of Systems: all noted and negative except for above Physical Exam Physical Exam: General- oriented x 3, not in distress, speaks in sentences with no effort or accessory muscle use Eyes- anicteric Neck- no JVD Lungs-intermittent faint wheeze at the bases, otherwise good air entry bilaterally Heart- normal rate, regular rhythm; no murmurs Abdomen- normal bowel sounds, nondistended, soft, nontender Extremities- no pretibial edema, no calf tenderness Neuro- alert, oriented x 3; no gross focal neurologic deficits Skin- warm & dry Results & Data Results & Data Vital Signs (Past 12 Hours) Vital Signs Temp Pulse Pulse Resp BP Pulse Ox O2 Del Method 05/05/23 15:02 36.5 C 77 18 136/55 L 95 Nasal Cannula 05/05/23 13:23 62 18 92 Nasal Cannula 05/05/23 10:27 37.3 C 74 18 128/45 L 91 Nasal Cannula 05/05/23 08:57 109/45 L 05/05/23 07:48 Nasal Cannula 05/05/23 07:25 67 18 91 Nasal Cannula 05/05/23 07:11 36.8 C 71 18 104/36 L 94 Nasal Cannula O2 Flow Rate 05/05/23 15:02 3 05/05/23 13:23 3 05/05/23 10:27 3 05/05/23 08:57 05/05/23 07:48 3 05/05/23 07:25 3 05/05/23 07:11 3 all noted and reviewed including below
[2023-05-05] MEDS: rOPINIRole HCL 0.25 MG TABLET PO SCH (21:31)
[2023-05-05] MEDS: ZONISAMIDE PO SCH (21:31)
[2023-05-05] MEDS: GABAPENTIN 300 MG CAP PO SCH (21:31)
[2023-05-06] MEDS: LEVALBUTEROL 1.25 MG/3 ML NEB NEB SCH ×4 (00:16→19:11)
[2023-05-06] MEDS: IPRATROPIUM BROMIDE NEB SOLN 0.02% 2.5 ML VIAL INH SCH ×4 (00:16→19:11)
[2023-05-06] MEDS: LEVOTHYROXINE SODIUM 50 MCG TABLET PO SCH (06:13)
[2023-05-06 06:15] LABS: Basophils # (auto) 0.02 K/uL (0.00-0.20); Basophils % (auto) 0.3 %; Hematocrit (blood only) 28.3 % (42.0-52.0); Hemoglobin 8.9 g/dl (14.0-18.0); Immature Granulocytes % (auto) 1.6 %; Lymphocytes % (auto) 11.1 %; Mean Corpuscular Hemoglobin 27.2 pg (25.0-34.0); Mean Corpuscular Hgb Conc 31.4 g/dL (32.0-36.0); Mean Corpuscular Volume 86.5 fL (80.0-100.0); Mean Platelet Volume 9.4 fL (9.4-12.4); Monocytes # (auto) 1.26 K/uL (0.11-0.59); Monocytes % (auto) 19.9 %; Neutrophils # (auto) 4.24 K/uL (1.40-6.50); Neutrophils % (auto) 67.1 %; Platelet Count 372 K/uL (130-400); RDW Coefficient of Variation 15.6 % (11.5-14.5); RDW Standard Deviation 49.6 fL (36.4-46.3); Red Blood Count 3.27 M/uL (4.70-6.10); White Blood Count 6.32 K/ul (4.8-10.8)
[2023-05-06 06:26] LABS: BUN Creatinine Ratio 16.8 (10-20); Calcium 8.3 mg/dl (8.6-10.3); Est GFR (African American) 41.4 ml/min; Est GFR (Non-African American) 35.7 ml/min; Potassium 4.1 mmol/L (3.5-5.1)
[2023-05-06] MEDS: FERROUS SULFATE 325 MG TAB PO SCH (08:49)
[2023-05-06] MEDS: GABAPENTIN 100 MG CAP PO SCH (08:49)
[2023-05-06] MEDS: ISOSORBIDE MONO EXTENDED REL 30 MG TABCR PO SCH (08:50)
[2023-05-06] MEDS: CEROVITE ADV FORMULA TAB PO SCH (08:50)
[2023-05-06] MEDS: POLYETHYLENE (MIRALAX) 17 GM PACK PO SCH (08:50)
[2023-05-06] MEDS: amLODIPine BESYLATE 5 MG TAB PO SCH (08:50)
[2023-05-06] MEDS: CHOLECALCIFEROL 1,000 UNITS 25 MCG TAB PO SCH (08:50)
[2023-05-06] MEDS: ADVANCED PROBIOTIC 1250 MG CAPSULE PO SCH (08:50)
[2023-05-06] MEDS: SUCRALFATE 1 GM/10 ML UDC PO SCH ×2 (08:50→21:33)
[2023-05-06] MEDS: FLUTICASONE/VILANTEROL 200/25MCG 14 PUFFS/INHALER INH SCH (08:51)
[2023-05-06] MEDS: AMOXICILLIN/CLAVULANATE 875 MG TAB PO SCH ×2 (08:51→17:11)
[2023-05-06] MEDS: ROFLUMILAST 500 MCG TAB PO SCH (08:51)
[2023-05-06] MEDS: UMECLIDINIUM BROMIDE 62.5MCG/BLISTER 7 PUFFS/INHALER INH SCH (08:51)
[2023-05-06] MEDS: ARTIFICIAL TEARS OP SCH ×2 (08:51→21:32)
[2023-05-06] MEDS: PANTOprazole 40 MG TAB PO SCH ×2 (08:52→21:33)
[2023-05-06] MEDS: ASCORBIC ACID 500 MG TAB PO SCH ×2 (08:52→21:33)
[2023-05-06] MEDS ORDERED: AZITHROMYCIN 250 MG TAB PO ONE (10:15)
[2023-05-06] MEDS: BUDESONIDE 0.5 MG/2 ML VIAL (PULMICORT) NEB SCH ×2 (11:25→19:11)
--- NOTE | 2023-05-06 11:49 | Nephrology Progress Note ---
Date of Service May 06, 2023 Assessment & Plan (1) Acute renal failure superimposed on stage 3 chronic kidney disease: Plan: Improving nonoliguric stage I acute kidney injury on CKD 3. Baseline CKD has been progressive this year moving from creatinine 1.1-1.3 more to the 1.3-1.4 range in the second half of the year. Few outpatient data points available. No exposure to IV contrast (since 02/26 admission) or to NSAIDs. In the setting of Proteus UTI and severe ongoing anemia. He is several L positive on the admission, though UOP not fully tracked so true positivity likely less. He did have protracted relative systolic hypotension w/ SBP 90-100s for about 48 hrs 04/28-04/30 > seems delayed to have renal function worsen only now from this. he did have a 20 mg lasix dose 05/03 and believe this contributed; improved today after 05/04 250 mL NS as well as a unit of pRBC. Data are limited but working dx at this point is ischemic ATN. Repeat UACM w/ ongoing inflammation in UA and still some intermittent sx >> concern for abtx not sufficiently penetrating space versus possibly prostatitis Daily basic metabolic panel f/u on post void residual -continue to transfuse prn for hgb 7 or lower or w/ sx -renal function plateau'd in current range for several days, slightly above prior baseline but in setting of progressive CKD this year Will sign off NEPHRO D/C RECOMMENDATIONS -recommend [facility] d/c appt w/ me or my partners in nephro clinic to ensure renal function followed; 2-3 wks after d/c w/ BMP, UACM, ACR to be ordered by neph RN up to 3 days before appt -no change to admission/current meds though could consider lowering versus stopping amlodipine dose depending on clinical status Admission and Anticipated Discharge Date Admission Date: April 28, 2023 Subjective seen on rounds late this am. denies sob or worse edema or n/v Review of Systems 2 Review of Systems: All systems reviewed & are unremarkable except as noted in Subjective Physical Exam 2 Constitutional: well developed, well nourished, + acute distress (lying flat in bed) and cooperative ENMT: Ears: no external ear abnormality Nose: no external nose abnormality Mouth: + dry oral mucous membranes Neck: no nuchal rigidity Respiratory: normal respiratory effort (on 3L 02) and + prolonged expiratory phase Auscultation: + diminished lung sounds and + wheezes Cardiovascular: Rate/Rhythm: regular rate and regular rhythm Extremities: + edema (trace-1+) Gastrointestinal (Abdomen): Inspection/Auscultation: normal bowel sounds P ercussion/Palpation: abdomen soft; abdomen nontender Musculoskeletal: Extremities: strength 5/5 throughout Skin: no rashes, warm and dry Psychiatric: Orientation: alert, oriented to person and oriented to place Results & Data Vital Signs (Past 12 Hours) Vital Signs Temp Pulse Pulse Resp BP Pulse Ox O2 Del Method 05/06/23 11:26 66 20 78 L Nasal Cannula, Other 05/06/23 08:07 37.1 C 67 18 102/50 L 91 Nasal Cannula 05/06/23 07:45 65 05/06/23 07:40 Nasal Cannula 05/06/23 06:34 66 18 97 Nasal Cannula 05/06/23 04:43 Nasal Cannula 05/06/23 02:40 37.6 C H 75 17 116/60 94 Nasal Cannula 05/06/23 00:16 65 19 93 Nasal Cannula O2 Flow Rate 05/06/23 11:26 3 05/06/23 08:07 3 05/06/23 07:45 05/06/23 07:40 3 05/06/23 06:34 4 05/06/23 04:43 3 05/06/23 02:40 5 05/06/23 00:16 5 Laboratory Results 05/06/23 05:22 05/06/23 05:22
--- NOTE | 2023-05-06 16:12 | Electrocardiogram Report ---
Test Reason : Blood Pressure : / mmHG Vent. 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
--- NOTE | 2023-05-06 18:17 | Hospitalist Progress Note ---
Date of Service May 06, 2023 Assessment & Plan (1) Acute anemia: Plan: 87-year-old male with past medical history significant for HTN, diastolic CHF, COPD, chronic respiratory failure with 3 to 4 L oxygen at home, squamous cell carcinoma of the ear, head and neck, status post lesion removal, diagnosed October 2021, hypothyroidism, blindness in left eye since 2013, hx of COPD exacerbation with possible aspiration pneumonitis, history of chronic anemia and history of GI bleed presents with not feeling good at home for the last week. Acute blood loss anemia likely secondary to upper GI bleed History of GI bleed and PRBC transfusions Hemoglobin 4.6 at presentation and received 3 units of PRBCs so far-globin went up to 6.9 Hold aspirin Continue with Protonix drip Appreciate GI input and recommendation Hemoglobin went up to 7.5-we will hold any blood transfusion right now Monitor CBC and continue current Protonix drip Hemoglobin remains stable black stool continued No significant abdominal pain Will change the drip to p.o. medication Hemoglobin remains stable at 7.4 Creatinine went up a little-could be secondary to ongoing bleeding and/or recent bleeding Will monitor CBC and PRP Hemoglobin remains stable at 7.4-we will monitor CBC tomorrow and may need more blood transfusion 05/05 Status post 1 unit of packed RBC Hemoglobin improved currently 8.1 Upper GI bleed resolved Continue to monitor 05/06 Hg stable at 8.9 ZURDO- Creatinine is a little up-could be secondary to ongoing bleeding Was given 20 of Lasix IV with chest x-ray finding this morning Creatinine may go up further but the patient was advised to drink more fluid Monitor PRP 05/06 Creatinine 1.6 will need monitoring Chest x-ray showed possible consolidation Will start intravenous doxycycline Has been getting doxycycline for possible bronchitis/pneumonia Will get repeat chest [id number] possible congestion without any consolidation Will give a small dose of Lasix 20 mg IV this evening Is stopped doxycycline which may cause abdominal pain 05/05 Nebs every 6 hours started Wheezing improving Chest x-ray showing possible right lower lobe consolidation versus atelectasis Start Augmentin 8 7 5 mg twice daily to complete 1 week 05/06 improving continue present regimen add Azithromycin Status post EGD: Normal esophagus, 2 bleeding angiectasis in the stomach treated with argon plasma coagulation. Clips were placed as well We will monitor H&H and give blood transfusion if needed Hemoglobin 7.5-we will monitor Will continue PPI 2 times a day Add sucralfate for ongoing abdominal pain 05/06 Management per above Complains to abdominal pain CT scan did not show any diverticulitis Minimally tender epigastrium and right lower quadrant Will add sucralfate on top up PPI May be secondary to constipation we will start MiraLAX Bowel is not moved again-Will give enema He takes castor oil as an outpatient which is nonformulary 05/06 Resolved History of COPD Chronic respiratory failure 3 to 4 L oxygen Continue home inhalers No acute respiratory symptoms and has been saturating normally on 2 L Management of acute bronchitis per above Chronic diastolic CHF Monitor for volume overload No signs and or symptoms of volume overload Chest x-ray did show mild congestion-give a small dose of Lasix History of essential tremor Continues mild and recoup at home Squamous cell cancer of external ear S/p excision and immunotherapy Follow-up with heme-onc Hypertension Continue amlodipine Imdur with holding parameters Hypothyroidism On Synthyroid DVT prophylaxis SCDs Disposition Anticipate discharge to home 1-2 days CODE STATUS full code as per discussion with the patient Admission and Anticipated Discharge Date Admission Date: April 28, 2023 Subjective ff up for GI bleed etc seen resting in bed, comfortable improving gradually as per patient breathing is improving- productive cough of yellow sputum no fever/chills no abdominal pain, no blood in the stools Review of Systems Review of Systems: all noted and negative except for above Physical Exam Physical Exam: General- oriented x 3, not in distress, speaks in sentences with no effort or accessory muscle use Eyes- anicteric Neck- no JVD Lungs- mild scattered wheezing bilaterally Heart- normal rate, regular rhythm; no murmurs Abdomen- normal bowel sounds, nondistended, soft, nontender Extremities- no pretibial edema, no calf tenderness Neuro- alert, oriented x 3; no gross focal neurologic deficits Skin- warm & dry Results & Data Results & Data Vital Signs (Past 12 Hours) Vital Signs Temp Pulse Pulse Resp BP Pulse Ox O2 Del Method 05/06/23 17:38 76 05/06/23 16:40 36.7 C 76 18 106/50 L 90 Nasal Cannula 05/06/23 12:28 36.7 C 71 16 120/53 L 90 Nasal Cannula 05/06/23 11:26 66 20 78 L Nasal Cannula, Other 05/06/23 08:07 37.1 C 67 18 102/50 L 91 Nasal Cannula 05/06/23 07:45 65 05/06/23 07:40 Nasal Cannula 05/06/23 06:34 66 18 97 Nasal Cannula O2 Flow Rate 05/06/23 17:38 05/06/23 16:40 4 05/06/23 12:28 4 05/06/23 11:26 3 05/06/23 08:07 3 05/06/23 07:45 05/06/23 07:40 3 05/06/23 06:34 4 all noted and reviewed including below
[2023-05-06] MEDS: rOPINIRole HCL 0.25 MG TABLET PO SCH (19:57)
[2023-05-06] MEDS: GABAPENTIN 300 MG CAP PO SCH (21:33)
[2023-05-06] MEDS: ZONISAMIDE PO SCH (21:33)
[2023-05-07] MEDS: IPRATROPIUM BROMIDE NEB SOLN 0.02% 2.5 ML VIAL INH SCH ×4 (00:05→19:56)
[2023-05-07] MEDS: LEVALBUTEROL 1.25 MG/3 ML NEB NEB SCH ×4 (00:06→19:56)
[2023-05-07 04:50] LABS: Basophils # (auto) 0.02 K/uL (0.00-0.20); Basophils % (auto) 0.4 %; Hematocrit (blood only) 25.2 % (42.0-52.0); Hemoglobin 8.2 g/dl (14.0-18.0); Immature Granulocytes # (auto) 0.09 K/uL (0.01-0.20); Immature Granulocytes % (auto) 1.8 %; Lymphocytes # (auto) 0.83 K/uL (1.20-3.40); Lymphocytes % (auto) 16.5 %; Mean Corpuscular Hemoglobin 27.6 pg (25.0-34.0); Mean Corpuscular Hgb Conc 32.5 g/dL (32.0-36.0); Mean Corpuscular Volume 84.8 fL (80.0-100.0); Mean Platelet Volume 9.2 fL (9.4-12.4); Monocytes # (auto) 1.13 K/uL (0.11-0.59); Monocytes % (auto) 22.5 %; Neutrophils # (auto) 2.95 K/uL (1.40-6.50); Neutrophils % (auto) 58.8 %; Platelet Count 328 K/uL (130-400); RDW Coefficient of Variation 15.9 % (11.5-14.5); Red Blood Count 2.97 M/uL (4.70-6.10); White Blood Count 5.02 K/ul (4.8-10.8)
[2023-05-07 05:03] LABS: Calcium 7.9 mg/dl (8.6-10.3); Potassium 4.2 mmol/L (3.5-5.1)
[2023-05-07 05:09] LABS: BUN Creatinine Ratio 17.2 (10-20); Creatinine Clr Calc Pharmacy 29.8 ml/min; Est GFR (African American) 44.6 ml/min; Est GFR (Non-African American) 38.5 ml/min
[2023-05-07] MEDS: LEVOTHYROXINE SODIUM 50 MCG TABLET PO SCH (06:10)
[2023-05-07] MEDS: BUDESONIDE 0.5 MG/2 ML VIAL (PULMICORT) NEB SCH (07:27)
[2023-05-07] MEDS: AMOXICILLIN/CLAVULANATE 875 MG TAB PO SCH ×2 (09:05→17:17)
[2023-05-07] MEDS: AZITHROMYCIN 250 MG TAB PO SCH (09:06)
[2023-05-07] MEDS: ARTIFICIAL TEARS OP SCH ×2 (09:06→19:49)
[2023-05-07] MEDS: ASCORBIC ACID 500 MG TAB PO SCH ×2 (09:06→19:50)
[2023-05-07] MEDS: FERROUS SULFATE 325 MG TAB PO SCH (09:07)
[2023-05-07] MEDS: GABAPENTIN 100 MG CAP PO SCH (09:07)
[2023-05-07] MEDS: CHOLECALCIFEROL 1,000 UNITS 25 MCG TAB PO SCH (09:07)
[2023-05-07] MEDS: FLUTICASONE/VILANTEROL 200/25MCG 14 PUFFS/INHALER INH SCH (09:07)
[2023-05-07] MEDS: POLYETHYLENE (MIRALAX) 17 GM PACK PO SCH (09:08)
[2023-05-07] MEDS: ADVANCED PROBIOTIC 1250 MG CAPSULE PO SCH (09:08)
[2023-05-07] MEDS: CEROVITE ADV FORMULA TAB PO SCH (09:08)
[2023-05-07] MEDS: ISOSORBIDE MONO EXTENDED REL 30 MG TABCR PO SCH (09:08)
[2023-05-07] MEDS: ROFLUMILAST 500 MCG TAB PO SCH (09:08)
[2023-05-07] MEDS: PANTOprazole 40 MG TAB PO SCH ×2 (09:08→19:50)
[2023-05-07] MEDS: SUCRALFATE 1 GM/10 ML UDC PO SCH ×2 (09:09→19:49)
[2023-05-07] MEDS: UMECLIDINIUM BROMIDE 62.5MCG/BLISTER 7 PUFFS/INHALER INH SCH (09:09)
--- NOTE | 2023-05-07 17:52 | Hospitalist Progress Note ---
Date of Service May 07, 2023 Assessment & Plan (1) Acute anemia: Plan: 87-year-old male with past medical history significant for HTN, diastolic CHF, COPD, chronic respiratory failure with 3 to 4 L oxygen at home, squamous cell carcinoma of the ear, head and neck, status post lesion removal, diagnosed October 2021, hypothyroidism, blindness in left eye since 2013, hx of COPD exacerbation with possible aspiration pneumonitis, history of chronic anemia and history of GI bleed presents with not feeling good at home for the last week. Acute blood loss anemia likely secondary to upper GI bleed History of GI bleed and PRBC transfusions Hemoglobin 4.6 at presentation and received 3 units of PRBCs so far-globin went up to 6.9 Hold aspirin Continue with Protonix drip Appreciate GI input and recommendation Hemoglobin went up to 7.5-we will hold any blood transfusion right now Monitor CBC and continue current Protonix drip Hemoglobin remains stable black stool continued No significant abdominal pain Will change the drip to p.o. medication Hemoglobin remains stable at 7.4 Creatinine went up a little-could be secondary to ongoing bleeding and/or recent bleeding Will monitor CBC and PRP Hemoglobin remains stable at 7.4-we will monitor CBC tomorrow and may need more blood transfusion 05/05 Status post 1 unit of packed RBC Hemoglobin improved currently 8.1 Upper GI bleed resolved Continue to monitor 05/06 Hg stable at 8.9 05/07 stable no recurrence ZURDO- Creatinine is a little up-could be secondary to ongoing bleeding Was given 20 of Lasix IV with chest x-ray finding this morning Creatinine may go up further but the patient was advised to drink more fluid Monitor PRP 05/06 Creatinine 1.6 will need monitoring 05/07 creatinine 1.5 monitor Chest x-ray showed possible consolidation Will start intravenous doxycycline Has been getting doxycycline for possible bronchitis/pneumonia Will get repeat chest [id number] possible congestion without any consolidation Will give a small dose of Lasix 20 mg IV this evening Is stopped doxycycline which may cause abdominal pain 05/05 Nebs every 6 hours started Wheezing improving Chest x-ray showing possible right lower lobe consolidation versus atelectasis Start Augmentin 8 7 5 mg twice daily to complete 1 week 05/06 improving continue present regimen add Azithromycin 05/07 improving less wheezing continue regimen Status post EGD: Normal esophagus, 2 bleeding angiectasis in the stomach treated with argon plasma coagulation. Clips were placed as well We will monitor H&H and give blood transfusion if needed Hemoglobin 7.5-we will monitor Will continue PPI 2 times a day Add sucralfate for ongoing abdominal pain 05/07 Management per above Complains to abdominal pain CT scan did not show any diverticulitis Minimally tender epigastrium and right lower quadrant Will add sucralfate on top up PPI May be secondary to constipation we will start MiraLAX Bowel is not moved again-Will give enema He takes castor oil as an outpatient which is nonformulary 05/07 Resolved History of COPD Chronic respiratory failure 3 to 4 L oxygen Continue home inhalers No acute respiratory symptoms and has been saturating normally on 2 L Management of acute bronchitis per above Chronic diastolic CHF Monitor for volume overload No signs and or symptoms of volume overload Chest x-ray did show mild congestion-given a small dose of Lasix currently euvolemic History of essential tremor Continues mild and recoup at home Squamous cell cancer of external ear S/p excision and immunotherapy Follow-up with heme-onc Hypertension Continue amlodipine Imdur with holding parameters Hypothyroidism On Synthyroid DVT prophylaxis SCDs Disposition Anticipate discharge to home 1-2 days CODE STATUS full code as per discussion with the patient Admission and Anticipated Discharge Date Admission Date: April 28, 2023 Subjective ff up for upper gi bleed, etc seen resting in chair, comfortable states he feels improved today breathing is better coughing more phlegm no chest pain no abdominal pain ,nausea/vomiting, melena/hematochezia no other symptoms Review of Systems Review of Systems: all noted and negative except for above Physical Exam Physical Exam: General- oriented x 3, not in distress, speaks in sentences with no effort or accessory muscle use Eyes- anicteric Neck- no JVD Lungs- mild scattered wheeze- improving Heart- normal rate, regular rhythm; no murmurs Abdomen- normal bowel sounds, nondistended, soft, no tenderness Extremities- no pretibial edema, no calf tenderness Neuro- alert, oriented x 3; no gross focal neurologic deficits Skin- warm & dry Results & Data Results & Data Vital Signs (Past 12 Hours) Vital Signs Temp Pulse Pulse Pulse Resp BP Pulse Ox 05/07/23 16:10 37.0 C 84 19 116/54 L 95 05/07/23 15:28 71 05/07/23 14:16 123/68 05/07/23 13:08 71 20 96 05/07/23 11:00 36.8 C 75 19 111/43 L 93 05/07/23 09:00 05/07/23 08:00 36.6 C 59 L 19 105/32 L 94 05/07/23 07:53 62 O2 Del Method O2 Flow Rate 05/07/23 16:10 Nasal Cannula 3 05/07/23 15:28 05/07/23 14:16 05/07/23 13:08 Nasal Cannula 3 05/07/23 11:00 Nasal Cannula 3 05/07/23 09:00 Nasal Cannula 4 05/07/23 08:00 Nasal Cannula 3 05/07/23 07:53 all noted and reviewed including below
[2023-05-07] MEDS: rOPINIRole HCL 0.25 MG TABLET PO SCH (18:50)
[2023-05-07] MEDS: ZONISAMIDE PO SCH (19:50)
[2023-05-07] MEDS: GABAPENTIN 300 MG CAP PO SCH (19:50)
[2023-05-08] MEDS: LEVALBUTEROL 1.25 MG/3 ML NEB NEB SCH ×4 (01:29→19:40)
[2023-05-08] MEDS: IPRATROPIUM BROMIDE NEB SOLN 0.02% 2.5 ML VIAL INH SCH ×4 (01:29→19:40)
[2023-05-08 05:39] LABS: BUN Creatinine Ratio 18.6 (10-20); Calcium 7.9 mg/dl (8.6-10.3); Creatinine Clr Calc Pharmacy 33.4 ml/min; Est GFR (African American) 51.3 ml/min; Est GFR (Non-African American) 44.2 ml/min; Potassium 3.9 mmol/L (3.5-5.1)
[2023-05-08] MEDS: LEVOTHYROXINE SODIUM 50 MCG TABLET PO SCH (06:28)
[2023-05-08 07:27] LABS: Basophils # (auto) 0.02 K/uL (0.00-0.20); Basophils % (auto) 0.4 %; Echinocytes 1+; Hematocrit (blood only) 26.5 % (42.0-52.0); Hemoglobin 8.2 g/dl (14.0-18.0); Immature Granulocytes % (auto) 2.2 %; Lymphocytes % (auto) 13.1 %; Mean Corpuscular Hemoglobin 27.4 pg (25.0-34.0); Mean Corpuscular Hgb Conc 30.9 g/dL (32.0-36.0); Mean Corpuscular Volume 88.6 fL (80.0-100.0); Mean Platelet Volume 10.3 fL (9.4-12.4); Monocytes # (auto) 0.95 K/uL (0.11-0.59); Monocytes % (auto) 20.7 %; Neutrophils # (auto) 2.92 K/uL (1.40-6.50); Neutrophils % (auto) 63.6 %; Platelet Count 264 K/uL (130-400); Polychromasia 1+; RDW Coefficient of Variation 16.1 % (11.5-14.5); RDW Standard Deviation 52.2 fL (36.4-46.3); Red Blood Count 2.99 M/uL (4.70-6.10); White Blood Count 4.59 K/ul (4.8-10.8)
[2023-05-08] MEDS: ARTIFICIAL TEARS OP SCH ×2 (09:13→20:37)
[2023-05-08] MEDS: ASCORBIC ACID 500 MG TAB PO SCH ×2 (09:13→20:53)
[2023-05-08] MEDS: AMOXICILLIN/CLAVULANATE 875 MG TAB PO SCH ×2 (09:13→16:20)
[2023-05-08] MEDS: FLUTICASONE/VILANTEROL 200/25MCG 14 PUFFS/INHALER INH SCH (09:14)
[2023-05-08] MEDS: CHOLECALCIFEROL 1,000 UNITS 25 MCG TAB PO SCH (09:14)
[2023-05-08] MEDS: AZITHROMYCIN 250 MG TAB PO SCH (09:14)
[2023-05-08] MEDS: FERROUS SULFATE 325 MG TAB PO SCH (09:14)
[2023-05-08] MEDS: UMECLIDINIUM BROMIDE 62.5MCG/BLISTER 7 PUFFS/INHALER INH SCH (09:14)
[2023-05-08] MEDS: GABAPENTIN 100 MG CAP PO SCH (09:15)
[2023-05-08] MEDS: PANTOprazole 40 MG TAB PO SCH ×2 (09:15→20:53)
[2023-05-08] MEDS: CEROVITE ADV FORMULA TAB PO SCH (09:15)
[2023-05-08] MEDS: ISOSORBIDE MONO EXTENDED REL 30 MG TABCR PO SCH (09:15)
[2023-05-08] MEDS: ADVANCED PROBIOTIC 1250 MG CAPSULE PO SCH (09:15)
[2023-05-08] MEDS: SUCRALFATE 1 GM/10 ML UDC PO SCH ×2 (09:16→20:51)
[2023-05-08] MEDS: ROFLUMILAST 500 MCG TAB PO SCH (09:16)
[2023-05-08] MEDS: POLYETHYLENE (MIRALAX) 17 GM PACK PO SCH (09:16)
[2023-05-08] MEDS ORDERED: predniSONE 10 MG TABLET PO ONE (15:31)
--- NOTE | 2023-05-08 18:00 | Hospitalist Progress Note ---
Date of Service May 08, 2023 Assessment & Plan (1) Acute anemia: Plan: 87-year-old male with past medical history significant for HTN, diastolic CHF, COPD, chronic respiratory failure with 3 to 4 L oxygen at home, squamous cell carcinoma of the ear, head and neck, status post lesion removal, diagnosed October 2021, hypothyroidism, blindness in left eye since 2013, hx of COPD exacerbation with possible aspiration pneumonitis, history of chronic anemia and history of GI bleed presents with not feeling good at home for the last week. Acute blood loss anemia likely secondary to upper GI bleed History of GI bleed and PRBC transfusions Hemoglobin 4.6 at presentation and received 3 units of PRBCs so far-globin went up to 6.9 Hold aspirin Continue with Protonix drip Appreciate GI input and recommendation Hemoglobin went up to 7.5-we will hold any blood transfusion right now Monitor CBC and continue current Protonix drip Hemoglobin remains stable black stool continued No significant abdominal pain Will change the drip to p.o. medication Hemoglobin remains stable at 7.4 Creatinine went up a little-could be secondary to ongoing bleeding and/or recent bleeding Will monitor CBC and PRP Hemoglobin remains stable at 7.4-we will monitor CBC tomorrow and may need more blood transfusion 05/05 Status post 1 unit of packed RBC Hemoglobin improved currently 8.1 Upper GI bleed resolved Continue to monitor 05/06 Hg stable at 8.9 05/08 stable no recurrence ZURDO- Creatinine is a little up-could be secondary to ongoing bleeding Was given 20 of Lasix IV with chest x-ray finding this morning Creatinine may go up further but the patient was advised to drink more fluid Monitor PRP 05/06 Creatinine 1.6 will need monitoring 05/08 creatinine 1.4 monitor Chest x-ray showed possible consolidation Will start intravenous doxycycline Has been getting doxycycline for possible bronchitis/pneumonia Will get repeat chest [id number] possible congestion without any consolidation Will give a small dose of Lasix 20 mg IV this evening Is stopped doxycycline which may cause abdominal pain 05/05 Nebs every 6 hours started Wheezing improving Chest x-ray showing possible right lower lobe consolidation versus atelectasis Start Augmentin 8 7 5 mg twice daily to complete 1 week 05/06 improving continue present regimen add Azithromycin 05/07 improving less wheezing continue regimen 05/08 (+) wheezing trial of Prednisone 30mg Status post EGD: Normal esophagus, 2 bleeding angiectasis in the stomach treated with argon plasma coagulation. Clips were placed as well We will monitor H&H and give blood transfusion if needed Hemoglobin 7.5-we will monitor Will continue PPI 2 times a day Add sucralfate for ongoing abdominal pain 05/08 Management per above Complains to abdominal pain CT scan did not show any diverticulitis Minimally tender epigastrium and right lower quadrant Will add sucralfate on top up PPI May be secondary to constipation we will start MiraLAX Bowel is not moved again-Will give enema He takes castor oil as an outpatient which is nonformulary 05/08 Resolved History of COPD Chronic respiratory failure 3 to 4 L oxygen Continue home inhalers No acute respiratory symptoms and has been saturating normally on 2 L Management of acute bronchitis per above Chronic diastolic CHF Monitor for volume overload No signs and or symptoms of volume overload Chest x-ray did show mild congestion-given a small dose of Lasix currently euvolemic History of essential tremor Continues mild and recoup at home Squamous cell cancer of external ear S/p excision and immunotherapy Follow-up with heme-onc Hypertension Continue amlodipine Imdur with holding parameters Hypothyroidism On Synthyroid DVT prophylaxis SCDs Disposition Anticipate discharge to home 1-2 days CODE STATUS full code as per discussion with the patient Admission and Anticipated Discharge Date Admission Date: April 28, 2023 Subjective ff up for gi bleed, COPD exacerbation, acute bronchitis, etc seen resting in chair comfortable on 3 L breathing gradually improving no chest pain, palpitations, dizziness no abdominal pain, nausea/vomiting, melena/hematochezia Review of Systems Review of Systems: all noted and negative except for above Physical Exam Physical Exam: General- oriented x 3, not in distress, speaks in sentences with no effort or accessory muscle use Eyes- anicteric Neck- no JVD Lungs- mild scattered wheezing BL Heart- normal rate, regular rhythm; no murmurs Abdomen- normal bowel sounds, nondistended, soft, no tenderness Extremities- no pretibial edema, no calf tenderness Neuro- alert, oriented x 3; no gross focal neurologic deficits Skin- warm & dry Results & Data Results & Data Vital Signs (Past 12 Hours) Vital Signs Temp Pulse Pulse Resp BP Pulse Ox O2 Del Method 05/08/23 15:36 70 05/08/23 15:36 36.9 C 76 18 148/73 H 98 Nasal Cannula 05/08/23 14:08 66 20 95 Nasal Cannula 05/08/23 11:26 36.9 C 62 18 110/54 L 92 Nasal Cannula 05/08/23 09:00 Nasal Cannula 05/08/23 08:00 59 L 05/08/23 07:55 37.1 C 59 L 18 115/64 97 Room Air 05/08/23 07:15 58 L 20 95 Nasal Cannula O2 Flow Rate 05/08/23 15:36 05/08/23 15:36 3 05/08/23 14:08 4 05/08/23 11:26 3 05/08/23 09:00 3 05/08/23 08:00 05/08/23 07:55 05/08/23 07:15 4 all noted and reviewed including below
[2023-05-08] MEDS: rOPINIRole HCL 0.25 MG TABLET PO SCH (18:40)
[2023-05-08] MEDS: GABAPENTIN 300 MG CAP PO SCH (20:53)
[2023-05-08] MEDS: ZONISAMIDE PO SCH (20:54)
[2023-05-09] MEDS: LEVALBUTEROL 1.25 MG/3 ML NEB NEB SCH ×5 (01:52→23:38)
[2023-05-09] MEDS: IPRATROPIUM BROMIDE NEB SOLN 0.02% 2.5 ML VIAL INH SCH ×5 (01:53→23:38)
[2023-05-09 05:20] LABS: Basophils # (auto) 0.02 K/uL (0.00-0.20); Basophils % (auto) 0.4 %; Hemoglobin 7.5 g/dl (14.0-18.0); Immature Granulocytes % (auto) 1.9 %; Lymphocytes # (auto) 0.33 K/uL (1.20-3.40); Lymphocytes % (auto) 6.4 %; Mean Corpuscular Hemoglobin 26.6 pg (25.0-34.0); Mean Corpuscular Hgb Conc 31.3 g/dL (32.0-36.0); Mean Corpuscular Volume 85.1 fL (80.0-100.0); Monocytes # (auto) 0.28 K/uL (0.11-0.59); Monocytes % (auto) 5.5 %; Neutrophils % (auto) 85.8 %; Platelet Count 355 K/uL (130-400); RDW Coefficient of Variation 15.8 % (11.5-14.5); RDW Standard Deviation 49.5 fL (36.4-46.3); Red Blood Count 2.82 M/uL (4.70-6.10); White Blood Count 5.13 K/ul (4.8-10.8)
[2023-05-09 05:48] LABS: BUN Creatinine Ratio 15.2 (10-20); Calcium 7.7 mg/dl (8.6-10.3); Creatinine Clr Calc Pharmacy 28.5 ml/min; Est GFR (African American) 42.3 ml/min; Est GFR (Non-African American) 36.5 ml/min; Potassium 4.7 mmol/L (3.5-5.1)
[2023-05-09 06:12] LABS: Polychromasia 1+
[2023-05-09] MEDS: LEVOTHYROXINE SODIUM 50 MCG TABLET PO SCH (06:28)
[2023-05-09] MEDS: GABAPENTIN 100 MG CAP PO SCH (08:28)
[2023-05-09] MEDS: SUCRALFATE 1 GM/10 ML UDC PO SCH ×2 (08:28→20:00)
[2023-05-09] MEDS: ACETAMINOPHEN 325 MG TAB PO PRN (08:28)
[2023-05-09] MEDS: PANTOprazole 40 MG TAB PO SCH ×2 (08:28→20:00)
[2023-05-09] MEDS: ADVANCED PROBIOTIC 1250 MG CAPSULE PO SCH (08:29)
[2023-05-09] MEDS: ROFLUMILAST 500 MCG TAB PO SCH (08:29)
[2023-05-09] MEDS: FERROUS SULFATE 325 MG TAB PO SCH (08:29)
[2023-05-09] MEDS: AMOXICILLIN/CLAVULANATE 875 MG TAB PO SCH ×2 (08:29→18:48)
[2023-05-09] MEDS: CEROVITE ADV FORMULA TAB PO SCH (08:29)
[2023-05-09] MEDS: ASCORBIC ACID 500 MG TAB PO SCH ×2 (08:29→20:00)
[2023-05-09] MEDS: CHOLECALCIFEROL 1,000 UNITS 25 MCG TAB PO SCH (08:29)
[2023-05-09] MEDS: ISOSORBIDE MONO EXTENDED REL 30 MG TABCR PO SCH (08:29)
[2023-05-09] MEDS: AZITHROMYCIN 250 MG TAB PO SCH (08:29)
[2023-05-09] MEDS: FLUTICASONE/VILANTEROL 200/25MCG 14 PUFFS/INHALER INH SCH (08:30)
[2023-05-09] MEDS: ARTIFICIAL TEARS OP SCH ×2 (08:30→20:01)
[2023-05-09] MEDS: POLYETHYLENE (MIRALAX) 17 GM PACK PO SCH (08:30)
[2023-05-09] MEDS: UMECLIDINIUM BROMIDE 62.5MCG/BLISTER 7 PUFFS/INHALER INH SCH (08:30)
[2023-05-09] MEDS ORDERED: predniSONE 10 MG TABLET PO ONE (10:35)
[2023-05-09] MEDS: LIDOCAINE 5% 1 PATCH TD SCH (11:22)
[2023-05-09 12:55] LABS: Hematocrit (blood only) 25.2 % (42.0-52.0); Hemoglobin 7.9 g/dl (14.0-18.0)
[2023-05-09] MEDS ORDERED: ACETAMINOPHEN 325 MG TAB PO ONE (15:57)
[2023-05-09] MEDS ORDERED: SODIUM CHLORIDE 0.9% 250 ML IV PRN (15:57)
--- NOTE | 2023-05-09 16:02 | Hospitalist Progress Note ---
Date of Service May 09, 2023 Assessment & Plan (1) Acute anemia: Plan: 87-year-old male with past medical history significant for HTN, diastolic CHF, COPD, chronic respiratory failure with 3 to 4 L oxygen at home, squamous cell carcinoma of the ear, head and neck, status post lesion removal, diagnosed October 2021, hypothyroidism, blindness in left eye since 2013, hx of COPD exacerbation with possible aspiration pneumonitis, history of chronic anemia and history of GI bleed presents with not feeling good at home for the last week. Acute blood loss anemia likely secondary to upper GI bleed History of GI bleed and PRBC transfusions Hemoglobin 4.6 at presentation and received 3 units of PRBCs so far-globin went up to 6.9 Hold aspirin Continue with Protonix drip Appreciate GI input and recommendation Hemoglobin went up to 7.5-we will hold any blood transfusion right now Monitor CBC and continue current Protonix drip Hemoglobin remains stable black stool continued No significant abdominal pain Will change the drip to p.o. medication Hemoglobin remains stable at 7.4 Creatinine went up a little-could be secondary to ongoing bleeding and/or recent bleeding Will monitor CBC and PRP Hemoglobin remains stable at 7.4-we will monitor CBC tomorrow and may need more blood transfusion 05/05 Status post 1 unit of packed RBC Hemoglobin improved currently 8.1 Upper GI bleed resolved Continue to monitor 05/06 Hg stable at 8.9 05/08 stable no recurrence 05/09 Hemoglobin this morning 7.5 Repeat at noon 7.9 Denies abdominal pain, no note of melena or hematochezia We will transfuse 1 unit of packed RBCs for goal of more than 8 in light of patient's CAD ZURDO Creatinine is a little up-could be secondary to ongoing bleeding Was given 20 of Lasix IV with chest x-ray finding this morning Creatinine may go up further but the patient was advised to drink more fluid Monitor PRP 05/06 Creatinine 1.6 will need monitoring 05/08 creatinine 1.4 monitor 05/09 Creatinine stable, 1.6 Chest x-ray showed possible consolidation Will start intravenous doxycycline Has been getting doxycycline for possible bronchitis/pneumonia Will get repeat chest [id number] possible congestion without any consolidation Will give a small dose of Lasix 20 mg IV this evening Is stopped doxycycline which may cause abdominal pain 05/05 Nebs every 6 hours started Wheezing improving Chest x-ray showing possible right lower lobe consolidation versus atelectasis Start Augmentin 8 7 5 mg twice daily to complete 1 week 05/06 improving continue present regimen add Azithromycin 05/07 improving less wheezing continue regimen 05/08 (+) wheezing trial of Prednisone 30mg 05/09 Wheezing improving Continue prednisone 30 mg day 2, plan to taper slowly Status post EGD: Normal esophagus, 2 bleeding angiectasis in the stomach treated with argon plasma coagulation. Clips were placed as well We will monitor H&H and give blood transfusion if needed Hemoglobin 7.5-we will monitor Will continue PPI 2 times a day Add sucralfate for ongoing abdominal pain 05/08 Management per above Complains to abdominal pain CT scan did not show any diverticulitis Minimally tender epigastrium and right lower quadrant Will add sucralfate on top up PPI May be secondary to constipation we will start MiraLAX Bowel is not moved again-Will give enema He takes castor oil as an outpatient which is nonformulary 05/08 Resolved History of COPD Chronic respiratory failure 3 to 4 L oxygen Continue home inhalers No acute respiratory symptoms and has been saturating normally on 2 L Management of acute bronchitis per above Chronic diastolic CHF Monitor for volume overload No signs and or symptoms of volume overload Chest x-ray did show mild congestion-given a small dose of Lasix currently euvolemic History of essential tremor Continues mild and recoup at home Squamous cell cancer of external ear S/p excision and immunotherapy Follow-up with heme-onc Hypertension Continue amlodipine Imdur with holding parameters Hypothyroidism On Synthyroid DVT prophylaxis SCDs Disposition Anticipate discharge to home 1-2 days CODE STATUS full code as per discussion with the patient Admission and Anticipated Discharge Date Admission Date: April 28, 2023 Subjective Follow-up for GI bleed, acute bronchitis, etc. Seen resting in bed, sleeping but easily awakened States he feels improved today Breathing continues to improve, less cough, able to expectorate more sputum Denies abdominal pain, unable to check for melena or hematochezia due to poor visual acuity No other new symptoms Review of Systems Review of Systems: all noted and negative except for above Physical Exam Physical Exam: General- oriented x 3, not in distress, speaks in sentences with no effort or accessory muscle use Eyes- anicteric Neck- no JVD Lungs-very mild scattered wheezing bilaterally, much improved No crackles Good air entry bilaterally Heart- normal rate, regular rhythm; no murmurs Abdomen- normal bowel sounds, nondistended, soft, nontender Extremities- no pretibial edema, no calf tenderness Neuro- alert, oriented x 3; no gross focal neurologic deficits Skin- warm & dry Results & Data Results & Data Vital Signs (Past 12 Hours) Vital Signs Temp Pulse Pulse Resp BP Pulse Ox O2 Del Method 05/09/23 15:40 97 05/09/23 12:40 60 18 98 Nasal Cannula 05/09/23 11:10 36.7 C 59 L 19 124/51 L 96 Nasal Cannula 05/09/23 09:48 63 05/09/23 08:06 36.4 C L 57 L 20 126/51 L 94 Room Air 05/09/23 07:07 61 14 95 Nasal Cannula O2 Flow Rate 05/09/23 15:40 05/09/23 12:40 3 05/09/23 11:10 2 05/09/23 09:48 05/09/23 08:06 05/09/23 07:07 3 all noted and reviewed including below
[2023-05-09] MEDS: rOPINIRole HCL 0.25 MG TABLET PO SCH (19:12)
[2023-05-09] MEDS: GABAPENTIN 300 MG CAP PO SCH (20:00)
[2023-05-09] MEDS: ZONISAMIDE PO SCH (20:02)
[2023-05-09 23:12] LABS: Hematocrit (blood only) 28.6 % (42.0-52.0)
[2023-05-10] MEDS: LEVOTHYROXINE SODIUM 50 MCG TABLET PO SCH (05:34)
[2023-05-10] MEDS: IPRATROPIUM BROMIDE NEB SOLN 0.02% 2.5 ML VIAL INH SCH (06:56)
[2023-05-10] MEDS: LEVALBUTEROL 1.25 MG/3 ML NEB NEB SCH (06:56)
[2023-05-10 07:29] LABS: Calcium 7.9 mg/dl (8.6-10.3); Potassium 4.6 mmol/L (3.5-5.1)
[2023-05-10 07:34] LABS: BUN Creatinine Ratio 21.8 (10-20); Est GFR (Non-African American) 38.8 ml/min
[2023-05-10] MEDS: AMOXICILLIN/CLAVULANATE 875 MG TAB PO SCH (08:55)
[2023-05-10] MEDS: AZITHROMYCIN 250 MG TAB PO SCH (08:55)
[2023-05-10] MEDS: ASCORBIC ACID 500 MG TAB PO SCH (08:56)
[2023-05-10] MEDS: PANTOprazole 40 MG TAB PO SCH (08:56)
[2023-05-10] MEDS: SUCRALFATE 1 GM/10 ML UDC PO SCH (08:56)
[2023-05-10] MEDS: POLYETHYLENE (MIRALAX) 17 GM PACK PO SCH (08:57)
[2023-05-10] MEDS: ISOSORBIDE MONO EXTENDED REL 30 MG TABCR PO SCH (08:57)
[2023-05-10] MEDS: CEROVITE ADV FORMULA TAB PO SCH (08:57)
[2023-05-10] MEDS: CHOLECALCIFEROL 1,000 UNITS 25 MCG TAB PO SCH (08:57)
[2023-05-10] MEDS: ADVANCED PROBIOTIC 1250 MG CAPSULE PO SCH (08:57)
[2023-05-10] MEDS: GABAPENTIN 100 MG CAP PO SCH (08:57)
[2023-05-10] MEDS: FERROUS SULFATE 325 MG TAB PO SCH (08:57)
[2023-05-10] MEDS: ROFLUMILAST 500 MCG TAB PO SCH (08:57)
[2023-05-10] MEDS: FLUTICASONE/VILANTEROL 200/25MCG 14 PUFFS/INHALER INH SCH (08:58)
[2023-05-10] MEDS: UMECLIDINIUM BROMIDE 62.5MCG/BLISTER 7 PUFFS/INHALER INH SCH (08:58)
[2023-05-10] MEDS: LIDOCAINE 5% 1 PATCH TD SCH (08:59)
[2023-05-10] MEDS: ARTIFICIAL TEARS OP SCH (08:59)
[2023-05-10] MEDS ORDERED: predniSONE 10 MG TABLET PO ONE (09:43)
--- NOTE | 2023-05-10 13:50 | Hospitalist Progress Note ---
Date of Service May 10, 2023 Assessment & Plan (1) Acute anemia: Plan: 87-year-old male with past medical history significant for HTN, diastolic CHF, COPD, chronic respiratory failure with 3 to 4 L oxygen at home, squamous cell carcinoma of the ear, head and neck, status post lesion removal, diagnosed October 2021, hypothyroidism, blindness in left eye since 2013, hx of COPD exacerbation with possible aspiration pneumonitis, history of chronic anemia and history of GI bleed presents with not feeling good at home for the last week. Acute blood loss anemia likely secondary to upper GI bleed Status post EGD: Normal esophagus, 2 bleeding angiectasis in the stomach treated with argon plasma coagulation. Clips were placed as well Received 5 units of packed RBC during admission Hemoglobin improved from 4.6, to 9 Transition to p.o. Protonix twice daily Sucralfate twice daily No recurrence of GI bleed Discharge plan: Protonix 40 mg twice a day x1 month, then daily Sucralfate twice daily x2 weeks Hold aspirin for at least 2 weeks ZURDO Creatinine stable at 1.4, to 1.6 Acute exacerbation of COPD Chronic respiratory failure on 3 to 4 L of oxygen Possible right lower lobe pneumonia versus atelectasis, possible acute bronchitis Positive wheezing on exam Given Xopenex Atrovent every 6 hours, also started on Augmentin plus azithromycin, Pulmicort nebs twice daily, prednisone 30 mg p.o. daily Patient gradually improved Wheezing mostly resolved On usual 3 L of oxygen via nasal cannula Discharge plan: Augmentin x2 more days, azithromycin x1 day, nebs Xopenex and Atrovent x1 week, prednisone taper Chronic diastolic CHF Chest x-ray did show mild congestion-given a small dose of Lasix currently euvolemic History of essential tremor Continues mild and recoup at home Squamous cell cancer of external ear S/p excision and immunotherapy Follow-up with heme-onc Hypertension Continue amlodipine, Imdur with holding parameters Hypothyroidism On Synthyroid DVT prophylaxis SCDs Disposition Discharge to home, follow-up with PCP in 1 week Admission and Anticipated Discharge Date Admission Date: April 28, 2023 Subjective ff up for GI bleed, acute bronchitis, [employer] exacerbation, etc. Seen resting in bed, comfortable, not in distress Sitting up, in good spirits States he feels much better overall Breathing is much better Less cough, no fevers or chills No abdominal pain, melena or hematochezia States he is ready for discharge today Review of Systems Review of Systems: all noted and negative except for above Physical Exam Physical Exam: General- oriented x 3, not in distress, speaks in sentences with no effort or accessory muscle use Eyes- anicteric Neck- no JVD Lungs- clear breath sounds bilaterally, no rales/wheezes Heart- normal rate, regular rhythm; no murmurs Abdomen- normal bowel sounds, nondistended, soft, nontender Extremities- no pretibial edema, no calf tenderness Neuro- alert, oriented x 3; no gross focal neurologic deficits Skin- warm & dry Results & Data Results & Data Vital Signs (Past 12 Hours) Vital Signs Temp Pulse Pulse Pulse Resp BP BP 05/10/23 11:06 36.3 C L 53 L 64 19 134/62 135/49 L 05/10/23 11:04 36.3 C L 53 L 19 135/49 L 05/10/23 10:53 05/10/23 08:14 57 L 05/10/23 07:13 36.3 C L 55 L 17 137/55 L 05/10/23 06:57 66 18 05/10/23 02:44 36.5 C 58 L 16 124/55 L Pulse Ox O2 Del Method O2 Flow Rate 05/10/23 11:06 98 05/10/23 11:04 Nasal Cannula 3 05/10/23 10:53 Nasal Cannula 05/10/23 08:14 05/10/23 07:13 98 Nasal Cannula 3 05/10/23 06:57 95 Nasal Cannula 3 05/10/23 02:44 94 Nasal Cannula all noted and reviewed including below
--- NOTE | 2023-05-10 19:02 | Discharge Summary ---
Discharge Summary Date of Service May 10, 2023 Notes For Next Care Provider Medication Changes From Visit PLEASE REFER TO YOUR NEW MEDICATION LIST AND FOLLOW INSTRUCTIONS CAREFULLY. YOUR NEW MEDICATIONS INCLUDE: Augmentin, azithromycin-antibiotics for bronchitis, pneumonia Xopenex, Atrovent-nebulizer treatments for bronchitis, pneumonia Protonix-to prevent stomach bleeding, take at least 30 minutes before meals Sucralfate-to prevent stomach bleeding Please take a probiotic daily. PLEASE CALL YOUR PRIMARY CARE PHYSICIAN OR RETURN TO THE ER IF WITH WORSENING OF SYMPTOMS, INCLUDING Cough, shortness of breath, fevers or chills, Abdominal pain, nausea or vomiting, blood in the stools, etc. FOLLOW UP WITH PRIMARY CARE PHYSICIAN OUTLINED ABOVE. Admission HPI Per Admitting Provider 87-year-old male with past medical history significant for HTN, diastolic CHF, COPD, chronic respiratory failure with 3 to 4 L oxygen at home, squamous cell carcinoma of the ear, head and neck, status post lesion removal, diagnosed October 2021, hypothyroidism, blindness in left eye since 2013, hx of COPD exacerbation with possible aspiration pneumonitis, history of chronic anemia and history of GI bleed presents with not feeling good at home for the last week. Says he did not move his bowels for 1 week. Prior to that he had black stools for 1 week. Says he has some lower abdominal pain thinks he has UTI. Denies headache. Has chronic neck and back pain. Has some cough and brings mucus. Appetite is down. Has some runny nose. Some sore throat. Feeling short of breath. No nausea or vomiting. No fevers. Ambulates with a walker. Lives with his 2 sons. Currently hemodynamically stable. Past medical history. As mentioned above Past surgical history. Removal of the squamous cell carcinoma of the head and neck. Social history. Former smoker. No alcohol use. No drug use. Lives with his sons. Family history. Noncontributory. Admission Exam Per Admitting Provider Augmentin, azithromycin-antibiotics for bronchitis, pneumonia Xopenex, Atrovent-nebulizer treatments for bronchitis, pneumonia Protonix-to prevent stomach bleeding, take at least 30 minutes before meals Sucralfate-to prevent stomach bleeding Principal Dx & Hospital Course #1 = Principal Diagnosis (1) Acute anemia: 87-year-old male with past medical history significant for HTN, diastolic CHF, COPD, chronic respiratory failure with 3 to 4 L oxygen at home, squamous cell carcinoma of the ear, head and neck, status post lesion removal, diagnosed October 2021, hypothyroidism, blindness in left eye since 2013, hx of COPD exacerbation with possible aspiration pneumonitis, history of chronic anemia and history of GI bleed presents with not feeling good at home for the last week. Acute blood loss anemia likely secondary to upper GI bleed Status post EGD: Normal esophagus, 2 bleeding angiectasis in the stomach treated with argon plasma coagulation. Clips were placed as well Received 5 units of packed RBC during admission Hemoglobin improved from 4.6, to 9 Transition to p.o. Protonix twice daily Sucralfate twice daily No recurrence of GI bleed Discharge plan: Protonix 40 mg twice a day x1 month, then daily Sucralfate twice daily x2 weeks Hold aspirin for at least 2 weeks ZURDO Creatinine stable at 1.4, to 1.6 Acute exacerbation of COPD Chronic respiratory failure on 3 to 4 L of oxygen Possible right lower lobe pneumonia versus atelectasis, possible acute bronchitis Positive wheezing on exam Given Xopenex Atrovent every 6 hours, also started on Augmentin plus azithromycin, Pulmicort nebs twice daily, prednisone 30 mg p.o. daily Patient gradually improved Wheezing mostly resolved On usual 3 L of oxygen via nasal cannula Discharge plan: Augmentin x2 more days, azithromycin x1 day, nebs Xopenex and Atrovent x1 week, prednisone taper Chronic diastolic CHF Chest x-ray did show mild congestion-given a small dose of Lasix currently euvolemic History of essential tremor Continues mild and recoup at home Squamous cell cancer of external ear S/p excision and immunotherapy Follow-up with heme-onc Hypertension Continue amlodipine, Imdur with holding parameters Hypothyroidism On Synthyroid DVT prophylaxis SCDs Disposition Discharge to home, follow-up with PCP in 1 week Discharge Exam General- oriented x 3, not in distress, speaks in sentences with no effort or accessory muscle use Eyes- anicteric Neck- no JVD Lungs- clear breath sounds bilaterally, no rales/wheezes Heart- normal rate, regular rhythm; no murmurs Abdomen- normal bowel sounds, nondistended, soft, nontender Extremities- no pretibial edema, no calf tenderness Neuro- alert, oriented x 3; no gross focal neurologic deficits Skin- warm & dry Updated Medication List Medication Instructions Recorded Confirmed Type albuterol sulfate 2.5 mg/3 mL 3 ml inhalation QID PRN Shortness 10/04/18 04/28/23 History (0.083 %) solution for nebulization Of Breath albuterol sulfate 90 mcg/actuation 2 puff inhalation Q4H PRN SHORT OF 10/04/18 04/28/23 History aerosol inhaler BREATH/COUGH/WHEEZING ferrous sulfate 325 mg (65 mg 325 mg PO DAILY 10/04/18 04/28/23 History iron) tablet tiotropium bromide 2.5 2 puff inhalation DAILY 10/04/18 04/28/23 History mcg/actuation mist for inhalation isosorbide mononitrate 60 mg 30 mg PO QAM 09/29/22 04/28/23 History tablet,extended release 24 hr amlodipine 5 mg tablet 5 mg PO DAILY 01/19/23 04/28/23 History cholecalciferol (vitamin D3) 25 25 mcg PO DAILY 01/19/23 04/28/23 History mcg (1,000 unit) capsule (Vitamin D3) fluticasone 250 mcg-salmeterol 50 1 inh inhalation BID 01/19/23 04/28/23 History mcg/dose blistr powdr for inhalation peg 400-propylene glycol (PF) 0.4 1 drp OPL BID 01/19/23 04/28/23 History %-0.3 % eye drops in a dropperette (Lubricant Eye (PG-PEG 400) (PF)) ropinirole 0.25 mg tablet 0.25 mg PO HS 01/19/23 04/28/23 History zonisamide 25 mg capsule 25 mg PO HS 01/19/23 04/28/23 History ascorbic acid (vitamin C) 500 mg 500 mg PO BID 04/28/23 04/28/23 History tablet aspirin 81 mg tablet,delayed 81 mg PO DAILY 04/28/23 04/28/23 History release gabapentin 100 mg capsule 100 mg PO QAM 04/28/23 04/28/23 History gabapentin 100 mg capsule 300 mg PO HS 04/28/23 04/28/23 History levothyroxine 50 mcg tablet 50 mcg PO DAILY 04/28/23 04/28/23 History multivitamin with minerals 1 tab PO DAILY 04/28/23 04/28/23 History (Multiple Vitamin-Minerals tablet) nitroglycerin 0.4 mg sublingual 0.4 mg sublingual .PRN/UD PRN 04/28/23 04/28/23 History tablet Chest Pain roflumilast 250 mcg tablet 250 mcg PO DAILY 04/28/23 04/28/23 History L.acidop,casei,lactis,rham-B.lact,gordon 2 cap PO DAILY 14 days #28 caps 05/10/23 Rx 625 mg (10 billion cell) capsule (Advanced Probiotic) amoxicillin 875 mg-potassium 1 tab PO BIDM 2 days #4 tabs 05/10/23 Rx clavulanate 125 mg tablet azithromycin 250 mg tablet 250 mg PO QAM 1 day #1 tab 05/10/23 Rx ipratropium bromide 0.02 % 0.5 mg (2.5 mL) inhalation Q6R 7 05/10/23 Rx solution for inhalation days #75 mL levalbuterol HCl 1.25 mg/3 mL 1.25 mg (3 mL) NEB Q6R 7 days #90 05/10/23 Rx solution for nebulization mL pantoprazole 40 mg tablet,delayed 40 mg PO BID 30 days #60 tabs 05/10/23 Rx release (Protonix) prednisone 10 mg tablet 10 mg PO DAILY #9 tabs 05/10/23 Rx sucralfate 100 mg/mL oral 1 g (10 mL) PO BID 14 days #280 mL 05/10/23 Rx suspension Hospital Stay Data Consultations 04/28/23 20:43 ED Decision to Admit Stat 04/29/23 08:00 Consult Gastroenterology Routine 05/04/23 08:39 Consult Nephrology Routine Procedures Performed Operation Date: 04/29/23 10:20 Actual Procedures p Esophagogastroduodenoscopy - Kita Benavidez MD Diagnostic Imagining Performed Laboratory Results WBC 5.13 K/ul (4.8-10.8) 05/09/23 04:55 RBC 2.82 M/uL (4.70-6.10) L 05/09/23 04:55 Hgb 9.0 g/dl (14.0-18.0) L 05/09/23 22:47 Hct 28.6 % (42.0-52.0) L 05/09/23 22:47 MCV 85.1 fL (80.0-100.0) 05/09/23 04:55 MCH 26.6 pg (25.0-34.0) 05/09/23 04:55 MCHC 31.3 g/dL (32.0-36.0) L 05/09/23 04:55 RDW Std Deviation 49.5 fL (36.4-46.3) H 05/09/23 04:55 RDW Coeff of Jeison 15.8 % (11.5-14.5) H 05/09/23 04:55 Plt Count 355 K/uL (130-400) 05/09/23 04:55 MPV 9.0 fL (9.4-12.4) L 05/09/23 04:55 Immature Gran % (Auto) 1.9 % 05/09/23 04:55 Neut % (Auto) 85.8 % 05/09/23 04:55 Lymph % (Auto) 6.4 % 05/09/23 04:55 [facility] % (Auto) 5.5 % 05/09/23 04:55 Eos % (Auto) 0.0 % 05/09/23 04:55 Baso % (Auto) 0.4 % 05/09/23 04:55 Neut # (Auto) 4.40 K/uL (1.40-6.50) 05/09/23 04:55 Lymph # (Auto) 0.33 K/uL (1.20-3.40) L 05/09/23 04:55 [facility] # (Auto) 0.28 K/uL (0.11-0.59) 05/09/23 04:55 Eos # (Auto) 0.00 K/uL (0.00-0.50) 05/09/23 04:55 Baso # (Auto) 0.02 K/uL (0.00-0.20) 05/09/23 04:55 Immature Gran # (Auto) 0.10 K/uL (0.01-0.20) 05/09/23 04:55 Absolute Nucleated RBC 0.05 K/uL (0.00-0.12) 04/29/23 05:24 Nucleated RBC % (auto) 0.6 % 04/29/23 05:24 RBC Morphology Unremarkable 04/30/23 06:36 Polychromasia 1+ 05/09/23 04:55 Hypochromasia Present 05/04/23 04:58 Tear Drop Cells 1+ 05/04/23 04:58 Echinocytes 1+ 05/08/23 04:23 Sodium 136 mmol/L (136-145) 05/10/23 06:02 Potassium 4.6 mmol/L (3.5-5.1) 05/10/23 06:02 Chloride 103 mmol/L (98-107) 05/10/23 06:02 Carbon Dioxide 29 mmol/L (21-32) 05/10/23 06:02 Anion Gap 4 (3-11) 05/10/23 06:02 BUN 34 mg/dl (6-23) H 05/10/23 06:02 Creatinine 1.56 mg/dl (0.6-1.4) H 05/10/23 06:02 Est Cr Clr Drug Dosing 30.0 ml/min 05/10/23 06:02 Est GFR ( Amer) 45.0 ml/min 05/10/23 06:02 Est GFR (Non-Af Amer) 38.8 ml/min 05/10/23 06:02 BUN/Creatinine Ratio 21.8 (10-20) H 05/10/23 06:02 Glucose 131 mg/dl (70-99(Fasting)) H 05/10/23 06:02 Calcium 7.9 mg/dl (8.6-10.3) L 05/10/23 06:02 Phosphorus 2.8 mg/dl (2.5-4.9) 05/01/23 04:40 Magnesium 2.0 mg/dl (1.7-2.4) 05/01/23 04:40 Total Bilirubin 0.3 mg/dl (0.2-1.0) 04/28/23 18:24 AST 10 U/L (13-39) L 04/28/23 18:24 ALT 5 U/L (7-52) L 04/28/23 18:24 Alkaline Phosphatase 69 U/L (34-104) 04/28/23 18:24 Troponin I High Sens 5.6 pg/ml (0-20) 05/01/23 07:20 Total Protein 6.0 gm/dl (6.0-8.3) 04/28/23 18:24 Albumin 3.2 gm/dl (3.4-5.0) L 04/28/23 18:24 Globulin 2.8 gm/dl (2.5-4.0) 04/28/23 18:24 Albumin/Globulin Ratio 1.1 (0.9-2) 04/28/23 18:24 Lipase 22 U/L (11-82) 04/28/23 18:24 Urine Color Yellow 05/04/23 22:15 Urine Appearance Cloudy (Clear) A 05/04/23 22:15 Urine pH 8.0 (4.5-7.5) H 05/04/23 22:15 Ur Specific [place] 1.016 (1.000-1.030) 05/04/23 22:15 Urine Protein 1+ (Negative) H 05/04/23 22:15 Urine Glucose (UA) Negative (Negative) 05/04/23 22:15 Urine Ketones Negative (Negative) 05/04/23 22:15 Urine Blood Negative (Negative) 05/04/23 22:15 Urine Nitrite Positive (Negative) A 05/04/23 22:15 Urine Bilirubin Negative (Negative) 05/04/23 22:15 Urine Urobilinogen Negative (Negative) 05/04/23 22:15 Ur Leukocyte Esterase 2+ (Negative) H 05/04/23 22:15 Urine WBC (Auto) >30 /hpf (0-5) H 05/04/23 22:15 Urine RBC (Auto) 0-4 /hpf (0-4) 05/04/23 22:15 U Hyaline Cast (Auto) 0 /lpf (0-5) 05/04/23 22:15 U Epithel Cells (Auto) 0-5 /lpf (0-5) 05/04/23 22:15 Urine Bacteria (Auto) 2+ (Negative) H 05/04/23 22:15 Ur Renal Epithelial Cell Not Reportable 04/28/23 20:54 Blood Type O Positive 05/09/23 16:58 Antibody Screen NEGATIVE 05/09/23 16:58 Crossmatch See Detail 05/09/23 16:58 Impressions Abdomen/Pelvis CT 04/28/23 18:01 Exam(s): CT ABDOMEN + PELVIS With Contrast IV Amt: 89 ml optiray 320 EXAM: CT Abdomen and Pelvis With Intravenous Contrast CLINICAL HISTORY: Reason for exam: r mid abd pain. TECHNIQUE: Axial computed tomography images of the abdomen and pelvis with intravenous contrast. CTDI is 18.79 mGy and DLP is 822.76 mGy-cm. Automated exposure control was utilized for the study. A dose lowering technique was utilized adhering to the principles of ALARA. CONTRAST: Patient received 89 ml optiray 320 of IV contrast COMPARISON: 09/29/2022 FINDINGS: Lung bases: Linear atelectasis within the lingula. ABDOMEN: Liver: Unremarkable. No mass. Gallbladder and bile ducts: Cholelithiasis without CT evidence to suggest acute cholecystitis. There is a multiloculated air-fluid collection within the right upper quadrant adjacent to the head of the pancreas and the second and third portions of the duodenum. Overall this area measures 4.2 x 4.6 cm and is unchanged from prior exam. No ductal dilation. Pancreas: Unremarkable. No mass. No ductal dilation. Spleen: Unremarkable. No splenomegaly. Adrenals: Unremarkable. No mass. Kidneys and ureters: Unremarkable. No solid mass. No hydronephrosis. Stomach and bowel: Diverticulosis without evidence of diverticulitis. No obstruction. PELVIS: Appendix: No findings to suggest acute appendicitis. Bladder: Circumferential wall thickening of the urinary bladder of uncertain the etiology. Reproductive: Unremarkable as visualized. ABDOMEN and PELVIS: Intraperitoneal space: Unremarkable. No free air. No significant fluid collection. Bones/joints: No acute fracture. No dislocation. Soft tissues: Unremarkable. Vasculature: Unremarkable. No abdominal aortic aneurysm. Lymph nodes: Unremarkable. No enlarged lymph nodes. IMPRESSION: Multiloculated air-fluid level within the right upper quadrant. This is stable when compared to prior exam Electronically signed by: Nilesh Harris MD 04/28/23 21:[address] 04/30/23 19:43 Exam(s): CT C SPINE EXAM: CT Cervical Spine Without Intravenous Contrast CLINICAL HISTORY: Reason for exam: left shoulder pain and tingling in hand.. TECHNIQUE: Axial computed tomography images of the cervical spine without intravenous contrast. CTDI is 28.03 mGy and DLP is 1014.15 mGy-cm. Automated exposure control was utilized for the study. A dose lowering technique was utilized adhering to the principles of ALARA. COMPARISON: No relevant prior studies available. FINDINGS: Vertebrae: Right-sided laminectomies at C6 and C7. No fracture. No misalignment. Discs/spinal canal/neural foramina: Multilevel degenerative disc disease. Mild to moderate neural foraminal narrowing on the left at C3/C4 C4/C5 and C5/C6. Soft tissues: Unremarkable. IMPRESSION: No acute findings in the cervical spine. Mild to moderate multilevel neural foraminal narrowing on the left. Electronically signed by: Keshawn Cardenas MD 04/30/23 23:[address] 04/30/23 19:43 Exam(s): CT LEFT SHOULDER Without Contrast EXAM: CT Left Upper Extremity Without Intravenous Contrast, Shoulder CLINICAL HISTORY: Reason for exam: left shoulder pain. TECHNIQUE: Axial computed tomography images of the left shoulder without intravenous contrast. CTDI is 28.03 mGy and DLP is 1014.15 mGy-cm. Automated exposure control was utilized for the study. A dose lowering technique was utilized adhering to the principles of ALARA. COMPARISON: No relevant prior studies available. FINDINGS: Bones/joints: No advanced glenohumeral degenerative arthropathy.. No acute fracture. No dislocation. Moderately severe degenerative arthropathy of the acromioclavicular joint. Soft tissues: Unremarkable. IMPRESSION: No acute abnormality. Electronically signed by: Keshawn Cardenas MD 04/30/23 23:53 PM Foot X-Ray 05/04/23 10:52 XR foot LT 2V HISTORY: 87 years-old Male forefoot pain acute pain of the left foot without trauma COMPARISON: None TECHNIQUE: 2 views of the left foot FINDINGS: Demineralized appearance of the bones. Multifocal osteoarthritis, severe within the first tarsometatarsal joint. Type I accessory navicular. No acute fracture, dislocation or osseous erosion. Unremarkable soft tissues. Arterial calcifications. IMPRESSION: 1. No acute fracture or dislocation. 2. 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 ACT 112: Negative or not required by law. The above report was generated using voice recognition software. It may contain grammatical, syntax or spelling errors. Electronically signed by: Perez Gamez M.D. 05/04/2023 11:43 AM Chest X-Ray 05/05/23 08:03 XR chest 1V portable CLINICAL HISTORY: ff up wheezing TECHNIQUE: Single frontal radiograph of the chest was obtained. Comparison: Comparison is made to chest radiograph 05/03/2023 FINDINGS: No lines and tubes are seen. Mediastinal prominence bilaterally likely reflects pulmonary vasculature. Right lower lung airspace opacity is seen. No evidence of pleural effusion or pneumothorax. IMPRESSION: Right lower lung airspace opacity is new from prior exam and may represent atelectasis, pneumonia, and/or aspiration. ACT 112: Negative or not required by law. Electronically signed by: Tyree Madison M.D. 05/05/2023 9:14 AM Discharge Instructions Given to Patient (Per Discharging Provider) PLEASE REFER TO YOUR NEW MEDICATION LIST AND FOLLOW INSTRUCTIONS CAREFULLY. YOUR NEW MEDICATIONS INCLUDE: Augmentin, azithromycin-antibiotics for bronchitis, pneumonia Xopenex, Atrovent-nebulizer treatments for bronchitis, pneumonia Protonix-to prevent stomach bleeding, take at least 30 minutes before meals Sucralfate-to prevent stomach bleeding Please take a probiotic daily. PLEASE CALL YOUR PRIMARY CARE PHYSICIAN OR RETURN TO THE ER IF WITH WORSENING OF SYMPTOMS, INCLUDING Cough, shortness of breath, fevers or chills, Abdominal pain, nausea or vomiting, blood in the stools, etc. FOLLOW UP WITH PRIMARY CARE PHYSICIAN OUTLINED ABOVE. Total Time Total Time Spent Total Time Spent (In Minutes): >30 minutes
== END 2023-05-10 14:32 | disposition home health service (06) | DRG 377 ==
LOC: ED 17:23 → 4W 22:45 → SUATTDRO 22:45 → 4W 23:15

== ENCOUNTER 2023-07-28 11:23 | Inpatient (IN) ==
[2023-07-28 12:27] LABS: Basophils # (auto) 0.02 K/uL (0.00-0.20); Basophils % (auto) 0.2 %; Immature Granulocytes # (auto) 0.12 K/uL (0.01-0.20); Immature Granulocytes % (auto) 1.2 %; Lymphocytes # (auto) 0.63 K/uL (1.20-3.40); Lymphocytes % (auto) 6.2 %; Mean Corpuscular Hemoglobin 26.2 pg (25.0-34.0); Mean Corpuscular Hgb Conc 31.6 g/dL (32.0-36.0); Mean Platelet Volume 9.2 fL (9.4-12.4); Monocytes # (auto) 0.38 K/uL (0.11-0.59); Monocytes % (auto) 3.7 %; Neutrophils # (auto) 8.99 K/uL (1.40-6.50); Neutrophils % (auto) 88.7 %; Platelet Count 367 K/uL (130-400); RDW Coefficient of Variation 17.3 % (11.5-14.5); RDW Standard Deviation 51.8 fL (36.4-46.3); Red Blood Count 4.58 M/uL (4.70-6.10); White Blood Count 10.14 K/ul (4.8-10.8)
--- NOTE | 2023-07-28 12:27 | XRay Report ---
XR chest 1V not portable CLINICAL HISTORY: Chest pain, nonspecific COMPARISON STUDY: Chest CT September 29, 2022. Chest radiograph July 25, 2023. FINDINGS: Lung hyperexpansion with emphysema. There is no consolidation to suggest pneumonia. Linear left basilar densities represent atelectasis. There is no pneumothorax or pleural effusion. Skin fold s project over the left chest. Cardiac size is normal. Mediastinal contours are normal. There is no e vidence for pulmonary edema. IMPRESSION: No acute cardiopulmonary findings. Emphysema. ACT 112: Negative or not required by law. Electronically signed by: Skinny Raza M.D. 07/28/2023 12:26 PM
[2023-07-28 12:49] LABS: Alanine Aminotransferase 8 U/L (7-52); Albumin Globulin Ratio 1.3 (0.9-2); Alkaline Phosphatase 58 U/L (34-104); Anion Gap 7 (3-11); BUN Creatinine Ratio 23.1 (10-20); Bilirubin,Total 0.3 mg/dl (0.2-1.0); Blood Urea Nitrogen 28 mg/dl (6-23); Calcium 8.7 mg/dl (8.6-10.3); Carbon Dioxide 28 mmol/L (21-32); Chloride 103 mmol/L (98-107); Est GFR (African American) 61.1 ml/min; Est GFR (Non-African American) 52.8 ml/min; Globulin 3.1 gm/dl (2.5-4.0); Glucose 133 mg/dl (70-99(Fasting)); Sodium 138 mmol/L (136-145); Total Protein 7.1 gm/dl (6.0-8.3)
[2023-07-28 12:55] LABS: Partial Thromboplastin Time 29 Seconds (21-31); Prothrombin Time 10.5 Seconds (9.0-12.0)
--- NOTE | 2023-07-28 13:58 | Emergency Department Note ---
History of Present Illness General Chief complaint: Shortness of Breath/Dyspnea Stated complaint: TROUBLE BREATHING ONGOING Time Seen by Provider: 07/28/23 13:50 History of Present Illness 87-year-old male presents emergency department states he has had cough cold congestion for the past week. Patient was seen in our emergency department may have been diagnosed with COPD and pneumonia. He was placed on Augmentin as well as doxycycline and steroids. Patient states he continues to cough up brown sputum. Patient does use 3 L of oxygen. Patient states that he needs IV antibiotics typically to improve. Patient has no other complaints. There are no other mitigating or alleviating factors Home Medications Medication Instructions Recorded Confirmed Type albuterol sulfate 2.5 mg/3 mL 3 ml inhalation QID PRN Shortness 10/04/18 04/28/23 History (0.083 %) solution for nebulization Of Breath albuterol sulfate 90 mcg/actuation 2 puff inhalation Q4H PRN SHORT OF 10/04/18 04/28/23 History aerosol inhaler BREATH/COUGH/WHEEZING ferrous sulfate 325 mg (65 mg 325 mg PO DAILY 10/04/18 04/28/23 History iron) tablet tiotropium bromide 2.5 2 puff inhalation DAILY 10/04/18 04/28/23 History mcg/actuation mist for inhalation isosorbide mononitrate 60 mg 30 mg PO QAM 09/29/22 04/28/23 History tablet,extended release 24 hr amlodipine 5 mg tablet 5 mg PO DAILY 01/19/23 04/28/23 History cholecalciferol (vitamin D3) 25 25 mcg PO DAILY 01/19/23 04/28/23 History mcg (1,000 unit) capsule (Vitamin D3) fluticasone 250 mcg-salmeterol 50 1 inh inhalation BID 01/19/23 04/28/23 History mcg/dose blistr powdr for inhalation peg 400-propylene glycol (PF) 0.4 1 drp OPL BID 01/19/23 04/28/23 History %-0.3 % eye drops in a dropperette (Lubricant Eye (PG-PEG 400) (PF)) ropinirole 0.25 mg tablet 0.25 mg PO HS 01/19/23 04/28/23 History zonisamide 25 mg capsule 25 mg PO HS 01/19/23 04/28/23 History ascorbic acid (vitamin C) 500 mg 500 mg PO BID 04/28/23 04/28/23 History tablet aspirin 81 mg tablet,delayed 81 mg PO DAILY 04/28/23 04/28/23 History release gabapentin 100 mg capsule 100 mg PO QAM 04/28/23 04/28/23 History gabapentin 100 mg capsule 300 mg PO HS 04/28/23 04/28/23 History levothyroxine 50 mcg tablet 50 mcg PO DAILY 04/28/23 04/28/23 History multivitamin with minerals 1 tab PO DAILY 04/28/23 04/28/23 History (Multiple Vitamin-Minerals tablet) nitroglycerin 0.4 mg sublingual 0.4 mg sublingual .PRN/UD PRN 04/28/23 04/28/23 History tablet Chest Pain roflumilast 250 mcg tablet 250 mcg PO DAILY 04/28/23 04/28/23 History ipratropium bromide 0.02 % 0.5 mg (2.5 mL) inhalation Q6R 7 05/10/23 Rx solution for inhalation days #75 mL levalbuterol HCl 1.25 mg/3 mL 1.25 mg (3 mL) NEB Q6R 7 days #90 05/10/23 Rx solution for nebulization mL pantoprazole 40 mg tablet,delayed 40 mg PO BID 30 days #60 tabs 05/10/23 Rx release (Protonix) prednisone 10 mg tablet 10 mg PO DAILY #9 tabs 05/10/23 Rx sucralfate 100 mg/mL oral 1 g (10 mL) PO BID 14 days #280 mL 05/10/23 Rx suspension albuterol sulfate 2.5 mg/3 mL 1.25 mg (1.5 mL) inhalation Q6H 05/11/23 Rx (0.083 %) solution for nebulization PRN bronchospasm #90 mL prednisone 50 mg tablet 50 mg PO DAILY 4 days #4 tabs 07/25/23 Rx amoxicillin 875 mg-potassium 1 tab PO BID #14 tabs 07/26/23 Rx clavulanate 125 mg tablet doxycycline hyclate 100 mg tablet 100 mg PO BID 7 days #14 tabs 07/26/23 Rx Allergies Allergy/AdvReac Type Severity Reaction Status Date / Time cefuroxime Allergy Intermediate Rash Verified 04/28/23 20:56 ertapenem Allergy Unknown Unknown Verified 04/28/23 20:56 levofloxacin [From Levaquin] Allergy Unknown Unknown Verified 04/28/23 20:56 BETA-LACTAMS Allergy Intermediate Rash Uncoded 04/28/23 20:56 FLUOROQUINOLONES Allergy Intermediate Rash Uncoded 04/28/23 20:56 Past Med/Surg History Medical History (Updated 07/28/23 @ 13:58 by Lisandro Sierra, ) Encounter for pre-operative examination COPD (chronic obstructive pulmonary disease) 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 Chronic anemia Hypothyroidism Hypertension Hx of agent [place] exposure Family History Other Family history non-contributory Social History Smoking Status: Former smoker Tobacco Type: Smokeless Tobacco (Dip or Chew) Second Hand Exposure: No; Do You Dip or Chew Tobacco: Yes; Hx Alcohol Use: No Hx Substance Use: No Preferred Language: Bruneian Communication Ability: Effective Communication Ability Comment: pt cannot see to read Metal Grader Required: No Beliefs That Will Affect Care: None marital status: Current Living Situation: Family Current Living Situation Comment: lives with son current occupational status: retired Feels Safe at Home: Yes Assistive Devices: Oxygen - Continuous and Walker Review of Systems A total of 10 systems reviewed and were otherwise negative Respiratory: + cough and + dyspnea Physical Exam Vital Signs Vital Signs - 24 hr 07/28/23 11:35 07/28/23 14:08 07/28/23 14:08 Temperature 36.4 C L Temperature Source Temporal Artery Scan Pulse Rate 71 Respiratory Rate 16 Respiratory Effort / Characteristics Non-Labored Spontaneous Respiratory Depth Normal Blood Pressure 165/56 H Blood Pressure Mean 92 Pulse Oximetry 92 98 98 Oxygen Delivery Method Nasal Cannula Nasal Cannula Nasal Cannula Oxygen Flow Rate 3 3 Sepsis Recent Fever Within 48 Hours No Sepsis New/Unexplained Change in Mental Status No Sepsis Action Taken by Nursing No Action Required GENERAL: Patient is awake alert in no acute distress patient is resting comfortably and showing no signs of anxiety EYES: The conjunctivae are clear. Patient has a patch present to his left eye EARS, NOSE, MOUTH AND THROAT: The nose is without any evidence of any deformity. Mucous membranes are moist. Tongue is midline. NECK: The neck is nontender and supple. RESPIRATORY: Normal respiratory effort is noted; rhonchi bilaterally CARDIOVASCULAR: Regular rate and rhythm noted there no murmurs rubs or gallops normal S1 normal S2. GASTROINTESTINAL: The abdomen is soft. Abdomen is nontender. BACK: No midline tenderness or or step-off noted range of motion in flexion extension as well as rotation no signs of muscle spasm noted MUSCULOSKELETAL/EXTREMITIES: There is no evidence of gross deformity full range of motion is noted in the hips and shoulders. SKIN: There is no obvious evidence of any rash. There are no petechiae, pallor or cyanosis noted. NEUROLOGIC: Patient is awake alert and oriented x3 strength is symmetric Course Reevaluation(s) Reevaluation #1: Patient is resting in no distress started on IV cefepime, Solu-Medrol Time: 14:48 Consultations Consultation #1: [facility] Time: 14:49 Administered Medications Discontinued Medications Cefepime HCl (Maxipime) 2,000 mg in 20 mls @ 5 mls/min IV NOW STA; Protocol Stop: 07/28/23 14:21 Last Admin: 07/28/23 14:24 Dose: 5 mls/min Documented By: DANIELA Methylprednisolone (Methylprednisolone 125 Mg/2 Ml Vial) 125 mg IV NOW STA Stop: 07/28/23 13:57 Last Admin: 07/28/23 14:05 Dose: 125 mg Documented By: DANIELA Medical Decision Making Medical Records Attestation: I reviewed the patient's medical records. Home Medications Current Medication List: was personally reviewed by me Laboratory Data Attestation: I reviewed the patient's lab results. Lab results interpreted by me unremarkable 07/28/23 11:53 07/28/23 11:53 Lab Results 07/28/23 Range/Units 11:53 WBC 10.14 (4.8-10.8) K/ul RBC 4.58 L (4.70-6.10) M/uL Hgb 12.0 L (14.0-18.0) g/dl Hct 38.0 L (42.0-52.0) % MCV 83.0 (80.0-100.0) fL MCH 26.2 (25.0-34.0) pg MCHC 31.6 L (32.0-36.0) g/dL RDW Std Deviation 51.8 H (36.4-46.3) fL RDW Coeff of Jeison 17.3 H (11.5-14.5) % Plt Count 367 (130-400) K/uL MPV 9.2 L (9.4-12.4) fL Immature Gran % (Auto) 1.2 % Neut % (Auto) 88.7 % Lymph % (Auto) 6.2 % [place] % (Auto) 3.7 % Eos % (Auto) 0.0 % Baso % (Auto) 0.2 % Neut # (Auto) 8.99 H (1.40-6.50) K/uL Lymph # (Auto) 0.63 L (1.20-3.40) K/uL [place] # (Auto) 0.38 (0.11-0.59) K/uL Eos # (Auto) 0.00 (0.00-0.50) K/uL Baso # (Auto) 0.02 (0.00-0.20) K/uL Immature Gran # (Auto) 0.12 (0.01-0.20) K/uL PT 10.5 (9.0-12.0) Seconds INR 1.0 (0.9-1.1) APTT 29 (21-31) Seconds PTT Ratio 1.0 Sodium 138 (136-145) mmol/L Potassium TNP Chloride 103 (98-107) mmol/L Carbon Dioxide 28 (21-32) mmol/L Anion Gap 7 (3-11) BUN 28 H (6-23) mg/dl Creatinine 1.21 (0.6-1.4) mg/dl Est Cr Clr Drug Dosing Not Reportable Est GFR ( Amer) 61.1 ml/min Est GFR (Non-Af Amer) 52.8 ml/min BUN/Creatinine Ratio 23.1 H (10-20) Glucose 133 H (70-99(Fasting)) mg/dl Calcium 8.7 (8.6-10.3) mg/dl Total Bilirubin 0.3 (0.2-1.0) mg/dl AST TNP ALT 8 (7-52) U/L Alkaline Phosphatase 58 (34-104) U/L Troponin I High Sens 7.0 (0-20) pg/ml Total Protein 7.1 (6.0-8.3) gm/dl Albumin 4.0 (3.4-5.0) gm/dl Globulin 3.1 (2.5-4.0) gm/dl Albumin/Globulin Ratio 1.3 (0.9-2) Imaging Data Attestation: I personally reviewed and interpreted this imaging study as follows: My Impression: Chest x-ray interpreted by me COPD changes Radiologist's Impression: Chest X-Ray 07/28/23 11:40 XR chest 1V not portable CLINICAL HISTORY: Chest pain, nonspecific COMPARISON STUDY: Chest CT September 29, 2022. Chest radiograph July 25, 2023. FINDINGS: Lung hyperexpansion with emphysema. There is no consolidation to suggest pneumonia. Linear left basilar densities represent atelectasis. There is no pneumothorax or pleural effusion. Skin folds project over the left chest. Cardiac size is normal. Mediastinal contours are normal. There is no evidence for pulmonary edema. IMPRESSION: No acute cardiopulmonary findings. Emphysema. ACT 112: Negative or not required by law. Electronically signed by: Skinny Raza M.D. 07/28/2023 12:[address] [facility] Narrative Medical decision making differential diagnosis includes pneumonia, bronchitis, upper respiratory tract infection, COPD Plan is to check labs, chest x-ray, EKG, labs were started and the provider in triage process prior to my arrival to see the patient I reviewed the patient's most recent emergency department evaluation on 07/24/2023 in which the patient was diagnosed with pneumonia and placed on doxycycline Patient was started on IV cefepime after consultation with our emergency department pharmacist Patient was given IV cefepime, 3 L of oxygen, Solu-Medrol IV Case discussed with the [facility] hospitalist for admission Impression & Plan Pneumonia, Acute exacerbation of chronic obstructive pulmonary disease Discharge Plan Visit Data Chief Complaint: Shortness of Breath/Dyspnea Stated Complaint: TROUBLE BREATHING ONGOING ED Provider: Lisandro Sierra Discharge Problem: Pneumonia, Acute exacerbation of chronic obstructive pulmonary disease Patient Disposition: Admitted As Inpatient Forms Stand Alone Forms: My [facility] Prescriptions Prescriptions: No Action albuterol sulfate 2.5 mg /3 mL (0.083 %) Solution For Nebulization 3 ml INHALATION QID PRN (Reason: Shortness Of Breath) ferrous sulfate 325 mg (65 mg iron) Tablet 325 mg PO DAILY albuterol sulfate 90 mcg/actuation Hfa Aerosol Inhaler 2 puff INHALATION Q4H PRN (Reason: SHORT OF BREATH/COUGH/WHEEZING) tiotropium bromide 2.5 mcg/actuation Mist 2 puff INHALATION DAILY isosorbide mononitrate 60 mg tablet extended release 24 hr 30 mg PO QAM ascorbic acid (vitamin C) 500 mg Tablet 500 mg PO BID Hold Instructions: Resume on 05/24/23. aspirin 81 mg Tablet,Delayed Release (Dr/Ec) 81 mg PO DAILY Hold Instructions: Resume on 05/24/23. levothyroxine 50 mcg Tablet 50 mcg PO DAILY gabapentin 100 mg Capsule 100 mg PO QAM gabapentin 100 mg Capsule 300 mg PO HS Multiple Vitamin-Minerals Tablet 1 tab PO DAILY nitroglycerin 0.4 mg Tablet, Sublingual 0.4 mg sublingual .PRN/UD PRN (Reason: Chest Pain) Rx Instructions: as needed for chest pain : one tablet under the tongue every 5 minutes times three doses. roflumilast 250 mcg Tablet 250 mcg PO DAILY ipratropium bromide 0.02 % Solution 0.5 mg inhalation Q6R 7 Days Qty: 75 2RF Rx Instructions: BIN#[id number] Group number [id number] levalbuterol HCl 1.25 mg/3 mL Solution For Nebulization 1.25 mg NEB Q6R 7 Days Qty: 90 2RF Rx Instructions: BIN#[id number] Group number [id number] sucralfate 100 mg/mL Suspension 1 g PO BID 14 Days Qty: 280 2RF Rx Instructions: BIN#[id number] Group number [id number] prednisone 10 mg tablet 10 mg PO DAILY Qty: 9 0RF Rx Instructions: Take 3 tablets daily x 1 day, then take 2 tablets daily x2 days, then take 1 tablet daily x2 days, then stop BIN#[id number] Group number [id number] pantoprazole [Protonix] 40 mg tablet,delayed release (DR/EC) 40 mg PO BID 30 Days Qty: 60 2RF Rx Instructions: Take 1 tablet twice a day for 4 weeks, then take 1 tablet daily BIN#[id number] Group number [id number] albuterol sulfate 2.5 mg /3 mL (0.083 %) solution for nebulization 1.25 mg inhalation Q6H PRN (Reason: bronchospasm) Qty: 90 0RF Rx Instructions: BIN#[id number],Group#[id number] amlodipine 5 mg Tablet 5 mg PO DAILY cholecalciferol (vitamin D3) [Vitamin D3] 25 mcg (1,000 unit) Capsule 25 mcg PO DAILY fluticasone propion-salmeterol 250-50 mcg/dose Blister With Device 1 inh INHALATION BID ropinirole 0.25 mg Tablet 0.25 mg PO HS Rx Instructions: administer 1-3 hours before bedtime zonisamide 25 mg Capsule 25 mg PO HS Lubricant Eye (PG-PEG 400)(PF) 0.4-0.3 % Dropperette 1 drp OPL BID prednisone 50 mg tablet 50 mg PO DAILY 4 Days Qty: 4 0RF amoxicillin-pot clavulanate 875-125 mg tablet 1 tab PO BID Qty: 14 0RF doxycycline hyclate 100 mg tablet 100 mg PO BID 7 Days Qty: 14 0RF Referrals Referrals: Karen Miranda CRNP [Primary Care Provider] -
[2023-07-28] MEDS: methylPREDNISolone 125 MG/2 ML VIAL IV STA (14:05)
[2023-07-28] MEDS: CEFEPIME 2,000 MG/20 ML VIAL IV STA (14:24)
[2023-07-28] MEDS ORDERED: ONDANSETRON INJ 2 MG/ML 2 ML VIAL IV PRN (14:32)
[2023-07-28] MEDS ORDERED: ALUMINUM/MAGNESIUM SUSP 30 ML UDC PO PRN (14:32)
[2023-07-28] MEDS ORDERED: MAGNESIUM HYDROXIDE SUSP 30 ML UDC PO PRN (14:32)
[2023-07-28] MEDS ORDERED: POLYETHYLENE (MIRALAX) 17 GM PACK PO PRN (14:32)
--- NOTE | 2023-07-28 14:55 | History & Physical Report ---
Date of Service July 28, 2023 Assessment & Plan (1) Acute exacerbation of chronic obstructive pulmonary disease: (2) SOB (shortness of breath): (3) Diastolic CHF: (4) Hypertension: (5) Hypothyroidism: (6) Tobacco use: (7) Squamous cell carcinoma of left ear: Plan Mr. Dobbins is an 87-year-old male who lives with his sons; presented to the ED today with complaints of a cough and shortness of breath. 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 He was here in the ED on 07/25 for similar symptoms and viral panel was negative along with cardiac work up being negative. A lateral chest wall xray was obtained revealing small infiltrates. He was prescribed Amoxicillin, Doxycycline, and oral prednisone and was released from the ED. He is currently on day #2 of treatment. Normally, he wears 2-3 LNC supplemental O2 10/01. He uses his nebulizers six times per day since he has not been feeling well. Normally he only uses them 3 times daily. He just took his last treatment of immunotherapy of 06/09/23 under the care of Dr. Love at [facility] for management of his squamous cell carcinoma. Today, Chest x-ray negative for acute cardiopulmonary disease; does show chronic emphysema. No leukocytosis and otherwise CBC and BMP unremarkable. Biofire obtained and pending. Patient chews tobacco almost daily, which he says brings him his most rebeca right now. Last drink was 15 years ago. He says he loves to acosta and fish but he has been unable to do either of them recently. He uses crutches, wheelchair or walker to ambulate. On examination, he was able to sit upright in his bed on his own, rhonchitic lung sounds, coughing with thick brown productive sputum, but is otherwise euvolemic on examination. Suspect patient is experiencing an acute on chronic COPD exacerbation; will continue with treatment for pneumonia due to his increased risk factors, fragility, smoking history and age. Will treat with IV Rocephin plus azithromycin, IV steroids, sputum culture, Mucinex and PT OT. Consider pulmonary consultation if no improvement. Acute exacerbation of COPD: SOB: Acute No leukocytosis WBC 10.14; does not appear toxic. Chest x-ray negative for acute cardiopulmonary disease; shows emphysema Started on cefepime plus methylprednisone in ED; Will cover with Rocephin + Azithro and adjust based on sputum culture results. Mucinex ordered for pulmonary toileting At baseline wears 2-3 LNC 24/7 supplemental oxygen Nebulizers PRN Sputum culture ordered Methylprednisone 125 IV given in ED; continue IV Q6 PT/OT If no improvement, consider pulmonary consultation as patient is on supplemental O2 chronically with known COPD. Follows with [facility]. HTN: Chronic Take Imdur and amlodipine; continue Diastolic CHF: Chronic Euvolemic on exam. Denies any new swelling or recent weight gain Most recent BNP normal Hypothyroidism: Chronic Most recent TSH greater than 112/23 Takes levothyroxine; continue Tobacco use: Chronic Uses chewing tobacco; recommended cessation Squamous cell carcinoma of left ear: Chronic Follows with [facility] for immunotherapy which has recently been completed; follows with Dr. Ayala Disposition: PCP: Dr. Oliver Jones Code Status: Full code VTE Prophylaxis: Lovenox subcu I spent a total of 88 minutes coordinating, documenting, and providing care for this patient excluding time spent in the performance of separately billed services. All of the aforementioned completed while collaborating with the assigned attending physician for a full treatment plan. Please see their addendum for further details. History of Present Illness Chief Complaint: Shortness of breath Primary Care Provider: APPLE Peck Mr. Dobbins is an 87-year-old male who lives with his sons; presented to the ED today with complaints of a cough and shortness of breath. 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 He was here in the ED on 07/25 for similar symptoms and viral panel was negative along with cardiac work up being negative. A lateral chest wall xray was obtained revealing small infiltrates. He was prescribed Amoxicillin, Doxycycline, and oral prednisone and was released from the ED. He is currently on day #2 of treatment. Normally, he wears 2-3 LNC supplemental O2 24/7. He uses his nebulizers six times per day since he has not been feeling well. Normally he only uses them 3 times daily. He just took his last treatment of immunotherapy of 06/09/23 under the care of Dr. Love at [facility] for management of his squamous cell carcinoma. He was seen as an outpatient recently and completed on Augmentin and Z-Erasto with prednisone along with Xopenex and continues to take Spiriva plus Advair. He follows with Pulmonary through the [facility]; unknown which doctor. He does have a percussion vest that he wears 3-4 times per day. His one son arranges his medications, but overall the patient is not a reliable historian. Patient was recently was admitted 04/28 to 05/10/2023 for acute GI bleed. He receives most of his care through the [facility] and historically has declined home health, and PT/OT. Today, Chest x-ray negative for acute cardiopulmonary disease; does show chronic emphysema. No leukocytosis and otherwise CBC and BMP unremarkable. Biofire obtained and pending. Patient chews tobacco almost daily, which he says brings him his most rebeca right now. Last drink was 15 years ago. He says he loves to acosta and fish but he has been unable to do either of them recently. He uses crutches, wheelchair or walker to ambulate. His sons prepare his meals and set him up for bathing; patient is able to shower himself. Patient denies headache, dizziness, chest pain, palpitations, urinary or bowel changes, recent falls or trauma. On examination, he was able to sit upright in his bed on his own, rhonchitic lung sounds, coughing with thick brown productive sputum, but is otherwise euvolemic on examination. Suspect patient is experiencing an acute on chronic COPD exacerbation; will continue with treatment for pneumonia due to his increased risk factors, fragility, smoking history and age. Will treat with IV Rocephin plus azithromycin, IV steroids, sputum culture, Mucinex and PT OT. Consider pulmonary consultation if no improvement. Patient will be admitted for further evaluation and management. Please see A/P for further details. Allergies Allergy/AdvReac Type Severity Reaction Status Date / Time cefuroxime Allergy Intermediate Rash Verified 07/28/23 15:02 ertapenem Allergy Unknown Unknown Verified 07/28/23 15:02 levofloxacin [From Levaquin] Allergy Unknown Unknown Verified 07/28/23 15:02 BETA-LACTAMS Allergy Intermediate Rash Uncoded 07/28/23 15:02 FLUOROQUINOLONES Allergy Intermediate Rash Uncoded 07/28/23 15:02 Home Medications Medication Instructions Recorded Confirmed Type albuterol sulfate 2.5 mg/3 mL 3 ml inhalation QID PRN Shortness 10/04/18 07/28/23 History (0.083 %) solution for nebulization Of Breath albuterol sulfate 90 mcg/actuation 2 puff inhalation Q4H PRN SHORT OF 10/04/18 07/28/23 History aerosol inhaler BREATH/COUGH/WHEEZING ferrous sulfate 325 mg (65 mg 325 mg PO Q OTHER DAY 10/04/18 07/28/23 History iron) tablet tiotropium bromide 2.5 2 puff inhalation DAILY 10/04/18 07/28/23 History mcg/actuation mist for inhalation isosorbide mononitrate 60 mg 30 mg PO QAM 09/29/22 07/28/23 History tablet,extended release 24 hr amlodipine 5 mg tablet 5 mg PO DAILY 01/19/23 07/28/23 History fluticasone 250 mcg-salmeterol 50 1 inh inhalation BID 01/19/23 07/28/23 History mcg/dose blistr powdr for inhalation peg 400-propylene glycol (PF) 0.4 1 drp OPL DIRECTED PRN Dry Eyes 01/19/23 07/28/23 History %-0.3 % eye drops in a dropperette (Lubricant Eye (PG-PEG 400) (PF)) ascorbic acid (vitamin C) 500 mg 500 mg PO BID 04/28/23 07/28/23 History tablet aspirin 81 mg tablet,delayed 81 mg PO DAILY 04/28/23 07/28/23 History release gabapentin 100 mg capsule 100 mg PO QAM 04/28/23 07/28/23 History multivitamin with minerals 1 tab PO DAILY 04/28/23 07/28/23 History (Multiple Vitamin-Minerals tablet) nitroglycerin 0.4 mg sublingual 0.4 mg sublingual .PRN/UD PRN 04/28/23 07/28/23 History tablet Chest Pain roflumilast 250 mcg tablet 250 mcg PO DAILY 04/28/23 07/28/23 History ipratropium bromide 0.02 % 0.5 mg (2.5 mL) inhalation Q6R 7 05/10/23 07/28/23 Rx solution for inhalation days #75 mL pantoprazole 40 mg tablet,delayed 40 mg PO BID 30 days #60 tabs 05/10/23 07/28/23 Rx release (Protonix) sucralfate 100 mg/mL oral 1 g (10 mL) PO BID 14 days #280 mL 05/10/23 07/28/23 Rx suspension prednisone 50 mg tablet 50 mg PO DAILY 4 days #4 tabs 07/25/23 07/28/23 Rx amoxicillin 875 mg-potassium 1 tab PO BID #14 tabs 07/26/23 07/28/23 Rx clavulanate 125 mg tablet doxycycline hyclate 100 mg tablet 100 mg PO BID 7 days #14 tabs 07/26/23 07/28/23 Rx Lactobacil.acidophilus-Bifido.animalis 1 cap PO QPM 07/28/23 07/28/23 History 5 billion cell sprinkle capsule (Probiotic) gabapentin 300 mg capsule 300 mg PO HS 07/28/23 07/28/23 History guaifenesin 200 mg tablet 400 mg PO BID PRN Cough 07/28/23 07/28/23 History levalbuterol HCl 1.25 mg/3 mL 1.25 mg NEB Q4H PRN Wheezing 07/28/23 07/28/23 History solution for nebulization levothyroxine 100 mcg tablet 100 mcg PO DAILYBB 07/28/23 07/28/23 History polyvinyl alcohol 1.4 % eye drops 1 drp ophthalmic (eye) QID 07/28/23 07/28/23 History Past Med/Surg History Medical History (Updated 07/28/23 @ 16:11 by APPLE Light) Squamous cell carcinoma of left ear Tobacco use Encounter for pre-operative examination COPD (chronic obstructive pulmonary disease) 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 Chronic anemia Hypothyroidism Hypertension Hx of agent [place] exposure Family History Other Family history non-contributory Social History Smoking Status: Former smoker Tobacco Type: Smokeless Tobacco (Dip or Chew) Second Hand Exposure: No; Do You Dip or Chew Tobacco: Yes; Hx Alcohol Use: No Hx Substance Use: No Preferred Language: Sinhala Communication Ability: Effective Communication Ability Comment: pt cannot see to read Insurance Claims Analyst Required: No Beliefs That Will Affect Care: None marital status: Current Living Situation: Family Current Living Situation Comment: lives with son current occupational status: retired Feels Safe at Home: Yes Assistive Devices: Oxygen - Continuous and Walker Review of Systems Review of Systems: Neuro: (-) Falls, trauma, slurred speech HEENT: (-) [place], dizziness, dysphagia, visual or auditory changes CV: (-) CP, palpitations, swelling Resp: (-) SOB GI: (-) appetite changes, N/V/D, bowel changes : (-) urinary changes Skin: (-) rashes Psych: (-) anxiety, depression Physical Exam Physical Exam: Neuro: AAOx4, PERRLA, no aphagia, memory changes, CNII-XII grossly intact HEENT: head normocephalic, moist mucus membranes CV: S1/S2, (-) M/G/R, (-) edema, cap refill < 3 seconds Resp: Lungs rhonchitic anterior and posterior. On 3-4 LNC. GI: Abdomen S/tender RLQ/ND, Ax4 bowel sounds, (-) CVA tenderness Musculoskeletal: 5/5 B/L UE strength, 5/5 B/L LE strength. No gait disturbance. Skin: (-) rashes , (-) erythema. Psych: euthymic mood Results & Data Results & Data Vital Signs (Past 12 Hours) Vital Signs Temp Pulse Resp BP Pulse Ox O2 Del Method O2 Flow Rate 07/28/23 14:08 98 Nasal Cannula 07/28/23 14:08 98 Nasal Cannula 3 07/28/23 11:35 36.4 C L 71 16 165/56 H 92 Nasal Cannula 3 Laboratory Results Short CBC 07/28/23 Range/Units 11:53 WBC 10.14 (4.8-10.8) K/ul Hgb 12.0 L (14.0-18.0) g/dl Hct 38.0 L (42.0-52.0) % Plt Count 367 (130-400) K/uL BMP 07/28/23 11:53 Sodium 138 Potassium TNP Chloride 103 Carbon Dioxide 28 BUN 28 H Creatinine 1.21 Glucose 133 H Calcium 8.7 Liver Function 07/28/23 Range/Units 11:53 Total Bilirubin 0.3 (0.2-1.0) mg/dl AST TNP ALT 8 (7-52) U/L Alkaline Phosphatase 58 (34-104) U/L Albumin 4.0 (3.4-5.0) gm/dl Diagnostic Findings Chest X-Ray 07/28/23 11:40 XR chest 1V not portable CLINICAL HISTORY: Chest pain, nonspecific COMPARISON STUDY: Chest CT September 29, 2022. Chest radiograph July 25, 2023. FINDINGS: Lung hyperexpansion with emphysema. There is no consolidation to suggest pneumonia. Linear left basilar densities represent atelectasis. There is no pneumothorax or pleural effusion. Skin folds project over the left chest. Cardiac size is normal. Mediastinal contours are normal. There is no evidence for pulmonary edema. IMPRESSION: No acute cardiopulmonary findings. Emphysema. ACT 112: Negative or not required by law. Electronically signed by: Skinny Raza M.D. 07/28/2023 12:26 PM Code Status & VTE Plan Code Status Full code in the event of cardiac or respiratory arrest VTE Prophylaxis Plan VTE Prophylaxis will be ordered: Yes Supervising Physician Co-Signing Physician Notes I have seen and examined the patient and have discussed the case with the provider above. I have reviewed the advanced practitioner's documentation, and I agree with, and take responsibility for that plan of care. 87 yo M presenting with a productive cough with worsened sputum production and shortness of breath. History of recent admission and starting on oral antibiotics as noted above. He is not septic today but feels his symptoms are worse. Possible pneumonia treatment ongoing as a result of . Patient states that his oxygen needs and his functional abilities have not changed. He has some RUQ pain that appears to be from excessive coughing-patient states I feel like I pulled a muscle. On exam BP is 161/91, P 75, R 18, and she is oxygenating 92% on @LPM via nasal canula. He is not working to breathe, and has no conversational dyspnea. He has wheezing throughout all lung cox posteriorly. CV exam as noted above. He examines as euvolemic and is mentating well. Workup today includes a clear CXR, neg viral panel, and other labs as noted above. The patient is adamant that only IV medications will cure him. Agree with continuing IV abx, solumedrol and scheduled nebs for treatment of a COPD exacerbation possibly secondary to recent pneumonia. Sputum culture and supportive care efforts as needed. Mir,
[2023-07-28 14:56] LABS: Potassium 4.5 mmol/L (3.5-5.1)
--- NOTE | 2023-07-28 15:06 | Electrocardiogram Report ---
Test Reason : Blood Pressure : / mmHG Vent. Rate : 072 BPM Atrial Rate : 042 BPM P-R Int : 000 ms QRS Dur : 124 ms QT Int : 424 ms P-R-T Axes : 000 -72 072 degrees QTc Int : 464 ms Probable Sinus rhythm Right bundle branch block Left anterior fascicular block Abnormal ECG When compared with ECG of 25-JUL-2023 14:51, Artifact present. Otherwise no significant change Confirmed by Van Thompson ([id number]) on 07/28/2023 3:06:26 PM Referred By: REFERRED SELF Confirmed By:Van Thompson
[2023-07-28 15:25] LABS: Influenza A virus by PCR Negative (Neg); Influenza B virus by PCR Negative (Neg); RSV by PCR Negative (Neg); SARS CoV2 RNA(COVID-19) Ceph NEGATIVE (Negative)
[2023-07-28] MEDS: AZITHROMYCIN 500 MG in DEXTROSE 5% 250 ML IV SCH (16:49)
[2023-07-28] MEDS: ARTIFICIAL TEARS OP SCH (17:01)
[2023-07-28] MEDS: IPRATROPIUM BROMIDE NEB SOLN 0.02% 0.5MG/2.5ML VIAL INH SCH (19:40)
[2023-07-28] MEDS: methylPREDNISolone 125 MG in SYRINGE 0 ML IV SCH (19:40)
[2023-07-28] MEDS ORDERED: methylPREDNISolone 125 MG/2 ML VIAL IV SCH (20:00)
[2023-07-28] MEDS: PANTOprazole 40 MG TAB PO SCH (20:08)
[2023-07-28] MEDS: GABAPENTIN 300 MG CAP PO SCH (20:08)
[2023-07-28] MEDS: guaiFENesin 600 MG TABCR PO SCH (20:09)
[2023-07-28] MEDS: cefTRIAXone SODIUM 2,000 MG in DEXTROSE 5 % MINI-B 50 ML IV SCH (21:25)
[2023-07-29] MEDS: LEVOTHYROXINE SODIUM 100 MCG TABLET PO SCH (05:51)
[2023-07-29 06:34] LABS: Hematocrit (blood only) 38.4 % (42.0-52.0); Hemoglobin 11.9 g/dl (14.0-18.0); Mean Corpuscular Hemoglobin 25.9 pg (25.0-34.0); Mean Corpuscular Volume 83.5 fL (80.0-100.0); Mean Platelet Volume 10.1 fL (9.4-12.4); Platelet Count 334 K/uL (130-400); RDW Coefficient of Variation 17.2 % (11.5-14.5); RDW Standard Deviation 52.2 fL (36.4-46.3); White Blood Count 9.83 K/ul (4.8-10.8)
[2023-07-29 06:48] LABS: Albumin Globulin Ratio 1.5 (0.9-2); BUN Creatinine Ratio 27.4 (10-20); Bilirubin,Total 0.3 mg/dl (0.2-1.0); Calcium 8.4 mg/dl (8.6-10.3); Creatinine Clr Calc Pharmacy 37.8 ml/min; Est GFR (African American) 59.4 ml/min; Est GFR (Non-African American) 51.2 ml/min; Globulin 2.7 gm/dl (2.5-4.0); Magnesium 2.1 mg/dl (1.7-2.4); Phosphorus 3.3 mg/dl (2.5-4.9); Potassium 4.7 mmol/L (3.5-5.1); Total Protein 6.7 gm/dl (6.0-8.3)
[2023-07-29] MEDS: ACETAMINOPHEN 325 MG TAB PO PRN (08:55)
[2023-07-29] MEDS: FLUTICASONE/VILANTEROL 100/25MCG 14 PUFFS/INHALER INH SCH (08:56)
[2023-07-29] MEDS: UMECLIDINIUM/VILANTEROL 62.5/25MCG 7 PUFFS/INHALER INH SCH (08:56)
[2023-07-29] MEDS: ENOXAPARIN INJ 40 MG/0.4 ML SYR SQ SCH (08:56)
[2023-07-29] MEDS: ROFLUMILAST 500 MCG TAB PO SCH (08:57)
[2023-07-29] MEDS: amLODIPine BESYLATE 5 MG TAB PO SCH (08:58)
[2023-07-29] MEDS: GABAPENTIN 100 MG CAP PO SCH (08:58)
[2023-07-29] MEDS: ASPIRIN 81 MG ECTAB PO SCH (08:58)
[2023-07-29] MEDS: ISOSORBIDE MONO EXTENDED REL 30 MG TABCR PO SCH (08:58)
[2023-07-29] MEDS: FERROUS SULFATE 325 MG TAB PO SCH (08:58)
--- NOTE | 2023-07-29 12:36 | Hospitalist Progress Note ---
Date of Service July 29, 2023 Assessment & Plan (1) Acute exacerbation of chronic obstructive pulmonary disease: (2) SOB (shortness of breath): (3) Diastolic CHF: (4) Hypertension: (5) Hypothyroidism: (6) Tobacco use: (7) Squamous cell carcinoma of left ear: Plan 87-year-old male who lives with his sons; presented to the ED 07/28 with complaints of a cough and shortness of breath. 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 He was here in the ED on 07/25 for similar symptoms and viral panel was negative along with cardiac work up being negative. A lateral chest wall xray was obtained revealing small infiltrates. He was prescribed Amoxicillin, Doxycycline, and oral prednisone and was released from the ED. He was on day #2 of treatment at time of this presentation. Normally, he wears 2-3 LNC supplemental O2 10/01. He is being managed for the following: Acute exacerbation of COPD: SOB: Baseline oxygen use: 2 to 3 L 10/01 No leukocytosis WBC 10.14; does not appear toxic. CXR with chronic emph ysematous changes, no acute finding. Started on cefepime plus methylprednisone in ED; changed to Rocephin + Azithro 07/28. Continue. Continue with nebs, Solu-Medrol and Mucinex. Taper down Solu-Medrol. Follow-up admitting blood and sputum culture PT/OT. Follow clinically. Patient reports some improvement today. HTN: Chronic, continue home Imdur and amlodipine. Diastolic CHF: Chronic, euvolemic on exam. Most recent BNP normal. Hypothyroidism: Chronic, continue home levothyroxine. Tobacco use: Chronic, patient continues to use tobacco/use. Recommended cessation, patient does not want to quit tobacco. Squamous cell carcinoma of left ear: Chronic, follows [facility] for immunotherapy which has recently been completed. Follows Dr. Ayala Disposition: PCP: Dr. Oliver Jones Code Status: Full code VTE Prophylaxis: Lovenox subcu Admission and Anticipated Discharge Date Admission Date: July 28, 2023 Subjective Patient was seen and examined at bedside. Patient was sitting up in chair, on 2 L oxygen via nasal cannula, patient's 2 sons at bedside. Resting comfortably, not in any acute distress. Patient reports cough with occasional yellow sputum and wheezing overall getting better. Denies other review of symptoms. Physical Exam Physical Exam: GENERAL: Alert and oriented x3. NAD, on 2L O2 via NC. Elderly/weak appearing HEENT: No pallor, no icterus. Pupils equal, round and reactive to light. Oral mucosa moist. NECK: No JVD, no neck masses. HEART: S1 and S2 heard. Regular rate and rhythm. No murmur, no gallop. RESPIRATORY SYSTEM: Normal AP diameter. No accessory muscle use. Wheezing bilateral with bilateral crackles. ABDOMEN: Soft, bowel sounds present, nontender, no distention. CENTRAL NERVOUS SYSTEM: No facial droop. Speech is clear. Obeys simple commands. Moves extremities. EXTREMITIES: Trace to 1+ BLE edema, no erythema seen. Results & Data Results & Data Vital Signs (Past 12 Hours) Vital Signs Temp Pulse Pulse Resp BP BP Pulse Ox 07/29/23 11:29 36.3 C L 82 20 135/73 94 07/29/23 09:56 07/29/23 07:48 36.4 C 45 L 20 164/81 H 96 07/29/23 07:35 07/29/23 07:24 65 18 95 07/29/23 06:42 54 L 07/29/23 03:20 36.3 C L 51 L 18 145/64 H 96 Pulse Ox Pulse Ox O2 Del Method O2 Flow Rate O2 Flow Rate O2 Flow Rate 07/29/23 11:29 Room Air 07/29/23 09:56 96 95 3 3 07/29/23 07:48 Room Air 07/29/23 07:35 Nasal Cannula 2 07/29/23 07:24 Nasal Cannula 07/29/23 06:42 07/29/23 03:20 Nasal Cannula 2
[2023-07-29] MEDS: methylPREDNISolone 40 MG in SYRINGE 0 ML IV SCH (13:15)
[2023-07-29] MEDS: BENZONATATE 100 MG CAPSULE PO SCH (20:15)
[2023-07-30 05:48] LABS: Hematocrit (blood only) 35.7 % (42.0-52.0); Hemoglobin 11.2 g/dl (14.0-18.0); Mean Corpuscular Hemoglobin 26.4 pg (25.0-34.0); Mean Corpuscular Hgb Conc 31.4 g/dL (32.0-36.0); Mean Platelet Volume 8.9 fL (9.4-12.4); Platelet Count 424 K/uL (130-400); RDW Coefficient of Variation 17.2 % (11.5-14.5); RDW Standard Deviation 52.9 fL (36.4-46.3); Red Blood Count 4.25 M/uL (4.70-6.10)
[2023-07-30 06:05] LABS: BUN Creatinine Ratio 29.6 (10-20); Calcium 7.9 mg/dl (8.6-10.3); Creatinine Clr Calc Pharmacy 30.8 ml/min; Est GFR (African American) 46.4 ml/min; Magnesium 2.2 mg/dl (1.7-2.4); Phosphorus 2.8 mg/dl (2.5-4.9); Potassium 4.5 mmol/L (3.5-5.1)
--- NOTE | 2023-07-30 16:37 | Hospitalist Progress Note ---
Date of Service July 30, 2023 Assessment & Plan (1) Acute exacerbation of chronic obstructive pulmonary disease: (2) SOB (shortness of breath): (3) Diastolic CHF: (4) Hypertension: (5) Hypothyroidism: (6) Tobacco use: (7) Squamous cell carcinoma of left ear: Plan 87-year-old male who lives with his sons; presented to the ED 07/28 with complaints of a cough and shortness of breath. 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 He was here in the ED on 07/25 for similar symptoms and viral panel was negative along with cardiac work up being negative. A lateral chest wall xray was obtained revealing small infiltrates. He was prescribed Amoxicillin, Doxycycline, and oral prednisone and was released from the ED. He was on day #2 of treatment at time of this presentation. Normally, he wears 2-3 LNC supplemental O2 10/01. He is being managed for the following: Acute exacerbation of COPD: SOB: Baseline oxygen use: 2 to 3 L 10/01 No leukocytosis WBC 10.14; does not appear toxic. CXR with chronic emp hysematous changes, no acute finding. Started on cefepime plus methylprednisone in ED; changed to Rocephin + Azithro 07/28. Continue. Continue with nebs, Solu-Medrol and Mucinex. Taper down Solu-Medrol to every 8 hours. Follow-up admitting blood and sputum culture PT/OT. Follow clinically. Patient reports continued improvement today. HTN: Chronic, continue home Imdur and amlodipine. Diastolic CHF: Chronic, euvolemic on exam. Most recent BNP normal. Hypothyroidism: Chronic, continue home levothyroxine. Tobacco use: Chronic, patient continues to use tobacco/use. Recommended cessation, patient does not want to quit tobacco. Squamous cell carcinoma of left ear: Chronic, follows [facility] for immunotherapy which has recently been completed. Follows Dr. Ayala Disposition: PCP: Dr. Oliver Jones Code Status: Full code VTE Prophylaxis: Lovenox subcu Admission and Anticipated Discharge Date Admission Date: July 28, 2023 Subjective Patient was seen and examined at bedside. Patient was sitting up in chair, on 2 L oxygen via nasal cannula. Resting comfortably, not in any acute distress. Patient reports bouts of cough last evening, but reports feeling better today. Denies other review of symptoms. Physical Exam Physical Exam: GENERAL: Alert and oriented x3. NAD, on 2L O2 via NC. Elderly/weak appearing HEENT: No pallor, no icterus. Pupils equal, round and reactive to light. Oral mucosa moist. NECK: No JVD, no neck masses. HEART: S1 and S2 heard. Regular rate and rhythm. No murmur, no gallop. RESPIRATORY SYSTEM: Normal AP diameter. No accessory muscle use. Wheezing bilateral with bilateral crackles -improving ABDOMEN: Soft, bowel sounds present, nontender, no distention. CENTRAL NERVOUS SYSTEM: No facial droop. Speech is clear. Obeys simple commands. Moves extremities. EXTREMITIES: Trace to 1+ BLE edema, no erythema seen. Results & Data Results & Data Vital Signs (Past 12 Hours) Vital Signs Temp Pulse Pulse Resp BP Pulse Ox O2 Del Method 07/30/23 14:59 60 07/30/23 12:07 20 92 Nasal Cannula 07/30/23 11:40 36.6 C 85 18 131/63 92 Nasal Cannula 07/30/23 08:00 Nasal Cannula 07/30/23 07:46 36.8 C 69 17 125/62 96 Nasal Cannula 07/30/23 07:20 59 L 07/30/23 07:17 22 96 Nasal Cannula O2 Flow Rate 07/30/23 14:59 07/30/23 12:07 2 07/30/23 11:40 1.5 07/30/23 08:00 2 07/30/23 07:46 1.5 07/30/23 07:20 07/30/23 07:17 2
[2023-07-30] MEDS: methylPREDNISolone 40 MG in SYRINGE 0 ML IV SCH (20:53)
[2023-07-31 06:15] LABS: Hematocrit (blood only) 36.6 % (42.0-52.0); Mean Corpuscular Hemoglobin 26.3 pg (25.0-34.0); Mean Corpuscular Hgb Conc 32.8 g/dL (32.0-36.0); Mean Corpuscular Volume 80.3 fL (80.0-100.0); Mean Platelet Volume 8.9 fL (9.4-12.4); Platelet Count 411 K/uL (130-400); RDW Coefficient of Variation 17.2 % (11.5-14.5); RDW Standard Deviation 50.3 fL (36.4-46.3); Red Blood Count 4.56 M/uL (4.70-6.10); White Blood Count 13.86 K/ul (4.8-10.8)
[2023-07-31 06:16] LABS: BUN Creatinine Ratio 31.2 (10-20); Creatinine Clr Calc Pharmacy 33.2 ml/min; Est GFR (African American) 50.8 ml/min; Est GFR (Non-African American) 43.9 ml/min; Magnesium 2.4 mg/dl (1.7-2.4); Phosphorus 2.7 mg/dl (2.5-4.9); Potassium 4.7 mmol/L (3.5-5.1)
--- NOTE | 2023-07-31 15:57 | Hospitalist Progress Note ---
Date of Service July 31, 2023 Assessment & Plan (1) Acute exacerbation of chronic obstructive pulmonary disease: (2) SOB (shortness of breath): (3) Diastolic CHF: (4) Hypertension: (5) Hypothyroidism: (6) Tobacco use: (7) Squamous cell carcinoma of left ear: Plan 87-year-old male who lives with his sons; presented to the ED 07/28 with complaints of a cough and shortness of breath. 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 He was here in the ED on 07/25 for similar symptoms and viral panel was negative along with cardiac work up being negative. A lateral chest wall xray was obtained revealing small infiltrates. He was prescribed Amoxicillin, Doxycycline, and oral prednisone and was released from the ED. He was on day #2 of treatment at time of this presentation. Normally, he wears 2-3 LNC supplemental O2 10/01. He is being managed for the following: Acute exacerbation of COPD: SOB: Baseline oxygen use: 2 to 3 L 10/01 No leukocytosis WBC 10.14; does not appear toxic. CXR with chronic emp hysematous changes, no acute finding. Started on cefepime plus methylprednisone in ED; changed to Rocephin + Azithro 07/28. Continue. Continue with nebs, Solu-Medrol and Mucinex. Taper down Solu-Medrol to every 12 hours. Follow-up admitting blood and sputum culture PT/OT. Follow clinically. Patient reports continued improvement today. HTN: Chronic, continue home Imdur and amlodipine. Diastolic CHF: Chronic, euvolemic on exam. Most recent BNP normal. Hypothyroidism: Chronic, continue home levothyroxine. Tobacco use: Chronic, patient continues to use tobacco/use. Recommended cessation, patient does not want to quit tobacco. 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 Follows Dr. Ayala Disposition: PCP: Dr. Oliver Jones Code Status: Full code VTE Prophylaxis: Lovenox subcu possible DC in next 1 to 2 days. Admission and Anticipated Discharge Date Admission Date: July 28, 2023 Subjective Patient was seen and examined at bedside. Patient was sitting up in chair, on 2 L oxygen via nasal cannula. Resting comfortably, not in any acute distress. Patient reports occasional bouts of cough but overall improving, but reports feeling better today. Denies other review of symptoms. Physical Exam Physical Exam: GENERAL: Alert and oriented x3. NAD, on 2L O2 via NC. Elderly/weak appearing HEENT: No pallor, no icterus. Pupils equal, round and reactive to light. Oral mucosa moist. NECK: No JVD, no neck masses. HEART: S1 and S2 heard. Regular rate and rhythm. No murmur, no gallop. RESPIRATORY SYSTEM: Normal AP diameter. No accessory muscle use. Wheezing bilateral with bilateral crackles -improving ABDOMEN: Soft, bowel sounds present, nontender, no distention. CENTRAL NERVOUS SYSTEM: No facial droop. Speech is clear. Obeys simple commands. Moves extremities. EXTREMITIES: Trace to 1+ BLE edema, no erythema seen. Results & Data Results & Data Vital Signs (Past 12 Hours) Vital Signs Temp Pulse Pulse Resp BP Pulse Ox O2 Del Method 07/31/23 15:16 86 07/31/23 13:23 15 97 Nasal Cannula 07/31/23 11:13 36.3 C L 74 17 138/62 95 Nasal Cannula 07/31/23 08:00 Nasal Cannula 07/31/23 07:48 36.9 C 68 17 163/77 H 99 Nasal Cannula 07/31/23 07:19 63 14 94 Room Air 07/31/23 07:14 64 O2 Flow Rate FiO2 07/31/23 15:16 07/31/23 13:23 3 07/31/23 11:13 3 07/31/23 08:00 2 07/31/23 07:48 3 07/31/23 07:19 21 07/31/23 07:14
[2023-07-31] MEDS: methylPREDNISolone 40 MG in SYRINGE 0 ML IV SCH (20:49)
--- NOTE | 2023-07-31 21:08 | Communication Note ---
Date of Service: July 31, 2023 Patient verbalized to nurse bilateral leg swelling. Patient worried about new medications possibly contributing to leg swelling. Chest x-ray as per my interpretation no congestion LE venous Dopplers negative for DVT AP Bilateral leg swelling possibly from fluid retention from steroid Rx for COPD exacerbation Decrease Solu-Medrol frequency from twice daily to to once daily for now.
--- NOTE | 2023-08-01 02:25 | Ultrasound Report ---
Exam(s): US VENOUS BILATERAL LOWER EXTREMITIES EXAM: US Duplex Bilateral Lower Extremities Veins CLINICAL HISTORY: Reason for exam: leg swelling. TECHNIQUE: Real-time duplex ultrasound scan of the bilateral lower extremity veins integrating B-mode two-dimensional vascular structure, Doppler spectral analysis, color flow Doppler imaging and compression. COMPARISON: US Duplex Lower Extremity Veins dated 09/29/2022 FINDINGS: Right deep veins: Unremarkable. No DVT in the right common femoral, femoral, proximal deep femoral or popliteal veins. The veins demonstrate normal color flow, are normally compressible, with normal phasic flow and/or augmentation response. Right superficial veins: Unremarkable. No thrombus in the visualized right great saphenous vein. Left deep veins: Unremarkable. No DVT in the left common femoral, femoral, proximal deep femoral or popliteal veins. The veins demonstrate normal color flow, are normally compressible, with normal phasic flow and/or augmentation response. Left superficial veins: Unremarkable. No thrombus in the visualized left great saphenous vein. Soft tissues: No acute findings. No popliteal cyst. IMPRESSION: No evidence of DVT in bilateral lower extremities. Electronically signed by: Jess Page M.D. 08/01/23 02:24 AM
--- NOTE | 2023-08-01 06:51 | XRay Report ---
XR chest 1V portable HISTORY: Bilateral leg swelling. COMPARISON: Chest 07/28/2023. FINDINGS: No pneumothorax. The lungs remain hyperexpanded. The heart is normal in size. This mildly t ortuous thoracic aorta. Bibasilar linear densities favor subsegmental atelectasis. This remains uncha nged. The punctate calcified granuloma within the right midlung zone. No new focal lung consolidation s identified. No evidence for pulmonary edema. No acute fractures. Degenerative changes within the ri ght shoulder again noted. IMPRESSION: 1. Bibasilar linear densities favor subsegmental atelectasis. This is similar to the prior study. 2. Hyperexpanded lungs suggesting emphysema. ACT 112: Negative or not required by law. Electronically signed by: Alexis Harper M.D. 08/01/2023 6:50 AM
[2023-08-01 07:02] LABS: Hematocrit (blood only) 35.3 % (42.0-52.0); Hemoglobin 10.9 g/dl (14.0-18.0); Mean Corpuscular Hemoglobin 25.8 pg (25.0-34.0); Mean Corpuscular Hgb Conc 30.9 g/dL (32.0-36.0); Mean Corpuscular Volume 83.5 fL (80.0-100.0); Mean Platelet Volume 9.1 fL (9.4-12.4); Platelet Count 392 K/uL (130-400); RDW Coefficient of Variation 17.4 % (11.5-14.5); RDW Standard Deviation 53.4 fL (36.4-46.3); Red Blood Count 4.23 M/uL (4.70-6.10); White Blood Count 11.46 K/ul (4.8-10.8)
[2023-08-01 07:16] LABS: BUN Creatinine Ratio 29.1 (10-20); Calcium 7.8 mg/dl (8.6-10.3); Creatinine Clr Calc Pharmacy 27.2 ml/min; Est GFR (Non-African American) 34.5 ml/min; Potassium 4.5 mmol/L (3.5-5.1)
[2023-08-01] MEDS: methylPREDNISolone 40 MG in SYRINGE 0 ML IV SCH (08:31)
--- NOTE | 2023-08-01 17:17 | Hospitalist Progress Note ---
Date of Service August 01, 2023 Assessment & Plan (1) Acute exacerbation of chronic obstructive pulmonary disease: (2) SOB (shortness of breath): (3) Diastolic CHF: (4) Hypertension: (5) Hypothyroidism: (6) Tobacco use: (7) Squamous cell carcinoma of left ear: Plan 87-year-old male who lives with his sons; presented to the ED 07/28 with complaints of a cough and shortness of breath. 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 He was here in the ED on 07/25 for similar symptoms and viral panel was negative along with cardiac work up being negative. A lateral chest wall xray was obtained revealing small infiltrates. He was prescribed Amoxicillin, Doxycycline, and oral prednisone and was released from the ED. He was on day #2 of treatment at time of this presentation. Normally, he wears 2-3 LNC supplemental O2 10/01. He is being managed for the following: Acute exacerbation of COPD: SOB: Baseline oxygen use: 2 to 3 L 10/01 No leukocytosis WBC 10.14; does not appear toxic. CXR with chronic emp hysematous changes, no acute finding. Started on cefepime plus methylprednisone in ED; changed to Rocephin + Azithro 07/28. Continue. Continue with nebs, Solu-Medrol and Mucinex. Taper down Solu-Medrol to every 24 hours. Follow-up admitting blood and sputum culture-sputum culture no growth, blood culture no growth 48 hours. PT/OT. Follow clinically. Patient reports continued improvement today. HTN: Chronic, continue home Imdur and amlodipine. Diastolic CHF: Chronic, euvolemic on exam. Most recent BNP normal. Hypothyroidism: Chronic, continue home levothyroxine. Tobacco use: Chronic, patient continues to use tobacco/use. Recommended cessation, patient does not want to quit tobacco. 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 for immunotherapy which has recently been completed. Follows Dr. Ayala Disposition: PCP: Dr. Oliver Jones Code Status: Full code VTE Prophylaxis: Lovenox subcu possible DC in next 1 to 2 days. Admission and Anticipated Discharge Date Admission Date: July 28, 2023 Subjective Patient was seen and examined at bedside. Patient was sitting up in chair, on 2 L oxygen via nasal cannula. Resting comfortably, not in any acute distress. Patient reports occasional bouts of cough but overall improving, but reports feeling better today. Denies other review of symptoms. Had BLE swelling yesterday likely secondary to steroid use, CXR with no congestion. Patient reports it is already better today morning. Physical Exam Physical Exam: GENERAL: Alert and oriented x3. NAD, on 2L O2 via NC. Elderly/weak appearing HEENT: No pallor, no icterus. Pupils equal, round and reactive to light. Oral mucosa moist. NECK: No JVD, no neck masses. HEART: S1 and S2 heard. Regular rate and rhythm. No murmur, no gallop. RESPIRATORY SYSTEM: Normal AP diameter. No accessory muscle use. Wheezing bilateral with bilateral crackles -improving ABDOMEN: Soft, bowel sounds present, nontender, no distention. CENTRAL NERVOUS SYSTEM: No facial droop. Speech is clear. Obeys simple commands. Moves extremities. EXTREMITIES: Trace to 1+ BLE edema, no erythema seen. Results & Data Results & Data Vital Signs (Past 12 Hours) Vital Signs Temp Pulse Pulse Resp BP Pulse Ox O2 Del Method 08/01/23 15:26 65 08/01/23 11:22 92 H 16 170/77 H 93 Nasal Cannula 08/01/23 07:50 36.4 C L 72 16 161/68 H 95 Nasal Cannula 08/01/23 07:32 Nasal Cannula 08/01/23 07:13 74 15 92 Nasal Cannula 08/01/23 06:49 69 O2 Flow Rate 08/01/23 15:26 08/01/23 11:22 3 08/01/23 07:50 3 08/01/23 07:32 2 08/01/23 07:13 08/01/23 06:49
[2023-08-02 07:01] LABS: Hematocrit (blood only) 36.4 % (42.0-52.0); Hemoglobin 11.2 g/dl (14.0-18.0); Mean Corpuscular Hemoglobin 25.8 pg (25.0-34.0); Mean Corpuscular Hgb Conc 30.8 g/dL (32.0-36.0); Mean Corpuscular Volume 83.9 fL (80.0-100.0); Mean Platelet Volume 9.3 fL (9.4-12.4); Platelet Count 403 K/uL (130-400); RDW Coefficient of Variation 17.7 % (11.5-14.5); RDW Standard Deviation 53.9 fL (36.4-46.3); Red Blood Count 4.34 M/uL (4.70-6.10); White Blood Count 14.04 K/ul (4.8-10.8)
[2023-08-02 07:22] LABS: BUN Creatinine Ratio 28.3 (10-20); Calcium 7.7 mg/dl (8.6-10.3); Creatinine Clr Calc Pharmacy 33.9 ml/min; Est GFR (African American) 52.2 ml/min; Magnesium 2.3 mg/dl (1.7-2.4); Phosphorus 2.1 mg/dl (2.5-4.9); Potassium 4.3 mmol/L (3.5-5.1)
[2023-08-02] MEDS: POT PHOSPHATE MONOBASIC W/ SOD TAB PO SCH (12:20)
--- NOTE | 2023-08-02 15:23 | Hospitalist Progress Note ---
Date of Service August 02, 2023 Assessment & Plan (1) Acute exacerbation of chronic obstructive pulmonary disease: (2) SOB (shortness of breath): (3) Diastolic CHF: (4) Hypertension: (5) Hypothyroidism: (6) Tobacco use: (7) Squamous cell carcinoma of left ear: Plan 87-year-old male who lives with his sons; presented to the ED 07/28 with complaints of a cough and shortness of breath. 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 He was here in the ED on 07/25 for similar symptoms and viral panel was negative along with cardiac work up being negative. A lateral chest wall xray was obtained revealing small infiltrates. He was prescribed Amoxicillin, Doxycycline, and oral prednisone and was released from the ED. He was on day #2 of treatment at time of this presentation. Normally, he wears 2-3 LNC supplemental O2 10/01. He is being managed for the following: Acute exacerbation of COPD: SOB: Baseline oxygen use: 2 to 3 L 10/01 No leukocytosis WBC 10.14; does not appear toxic. CXR with chronic emp hysematous changes, no acute finding. Started on cefepime plus methylprednisone in ED; changed to Rocephin + Azithro 07/28. Continue. Continue with nebs, Solu-Medrol and Mucinex. Taper down Solu-Medrol to every 24 hours. Follow-up admitting blood and sputum culture-sputum culture no growth, blood culture no growth 48 hours. PT/OT. To p.o. antibiotics and p.o. steroids on discharge, will taper down the steroid for next 5 to 7 days on discharge. HTN: Chronic, continue home Imdur and amlodipine. Diastolic CHF: Chronic, euvolemic on exam. Most recent BNP normal. Hypothyroidism: Chronic, continue home levothyroxine. Tobacco use: Chronic, patient continues to use tobacco/use. Recommended cessation, patient does not want to quit tobacco. 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 Follows Dr. Ayala Disposition: PCP: Dr. Oliver Jones Code Status: Full code VTE Prophylaxis: Lovenox subcu possible DC tomorrow. Admission and Anticipated Discharge Date Admission Date: July 28, 2023 Subjective Patient was seen and examined at bedside. Patient was sitting up in bed, on 3 L oxygen via nasal cannula. Resting comfortably, not in any acute distress. Patient with improving cough, reports overall getting better, he stated he would like to go home tomorrow as he thinks he needs to improve some more before he leaves. Pt advised to ambulate in the hallway while in here. Denies pain or headache or dizziness or fever. Physical Exam Physical Exam: GENERAL: Alert and oriented x3. NAD, on 3L O2 via NC. Elderly/weak appearing HEENT: No pallor, no icterus. Pupils equal, round and reactive to light. Oral mucosa moist. NECK: No JVD, no neck masses. HEART: S1 and S2 heard. Regular rate and rhythm. No murmur, no gallop. RESPIRATORY SYSTEM: Normal AP diameter. No accessory muscle use. Wheezing bilateral with bilateral crackles -improving ABDOMEN: Soft, bowel sounds present, nontender, no distention. CENTRAL NERVOUS SYSTEM: No facial droop. Speech is clear. Obeys simple commands. Moves extremities. EXTREMITIES: Trace to 1+ BLE edema, no erythema seen. Results & Data Results & Data Vital Signs (Past 12 Hours) Vital Signs Temp Pulse Pulse Resp BP BP Pulse Ox 08/02/23 13:53 08/02/23 12:49 78 18 95 08/02/23 11:49 92 H 16 154/86 H 93 08/02/23 08:06 78 16 152/85 H 100 08/02/23 08:00 59 L 08/02/23 06:57 77 17 96 08/02/23 03:37 36.4 C L 77 20 162/73 H 93 O2 Del Method O2 Flow Rate 08/02/23 13:53 Nasal Cannula 2 08/02/23 12:49 Nasal Cannula 3 08/02/23 11:49 Room Air 08/02/23 08:06 Nasal Cannula 3 08/02/23 08:00 08/02/23 06:57 Nasal Cannula 3 08/02/23 03:37 Nasal Cannula 2.5
[2023-08-03 07:24] LABS: Hematocrit (blood only) 33.8 % (42.0-52.0); Hemoglobin 10.4 g/dl (14.0-18.0); Mean Corpuscular Hemoglobin 25.8 pg (25.0-34.0); Mean Corpuscular Hgb Conc 30.8 g/dL (32.0-36.0); Mean Corpuscular Volume 83.9 fL (80.0-100.0); Mean Platelet Volume 9.2 fL (9.4-12.4); Platelet Count 345 K/uL (130-400); RDW Coefficient of Variation 17.7 % (11.5-14.5); RDW Standard Deviation 54.5 fL (36.4-46.3); Red Blood Count 4.03 M/uL (4.70-6.10); White Blood Count 12.36 K/ul (4.8-10.8)
[2023-08-03 07:36] VITALS: TEMP 97.7
[2023-08-03 08:35] LABS: Calcium 7.4 mg/dl (8.6-10.3); Magnesium 2.1 mg/dl (1.7-2.4); Potassium 4.2 mmol/L (3.5-5.1)
[2023-08-03 08:41] LABS: BUN Creatinine Ratio 25.7 (10-20); Creatinine Clr Calc Pharmacy 32.5 ml/min; Est GFR (African American) 49.5 ml/min; Est GFR (Non-African American) 42.7 ml/min; Phosphorus 3.5 mg/dl (2.5-4.9)
--- NOTE | 2023-08-03 10:28 | Discharge Summary ---
Discharge Summary Date of Service August 03, 2023 Notes For Next Care Provider Medication Changes From Visit Prednisone Taper: 40mg x 3 days, 20mg x 3 days, 10mgx 3 days Guaifenesin q12 hours x 7 days Admission HPI Per Admitting Provider Mr. Dobbins is an 87-year-old male who lives with his sons; presented to the ED today with complaints of a cough and shortness of breath. 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 He was here in the ED on 07/25 for similar symptoms and viral panel was negative along with cardiac work up being negative. A lateral chest wall xray was obtained revealing small infiltrates. He was prescribed Amoxicillin, Doxycycline, and oral prednisone and was released from the ED. He is currently on day #2 of treatment. Normally, he wears 2-3 LNC supplemental O2 10/01. He uses his nebulizers six times per day since he has not been feeling well. Normally he only uses them 3 times daily. He just took his last treatment of immunotherapy of 06/09/23 under the care of Dr. Love at [facility] for management of his squamous cell carcinoma. He was seen as an outpatient recently and completed on Augmentin and Z-Erasto with prednisone along with Xopenex and continues to take Spiriva plus Advair. He [facility]; unknown which doctor. He does have a percussion vest that he wears 3-4 times per day. His one son arranges his medications, but overall the patient is not a reliable historian. Patient was recently was admitted 04/28 to 05/10/2023 for acute GI bleed. He receives most of his care through the [facility] and historically has declined home health, and PT/OT. Today, Chest x-ray negative for acute cardiopulmonary disease; does show chronic emphysema. No leukocytosis and otherwise CBC and BMP unremarkable. Biofire obtained and pending. Patient chews tobacco almost daily, which he says brings him his most rebeca right now. Last drink was 15 years ago. He says he loves to acosta and fish but he has been unable to do either of them recently. He uses crutches, wheelchair or walker to ambulate. His sons prepare his meals and set him up for bathing; patient is able to shower himself. Patient denies headache, dizziness, chest pain, palpitations, urinary or bowel changes, recent falls or trauma. On examination, he was able to sit upright in his bed on his own, rhonchitic lung sounds, coughing with thick brown productive sputum, but is otherwise euvolemic on examination. Suspect patient is experiencing an acute on chronic COPD exacerbation; will continue with treatment for pneumonia due to his increased risk factors, fragility, smoking history and age. Will treat with IV Rocephin plus azithromycin, IV steroids, sputum culture, Mucinex and PT OT. Consider pulmonary consultation if no improvement. Patient will be admitted for further evaluation and management. Please see A/P for further details. Admission Exam Per Admitting Provider Neuro: AAOx4, PERRLA, no aphagia, memory changes, CNII-XII grossly intact HEENT: head normocephalic, moist mucus membranes CV: S1/S2, (-) M/G/R, (-) edema, cap refill < 3 seconds Resp: Lungs rhonchitic anterior and posterior. On 3-4 LNC. GI: Abdomen S/tender RLQ/ND, Ax4 bowel sounds, (-) CVA tenderness Musculoskeletal: 5/5 B/L UE strength, 5/5 B/L LE strength. No gait disturbance. Skin: (-) rashes , (-) erythema. Psych: euthymic mood Principal Dx & Hospital Course #1 = Principal Diagnosis (1) Acute exacerbation of chronic obstructive pulmonary disease: (2) SOB (shortness of breath): (3) Diastolic CHF: (4) Hypertension: (5) Hypothyroidism: (6) Tobacco use: (7) Squamous cell carcinoma of left ear: Plan Mr. Dobbins is an 87-year-old male who lives with his sons; presented to the ED 07/28 with complaints of a cough and shortness of breath. 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 He initially presented to ED on 07/25 for similar symptoms and viral panel was negative along with cardiac work up being negative. A lateral chest wall xray was obtained revealing small infiltrates. He was pres cribed Amoxicillin, Doxycycline, and oral prednisone and was released from the ED. He was on day #2 of treatment at time of this presentation. Normally, he wears 2-3 LNC supplemental O2 10/01. He was admitted on 07/28 for management of ongoing COPD exacerbation. He responded promptly to IV methylprednisolone, which was continued throughout his admission. He also completed 7 days of IV antibiotics while admitted. Patient reported feeling at, "if not better," than baseline. Patient was initially sleeping flat on back, woke promptly to verbal stimuli. Patient on home level of oxygen without signs of distress. Plan to continue slow steroid taper. [facility] Patient verbalized understanding and denied any further questions. #Acute exacerbation of COPD: Baseline oxygen use: 2 to 3 L 10/01 WBC elevated 07/22 IV corticosteroid use, does not appear toxic. CXR with chronic emphysematous changes, no acute finding. Started on cefepime plus methylprednisone in ED; changed to Rocephin + Azithro 07/28. completed 7 days IV antibiotics/PO home course. Continued with nebs, Solu-Medrol and Mucinex. Tapered down Solu-Medrol to every 24 hours. Cultures with [facility] Discharged on slow steroid taper, 40mg x 3 days, 20mg x 3 days, 10mg x 3 days. Encouraged pulm/PCP follow up Continue home O2 #HTN: Chronic, continue home Imdur and amlodipine. #Diastolic CHF: Chronic, euvolemic on exam. Most recent BNP normal. #Hypothyroidism: Chronic, continue home levothyroxine. #Tobacco use: Chronic, patient continues to use tobacco/use. Recommended cessation, patient does not want to quit tobacco. Squamous cell carcinoma of left ear: Chronic, follows [facility] for immunotherapy which has recently been completed. Follows Dr. Ayala Disposition: On day of discharge, patient was in good spirits and reported to be at respiratory baseline. Patient eating well, denied any acute concerns or uncontrolled pain. Discharge Exam Constitutional WD/WN, vitals as above Eyes left eye with patch Respiratory decreased periphery breath sounds, occasional rhonchi cleared with cough Cardiovascular RRR, no murmur, no edema Gastrointestinal (Abdomen) normal bowel sounds, soft, nontender, no hepatosplenomegaly Musculoskeletal no cyanosis or clubbing, extremities motor strength 5/5 Updated Medication List Medication Instructions Recorded Confirmed Type albuterol sulfate 2.5 mg/3 mL 3 ml inhalation QID PRN Shortness 10/04/18 07/28/23 History (0.083 %) solution for nebulization Of Breath albuterol sulfate 90 mcg/actuation 2 puff inhalation Q4H PRN SHORT OF 10/04/18 07/28/23 History aerosol inhaler BREATH/COUGH/WHEEZING ferrous sulfate 325 mg (65 mg 325 mg PO Q OTHER DAY 10/04/18 07/28/23 History iron) tablet tiotropium bromide 2.5 2 puff inhalation DAILY 10/04/18 07/28/23 History mcg/actuation mist for inhalation isosorbide mononitrate 60 mg 30 mg PO QAM 09/29/22 07/28/23 History tablet,extended release 24 hr amlodipine 5 mg tablet 5 mg PO DAILY 01/19/23 07/28/23 History fluticasone 250 mcg-salmeterol 50 1 inh inhalation BID 01/19/23 07/28/23 History mcg/dose blistr powdr for inhalation peg 400-propylene glycol (PF) 0.4 1 drp OPL DIRECTED PRN Dry Eyes 01/19/23 07/28/23 History %-0.3 % eye drops in a dropperette (Lubricant Eye (PG-PEG 400) (PF)) ascorbic acid (vitamin C) 500 mg 500 mg PO BID 04/28/23 07/28/23 History tablet aspirin 81 mg tablet,delayed 81 mg PO DAILY 04/28/23 07/28/23 History release gabapentin 100 mg capsule 100 mg PO QAM 04/28/23 07/28/23 History multivitamin with minerals 1 tab PO DAILY 04/28/23 07/28/23 History (Multiple Vitamin-Minerals tablet) nitroglycerin 0.4 mg sublingual 0.4 mg sublingual .PRN/UD PRN 04/28/23 07/28/23 History tablet Chest Pain roflumilast 250 mcg tablet 250 mcg PO DAILY 04/28/23 07/28/23 History ipratropium bromide 0.02 % 0.5 mg (2.5 mL) inhalation Q6R 7 05/10/23 07/28/23 Rx solution for inhalation days #75 mL pantoprazole 40 mg tablet,delayed 40 mg PO BID 30 days #60 tabs 05/10/23 07/28/23 Rx release (Protonix) sucralfate 100 mg/mL oral 1 g (10 mL) PO BID 14 days #280 mL 05/10/23 07/28/23 Rx suspension Lactobacil.acidophilus-Bifido.animalis 1 cap PO QPM 07/28/23 07/28/23 History 5 billion cell sprinkle capsule (Probiotic) gabapentin 300 mg capsule 300 mg PO HS 07/28/23 07/28/23 History levalbuterol HCl 1.25 mg/3 mL 1.25 mg NEB Q4H PRN Wheezing 07/28/23 07/28/23 History solution for nebulization levothyroxine 100 mcg tablet 100 mcg PO DAILYBB 07/28/23 07/28/23 History polyvinyl alcohol 1.4 % eye drops 1 drp ophthalmic (eye) QID 07/28/23 07/28/23 History guaifenesin 600 mg tablet, 600 mg PO Q12 #14 tabs 08/03/23 Rx extended release 12 hr (Mucinex) prednisone 10 mg tablet 10 mg PO DIRECTED #21 tabs 08/03/23 Rx Hospital Stay Data Consultations 07/28/23 14:29 ED Decision to Admit Stat Diagnostic Imagining Performed 07/31/23 22:39 US venous doppler LE BI Stat Pending Results Patient Have Any Pending Studies at Discharge: No Discharge Instructions Given to Patient (Per Discharging Provider) You were admitted for COPD exacerbation. You were treated for 5 days with IV antibiotics and IV steroids. You will continue a slow taper for your steroids as follows: Please take 40mg ( 4 tablets) by mouth in the morning for three days [08/04, Saturday 08/05, Saturday 08/05], then 20mg (2 tablets ) by mouth in the morning for three days [Sunday 08/06, Monday 08/07, Tuesday 08/08], then take 10mg (1 tablet) by mouth for the last three days [Wednesday 08/09, 08/10, Friday 08/11] This is sent to your pharmacy. A prescription for guaifenesin 600mg was sent to your pharmacy as well. This is to help with bringing up/coughing up mucus. Please take this two times daily until complete. [facility] follow [facility] with [facility] Provider. Total Time Total Time Spent Total Time Spent (In Minutes): 55
[2023-08-03 12:09] VITALS: BP 146/60
[2023-08-03 13:38] VITALS: PULSE 91; RESP 18; O2SAT 96
== END 2023-08-03 15:21 | disposition home health service (06) | DRG 191 ==
LOC: ED 11:23 → SUATTDRO 14:32 → EDINP 14:32 → 2N 17:41
DX: Z87.891 Personal history of nicotine dependence; Z79.82 Long term (current) use of aspirin; I50.32 Chronic diastolic (congestive) heart failure; J44.1 Chronic obstructive pulmonary disease with (acute) exacerbation; I11.0 Hypertensive heart disease with heart failure; E03.9 Hypothyroidism, unspecified; Z88.1 Allergy status to other antibiotic agents; J43.9 Emphysema, unspecified; C44.229 Squamous cell carcinoma of skin of left ear and external auricular canal

== ENCOUNTER 2023-08-17 16:54 | Inpatient (IN) ==
--- NOTE | 2023-08-17 17:02 | ED Triage Note ---
Date of Service August 17, 2023 Provider in Triage Author: Michelle Hampton History of Present Illness This patient was briefly evaluated while in triage. An abbreviated physical exam was performed. This patient is a 87-year-old Male who presents to the ED for evaluation of shob since his discharge from hospital a few weeks ago. Pt pcp sent him for evaluation of fever cough and diminished breath sounds. Pt wears 3LNC continuous. Physical Exam Initial orders for labs and / or imaging were placed and patient was placed in the waiting area until a bed is available. Please see further documentation for the full ED course.
--- NOTE | 2023-08-17 17:20 | Emergency Department Note ---
Impression & Plan Acute exacerbation of chronic obstructive pulmonary disease, Acute bronchitis, Hypoxia ED Provider Note NAME: BORIS VASQUEZ AGE: 87 SEX: M : 1935 ARRIVES VIA: Walk-In INFORMANT: Patient, patient's family members ED PROVIDER(S): Micheal Russo DO CHIEF COMPLAINT: Difficulty breathing HPI: The patient is an 87-year-old male who presented to the emergency department for an evaluation of difficulty breathing. The patient's had episodes of difficulty breathing ever since he got out of the hospital. His family is concerned he may have gotten out too soon. The patient is a cough with thick sputum. He is unable to bring up any sputum. Patient denies having any hemoptysis. He did notice a fever as well as some leg pain but no leg swelling. The patient was seen by his primary pulmonary doctor and was sent directly to the emergency department for further evaluation ROS: See above HPI for pertinent positives & negatives. A total of 10 systems reviewed and were otherwise negative. PAST MEDICAL HISTORY: See Below PAST SURGICAL HISTORY: See Below FAMILY HISTORY: See Below SOCIAL HISTORY: See Below HOME MEDICATIONS: See Below ALLERGIES: See Below VITALS: See Below PHYSICAL EXAMINATION: GENERAL: The patient is awake and alert. He is somewhat listless appearing. EYES: The conjunctivae are clear. The pupils are round and reactive. EARS, NOSE, MOUTH AND THROAT: The nose is without any evidence of any deformity. NECK: The neck is nontender and supple. RESPIRATORY: Diminished breath sounds are noted in the left lung field. There was conversational dyspnea. CARDIOVASCULAR: Regular rate and rhythm noted there no murmurs rubs or gallops normal S1 normal S2. GASTROINTESTINAL: The abdomen is soft. Abdomen is nontender. MUSCULOSKELETAL/EXTREMITIES: There is no evidence of gross deformity full range of motion is noted in the hips and shoulders. SKIN: There is no obvious evidence of any rash. There are no petechiae, pallor or cyanosis noted. NEUROLOGIC: Patient is awake alert and oriented x3 MEDICAL DECISION MAKING: The patient is an 87-year-old male who has a history of COPD who presented to the emergency department for an evaluation of difficulty breathing. Patient's history and physical exam appear to be consistent with infectious process. The patient was treated with supplemental oxygen as well as bronchodilator therapy. The patient was started on IV steroids as well. I discussed patient's laboratory and radiographic studies with him. Given his findings I discussed his condition with the on-call [facility] hospitalist. They have agreed to evaluate the patient in the emergency department for further management and disposition. Patient was reevaluated on reevaluation he was significantly improved. Oxygen saturation was improved on supplemental oxygen. I will defer antibiotic ministration to the admitting team. There was no fever or definite sign of infiltrate. This could still be consistent with a viral process. Triage Nursing notes reviewed. Prior medical records reviewed Vital Signs: reviewed and remarkable for hypoxia. Differential diagnosis: Reactive airway disease, pneumonia, pneumothorax, COPD, CHF, infections, cardiac ischemia, pulmonary embolism, musculoskeletal, gastrointestinal, as well as other pathologies. ER treatment provided: See below Diagnostics interpreted by me: ECG: EKG was obtained in the emergency department. My interpretation is normal sinus rhythm at 76 bpm. A right bundle branch block pattern was noted. There was no PVCs. This was compared to a tracing from July 28, 2023. No changes were noted. Cardiac Monitoring: An order was placed for continuous cardiac monitoring. The monitor shows a rate of 70 bpm with sinus rhythm. Laboratory studies: As stated above and show below. Imaging studies: See below. Radiographic imaging was reviewed by myself Consultation(s): I discussed this case with Dr. Myers who is on-call for the [facility]. 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 Chronic anemia Hypothyroidism Hypertension Hx of agent Bath exposure Family History Other Family history non-contributory Social History Smoking Status: Never smoker Tobacco Type: Smokeless Tobacco (Dip or Chew) Second Hand Exposure: No; Do You Dip or Chew Tobacco: Yes; Hx Alcohol Use: No Hx Substance Use: No Preferred Language: [place]ib[place]ian Communication Ability: Effective Communication Ability Comment: pt cannot see to read Communication Tools: Other Technician Chemical Cleaning Required: Yes Beliefs That Will Affect Care: None marital status: Current Living Situation: Family Current Living Situation Comment: 2 sons current occupational status: retired Feels Safe at Home: Yes Assistive Devices: Oxygen - Continuous and Walker Allergies Allergies Allergy/AdvReac Type Severity Reaction Status Date / Time cefuroxime Allergy Intermediate Rash and Verified 08/17/23 18:01 beta-lactams = rash ertapenem Allergy Unknown CAN'T Verified 08/17/23 18:01 REMEMBER levofloxacin [From Levaquin] Allergy Unknown CAN'T Verified 08/17/23 18:01 REMEMBER Home Meds Home Medications Medication Instructions Recorded Confirmed albuterol sulfate 2.5 mg/3 mL 3 ml inhalation QID PRN Shortness 10/04/18 08/17/23 (0.083 %) solution for nebulization Of Breath albuterol sulfate 90 mcg/actuation 2 puff inhalation Q4H PRN SHORT OF 10/04/18 08/17/23 aerosol inhaler BREATH/COUGH/WHEEZING ferrous sulfate 325 mg (65 mg 325 mg PO Q OTHER DAY 10/04/18 08/17/23 iron) tablet tiotropium bromide 2.5 2 puff inhalation DAILY 10/04/18 08/17/23 mcg/actuation mist for inhalation isosorbide mononitrate 60 mg 30 mg PO QAM 09/29/22 08/17/23 tablet,extended release 24 hr amlodipine 5 mg tablet 5 mg PO DAILY 01/19/23 08/17/23 fluticasone 250 mcg-salmeterol 50 1 inh inhalation BID 01/19/23 08/17/23 mcg/dose blistr powdr for inhalation peg 400-propylene glycol (PF) 0.4 1 drp OPL DIRECTED PRN Dry Eyes 01/19/23 08/17/23 %-0.3 % eye drops in a dropperette (Lubricant Eye (PG-PEG 400) (PF)) ascorbic acid (vitamin C) 500 mg 500 mg PO BID 04/28/23 08/17/23 tablet aspirin 81 mg tablet,delayed 81 mg PO DAILY 04/28/23 08/17/23 release gabapentin 100 mg capsule 100 mg PO QAM 04/28/23 08/17/23 multivitamin with minerals 1 tab PO DAILY 04/28/23 08/17/23 (Multiple Vitamin-Minerals tablet) nitroglycerin 0.4 mg sublingual 0.4 mg sublingual .PRN/UD PRN 04/28/23 08/17/23 tablet Chest Pain roflumilast 250 mcg tablet 250 mcg PO DAILY 04/28/23 08/17/23 Lactobacil.acidophilus-Bifido.animalis 1 cap PO QPM 07/28/23 08/17/23 5 billion cell sprinkle capsule (Probiotic) gabapentin 300 mg capsule 300 mg PO HS 07/28/23 08/17/23 levalbuterol HCl 1.25 mg/3 mL 1.25 mg NEB Q4H PRN Wheezing 07/28/23 08/17/23 solution for nebulization levothyroxine 100 mcg tablet 100 mcg PO DAILYBB 07/28/23 08/17/23 polyvinyl alcohol 1.4 % eye drops 1 drp ophthalmic (eye) QID 07/28/23 08/17/23 Previous Rx's Medication Instructions Recorded pantoprazole 40 mg tablet,delayed 40 mg PO BID 30 days #60 tabs 05/10/23 release (Protonix) sucralfate 100 mg/mL oral 1 g (10 mL) PO BID 14 days #280 mL 05/10/23 suspension Results & Data (ED) Vital Signs Vital Signs - 24 hr 08/17/23 17:01 08/17/23 17:31 08/17/23 20:18 Temperature 37.0 C Temperature Source Oral Pulse Rate 84 78 Pulse Rate [Finger] Pulse Rhythm Regular Pulse Strength Normal Respiratory Rate 24 Respiratory Effort / Characteristics Respiratory Depth Respiratory Pattern Blood Pressure 187/49 H Blood Pressure [Right Arm] Blood Pressure Mean 95 Blood Pressure Mean [Right Arm] Blood Pressure Position Sitting Blood Pressure Position [Right Arm] Pulse Oximetry 96 100 Oxygen Delivery Method Nasal Cannula Nasal Cannula Oxygen Flow Rate 3 3 Sepsis Recent Fever Within 48 Hours No Sepsis New/Unexplained Change in Mental Status No Sepsis Action Taken by Nursing No Action Required 08/17/23 20:18 08/17/23 21:00 08/17/23 21:16 Temperature Temperature Source Pulse Rate 77 Pulse Rate [Finger] 91 H Pulse Rhythm Pulse Strength Respiratory Rate 20 20 Respiratory Effort / Characteristics Non-Labored Spontaneous Respiratory Depth Normal Respiratory Pattern Regular Blood Pressure Blood Pressure [Right Arm] 136/60 Blood Pressure Mean Blood Pressure Mean [Right Arm] 85 Blood Pressure Position Blood Pressure Position [Right Arm] Lying Pulse Oximetry 100 97 97 Oxygen Delivery Method Nasal Cannula Nasal Cannula Nasal Cannula Oxygen Flow Rate 3 3 3 Sepsis Recent Fever Within 48 Hours Sepsis New/Unexplained Change in Mental Status Sepsis Action Taken by Nursing 08/17/23 21:35 08/17/23 22:00 Temperature Temperature Source Pulse Rate 73 Pulse Rate [Finger] 70 Pulse Rhythm Pulse Strength Respiratory Rate 20 Respiratory Effort / Characteristics Respiratory Depth Respiratory Pattern Blood Pressure Blood Pressure [Right Arm] 143/90 H Blood Pressure Mean Blood Pressure Mean [Right Arm] 107 Blood Pressure Position Blood Pressure Position [Right Arm] Pulse Oximetry 97 Oxygen Delivery Method Nasal Cannula Oxygen Flow Rate 3 Sepsis Recent Fever Within 48 Hours Sepsis New/Unexplained Change in Mental Status Sepsis Action Taken by [facility] Medications Current Medication List: was personally reviewed by me Laboratory Data Attestation: I reviewed the patient's lab results. 08/17/23 17:35 08/17/23 17:35 Lab Results 08/17/23 08/17/23 08/17/23 Range/Units 17:25 17:35 17:53 WBC 7.77 (4.8-10.8) K/ul RBC 4.88 (4.70-6.10) M/uL Hgb 13.0 L (14.0-18.0) g/dl Hct 40.8 L (42.0-52.0) % MCV 83.6 (80.0-100.0) fL MCH 26.6 (25.0-34.0) pg MCHC 31.9 L (32.0-36.0) g/dL RDW Std Deviation 53.7 H (36.4-46.3) fL RDW Coeff of Jeison 17.8 H (11.5-14.5) % Plt Count 244 (130-400) K/uL MPV 8.9 L (9.4-12.4) fL Immature Gran % (Auto) 0.8 % Neut % (Auto) 68.2 % Lymph % (Auto) 12.0 % Irwin % (Auto) 16.3 % Eos % (Auto) 2.3 % Baso % (Auto) 0.4 % Neut # (Auto) 5.30 (1.40-6.50) K/uL Lymph # (Auto) 0.93 L (1.20-3.40) K/uL Irwin # (Auto) 1.27 H (0.11-0.59) K/uL Eos # (Auto) 0.18 (0.00-0.50) K/uL Baso # (Auto) 0.03 (0.00-0.20) K/uL Immature Gran # (Auto) 0.06 (0.01-0.20) K/uL Sodium 140 (136-145) mmol/L Potassium 4.0 (3.5-5.1) mmol/L Chloride 99 (98-107) mmol/L Carbon Dioxide 36 H (21-32) mmol/L Anion Gap 5 (3-11) BUN 25 H (6-23) mg/dl Creatinine 1.18 (0.6-1.4) mg/dl Est Cr Clr Drug Dosing Not Reportable Est GFR ( Amer) 63.0 ml/min Est GFR (Non-Af Amer) 54.4 ml/min BUN/Creatinine Ratio 21.2 H (10-20) Glucose 129 H (70-99(Fasting)) mg/dl Lactate 1.1 (0.4-2.0) mmol/L Calcium 9.3 (8.6-10.3) mg/dl Magnesium 2.0 (1.7-2.4) mg/dl Total Bilirubin 0.4 (0.2-1.0) mg/dl AST 11 L (13-39) U/L ALT 8 (7-52) U/L Alkaline Phosphatase 62 (34-104) U/L Troponin I High Sens 8.5 (0-20) pg/ml C-Reactive Protein 9.33 H (0-0.5) mg/dl B-Natriuretic Peptide 23 (0-100) pg/ml Total Protein 7.3 (6.0-8.3) gm/dl Albumin 4.0 (3.4-5.0) gm/dl Globulin 3.3 (2.5-4.0) gm/dl Albumin/Globulin Ratio 1.2 (0.9-2) Procalcitonin 0.05 (0-0.5) ng/ml SARS-CoV-2 (PCR) NEGATIVE (Negative) Influenza Type A (PCR) Negative (Neg) Influenza Type B (PCR) Negative (Neg) RSV (RT-PCR) Negative (Neg) Administered Medications Discontinued Medications Albuterol (Albut/Ipratrop 3mg/0.5mg Neb 3 Ml Vial) 3 ml NEB NOW STA; Protocol Stop: 08/17/23 17:17 Last Admin: 08/17/23 18:12 Dose: 3 ml Documented By: REINA Methylprednisolone (Methylprednisolone 125 Mg/2 Ml Vial) 125 mg IV NOW STA Stop: 08/17/23 20:08 Last Admin: 08/17/23 20:15 Dose: 125 mg Documented By: Imaging Data Attestation: I personally reviewed and interpreted this imaging study as follows: My Impression: 1 view chest x-ray was obtained in the emergency department. My interpretation is no free air or definite infiltrate, final report below. Radiologist's Impression: Chest X-Ray 08/17/23 17:03 XR chest 1V portable HISTORY: Dyspnea COMPARISON: Chest 07/31/2023. FINDINGS: No pneumothorax. No pleural effusions. The heart is normal in size. There are calcifications within the aortic knob. Mild emphysema again noted. Interstitial prominence of the lung bases favors vascular crowding from the emphysema. A few bibasilar linear densities have improved. No new focal lung consolidations to suggest a pneumonia. No evidence for pulmonary edema. IMPRESSION: 1. Emphysema. 2. No new focal lung consolidations to suggest a pneumonia. 3. Bibasilar linear densities have improved. This favors resolving atelectasis. ACT 112: Negative or not required by law. Electronically signed by: Alexis Harper M.D. 08/17/2023 5:49 PM Chest CTA 08/17/23 18:02 Exam(s): CTA CHEST IV Amt: 118ML OPTIRAY 320 EXAM: CT Angiography Chest With Intravenous Contrast CLINICAL HISTORY: Reason for exam: PE. TECHNIQUE: Axial computed tomographic angiography images of the chest with intravenous contrast. CTDI is 36.2 mGy and DLP is 802.04 mGy-cm. Automated exposure control was utilized for the study. A dose lowering technique was utilized adhering to the principles of ALARA. MIP reconstructed images were created and reviewed. COMPARISON: No relevant prior studies available. FINDINGS: Pulmonary arteries: Unremarkable. No acute pulmonary embolism. Aorta: Atherosclerotic changes of the aorta. No thoracic aortic aneurysm. Lungs: Moderate centrilobular emphysema. No mass. No consolidation. Pleural space: Unremarkable. No focal infiltrate, pleural effusion, or pneumothorax. Heart: Unremarkable. No cardiomegaly. No significant pericardial effusion. No evidence of RV dysfunction. Bones/joints: Degenerative changes of the spine. No acute fracture. No dislocation. Soft tissues: Unremarkable. Lymph nodes: Unremarkable. No enlarged lymph nodes. IMPRESSION: 1. No acute pulmonary embolism. 2. No focal infiltrate, pleural effusion, or pneumothorax. 3. Moderate centrilobular emphysema. Electronically signed by: Jasvir Chavis MD 08/17/23 19:44 PM Discharge Plan Visit Data Chief Complaint: Shortness of Breath/Dyspnea Stated Complaint: COUGH/HARD TO BREAK UP FELM, FEVER, SOB ED Provider: Micheal Russo Discharge Problem: Acute exacerbation of chronic obstructive pulmonary disease, Acute bronchitis, Hypoxia Patient Disposition: Being Evaluated by Hospitalist Forms Stand Alone Forms: My [facility] Prescriptions Prescriptions: No Action albuterol sulfate 2.5 mg /3 mL (0.083 %) Solution For Nebulization 3 ml INHALATION QID PRN (Reason: Shortness Of Breath) ferrous sulfate 325 mg (65 mg iron) Tablet 325 mg PO Q OTHER DAY albuterol sulfate 90 mcg/actuation Hfa Aerosol Inhaler 2 puff INHALATION Q4H PRN (Reason: SHORT OF BREATH/COUGH/WHEEZING) tiotropium bromide 2.5 mcg/actuation Mist 2 puff INHALATION DAILY isosorbide mononitrate 60 mg tablet extended release 24 hr 30 mg PO QAM ascorbic acid (vitamin C) 500 mg Tablet 500 mg PO BID Hold Instructions: Resume on 05/24/23. aspirin 81 mg Tablet,Delayed Release (Dr/Ec) 81 mg PO DAILY Hold Instructions: Resume on 05/24/23. gabapentin 100 mg Capsule 100 mg PO QAM Multiple Vitamin-Minerals Tablet 1 tab PO DAILY nitroglycerin 0.4 mg Tablet, Sublingual 0.4 mg sublingual .PRN/UD PRN (Reason: Chest Pain) Rx Instructions: as needed for chest pain : one tablet under the tongue every 5 minutes times three doses. roflumilast 250 mcg Tablet 250 mcg PO DAILY sucralfate 100 mg/mL Suspension 1 g PO BID 14 Days Qty: 280 2RF Rx Instructions: [facility]#[id number] Group number [id number] pantoprazole [Protonix] 40 mg tablet,delayed release (DR/EC) 40 mg PO BID 30 Days Qty: 60 2RF Rx Instructions: Take 1 tablet twice a day [facility]#[id number] Group number [id number] amlodipine 5 mg Tablet 5 mg PO DAILY fluticasone propion-salmeterol 250-50 mcg/dose Blister With Device 1 inh INHALATION BID Lubricant Eye (PG-PEG 400)(PF) 0.4-0.3 % Dropperette 1 drp OPL DIRECTED PRN (Reason: Dry Eyes) polyvinyl alcohol 1.4 % Drops 1 drp OPHTHALMIC (EYE) QID levothyroxine 100 mcg Tablet 100 mcg PO DAILYBB gabapentin 300 mg Capsule 300 mg PO HS Probiotic 5 billion cell Capsule, Sprinkle 1 cap PO QPM levalbuterol HCl 1.25 mg/3 mL solution for nebulization 1.25 mg NEB Q4H PRN (Reason: Wheezing) Rx Instructions: [facility]#[id number] Group number [id number] Referrals Referrals: Karen Miranda CRNP [Primary Care Provider] - Discharge Problem: Acute bronchitis Qualifiers: Bronchitis organism: unspecified organism Qualified Code(s): J20.9 - Acute bronchitis, unspecified
--- NOTE | 2023-08-17 17:50 | XRay Report ---
XR chest 1V portable HISTORY: Dyspnea COMPARISON: Chest 07/31/2023. FINDINGS: No pneumothorax. No pleural effusions. The heart is normal in size. There are calcification s within the aortic knob. Mild emphysema again noted. Interstitial prominence of the lung bases favor s vascular crowding from the emphysema. A few bibasilar linear densities have improved. No new focal lung consolidations to suggest a pneumonia. No evidence for pulmonary edema. IMPRESSION: 1. Emphysema. 2. No new focal lung consolidations to suggest a pneumonia. 3. Bibasilar linear densities have improved. This favors resolving atelectasis. ACT 112: Negative or not required by law. Electronically signed by: Alexis Harper M.D. 08/17/2023 5:49 PM
[2023-08-17 18:09] LABS: Basophils # (auto) 0.03 K/uL (0.00-0.20); Basophils % (auto) 0.4 %; Eosinophils # (auto) 0.18 K/uL (0.00-0.50); Eosinophils % (auto) 2.3 %; Hematocrit (blood only) 40.8 % (42.0-52.0); Immature Granulocytes # (auto) 0.06 K/uL (0.01-0.20); Immature Granulocytes % (auto) 0.8 %; Lymphocytes # (auto) 0.93 K/uL (1.20-3.40); Mean Corpuscular Hemoglobin 26.6 pg (25.0-34.0); Mean Corpuscular Hgb Conc 31.9 g/dL (32.0-36.0); Mean Corpuscular Volume 83.6 fL (80.0-100.0); Mean Platelet Volume 8.9 fL (9.4-12.4); Monocytes # (auto) 1.27 K/uL (0.11-0.59); Monocytes % (auto) 16.3 %; Neutrophils % (auto) 68.2 %; Platelet Count 244 K/uL (130-400); RDW Coefficient of Variation 17.8 % (11.5-14.5); RDW Standard Deviation 53.7 fL (36.4-46.3); Red Blood Count 4.88 M/uL (4.70-6.10); White Blood Count 7.77 K/ul (4.8-10.8)
[2023-08-17] MEDS: ALBUT/IPRATROP 3MG/0.5MG NEB 3 ML VIAL NEB STA (18:12)
[2023-08-17 18:15] LABS: Alanine Aminotransferase 8 U/L (7-52); Albumin Globulin Ratio 1.2 (0.9-2); Alkaline Phosphatase 62 U/L (34-104); Anion Gap 5 (3-11); Aspartate Aminotransferase 11 U/L (13-39); BUN Creatinine Ratio 21.2 (10-20); Bilirubin,Total 0.4 mg/dl (0.2-1.0); Blood Urea Nitrogen 25 mg/dl (6-23); C Reactive Protein 9.33 mg/dl (0-0.5); Calcium 9.3 mg/dl (8.6-10.3); Carbon Dioxide 36 mmol/L (21-32); Chloride 99 mmol/L (98-107); Est GFR (Non-African American) 54.4 ml/min; Globulin 3.3 gm/dl (2.5-4.0); Glucose 129 mg/dl (70-99(Fasting)); Sodium 140 mmol/L (136-145); Total Protein 7.3 gm/dl (6.0-8.3)
[2023-08-17 18:20] LABS: Troponin I High Sensitivity 8.5 pg/ml (0-20)
[2023-08-17 18:34] LABS: Influenza A virus by PCR Negative (Neg); Influenza B virus by PCR Negative (Neg); RSV by PCR Negative (Neg); SARS CoV2 RNA(COVID-19) Ceph NEGATIVE (Negative)
--- NOTE | 2023-08-17 19:46 | CT Scan Report ---
Exam(s): CTA CHEST IV Amt: 118ML OPTIRAY 320 EXAM: CT Angiography Chest With Intravenous Contrast CLINICAL HISTORY: Reason for exam: PE. TECHNIQUE: Axial computed tomographic angiography images of the chest with intravenous contrast. CTDI is 36.2 mGy and DLP is 802.04 mGy-cm. Automated exposure control was utilized for the study. A dose lowering technique was utilized adhering to the principles of ALARA. MIP reconstructed images were created and reviewed. COMPARISON: No relevant prior studies available. FINDINGS: Pulmonary arteries: Unremarkable. No acute pulmonary embolism. Aorta: Atherosclerotic changes of the aorta. No thoracic aortic aneurysm. Lungs: Moderate centrilobular emphysema. No mass. No consolidation. Pleural space: Unremarkable. No focal infiltrate, pleural effusion, or pneumothorax. Heart: Unremarkable. No cardiomegaly. No significant pericardial effusion. No evidence of RV dysfunction. Bones/joints: Degenerative changes of the spine. No acute fracture. No dislocation. Soft tissues: Unremarkable. Lymph nodes: Unremarkable. No enlarged lymph nodes. IMPRESSION: 1. No acute pulmonary embolism. 2. No focal infiltrate, pleural effusion, or pneumothorax. 3. Moderate centrilobular emphysema. Electronically signed by: Jasvir Chavis MD 08/17/23 19:44 PM
[2023-08-17] MEDS: methylPREDNISolone 125 MG/2 ML VIAL IV STA (20:15)
--- NOTE | 2023-08-17 23:01 | History & Physical Report ---
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 Patient states last night he coughed all night. Having shortness of breath. Complains of pain in the left thigh region. Lives with his family. Denies any headache. No runny nose or sore throat. No chest pain. Appetite is okay. No nausea. No abdominal pain. Normal bowel and bl adder movements. States ambulates sometimes with a cane and sometimes with walker. Currently resting comfortably and hemodynamically stable. COPD exacerbation IV Solu-Medrol 40 mg 3 times daily DuoNebs [id number] and as needed Continue home inhalers Close monitor Chronic respiratory failure on 3 L oxygen Chronic diastolic CHF Will monitor Hypertension On Imdur and amlodipine We will monitor Hypothyroidism On Synthyroid Squamous cell carcinoma of the left ear S/p surgery States recently completed chemotherapy in May Follow-up with heme-onc Left thigh vanegas will follow doppler studies. 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 Patient states last night he coughed all night. Having shortness of breath. Complains of pain in the left thigh region. Lives with his family. Denies any headache. No runny nose or sore throat. No chest pain. Appetite is okay. No nausea. No abdominal pain. Normal bowel and bladder movements. States ambulates sometimes with a cane and sometimes with walker. Currently resting comfortably and hemodynamically stable. Past medical history. As mentioned above. Past surgical history. Surgery for squamous cell carcinoma left ear. Social history. Former smoker. No alcohol use. No substance use. Family history. No family history on file Allergies Allergy/AdvReac Type Severity Reaction Status Date / Time cefuroxime Allergy Intermediate Rash and Verified 08/17/23 18:01 beta-lactams = rash ertapenem Allergy Unknown CAN'T Verified 08/17/23 18:01 REMEMBER levofloxacin [From Levaquin] Allergy Unknown CAN'T Verified 08/17/23 18:01 REMEMBER Home Medications Medication Instructions Recorded Confirmed Type albuterol sulfate 2.5 mg/3 mL 3 ml inhalation QID PRN Shortness 10/04/18 08/17/23 History (0.083 %) solution for nebulization Of Breath albuterol sulfate 90 mcg/actuation 2 puff inhalation Q4H PRN SHORT OF 10/04/18 08/17/23 History aerosol inhaler BREATH/COUGH/WHEEZING ferrous sulfate 325 mg (65 mg 325 mg PO Q OTHER DAY 10/04/18 08/17/23 History iron) tablet tiotropium bromide 2.5 2 puff inhalation DAILY 10/04/18 08/17/23 History mcg/actuation mist for inhalation isosorbide mononitrate 60 mg 30 mg PO QAM 09/29/22 08/17/23 History tablet,extended release 24 hr amlodipine 5 mg tablet 5 mg PO DAILY 01/19/23 08/17/23 History fluticasone 250 mcg-salmeterol 50 1 inh inhalation BID 01/19/23 08/17/23 History mcg/dose blistr powdr for inhalation peg 400-propylene glycol (PF) 0.4 1 drp OPL DIRECTED PRN Dry Eyes 01/19/23 08/17/23 History %-0.3 % eye drops in a dropperette (Lubricant Eye (PG-PEG 400) (PF)) ascorbic acid (vitamin C) 500 mg 500 mg PO BID 04/28/23 08/17/23 History tablet aspirin 81 mg tablet,delayed 81 mg PO DAILY 04/28/23 08/17/23 History release gabapentin 100 mg capsule 100 mg PO QAM 04/28/23 08/17/23 History multivitamin with minerals 1 tab PO DAILY 04/28/23 08/17/23 History (Multiple Vitamin-Minerals tablet) nitroglycerin 0.4 mg sublingual 0.4 mg sublingual .PRN/UD PRN 04/28/23 08/17/23 History tablet Chest Pain roflumilast 250 mcg tablet 250 mcg PO DAILY 04/28/23 08/17/23 History pantoprazole 40 mg tablet,delayed 40 mg PO BID 30 days #60 tabs 05/10/23 08/17/23 Rx release (Protonix) sucralfate 100 mg/mL oral 1 g (10 mL) PO BID 14 days #280 mL 05/10/23 08/17/23 Rx suspension Lactobacil.acidophilus-Bifido.animalis 1 cap PO QPM 07/28/23 08/17/23 History 5 billion cell sprinkle capsule (Probiotic) gabapentin 300 mg capsule 300 mg PO HS 07/28/23 08/17/23 History levalbuterol HCl 1.25 mg/3 mL 1.25 mg NEB Q4H PRN Wheezing 07/28/23 08/17/23 History solution for nebulization levothyroxine 100 mcg tablet 100 mcg PO DAILYBB 07/28/23 08/17/23 History polyvinyl alcohol 1.4 % eye drops 1 drp ophthalmic (eye) QID 07/28/23 08/17/23 History 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 Chronic anemia Hypothyroidism Hypertension Hx of agent [place] exposure Family History Other Family history non-contributory Social History Smoking Status: Former smoker Tobacco Type: Smokeless Tobacco (Dip or Chew) Second Hand Exposure: No; Do You Dip or Chew Tobacco: Yes; Hx Alcohol Use: No Hx Substance Use: No Preferred Language: Bhutanese Communication Ability: Effective Communication Ability Comment: pt cannot see to read Communication Tools: Other Banquet Stewardess Required: No Beliefs That Will Affect Care: None marital status: Current Living Situation: Family Current Living Situation Comment: 2 sons current occupational status: retired Feels Safe at Home: Yes Assistive Devices: Oxygen - Continuous and Walker Review of Systems Review of Systems: All systems reviewed & are unremarkable except as noted in HPI & below Physical Exam Physical Exam: General- Not in distress Head- atraumatic Eyes- Left eye in cover ENT- oropharynx dry Neck- supple, no JVD. Lungs- clear to auscultation b/l rhonchi heard Heart- regular rhythm; no murmur, no gallop. Abdomen- normal bowel sounds, soft, nontender, no distension. Extremities- no pretibial edema, no erythema seen. Neuro- alert, oriented PERRL, no facial palsy; no dysarthria; moves extremities. Skin- warm & dry Results & Data Results & Data Vital Signs (Past 12 Hours) Vital Signs Temp Pulse Pulse Resp BP BP Pulse Ox 08/17/23 22:00 70 20 143/90 H 97 08/17/23 21:35 73 08/17/23 21:16 77 20 97 08/17/23 21:00 97 08/17/23 20:18 91 H 20 136/60 100 08/17/23 20:18 100 08/17/23 17:31 78 08/17/23 17:01 37.0 C 84 24 187/49 H 96 O2 Del Method O2 Flow Rate 08/17/23 22:00 Nasal Cannula 3 08/17/23 21:35 08/17/23 21:16 Nasal Cannula 3 08/17/23 21:00 Nasal Cannula 3 08/17/23 20:18 Nasal Cannula 3 08/17/23 20:18 Nasal Cannula 3 08/17/23 17:31 08/17/23 17:01 Nasal Cannula 3 Diagnostic Findings Laboratory Results WBC 7.77 K/ul (4.8-10.8) 08/17/23 17:35 RBC 4.88 M/uL (4.70-6.10) 08/17/23 17:35 Hgb 13.0 g/dl (14.0-18.0) L 08/17/23 17:35 Hct 40.8 % (42.0-52.0) L 08/17/23 17:35 MCV 83.6 fL (80.0-100.0) 08/17/23 17:35 MCH 26.6 pg (25.0-34.0) 08/17/23 17:35 MCHC 31.9 g/dL (32.0-36.0) L 08/17/23 17:35 RDW Std Deviation 53.7 fL (36.4-46.3) H 08/17/23 17:35 RDW Coeff of Jeison 17.8 % (11.5-14.5) H 08/17/23 17:35 Plt Count 244 K/uL (130-400) 08/17/23 17:35 MPV 8.9 fL (9.4-12.4) L 08/17/23 17:35 Immature Gran % (Auto) 0.8 % 08/17/23 17:35 Neut % (Auto) 68.2 % 08/17/23 17:35 Lymph % (Auto) 12.0 % 08/17/23 17:35 [place] % (Auto) 16.3 % 08/17/23 17:35 Eos % (Auto) 2.3 % 08/17/23 17:35 Baso % (Auto) 0.4 % 08/17/23 17:35 Neut # (Auto) 5.30 K/uL (1.40-6.50) 08/17/23 17:35 Lymph # (Auto) 0.93 K/uL (1.20-3.40) L 08/17/23 17:35 [place] # (Auto) 1.27 K/uL (0.11-0.59) H 08/17/23 17:35 Eos # (Auto) 0.18 K/uL (0.00-0.50) 08/17/23 17:35 Baso # (Auto) 0.03 K/uL (0.00-0.20) 08/17/23 17:35 Immature Gran # (Auto) 0.06 K/uL (0.01-0.20) 08/17/23 17:35 Sodium 140 mmol/L (136-145) 08/17/23 17:35 Potassium 4.0 mmol/L (3.5-5.1) 08/17/23 17:35 Chloride 99 mmol/L (98-107) 08/17/23 17:35 Carbon Dioxide 36 mmol/L (21-32) H 08/17/23 17:35 Anion Gap 5 (3-11) 08/17/23 17:35 BUN 25 mg/dl (6-23) H 08/17/23 17:35 Creatinine 1.18 mg/dl (0.6-1.4) 08/17/23 17:35 Est Cr Clr Drug Dosing Not Reportable 08/17/23 17:35 Est GFR ( Amer) 63.0 ml/min 08/17/23 17:35 Est GFR (Non-Af Amer) 54.4 ml/min 08/17/23 17:35 BUN/Creatinine Ratio 21.2 (10-20) H 08/17/23 17:35 Glucose 129 mg/dl (70-99(Fasting)) H 08/17/23 17:35 Lactate 1.1 mmol/L (0.4-2.0) 08/17/23 17:53 Calcium 9.3 mg/dl (8.6-10.3) 08/17/23 17:35 Magnesium 2.0 mg/dl (1.7-2.4) 08/17/23 17:35 Total Bilirubin 0.4 mg/dl (0.2-1.0) 08/17/23 17:35 AST 11 U/L (13-39) L 08/17/23 17:35 ALT 8 U/L (7-52) 08/17/23 17:35 Alkaline Phosphatase 62 U/L (34-104) 08/17/23 17:35 Troponin I High Sens 8.5 pg/ml (0-20) 08/17/23 17:35 C-Reactive Protein 9.33 mg/dl (0-0.5) H 08/17/23 17:35 B-Natriuretic Peptide 23 pg/ml (0-100) 08/17/23 17:35 Total Protein 7.3 gm/dl (6.0-8.3) 08/17/23 17:35 Albumin 4.0 gm/dl (3.4-5.0) 08/17/23 17:35 Globulin 3.3 gm/dl (2.5-4.0) 08/17/23 17:35 Albumin/Globulin Ratio 1.2 (0.9-2) 08/17/23 17:35 Procalcitonin 0.05 ng/ml (0-0.5) 08/17/23 17:35 SARS-CoV-2 (PCR) NEGATIVE (Negative) 08/17/23 17:25 Influenza Type A (PCR) Negative (Neg) 08/17/23 17:25 Influenza Type B (PCR) Negative (Neg) 08/17/23 17:25 RSV (RT-PCR) Negative (Neg) 08/17/23 17:25 Impressions Chest X-Ray 08/17/23 17:03 XR chest 1V portable HISTORY: Dyspnea COMPARISON: Chest 07/31/2023. FINDINGS: No pneumothorax. No pleural effusions. The heart is normal in size. There are calcifications within the aortic knob. Mild emphysema again noted. Interstitial prominence of the lung bases favors vascular crowding from the emphysema. A few bibasilar linear densities have improved. No new focal lung consolidations to suggest a pneumonia. No evidence for pulmonary edema. IMPRESSION: 1. Emphysema. 2. No new focal lung consolidations to suggest a pneumonia. 3. Bibasilar linear densities have improved. This favors resolving atelectasis. ACT 112: Negative or not required by law. Electronically signed by: Alexis Harper M.D. 08/17/2023 5:49 PM Chest CTA 08/17/23 18:02 Exam(s): CTA CHEST IV Amt: 118ML OPTIRAY 320 EXAM: CT Angiography Chest With Intravenous Contrast CLINICAL HISTORY: Reason for exam: PE. TECHNIQUE: Axial computed tomographic angiography images of the chest with intravenous contrast. CTDI is 36.2 mGy and DLP is 802.04 mGy-cm. Automated exposure control was utilized for the study. A dose lowering technique was utilized adhering to the principles of ALARA. MIP reconstructed images were created and reviewed. COMPARISON: No relevant prior studies available. FINDINGS: Pulmonary arteries: Unremarkable. No acute pulmonary embolism. Aorta: Atherosclerotic changes of the aorta. No thoracic aortic aneurysm. Lungs: Moderate centrilobular emphysema. No mass. No consolidation. Pleural space: Unremarkable. No focal infiltrate, pleural effusion, or pneumothorax. Heart: Unremarkable. No cardiomegaly. No significant pericardial effusion. No evidence of RV dysfunction. Bones/joints: Degenerative changes of the spine. No acute fracture. No dislocation. Soft tissues: Unremarkable. Lymph nodes: Unremarkable. No enlarged lymph nodes. IMPRESSION: 1. No acute pulmonary embolism. 2. No focal infiltrate, pleural effusion, or pneumothorax. 3. Moderate centrilobular emphysema. Electronically signed by: Jasvir Chavis MD 08/17/23 19:44 PM ECG Additional Comments: ECG. Normal sinus rhythm with a rate of 76. Right bundle branch block. Left anterior fascicle block. Bifascicular block. Code Status & VTE Plan VTE Prophylaxis Plan VTE Prophylaxis will be ordered: Yes
[2023-08-17 23:31] LABS: Appearance Urine Clear (Clear); Bacteria Urine Automated Negative (Negative); Bilirubin Urine Negative (Negative); Blood Urine Negative (Negative); Cast Urine Automated 0 /lpf (0-5); Color Urine Yellow; Glucose Urine UA Trace (Negative); Ketones Urine Negative (Negative); Leukocyte Esterase Urine Negative (Negative); Nitrite Urine Negative (Negative); Protein Urine 1+ (Negative); RBC Urine Automated 0-4 /hpf (0-4); Specific Gravity Urine > 1.045 (1.000-1.030); Urobilinogen Urine Negative (Negative); pH Urine 5.5 (4.5-7.5)
[2023-08-18] MEDS ORDERED: POLYETHYLENE (MIRALAX) 17 GM PACK PO PRN (00:28)
[2023-08-18] MEDS ORDERED: ALBUT/IPRATROP 3MG/0.5MG NEB 3 ML VIAL NEB PRN (00:28)
[2023-08-18] MEDS ORDERED: NITROGLYCERIN SL 0.4 MG/TAB TAB SL PRN ×2 (00:28)
[2023-08-18] MEDS ORDERED: ALBUTEROL HFA 8 GM INHALER INH PRN (00:28)
[2023-08-18] MEDS ORDERED: ARTIFICIAL TEARS OP PRN (00:53)
--- NOTE | 2023-08-18 04:02 | Ultrasound Report ---
Exam(s): US VENOUS LEFT LOWER EXTREMITY EXAM: US Duplex Left Lower Extremity Veins CLINICAL HISTORY: Reason for exam: left thigh pain, dvt?. TECHNIQUE: Real-time duplex ultrasound scan of the left lower extremity veins integrating B-mode two-dimensional vascular structure, Doppler spectral analysis, color flow Doppler imaging and compression. COMPARISON: No relevant prior studies available. FINDINGS: Deep veins: Unremarkable. No DVT in the visualized common femoral, femoral, proximal deep femoral or popliteal veins. The veins demonstrate normal color flow, are normally compressible, with normal phasic flow and/or augmentation response. Superficial veins: Unremarkable. No thrombus in the visualized great saphenous vein. Soft tissues: No acute findings. No popliteal cyst. IMPRESSION: Normal left lower extremity duplex venous ultrasound. Electronically signed by: Dima Sheets MD 08/18/23 04:01 AM
[2023-08-18 04:10] LABS: Hematocrit (blood only) 33.9 % (42.0-52.0); Hemoglobin 10.8 g/dl (14.0-18.0); Mean Corpuscular Hemoglobin 26.7 pg (25.0-34.0); Mean Corpuscular Hgb Conc 31.9 g/dL (32.0-36.0); Mean Corpuscular Volume 83.7 fL (80.0-100.0); Mean Platelet Volume 9.1 fL (9.4-12.4); Platelet Count 210 K/uL (130-400); RDW Coefficient of Variation 17.7 % (11.5-14.5); RDW Standard Deviation 54.2 fL (36.4-46.3); Red Blood Count 4.05 M/uL (4.70-6.10); White Blood Count 5.99 K/ul (4.8-10.8)
[2023-08-18 04:27] LABS: BUN Creatinine Ratio 22.7 (10-20); Creatinine Clr Calc Pharmacy 42.6 ml/min; Est GFR (African American) 68.6 ml/min; Est GFR (Non-African American) 59.2 ml/min; Potassium 4.3 mmol/L (3.5-5.1)
[2023-08-18 05:04] LABS: Basophils # (auto) 0.01 K/uL (0.00-0.20); Basophils % (auto) 0.2 %; Immature Granulocytes # (auto) 0.07 K/uL (0.01-0.20); Immature Granulocytes % (auto) 1.2 %; Lymphocytes # (auto) 0.25 K/uL (1.20-3.40); Lymphocytes % (auto) 4.2 %; Monocytes # (auto) 0.18 K/uL (0.11-0.59); Neutrophils # (auto) 5.48 K/uL (1.40-6.50); Neutrophils % (auto) 91.4 %; RBC Morphology Unremarkable
[2023-08-18] MEDS: methylPREDNISolone 40 MG in SYRINGE 0 ML IV SCH ×2 (05:11→18:42)
[2023-08-18] MEDS: LEVOTHYROXINE SODIUM 100 MCG TABLET PO SCH (06:30)
[2023-08-18] MEDS: ALBUT/IPRATROP 3MG/0.5MG NEB 3 ML VIAL NEB SCH (07:02)
--- NOTE | 2023-08-18 07:51 | Ultrasound Report ---
US arterial duplex left lower extremity CLINICAL HISTORY: left thigh pain. PVD? COMPARISON STUDY: None. FINDINGS: Scattered calcified plaque throughout the left lower extremity arterial system. Normal [place] triphasic waveforms within the left common femoral artery. Monophasic waveforms seen within the left superficial femoral artery with an elevated peak systolic velocity within the left mid superfici al femoral artery of 176 cm/s as well as an area of elevated peak systolic velocity within the distal left superficial femoral artery of 623 cm/s. There are monophasic low velocity waveforms within the left popliteal and left calf arteries and dorsalis pedis artery. The distal left posterior tibial art yanet may be occluded. IMPRESSION: 1. Possible occlusion of the distal left posterior tibial artery. 2. High-grade/critical stenosis within the distal left superficial femoral artery. 3. There is also a focal area of hemodynamically significant stenosis within the mid left superficial femoral artery. ACT 112: Negative or not required by law. Electronically signed by: Alexis Harper M.D. 08/18/2023 7:49 AM
[2023-08-18] MEDS: AZITHROMYCIN 500 MG in DEXTROSE 5% 250 ML IV SCH (08:26)
[2023-08-18] MEDS: ARTIFICIAL TEARS OP SCH (08:27)
[2023-08-18] MEDS: FLUTICASONE/VILANTEROL 200/25MCG 14 PUFFS/INHALER INH SCH (08:27)
[2023-08-18] MEDS: FERROUS SULFATE 325 MG TAB PO SCH (08:28)
[2023-08-18] MEDS: UMECLIDINIUM BROMIDE 62.5MCG/BLISTER 7 PUFFS/INHALER INH SCH (08:28)
[2023-08-18] MEDS: ASPIRIN 81 MG ECTAB PO SCH (08:28)
[2023-08-18] MEDS: PANTOprazole 40 MG TAB PO SCH (08:30)
[2023-08-18] MEDS: ISOSORBIDE MONO EXTENDED REL 30 MG TABCR PO SCH (08:30)
[2023-08-18] MEDS: CEROVITE ADV FORMULA TAB PO SCH (08:30)
[2023-08-18] MEDS: amLODIPine BESYLATE 5 MG TAB PO SCH (08:31)
[2023-08-18] MEDS: GABAPENTIN 100 MG CAP PO SCH (08:31)
[2023-08-18] MEDS: SUCRALFATE 1 GM/10 ML UDC PO SCH (08:32)
[2023-08-18] MEDS: HEPARIN SOD 5,000 UNIT/0.5 ML VIAL SQ SCH (08:32)
[2023-08-18] MEDS: ROFLUMILAST 500 MCG TAB PO SCH (08:34)
[2023-08-18] MEDS: ASCORBIC ACID 500 MG TAB PO SCH (08:35)
--- NOTE | 2023-08-18 11:46 | Pulmonary Consultation ---
Date of Consultation August 18, 2023 Assessment & Plan (1) Acute exacerbation of chronic obstructive pulmonary disease: (2) SOB (shortness of breath): (3) Hypoxia: (4) Diastolic CHF: Plan IMPRESSION: 87-year-old male with a significant past medical history of COPD and chronic respiratory failure with hypoxia as well as CHF who presents with worsening hypoxia from his baseline. Pulmonary medicine consulted as patient is rebounded from recent hospitalization for the same. RECOMMENDATIONS: 1. COPD exacerbation - Patient with acute exacerbation of his chronic baseline COPD. Unfortunately, we do not have outside records to confirm the severity of his disease process. That being said, patient is currently on Daliresp daily as well as a combination of inhalers. Despite aggressive management with nebulizers, the patient still has diffuse wheezing. Would recommend continuing with current dose of intravenous steroids given his concerning reaction during last hospitalization. Will add nebulized budesonide and Perforomist and continue with the Incruse for now. Discontinue the Breo as I question if the patient has a degree of difficulty achieving the clinical benefit of the medication while using an acute exacerbation. Agree with continuing entire course of azithromycin. We will reexamine the patient and see how he improves clinically to estimate if we can switch to oral steroids in the near future. Sputum cultures as he is able. Agree with hypertonic saline as he reports that he had difficulty clearing his secretions. Encourage flutter valve. 2. Hypoxia - Worsened in the setting of COPD with exacerbation. Patient is back to his baseline 3 L at this time. Continue with aggressive pulmonary toileting as described above. 3. CHF - Continue with management of his CHF and would favor the patient running a little bit more on the dry side given his baseline pulmonary disease and risk for worsening hypoxia. Thank you for allowing us to participate in the care of this pleasant patient. We will continue to follow along for now. History of Present Illness Reason for Consultation: recurrent copd ex Requesting Physician: Dr. 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 Apparently, the patient had been recently discharged from this institution for a COPD exacerbation. He reports that he had been doing well up until 2 or 3 days ago when he noticed increasing cough and shortness of breath. At his appointment yesterday, he was noted to be profoundly hypoxic with saturations in the 60s. He was sent to the emergency department where he underwent evaluation including CTA which demonstrated relatively unremarkable findings. He has been receiving intravenous corticosteroids as well as antibiotics and DuoNebs. Upon evaluation in room C10, the patient is awake, alert, and oriented. He said he has been struggling with his breathing for some time. He has a wet sounding cough. No complaints of chest pain or hemoptysis. He is difficult to obtain a story from the patient. Allergies Allergy/AdvReac Type Severity Reaction Status Date / Time cefuroxime Allergy Intermediate Rash and Verified 08/17/23 18:01 beta-lactams = rash ertapenem Allergy Unknown CAN'T Verified 08/17/23 18:01 REMEMBER levofloxacin [From Levaquin] Allergy Unknown CAN'T Verified 08/17/23 18:01 REMEMBER Home Medications Medication Instructions Recorded Confirmed Type albuterol sulfate 2.5 mg/3 mL 3 ml inhalation QID PRN Shortness 10/04/18 08/17/23 History (0.083 %) solution for nebulization Of Breath albuterol sulfate 90 mcg/actuation 2 puff inhalation Q4H PRN SHORT OF 10/04/18 08/17/23 History aerosol inhaler BREATH/COUGH/WHEEZING ferrous sulfate 325 mg (65 mg 325 mg PO Q OTHER DAY 10/04/18 08/17/23 History iron) tablet tiotropium bromide 2.5 2 puff inhalation DAILY 10/04/18 08/17/23 History mcg/actuation mist for inhalation isosorbide mononitrate 60 mg 30 mg PO QAM 09/29/22 08/17/23 History tablet,extended release 24 hr amlodipine 5 mg tablet 5 mg PO DAILY 01/19/23 08/17/23 History fluticasone 250 mcg-salmeterol 50 1 inh inhalation BID 01/19/23 08/17/23 History mcg/dose blistr powdr for inhalation peg 400-propylene glycol (PF) 0.4 1 drp OPL DIRECTED PRN Dry Eyes 01/19/23 08/17/23 History %-0.3 % eye drops in a dropperette (Lubricant Eye (PG-PEG 400) (PF)) ascorbic acid (vitamin C) 500 mg 500 mg PO BID 04/28/23 08/17/23 History tablet aspirin 81 mg tablet,delayed 81 mg PO DAILY 04/28/23 08/17/23 History release gabapentin 100 mg capsule 100 mg PO QAM 04/28/23 08/17/23 History multivitamin with minerals 1 tab PO DAILY 04/28/23 08/17/23 History (Multiple Vitamin-Minerals tablet) nitroglycerin 0.4 mg sublingual 0.4 mg sublingual .PRN/UD PRN 04/28/23 08/17/23 History tablet Chest Pain roflumilast 250 mcg tablet 250 mcg PO DAILY 04/28/23 08/17/23 History pantoprazole 40 mg tablet,delayed 40 mg PO BID 30 days #60 tabs 05/10/23 08/17/23 Rx release (Protonix) sucralfate 100 mg/mL oral 1 g (10 mL) PO BID 14 days #280 mL 05/10/23 08/17/23 Rx suspension Lactobacil.acidophilus-Bifido.animalis 1 cap PO QPM 07/28/23 08/17/23 History 5 billion cell sprinkle capsule (Probiotic) gabapentin 300 mg capsule 300 mg PO HS 07/28/23 08/17/23 History levalbuterol HCl 1.25 mg/3 mL 1.25 mg NEB Q4H PRN Wheezing 07/28/23 08/17/23 History solution for nebulization levothyroxine 100 mcg tablet 100 mcg PO DAILYBB 07/28/23 08/17/23 History polyvinyl alcohol 1.4 % eye drops 1 drp ophthalmic (eye) QID 07/28/23 08/17/23 History Patient History Medical History Squamous cell carcinoma of left ear Tobacco use Encounter for pre-operative examination COPD (chronic obstructive pulmonary disease) 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 Chronic anemia Hypothyroidism Hypertension Hx of agent [place] exposure Family History Other Family history non-contributory Social History Smoking Status: Former smoker Tobacco Type: Smokeless Tobacco (Dip or Chew) Second Hand Exposure: No; Do You Dip or Chew Tobacco: Yes; Hx Alcohol Use: No Hx Substance Use: No Preferred Language: [place] Islander Communication Ability: Impaired Communication Ability Comment: pt cannot see to read Communication Tools: Other Tool [employer] Required: No Beliefs That Will Affect Care: None marital status: Current Living Situation: Family Current Living Situation Comment: 2 sons current occupational status: retired Feels Safe at Home: Yes Assistive Devices: CPAP, Oxygen - Continuous and Walker Review of Systems Review of Systems: A complete 10 point review of systems was reviewed with the patient with pertinent positives and negatives as per history of present illness. All else were negative. Physical Exam Physical Exam: VITAL SIGNS - Vital signs and nursing notes were reviewed. GENERAL - 87-year-old male appearing his stated age who is in no acute distress. Communicates well with provider and answers questions appropriately. SKIN - Without rashes or lesions. NOSE - Midline and without cyanosis. MOUTH/OROPHARYNX - Without perioral cyanosis. NECK - Neck with FROM. LUNGS - Auscultation reveals coarse breath sounds at the bases with diffuse wheezes appreciated. CARDIAC - RRR with S1/S2. No murmur, rubs, or gallops appreciated. ABDOMEN - Abdominal inspection demonstrates an obese abdomen. BS normoactive all four quadrants. No tenderness, palpable masses, or ascites noted. EXTREMITIES - Nail clubbing not present. No peripheral cyanosis. Mild pretibial edema present. +3/5 radial palpated throughout. PSYCH - A&Ox3 and cooperates fully with examiner. Pt is very pleasant and interacts well with examiner. Hard of hearing. Results & Data Results & Data Vital Signs (Past 12 Hours) Vital Signs Pulse Pulse Resp BP BP Pulse Ox Pulse Ox 08/18/23 11:28 68 18 95 08/18/23 09:21 08/18/23 08:27 86 08/18/23 07:03 60 20 98 08/18/23 07:00 61 26 H 161/74 H 96 08/18/23 05:14 99 08/18/23 03:06 80 20 139/86 94 08/18/23 00:49 75 08/18/23 00:40 08/18/23 00:40 72 20 147/80 H 98 O2 Del Method O2 Del Method O2 Flow Rate O2 Flow Rate 08/18/23 11:28 Nasal Cannula 3 08/18/23 09:21 Nasal Cannula 3 08/18/23 08:27 08/18/23 07:03 Nasal Cannula 3 08/18/23 07:00 Nasal Cannula 3 08/18/23 05:14 Nasal Cannula 3 08/18/23 03:06 08/18/23 00:49 08/18/23 00:40 Nasal Cannula 0 08/18/23 00:40 Nasal Cannula 3 PG Care Time/CCT Total # of Minutes Spent Total Time Spent with Patient: Total time spent is greater than 50% in coordination of care (as documented) at patient's floor/unit and/or counseling patient: Coding Level of Care Code 27170 INT INP/OBS CARE 3/75MIN Diagnoses Acute exacerbation of chronic obstructive pulmonary disease J44.1 SOB (shortness of breath) R06.02 Hypoxia R09.02 Diastolic CHF I50.30
--- NOTE | 2023-08-18 12:54 | Electrocardiogram Report ---
Test Reason : Blood Pressure : / mmHG Vent. Rate : 076 BPM Atrial Rate : 076 BPM P-R Int : 176 ms QRS Dur : 130 ms QT Int : 418 ms P-R-T Axes : 034 -63 081 degrees QTc Int : 470 ms Normal sinus rhythm Right bundle branch block Left anterior fascicular block Bifascicular block Septal infarct (cited on or before 17-AUG-2023) Abnormal ECG When compared with ECG of 28-JUL-2023 11:47, Questionable change in initial forces of Septal leads Confirmed by Micheal Ureña ([id number]) on 08/18/2023 12:54:06 PM Referred By: REFERRED SELF Confirmed By:Micheal Ureña
--- NOTE | 2023-08-18 12:55 | Hospitalist Progress Note ---
Date of Service August 18, 2023 Assessment & Plan (1) COPD exacerbation: Plan: Mr. 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 Patient notable presented to the ED 07/28 with COPD exacerbation after symptoms starting on 07/25. He was discharged on prolonged taper for 9 days on 08/03. Patient states that shortly after discontinuing the steroids, he felt worse each day thereafter--ultimately leading to presentation on 08/17. He responded promptly to IV methylprednisolone. Pulmonary consulted. #Acute exacerbation of COPD: Baseline oxygen use:3 L 10/01 Started on solumedrol, continue with q12h Continue duonebs and albuterol nebs prn Pulmonary consult -Added perforomist BID and budesonide BID Continue roflumilast Added guaifensin 600mg BID Added azithromycin 500mg x 3 days Added hypertonic nebs to aid in secretions Ordered flutter valve #HTN #Chronic heart failure with preserved EF Chronic, euvolemic on exam. Continue Imdur, amlodipine Continue ASA #DMTII c/b Neuropathy Continue Gabapentin Prior A1C 6.3% in 2022 A1C in am #Chronic iron deficiency anemia -Continue EOD iron supplement #Hypothyroidism: Chronic, continue home levothyroxine. #CKD III: stable #Tobacco use: Chronic, patient continues to use tobacco/use. Recommended cessation, patient does not want to quit tobacco. #Squamous cell carcinoma of left ear: Chronic, follows [facility] for immunotherapy which has recently been completed. Follows Dr. Ayala DVT prophylaxis Heparin subcu Disposition Med/tele Full code Admission and Anticipated Discharge Date Admission Date: August 17, 2023 Subjective Patient evaluated at bedside in ED Reports feeling better, but still with sensation of needing to bring up secretions Denies fevers or chills at this time Physical Exam Constitutional: WD/WN, vitals as above Eyes: patch over left eye Respiratory: diffuse wheezing and rhonchi Cardiovascular: RRR, no murmur, no edema Gastrointestinal (Abdomen): normal bowel sounds, soft, nontender, no hepato splenomegaly Results & Data Results & Data Vital Signs (Past 12 Hours) Vital Signs Pulse Pulse Resp BP Pulse Ox Pulse Ox O2 Del Method 08/18/23 11:28 68 18 95 Nasal Cannula 08/18/23 09:21 Nasal Cannula 08/18/23 08:27 86 08/18/23 07:03 60 20 98 Nasal Cannula 08/18/23 07:00 61 26 H 161/74 H 96 Nasal Cannula 08/18/23 05:14 99 08/18/23 03:06 80 20 139/86 94 O2 Del Method O2 Flow Rate O2 Flow Rate 08/18/23 11:28 3 08/18/23 09:21 3 08/18/23 08:27 08/18/23 07:03 3 08/18/23 07:00 3 08/18/23 05:14 Nasal Cannula 3 08/18/23 03:06 Laboratory Results Short CBC 08/17/23 08/18/23 Range/Units 17:35 03:46 WBC 7.77 5.99 (4.8-10.8) K/ul Hgb 13.0 L 10.8 L (14.0-18.0) g/dl Hct 40.8 L 33.9 L (42.0-52.0) % Plt Count 244 210 (130-400) K/uL BMP 08/17/23 08/18/23 17:35 03:46 Sodium 140 137 Potassium 4.0 4.3 Chloride 99 102 Carbon Dioxide 36 H 28 BUN 25 H 25 H Creatinine 1.18 1.10 Glucose 129 H 260 H Calcium 9.3 9.0 Liver Function 08/17/23 Range/Units 17:35 Total Bilirubin 0.4 (0.2-1.0) mg/dl AST 11 L (13-39) U/L ALT 8 (7-52) U/L Alkaline Phosphatase 62 (34-104) U/L Albumin 4.0 (3.4-5.0) gm/dl Urine 08/17/23 Range/Units 23:10 Urine Color Yellow Urine Appearance Clear (Clear) Urine pH 5.5 (4.5-7.5) Ur Specific [place] > 1.045 H (1.000-1.030) Urine Protein 1+ H (Negative) Urine Glucose (UA) Trace H (Negative) Medications Administered Home Medications Medication Instructions Recorded Confirmed Last Taken albuterol sulfate 2.5 mg/3 mL 3 ml inhalation QID PRN Shortness 10/04/18 08/17/23 Unknown (0.083 %) solution for nebulization Of Breath albuterol sulfate 90 mcg/actuation 2 puff inhalation Q4H PRN SHORT OF 10/04/18 08/17/23 Unknown aerosol inhaler BREATH/COUGH/WHEEZING ferrous sulfate 325 mg (65 mg 325 mg PO Q OTHER DAY 10/04/18 08/17/23 08/16/23 iron) tablet tiotropium bromide 2.5 2 puff inhalation DAILY 10/04/18 08/17/23 08/17/23 mcg/actuation mist for inhalation isosorbide mononitrate 60 mg 30 mg PO QAM 09/29/22 08/17/23 08/17/23 tablet,extended release 24 hr amlodipine 5 mg tablet 5 mg PO DAILY 01/19/23 08/17/23 08/17/23 fluticasone 250 mcg-salmeterol 50 1 inh inhalation BID 01/19/23 08/17/23 08/17/23 08:00 mcg/dose blistr powdr for inhalation peg 400-propylene glycol (PF) 0.4 1 drp OPL DIRECTED PRN Dry Eyes 01/19/23 08/17/23 01/19/23 08:00 %-0.3 % eye drops in a dropperette (Lubricant Eye (PG-PEG 400) (PF)) ascorbic acid (vitamin C) 500 mg 500 mg PO BID 04/28/23 08/17/23 08/17/23 08:00 tablet aspirin 81 mg tablet,delayed 81 mg PO DAILY 04/28/23 08/17/23 08/17/23 release gabapentin 100 mg capsule 100 mg PO QAM 04/28/23 08/17/23 08/17/23 multivitamin with minerals 1 tab PO DAILY 04/28/23 08/17/23 08/17/23 (Multiple Vitamin-Minerals tablet) nitroglycerin 0.4 mg sublingual 0.4 mg sublingual .PRN/UD PRN 04/28/23 08/17/23 Unknown tablet Chest Pain roflumilast 250 mcg tablet 250 mcg PO DAILY 04/28/23 08/17/23 08/17/23 pantoprazole 40 mg tablet,delayed 40 mg PO BID 30 days #60 tabs 05/10/23 08/17/23 08/17/23 08:00 release (Protonix) sucralfate 100 mg/mL oral 1 g (10 mL) PO BID 14 days #280 mL 05/10/23 08/17/23 08/17/23 08:00 suspension Lactobacil.acidophilus-Bifido.animalis 1 cap PO QPM 07/28/23 08/17/23 08/16/23 5 billion cell sprinkle capsule (Probiotic) gabapentin 300 mg capsule 300 mg PO HS 07/28/23 08/17/23 08/16/23 levalbuterol HCl 1.25 mg/3 mL 1.25 mg NEB Q4H PRN Wheezing 07/28/23 08/17/23 Unknown solution for nebulization levothyroxine 100 mcg tablet 100 mcg PO DAILYBB 07/28/23 08/17/23 08/17/23 polyvinyl alcohol 1.4 % eye drops 1 drp ophthalmic (eye) QID 07/28/23 08/17/23 08/17/23 12:00 Active Medications Generic Name Dose Route Start Last Admin Trade Name Freq PRN Reason Stop Dose Admin Amlodipine Besylate 5 mg 08/18/23 09:00 08/18/23 08:31 Amlodipine Besylate 5 Mg Tab PO 09/17/23 08:59 5 mg DAILY ILIANA Administration Artificial Tears 1 drops 08/18/23 09:00 08/18/23 13:02 Artificial Tears OP 09/17/23 08:59 1 drops QID ILIANA Administration Ascorbic Acid 500 mg 08/18/23 09:00 08/18/23 08:35 Ascorbic Acid 500 Mg Tab PO 09/17/23 08:59 500 mg BID ILIANA Administration Aspirin 81 mg 08/18/23 09:00 08/18/23 08:28 Aspirin 81 Mg Ectab PO 09/17/23 08:59 81 mg DAILY ILIANA Administration Ferrous Sulfate 325 mg 08/18/23 09:00 08/18/23 08:28 Ferrous Sulfate 325 Mg Tab PO 09/17/23 08:59 325 mg Q2D@0900 ILIANA Administration Gabapentin 100 mg 08/18/23 09:00 08/18/23 08:31 Gabapentin 100 Mg Cap PO 09/17/23 08:59 100 mg QAM ILIANA Administration Heparin Sodium (Porcine) 5,000 units 08/18/23 09:00 08/18/23 08:32 Heparin Sod 5,000 Unit/0.5 Ml Vial SQ 09/17/23 08:59 5,000 units Q12 ILIANA Administration Azithromycin 500 mg/ Dextrose 255 mls @ 125 mls/hr 08/18/23 07:30 08/18/23 13:02 IV 08/20/23 13:03 Infused Q24H ILIANA Infusion Isosorbide Mononitrate 30 mg 08/18/23 09:00 08/18/23 08:30 Isosorbide [place] Extended Rel 30 Mg Tabcr PO 09/17/23 08:59 30 mg QAM ILIANA Administration Levothyroxine Sodium 100 mcg 08/18/23 06:30 08/18/23 06:30 Levothyroxine Sodium 100 Mcg Tablet PO 09/17/23 06:29 100 mcg DAILYBB ILIANA Administration Multivitamins/Minerals 1 tab 08/18/23 09:00 08/18/23 08:30 Cerovite Adv Formula Tab PO 09/17/23 08:59 1 tab DAILY ILIANA Administration Pantoprazole Sodium 40 mg 08/18/23 09:00 08/18/23 08:30 Pantoprazole 40 Mg Tab PO 09/17/23 08:59 40 mg BID ILIANA Administration Roflumilast 250 mcg 08/18/23 09:00 08/18/23 08:34 Roflumilast 500 Mcg Tab PO 09/17/23 08:59 500 mcg DAILY ILIANA Administration Sucralfate 1 gm 08/18/23 09:00 08/18/23 08:32 Sucralfate 1 Gm/10 Ml Udc PO 09/17/23 08:59 1 gm BID ILIANA Administration Umeclidinium [place] 1 puffs 08/18/23 09:00 08/18/23 08:28 Umeclidinium [place] 62.5mcg/Blister 7 Puffs/Inhaler INH 09/17/23 08:59 1 puffs DAILY ILIANA Administration
[2023-08-18] MEDS ORDERED: CARBOHYDRATES FOR HYPOGLYCEMIA PO PRN (13:12)
[2023-08-18] MEDS ORDERED: DEXTROSE 50% 50 ML SYRINGE IV PRN (13:12)
[2023-08-18] MEDS ORDERED: GLUCOSE 10 TAB/TUBE PO PRN (13:12)
[2023-08-18] MEDS ORDERED: GLUCOSE 40% GEL 15 GM TUBE PO PRN (13:12)
[2023-08-18] MEDS ORDERED: GLUCAGON FOR INJ 1 MG VIAL SQ PRN (13:12)
[2023-08-18] MEDS: ACETAMINOPHEN 325 MG TAB PO PRN (14:55)
[2023-08-18] MEDS: INSULIN ASPART PER UNIT CHARGE SC SCH (17:29)
[2023-08-18] MEDS: SODIUM CHLOR 7% 4 ML NEB NEB SCH (20:52)
[2023-08-18] MEDS: FORMOTEROL 20 MCG/2 ML VIAL INH SCH (20:52)
[2023-08-18] MEDS: BUDESONIDE 0.5 MG/2 ML VIAL (PULMICORT) INH SCH (20:52)
[2023-08-18] MEDS: ADVANCED PROBIOTIC 625 MG CAPSULE PO SCH (21:05)
[2023-08-18] MEDS: GABAPENTIN 300 MG CAP PO SCH (21:05)
[2023-08-18] MEDS: guaiFENesin 600 MG TABCR PO SCH (21:06)
[2023-08-19 04:32] LABS: Hematocrit (blood only) 30.2 % (42.0-52.0); Hemoglobin 9.6 g/dl (14.0-18.0); Mean Corpuscular Hemoglobin 26.8 pg (25.0-34.0); Mean Corpuscular Hgb Conc 31.8 g/dL (32.0-36.0); Mean Corpuscular Volume 84.4 fL (80.0-100.0); Platelet Count 196 K/uL (130-400); RDW Coefficient of Variation 17.1 % (11.5-14.5); RDW Standard Deviation 52.5 fL (36.4-46.3); Red Blood Count 3.58 M/uL (4.70-6.10); White Blood Count 8.46 K/ul (4.8-10.8)
[2023-08-19 04:51] LABS: BUN Creatinine Ratio 23.1 (10-20); Calcium 8.4 mg/dl (8.6-10.3); Creatinine Clr Calc Pharmacy 31.9 ml/min; Est GFR (African American) 48.3 ml/min; Est GFR (Non-African American) 41.7 ml/min; Phosphorus 3.4 mg/dl (2.5-4.9); Potassium 4.4 mmol/L (3.5-5.1)
[2023-08-19 07:44] LABS: Estimated Average Glucose 137 mg/dl; Hemoglobin A1C 6.4 % (4.5-5.6)
[2023-08-19] MEDS: LACTATED RINGER'S 250 ML IV ONE (09:26)
--- NOTE | 2023-08-19 11:50 | Electrocardiogram Report ---
Test Reason : Blood Pressure : / mmHG Vent. Rate : 063 BPM Atrial Rate : 063 BPM P-R Int : 150 ms QRS Dur : 132 ms QT Int : 474 ms P-R-T Axes : -16 -30 154 degrees QTc Int : 485 ms Poor data quality, interpretation may be adversely affected Normal sinus rhythm Left axis deviation Right bundle branch block Left ventricular hypertrophy with repolarization abnormality ( R in aVL ) Cannot rule out Septal infarct (cited on or before 17-AUG-2023) Abnormal ECG When compared with ECG of 17-AUG-2023 17:31, No significant change Confirmed by Micheal Ureña ([id number]) on 08/19/2023 11:50:16 AM Referred By: REFERRED SELF Confirmed By:Micheal Ureña
--- NOTE | 2023-08-19 13:34 | Hospitalist Progress Note ---
Date of Service August 19, 2023 Assessment & Plan (1) COPD exacerbation: Plan: Mr. 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 Patient notable presented to the ED 07/28 with COPD exacerbation after symptoms starting on 07/25. He was discharged on prolonged taper for 9 days on 08/03. Patient states that shortly after discontinuing the steroids, he felt worse each day thereafter--ultimately leading to presentation on 08/17. He responded promptly to IV methylprednisolone. Pulmonary consulted. Contining with IV steroid and nebs as follows. #ZURDO on CKD III: cr up to 1.47 s/p LR 250cc/hr, appears dry Repeat Cr in morning, if worsening plan for urine lytes and further invesitgation #Acute exacerbation of COPD: Baseline oxygen use:3 L 10/01 Started on solumedrol, continue with q12h Continue duonebs and albuterol nebs prn Pulmonary consult -Continue perforomist BID and budesonide BID Continue roflumilast Continue guaifensin 600mg BID Continue azithromycin 500mg x 3 days Continue hypertonic nebs to aid in secretions Encouraged flutter valve #HTN #Chronic heart failure with preserved EF Chronic, euvolemic on exam. Continue Imdur, amlodipine Continue ASA #DMTII c/b Neuropathy Continue Gabapentin Prior A1C 6.3% in 2022 A1C in am #Chronic iron deficiency anemia -Continue EOD iron supplement #Hypothyroidism: Chronic, continue home levothyroxine. #Tobacco use: Chronic, patient continues to use tobacco/use. Recommended cessation, patient does not want to quit tobacco. #Squamous cell carcinoma of left ear: Chronic, follows [facility] for immunotherapy wh ich has recently been completed. Follows Dr. Ayala DVT prophylaxis Heparin subcu Disposition Med/tele Full code Admission and Anticipated Discharge Date Admission Date: August 17, 2023 Subjective Patient evaluated at bedside Reports feeling well overall and improved since admission Denies any new concerns, reporting bringing up some sputum at this time Physical Exam Constitutional: WD/WN, vitals as above Respiratory: scattered, minimal expiratory wheezes bilaterally Cardiovascular: RRR, no murmur, no edema Results & Data Results & Data Vital Signs (Past 12 Hours) Vital Signs Temp Pulse Pulse Resp BP Pulse Ox O2 Del Method 08/19/23 08:02 36.4 C L 63 140/59 L 99 Nasal Cannula 08/19/23 07:44 64 08/19/23 07:04 59 L 20 96 Nasal Cannula 08/19/23 06:17 Nasal Cannula 08/19/23 03:50 64 20 117/63 94 Nasal Cannula O2 Flow Rate 08/19/23 08:02 3 08/19/23 07:44 08/19/23 07:04 3 08/19/23 06:17 3 08/19/23 03:50 3 Laboratory Results Short CBC 08/19/23 Range/Units 03:49 WBC 8.46 (4.8-10.8) K/ul Hgb 9.6 L (14.0-18.0) g/dl Hct 30.2 L (42.0-52.0) % Plt Count 196 (130-400) K/uL BMP 08/19/23 03:49 Sodium 135 L Potassium 4.4 Chloride 100 Carbon Dioxide 28 BUN 34 H Creatinine 1.47 H D Glucose 193 H Calcium 8.4 L Medications Administered Home Medications Medication Instructions Recorded Confirmed Last Taken albuterol sulfate 2.5 mg/3 mL 3 ml inhalation QID PRN Shortness 10/04/18 08/17/23 Unknown (0.083 %) solution for nebulization Of Breath albuterol sulfate 90 mcg/actuation 2 puff inhalation Q4H PRN SHORT OF 10/04/18 08/17/23 Unknown aerosol inhaler BREATH/COUGH/WHEEZING ferrous sulfate 325 mg (65 mg 325 mg PO Q OTHER DAY 10/04/18 08/17/23 08/16/23 iron) tablet tiotropium bromide 2.5 2 puff inhalation DAILY 10/04/18 08/17/23 08/17/23 mcg/actuation mist for inhalation isosorbide mononitrate 60 mg 30 mg PO QAM 09/29/22 08/17/23 08/17/23 tablet,extended release 24 hr amlodipine 5 mg tablet 5 mg PO DAILY 01/19/23 08/17/23 08/17/23 fluticasone 250 mcg-salmeterol 50 1 inh inhalation BID 01/19/23 08/17/23 08/17/23 08:00 mcg/dose blistr powdr for inhalation peg 400-propylene glycol (PF) 0.4 1 drp OPL DIRECTED PRN Dry Eyes 01/19/23 08/17/23 01/19/23 08:00 %-0.3 % eye drops in a dropperette (Lubricant Eye (PG-PEG 400) (PF)) ascorbic acid (vitamin C) 500 mg 500 mg PO BID 04/28/23 08/17/23 08/17/23 08:00 tablet aspirin 81 mg tablet,delayed 81 mg PO DAILY 04/28/23 08/17/23 08/17/23 release gabapentin 100 mg capsule 100 mg PO QAM 04/28/23 08/17/23 08/17/23 multivitamin with minerals 1 tab PO DAILY 04/28/23 08/17/23 08/17/23 (Multiple Vitamin-Minerals tablet) nitroglycerin 0.4 mg sublingual 0.4 mg sublingual .PRN/UD PRN 04/28/23 08/17/23 Unknown tablet Chest Pain roflumilast 250 mcg tablet 250 mcg PO DAILY 04/28/23 08/17/23 08/17/23 pantoprazole 40 mg tablet,delayed 40 mg PO BID 30 days #60 tabs 05/10/23 08/17/23 08/17/23 08:00 release (Protonix) sucralfate 100 mg/mL oral 1 g (10 mL) PO BID 14 days #280 mL 05/10/23 08/17/23 08/17/23 08:00 suspension Lactobacil.acidophilus-Bifido.animalis 1 cap PO QPM 07/28/23 08/17/23 08/16/23 5 billion cell sprinkle capsule (Probiotic) gabapentin 300 mg capsule 300 mg PO HS 07/28/23 08/17/23 08/16/23 levalbuterol HCl 1.25 mg/3 mL 1.25 mg NEB Q4H PRN Wheezing 07/28/23 08/17/23 Unknown solution for nebulization levothyroxine 100 mcg tablet 100 mcg PO DAILYBB 07/28/23 08/17/23 08/17/23 polyvinyl alcohol 1.4 % eye drops 1 drp ophthalmic (eye) QID 07/28/23 08/17/23 08/17/23 12:00 Active Medications Generic Name Dose Route Start Last Admin Trade Name Geovanny PRN Reason Stop Dose Admin Acetaminophen 650 mg 08/18/23 00:28 08/18/23 14:55 Acetaminophen 325 Mg Tab PO 09/17/23 00:27 650 mg Q4H PRN Administration Pain or Fever Amlodipine Besylate 5 mg 08/18/23 09:00 08/19/23 09:23 Amlodipine Besylate 5 Mg Tab PO 09/17/23 08:59 5 mg DAILY ILIANA Administration Artificial Tears 1 drops 08/18/23 09:00 08/19/23 09:23 Artificial Tears OP 09/17/23 08:59 1 drops QID ILIANA Administration Ascorbic Acid 500 mg 08/18/23 09:00 08/19/23 09:24 Ascorbic Acid 500 Mg Tab PO 09/17/23 08:59 500 mg BID ILIANA Administration Aspirin 81 mg 08/18/23 09:00 08/19/23 09:23 Aspirin 81 Mg Ectab PO 09/17/23 08:59 81 mg DAILY ILIANA Administration Budesonide 0.5 mg 08/18/23 19:00 08/19/23 07:04 Budesonide 0.5 Mg/2 Ml Vial (Pulmicort) INH 09/17/23 18:59 0.5 mg BIDR ILIANA Administration Ferrous Sulfate 325 mg 08/18/23 09:00 08/18/23 08:28 Ferrous Sulfate 325 Mg Tab PO 09/17/23 08:59 325 mg Q2D@0900 ILIANA Administration Formoterol Fumarate 20 mcg 08/18/23 19:00 08/19/23 07:03 Formoterol 20 Mcg/2 Ml Vial INH 09/17/23 18:59 20 mcg BIDR ILIANA Administration Gabapentin 100 mg 08/18/23 09:00 08/19/23 09:24 Gabapentin 100 Mg Cap PO 09/17/23 08:59 100 mg QAM ILIANA Administration Gabapentin 300 mg 08/18/23 21:00 08/18/23 21:05 Gabapentin 300 Mg Cap PO 09/17/23 20:59 300 mg HS ILIANA Administration Guaifenesin 600 mg 08/18/23 21:00 08/19/23 09:24 Guaifenesin 600 Mg Tabcr PO 09/17/23 20:59 600 mg Q12 ILIANA Administration Heparin Sodium (Porcine) 5,000 units 08/18/23 09:00 08/19/23 09:25 Heparin Sod 5,000 Unit/0.5 Ml Vial SQ 09/17/23 08:59 5,000 units Q12 ILIANA Administration Methylprednisolone 40 mg/ 0.64 mls @ 1.5 mls/min 08/18/23 19:30 08/19/23 09:23 Syringe IV 09/17/23 19:29 1.5 mls/min Q12H ILIANA Administration Azithromycin 500 mg/ Dextrose 255 mls @ 125 mls/hr 08/18/23 07:30 08/19/23 11:39 IV 08/20/23 13:03 125 mls/hr Q24H ILIANA Administration Insulin Aspart 0 units 08/18/23 16:30 08/19/23 13:26 Insulin Aspart Per Unit Charge SC 09/17/23 16:29 4 units ACHS ILIANA Administration Isosorbide Mononitrate 30 mg 08/18/23 09:00 08/19/23 09:24 Isosorbide [place] Extended Rel 30 Mg Tabcr PO 09/17/23 08:59 30 mg QAM ILIANA Administration Lactobacillus Acidophilus 2 cap 08/18/23 21:00 08/18/23 21:05 Advanced Probiotic 1250 Mg Capsule PO 09/17/23 20:59 2 cap QPM ILIANA Administration Levothyroxine Sodium 100 mcg 08/18/23 06:30 08/19/23 06:06 Levothyroxine Sodium 100 Mcg Tablet PO 09/17/23 06:29 100 mcg DAILYBB ILIANA Administration Multivitamins/Minerals 1 tab 08/18/23 09:00 08/19/23 09:24 Cerovite Adv Formula Tab PO 09/17/23 08:59 1 tab DAILY ILIANA Administration Pantoprazole Sodium 40 mg 08/18/23 09:00 08/19/23 09:24 Pantoprazole 40 Mg Tab PO 09/17/23 08:59 40 mg BID ILIANA Administration Roflumilast 250 mcg 08/18/23 09:00 08/19/23 09:24 Roflumilast 500 Mcg Tab PO 09/17/23 08:59 250 mcg DAILY ILIANA Administration Sodium Chloride 4 ml 08/18/23 19:00 08/19/23 07:10 Sodium Chlor 7% 4 Ml Neb NEB 09/17/23 18:59 4 ml BIDR ILIANA Administration Sucralfate 1 gm 08/18/23 09:00 08/19/23 09:25 Sucralfate 1 Gm/10 Ml Udc PO 09/17/23 08:59 1 gm BID ILIANA Administration Umeclidinium [place] 1 puffs 08/18/23 09:00 08/19/23 09:25 Umeclidinium [place] 62.5mcg/Blister 7 Puffs/Inhaler INH 09/17/23 08:59 1 p uffs DAILY ILIANA Administration
--- NOTE | 2023-08-19 16:42 | Pulmonology Progress Note ---
Date of Service August 19, 2023 Assessment & Plan (1) Acute exacerbation of chronic obstructive pulmonary disease: (2) SOB (shortness of breath): (3) Hypoxia: (4) Diastolic CHF: Plan IMPRESSION: 87-year-old male with a significant past medical history of COPD and chronic respiratory failure with hypoxia as well as CHF who presents with worsening hypoxia from his baseline. Pulmonary medicine consulted as patient is rebounded from recent hospitalization for the same. RECOMMENDATIONS: 1. COPD exacerbation - Continue LABA/ICS nebs. Continue hypertonic and Mucinex to promote mucociliary clearance. Transition to PO prednisone in the next day or two for a short course of 5-7 days. 2. Hypoxia - Wean o2 to keep sats 88-92% 3. CHF - Maintain euvolemia. Recommend goals of care discussion in this frail and elderly gentleman with significant comorbidities. No further recommendation at this time. Please call with questions. Thank you for the consult. Admission and Anticipated Discharge Date Admission Date: August 17, 2023 Subjective Patient continues to have shortness of breath and productive cough. He notes that his shortness of breath is about the same as it was yesterday. He is requiring 3 L of oxygen to maintain sats in the high 90s. Review of Systems Review of Systems: All systems reviewed & are unremarkable except as noted in HPI & below Physical Exam Physical Exam: VITAL SIGNS - Vital signs and nursing notes were reviewed. GENERAL - 87-year-old male appearing his stated age who is in no acute distress. Communicates well with provider and answers questions appropriately. SKIN - Without rashes or lesions. NOSE - Midline and without cyanosis. MOUTH/OROPHARYNX - Without perioral cyanosis. NECK - Neck with FROM. LUNGS - Auscultation reveals coarse breath sounds at the bases with diffuse wheezes appreciated. CARDIAC - RRR with S1/S2. No murmur, rubs, or gallops appreciated. ABDOMEN - Abdominal inspection demonstrates an obese abdomen. BS normoactive all four quadrants. No tenderness, palpable masses, or ascites noted. EXTREMITIES - Nail clubbing not present. No peripheral cyanosis. Mild pretibial edema present. +3/5 radial palpated throughout. PSYCH - A&Ox3 and cooperates fully with examiner. Pt is very pleasant and interacts well with examiner. Hard of hearing. Results & Data Results & Data Vital Signs (Past 12 Hours) Vital Signs Temp Pulse Pulse Resp BP BP Pulse Ox 03/01/24 15:57 36.3 C L 66 18 141/61 H 98 08/19/23 14:49 70 08/19/23 13:55 08/19/23 08:02 36.4 C L 63 140/59 L 99 08/19/23 07:44 64 08/19/23 07:04 59 L 20 96 08/19/23 06:17 O2 Del Method O2 Flow Rate 08/19/23 15:57 Nasal Cannula 3 08/19/23 14:49 08/19/23 13:55 Nasal Cannula 3 08/19/23 08:02 Nasal Cannula 3 08/19/23 07:44 08/19/23 07:04 Nasal Cannula 3 08/19/23 06:17 Nasal Cannula 3 PG Care Time/CCT Total # of Minutes Spent Total Time Spent with Patient: Total time spent is greater than 50% in coordination of care (as documented) at patient's floor/unit and/or counseling patient: Coding Level of Care Code 74964 SUB INP/OBS CARE 07/14MIN Diagnoses Acute exacerbation of chronic obstructive pulmonary disease J44.1 SOB (shortness of breath) R06.02 Hypoxia R09.02 Diastolic CHF I50.30
[2023-08-20] MEDS: ALBUT/IPRATROP 3MG/0.5MG NEB 3 ML VIAL NEB PRN (00:59)
[2023-08-20 07:18] LABS: BUN Creatinine Ratio 25.6 (10-20); Calcium 8.9 mg/dl (8.6-10.3); Creatinine Clr Calc Pharmacy 27.2 ml/min; Est GFR (Non-African American) 34.5 ml/min; Potassium 4.6 mmol/L (3.5-5.1)
--- NOTE | 2023-08-20 07:41 | Hospitalist Progress Note ---
Date of Service August 20, 2023 Assessment & Plan (1) COPD exacerbation: Plan: Mr. 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 Patient notable presented to the ED 07/28 with COPD exacerbation after symptoms starting on 07/25. He was discharged on prolonged taper for 9 days on 08/03. Patient states that shortly after discontinuing the steroids, he felt worse each day thereafter--ultimately leading to presentation on 08/17. He responded promptly to IV methylprednisolone. Pulmonary consulted. Continue with IV steroid and nebs as follows. #ZURDO on CKD III: cr up to 1.47>>1.7 s/p LR 250cc/hr, appears dry; concern for possible ATN given contrast upon ED presentation for CTA evaluation Repeat BMP in afternoon, if uptrending plan for nephro Urine lytes ordered, renal ultrasound Encourage PO intake, no further IV hydration if concern for ATN given overload risk #Acute exacerbation of COPD: Baseline oxygen use:3 L 10/01 Started on solumedrol, continue with q12h Continue duonebs and albuterol nebs prn Pulmonary consult -Continue perforomist BID and budesonide BID Continue roflumilast Continue guaifensin 600mg BID Completed azithromycin 500mg x 3 days Continue hypertonic nebs to aid in secretions Encouraged flutter valve #HTN #Chronic heart failure with preserved EF Chronic, euvolemic on exam. Continue Imdur, amlodipine Continue ASA #DMTII c/b Neuropathy Continue Gabapentin Prior A1C 6.3% in 2022 A1C in am #Chronic iron deficiency anemia -Continue EOD iron supplement #Hypothyroidism: Chronic, continue home levothyroxine. #Tobacco use: Chronic, patient continues to use tobacco/use. Recommended cessation, patient does not want to quit tobacco. #Squamous cell carcinoma of left ear: Chronic, follows [facility] for immunotherapy which has recently been completed. Follows Dr. Ayala DVT prophylaxis Heparin subcu Disposition Med/tele Full code Admission and Anticipated Discharge Date Admission Date: August 17, 2023 Subjective Patient evaluated at bedside States he feels notably better today, cough is decreasing in frequency/intensity Physical Exam Constitutional: WD/WN, vitals as above Respiratory: scattered, but decreased expiratory wheezes Cardiovascular: RRR, no murmur, no edema Results & Data Results & Data Vital Signs (Past 12 Hours) Vital Signs Temp Pulse Pulse Resp BP Pulse Ox O2 Del Method 08/20/23 07:10 68 18 99 Nasal Cannula 08/20/23 03:43 76 08/20/23 03:42 36.6 C 60 16 131/56 L 98 Nasal Cannula 08/20/23 00:59 65 19 97 Nasal Cannula 08/19/23 23:29 Nasal Cannula 08/19/23 23:14 36.6 C 80 20 129/64 96 Room Air 08/19/23 20:23 67 18 99 Nasal Cannula 08/19/23 19:58 36.6 C 65 20 136/50 L 98 Room Air O2 Flow Rate 08/20/23 07:10 3 08/20/23 03:43 08/20/23 03:42 08/20/23 00:59 3 08/19/23 23:29 3 08/19/23 23:14 08/19/23 20:23 2 08/19/23 19:58 Laboratory Results BMP 08/20/23 06:28 Sodium 135 L Potassium 4.6 Chloride 101 Carbon Dioxide 23 BUN 44 H Creatinine 1.72 H Glucose 125 H Calcium 8.9 Medications Administered Home Medications Medication Instructions Recorded Confirmed Last Taken albuterol sulfate 2.5 mg/3 mL 3 ml inhalation QID PRN Shortness 10/04/18 08/17/23 Unknown (0.083 %) solution for nebulization Of Breath albuterol sulfate 90 mcg/actuation 2 puff inhalation Q4H PRN SHORT OF 10/04/18 08/17/23 Unknown aerosol inhaler BREATH/COUGH/WHEEZING ferrous sulfate 325 mg (65 mg 325 mg PO Q OTHER DAY 10/04/18 08/17/23 08/16/23 iron) tablet tiotropium bromide 2.5 2 puff inhalation DAILY 10/04/18 08/17/23 08/17/23 mcg/actuation mist for inhalation isosorbide mononitrate 60 mg 30 mg PO QAM 09/29/22 08/17/23 08/17/23 tablet,extended release 24 hr amlodipine 5 mg tablet 5 mg PO DAILY 01/19/23 08/17/23 08/17/23 fluticasone 250 mcg-salmeterol 50 1 inh inhalation BID 01/19/23 08/17/23 08/17/23 08:00 mcg/dose blistr powdr for inhalation peg 400-propylene glycol (PF) 0.4 1 drp OPL DIRECTED PRN Dry Eyes 01/19/23 08/17/23 01/19/23 08:00 %-0.3 % eye drops in a dropperette (Lubricant Eye (PG-PEG 400) (PF)) ascorbic acid (vitamin C) 500 mg 500 mg PO BID 04/28/23 08/17/23 08/17/23 08:00 tablet aspirin 81 mg tablet,delayed 81 mg PO DAILY 04/28/23 08/17/23 08/17/23 release gabapentin 100 mg capsule 100 mg PO QAM 04/28/23 08/17/23 08/17/23 multivitamin with minerals 1 tab PO DAILY 04/28/23 08/17/23 08/17/23 (Multiple Vitamin-Minerals tablet) nitroglycerin 0.4 mg sublingual 0.4 mg sublingual .PRN/UD PRN 04/28/23 08/17/23 Unknown tablet Chest Pain roflumilast 250 mcg tablet 250 mcg PO DAILY 04/28/23 08/17/23 08/17/23 pantoprazole 40 mg tablet,delayed 40 mg PO BID 30 days #60 tabs 05/10/23 08/17/23 08/17/23 08:00 release (Protonix) sucralfate 100 mg/mL oral 1 g (10 mL) PO BID 14 days #280 mL 05/10/23 08/17/23 08/17/23 08:00 suspension Lactobacil.acidophilus-Bifido.animalis 1 cap PO QPM 07/28/23 08/17/23 08/16/23 5 billion cell sprinkle capsule (Probiotic) gabapentin 300 mg capsule 300 mg PO HS 07/28/23 08/17/23 08/16/23 levalbuterol HCl 1.25 mg/3 mL 1.25 mg NEB Q4H PRN Wheezing 07/28/23 08/17/23 Unknown solution for nebulization levothyroxine 100 mcg tablet 100 mcg PO DAILYBB 07/28/23 08/17/23 08/17/23 polyvinyl alcohol 1.4 % eye drops 1 drp ophthalmic (eye) QID 07/28/23 08/17/23 08/17/23 12:00 Active Medications Generic Name Dose Route Start Last Admin Trade Name Freq PRN Reason Stop Dose Admin Acetaminophen 650 mg 08/18/23 00:28 08/18/23 14:55 Acetaminophen 325 Mg Tab PO 09/17/23 00:27 650 mg Q4H PRN Administration Pain or Fever Albuterol 3 ml 08/18/23 11:52 08/20/23 00:59 Albut/Ipratrop 3mg/0.5mg Neb 3 Ml Vial NEB 09/17/23 06:59 3 ml QIDR PRN Administration Wheezing Protocol Amlodipine Besylate 5 mg 08/18/23 09:00 08/19/23 09:23 Amlodipine Besylate 5 Mg Tab PO 09/17/23 08:59 5 mg DAILY ILIANA Administration Artificial Tears 1 drops 08/18/23 09:00 08/19/23 22:06 Artificial Tears OP 09/17/23 08:59 1 drops QID ILIANA Administration Ascorbic Acid 500 mg 08/18/23 09:00 08/19/23 22:41 Ascorbic Acid 500 Mg Tab PO 09/17/23 08:59 500 mg BID ILIANA Administration Aspirin 81 mg 08/18/23 09:00 08/19/23 09:23 Aspirin 81 Mg Ectab PO 09/17/23 08:59 81 mg DAILY ILIANA Administration Budesonide 0.5 mg 08/18/23 19:00 08/20/23 07:09 Budesonide 0.5 Mg/2 Ml Vial (Pulmicort) INH 09/17/23 18:59 0.5 mg BIDR ILIANA Administration Ferrous Sulfate 325 mg 08/18/23 09:00 08/18/23 08:28 Ferrous Sulfate 325 Mg Tab PO 09/17/23 08:59 325 mg Q2D@0900 ILIANA Administration Formoterol Fumarate 20 mcg 08/18/23 19:00 08/20/23 07:09 Formoterol 20 Mcg/2 Ml Vial INH 09/17/23 18:59 20 mcg BIDR ILIANA Administration Gabapentin 100 mg 08/18/23 09:00 08/19/23 09:24 Gabapentin 100 Mg Cap PO 09/17/23 08:59 100 mg QAM ILIANA Administration Gabapentin 300 mg 08/18/23 21:00 08/19/23 22:07 Gabapentin 300 Mg Cap PO 09/17/23 20:59 300 mg HS ILIANA Administration Guaifenesin 600 mg 08/18/23 21:00 08/19/23 22:07 Guaifenesin 600 Mg Tabcr PO 09/17/23 20:59 600 mg Q12 ILIANA Administration Heparin Sodium (Porcine) 5,000 units 08/18/23 09:00 08/19/23 22:07 Heparin Sod 5,000 Unit/0.5 Ml Vial SQ 09/17/23 08:59 5,000 units Q12 ILIANA Administration Azithromycin 500 mg/ Dextrose 255 mls @ 125 mls/hr 08/18/23 07:30 08/19/23 13:54 IV 08/20/23 13:03 Infused Q24H ILIANA Infusion Insulin Aspart 0 units 08/18/23 16:30 08/19/23 22:11 Insulin Aspart Per Unit Charge SC 09/17/23 16:29 Not Given ACHS ILIANA Isosorbide Mononitrate 30 mg 08/18/23 09:00 08/19/23 09:24 Isosorbide [place] Extended Rel 30 Mg Tabcr PO 09/17/23 08:59 30 mg QAM ILIANA Administration Lactobacillus Acidophilus 2 cap 08/18/23 21:00 08/19/23 22:07 Advanced Probiotic 1250 Mg Capsule PO 09/17/23 20:59 2 cap QPM ILIANA Administration Levothyroxine Sodium 100 mcg 08/18/23 06:30 08/20/23 04:54 Levothyroxine Sodium 100 Mcg Tablet PO 09/17/23 06:29 100 mcg DAILYBB ILIANA Administration Multivitamins/Minerals 1 tab 08/18/23 09:00 08/19/23 09:24 Cerovite Adv Formula Tab PO 09/17/23 08:59 1 tab DAILY ILIANA Administration Pantoprazole Sodium 40 mg 08/18/23 09:00 08/19/23 22:07 Pantoprazole 40 Mg Tab PO 09/17/23 08:59 40 mg BID ILIANA Administration Roflumilast 250 mcg 08/18/23 09:00 08/19/23 09:24 Roflumilast 500 Mcg Tab PO 09/17/23 08:59 250 mcg DAILY ILIANA Administration Sodium Chloride 4 ml 08/18/23 19:00 08/20/23 07:09 Sodium Chlor 7% 4 Ml Neb NEB 09/17/23 18:59 4 ml BIDR ILIANA Administration Sucralfate 1 gm 08/18/23 09:00 08/19/23 22:07 Sucralfate 1 Gm/10 Ml Udc PO 09/17/23 08:59 1 gm BID ILIANA Administration Umeclidinium [place] 1 puffs 08/18/23 09:00 08/19/23 09:25 Umeclidinium [place] 62.5mcg/Blister 7 Puffs/Inhaler INH 09/17/23 08:59 1 puffs DAILY ILIANA Administration
--- NOTE | 2023-08-20 10:12 | Electrocardiogram Report ---
Test Reason : Blood Pressure : / mmHG Vent. 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
--- NOTE | 2023-08-20 10:47 | Ultrasound Report ---
RENAL ULTRASOUND HISTORY: Acute on chronic kidney disease ZURDO on ckd COMPARISON: CT 04/28/2023 FINDINGS: Right kidney: 10.1 x 5.0 x 5.0 cm. No hydronephrosis. Mild diffuse cortical thinning redemonstrated. Left kidney: 10.0 x 6.0 x 5.2 cm. No hydronephrosis. Mild diffuse cortical thinning redemonstrated. Bladder: Partial distention with mild diffuse wall thickening and a few diverticula. The bilateral ur eteral jets were identified. IMPRESSION: 1. Cortical thinning of the kidneys without hydronephrosis. 2. Evidence of chronic bladder outlet obstruction. ACT 112: Negative or not required by law. Electronically signed by: Perez Gamez M.D. 08/20/2023 10:45 AM
[2023-08-20 10:50] LABS: Appearance Urine Clear (Clear); Bacteria Urine Automated Negative (Negative); Bilirubin Urine Negative (Negative); Blood Urine Negative (Negative); Cast Urine Automated 0 /lpf (0-5); Color Urine Yellow; Glucose Urine UA Negative (Negative); Ketones Urine Negative (Negative); Leukocyte Esterase Urine Negative (Negative); Nitrite Urine Negative (Negative); Protein Urine 1+ (Negative); RBC Urine Automated 0-4 /hpf (0-4); Urobilinogen Urine Negative (Negative)
[2023-08-20 11:13] LABS: Creatinine Urine Random 73.2 mg/dl; Protein Creatinine Ratio Urine 0.5 (0-0.2); Urine Potassium 52.1 mmol/L
[2023-08-20 16:16] LABS: BUN Creatinine Ratio 25.8 (10-20); Calcium 8.7 mg/dl (8.6-10.3); Creatinine Clr Calc Pharmacy 30.2 ml/min; Est GFR (African American) 45.3 ml/min; Est GFR (Non-African American) 39.1 ml/min; Potassium 4.6 mmol/L (3.5-5.1)
[2023-08-21] MEDS ORDERED: methylPREDNISolone 40 MG in SYRINGE 0 ML IV SCH (07:30)
[2023-08-21] MEDS: methylPREDNISolone 40 MG in SYRINGE 0 ML IV SCH (08:45)
[2023-08-21 08:55] LABS: BUN Creatinine Ratio 30.1 (10-20); Calcium 8.4 mg/dl (8.6-10.3); Creatinine Clr Calc Pharmacy 32.7 ml/min; Est GFR (Non-African American) 43.1 ml/min; Potassium 4.1 mmol/L (3.5-5.1)
--- NOTE | 2023-08-21 11:36 | Hospitalist Progress Note ---
Date of Service August 21, 2023 Assessment & Plan (1) COPD exacerbation: Plan: Mr. 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 Patient notable presented to the ED 07/28 with COPD exacerbation after symptoms starting on 07/25. He was discharged on prolonged taper for 9 days on 08/03. Patient states that shortly after discontinuing the steroids, he felt worse each day thereafter--ultimately leading to presentation on 08/17. He responded promptly to IV methylprednisolone. Pulmonary consulted. Continue with IV steroid and nebs as follows. Plan to transition to PO prednisone with possible discharge tomorrow #ZURDO on CKD III: cr up to 1.47>>1.7>>1.4 s/p LR 250cc/hr, appears dry; concern for possible ATN given contrast upon ED presentation for CTA evaluation Repeat BMP in afternoon, if uptrending plan for nephro Urine lytes ordered, renal ultrasound Encourage PO intake, no further IV hydration if concern for ATN given overload risk #Acute exacerbation of COPD: Baseline oxygen use:3 L 24/7 Started on solumedrol, transitioning to prednisone x5-7 more days Continue duonebs and albuterol nebs prn Pulmonary consult -Continue perforomist BID and budesonide BID Continue roflumilast Continue guaifensin 600mg BID Completed azithromycin 500mg x 3 days Continue hypertonic nebs to aid in secretions Encouraged flutter valve Will determine if patient can follow up with Pulm at [facility] #HTN #Chronic heart failure with preserved EF Chronic, euvolemic on exam. Continue Imdur, amlodipine Continue ASA #DMTII c/b Neuropathy Continue Gabapentin Prior A1C 6.4% in 08/19/2023 A1C in am #Chronic iron deficiency anemia -Continue EOD iron supplement #Hypothyroidism: Chronic, continue home levothyroxine. #Tobacco use: Chronic, patient continues to use tobacco/use. Recommended cessation, patient does not want to quit tobacco. #Squamous cell carcinoma of left ear: Chronic, follows [facility] for immunotherapy which has recently been completed. Follows Dr. Ayala DVT prophylaxis Heparin subcu Disposition Med/tele Full code Admission and Anticipated Discharge Date Admission Date: August 17, 2023 Subjective Patient evaluated at bedside Reports feeling at baseline, occasional sputum production but overall feels great Physical Exam Constitutional: WD/WN, vitals as above Respiratory: much improved, moves air well, with expiratory "rattling" no further wheezing or crackles Gastrointestinal (Abdomen): normal bowel sounds, soft, nontender, no hepatosplenomegaly Results & Data Results & Data Vital Signs (Past 12 Hours) Vital Signs Temp Pulse Pulse Resp BP BP Pulse Ox 08/21/23 07:50 08/21/23 07:48 36.3 C L 83 18 129/61 100 08/21/23 07:32 78 18 97 08/21/23 05:57 59 L 08/21/23 03:58 73 18 95 08/21/23 03:46 36.5 C 70 18 134/58 L 96 08/21/23 00:09 65 O2 Del Method O2 Flow Rate 08/21/23 07:50 Nasal Cannula 3 08/21/23 07:48 Room Air 08/21/23 07:32 Nasal Cannula 3 08/21/23 05:57 08/21/23 03:58 Nasal Cannula 3 08/21/23 03:46 Nasal Cannula 08/21/23 00:09 Laboratory Results BMP 08/20/23 08/21/23 15:39 07:34 Sodium 134 L 136 Potassium 4.6 4.1 Chloride 101 103 Carbon Dioxide 26 28 BUN 40 H 43 H Creatinine 1.55 H 1.43 H Glucose 90 97 Calcium 8.7 8.4 L Medications Administered Home Medications Medication Instructions Recorded Confirmed Last Taken albuterol sulfate 2.5 mg/3 mL 3 ml inhalation QID PRN Shortness 10/04/18 08/17/23 Unknown (0.083 %) solution for nebulization Of Breath albuterol sulfate 90 mcg/actuation 2 puff inhalation Q4H PRN SHORT OF 10/04/18 08/17/23 Unknown aerosol inhaler BREATH/COUGH/WHEEZING ferrous sulfate 325 mg (65 mg 325 mg PO Q OTHER DAY 10/04/18 08/17/23 08/16/23 iron) tablet tiotropium bromide 2.5 2 puff inhalation DAILY 10/04/18 08/17/23 08/17/23 mcg/actuation mist for inhalation isosorbide mononitrate 60 mg 30 mg PO QAM 09/29/22 08/17/23 08/17/23 tablet,extended release 24 hr amlodipine 5 mg tablet 5 mg PO DAILY 01/19/23 08/17/23 08/17/23 fluticasone 250 mcg-salmeterol 50 1 inh inhalation BID 01/19/23 08/17/23 08/17/23 08:00 mcg/dose blistr powdr for inhalation peg 400-propylene glycol (PF) 0.4 1 drp OPL DIRECTED PRN Dry Eyes 01/19/23 08/17/23 01/19/23 08:00 %-0.3 % eye drops in a dropperette (Lubricant Eye (PG-PEG 400) (PF)) ascorbic acid (vitamin C) 500 mg 500 mg PO BID 04/28/23 08/17/23 08/17/23 08:00 tablet aspirin 81 mg tablet,delayed 81 mg PO DAILY 04/28/23 08/17/23 08/17/23 release gabapentin 100 mg capsule 100 mg PO QAM 04/28/23 08/17/23 08/17/23 multivitamin with minerals 1 tab PO DAILY 04/28/23 08/17/23 08/17/23 (Multiple Vitamin-Minerals tablet) nitroglycerin 0.4 mg sublingual 0.4 mg sublingual .PRN/UD PRN 04/28/23 08/17/23 Unknown tablet Chest Pain roflumilast 250 mcg tablet 250 mcg PO DAILY 04/28/23 08/17/23 08/17/23 pantoprazole 40 mg tablet,delayed 40 mg PO BID 30 days #60 tabs 05/10/23 08/17/23 08/17/23 08:00 release (Protonix) sucralfate 100 mg/mL oral 1 g (10 mL) PO BID 14 days #280 mL 05/10/23 08/17/23 08/17/23 08:00 suspension Lactobacil.acidophilus-Bifido.animalis 1 cap PO QPM 07/28/23 08/17/23 08/16/23 5 billion cell sprinkle capsule (Probiotic) gabapentin 300 mg capsule 300 mg PO HS 07/28/23 08/17/23 08/16/23 levalbuterol HCl 1.25 mg/3 mL 1.25 mg NEB Q4H PRN Wheezing 07/28/23 08/17/23 Unknown solution for nebulization levothyroxine 100 mcg tablet 100 mcg PO DAILYBB 07/28/23 08/17/23 08/17/23 polyvinyl alcohol 1.4 % eye drops 1 drp ophthalmic (eye) QID 07/28/23 08/17/23 08/17/23 12:00 Active Medications Generic Name Dose Route Start Last Admin Trade Name Freq PRN Reason Stop Dose Admin Acetaminophen 650 mg 08/18/23 00:28 08/18/23 14:55 Acetaminophen 325 Mg Tab PO 09/17/23 00:27 650 mg Q4H PRN Administration Pain or Fever Albuterol 3 ml 08/18/23 11:52 08/21/23 03:58 Albut/Ipratrop 3mg/0.5mg Neb 3 Ml Vial NEB 09/17/23 06:59 3 ml QIDR PRN Administration Wheezing Protocol Amlodipine Besylate 5 mg 08/18/23 09:00 08/21/23 08:50 Amlodipine Besylate 5 Mg Tab PO 09/17/23 08:59 5 mg DAILY ILIANA Administration Artificial Tears 1 drops 08/18/23 09:00 08/21/23 08:46 Artificial Tears OP 09/17/23 08:59 1 drops QID ILIANA Administration Ascorbic Acid 500 mg 08/18/23 09:00 08/21/23 08:51 Ascorbic Acid 500 Mg Tab PO 09/17/23 08:59 500 mg BID ILIANA Administration Aspirin 81 mg 08/18/23 09:00 08/21/23 08:51 Aspirin 81 Mg Ectab PO 09/17/23 08:59 81 mg DAILY ILIANA Administration Budesonide 0.5 mg 08/18/23 19:00 08/21/23 07:31 Budesonide 0.5 Mg/2 Ml Vial (Pulmicort) INH 09/17/23 18:59 0.5 mg BIDR ILIANA Administration Ferrous Sulfate 325 mg 08/18/23 09:00 08/20/23 09:05 Ferrous Sulfate 325 Mg Tab PO 09/17/23 08:59 325 mg Q2D@0900 ILIANA Administration Formoterol Fumarate 20 mcg 08/18/23 19:00 08/21/23 07:31 Formoterol 20 Mcg/2 Ml Vial INH 09/17/23 18:59 20 mcg BIDR ILIANA Administration Gabapentin 100 mg 08/18/23 09:00 08/21/23 08:50 Gabapentin 100 Mg Cap PO 09/17/23 08:59 100 mg QAM ILIANA Administration Gabapentin 300 mg 08/18/23 21:00 08/20/23 20:40 Gabapentin 300 Mg Cap PO 09/17/23 20:59 300 mg HS ILIANA Administration Guaifenesin 600 mg 08/18/23 21:00 08/21/23 08:51 Guaifenesin 600 Mg Tabcr PO 09/17/23 20:59 600 mg Q12 ILIANA Administration Heparin Sodium (Porcine) 5,000 units 08/18/23 09:00 08/21/23 08:45 Heparin Sod 5,000 Unit/0.5 Ml Vial SQ 09/17/23 08:59 5,000 units Q12 ILIANA Administration Methylprednisolone 40 mg/ 0.64 mls @ 1.5 mls/min 08/21/23 09:00 08/21/23 08:45 Syringe IV 09/20/23 08:59 1.5 mls/min DAILY ILIANA Administration Insulin Aspart 0 units 08/18/23 16:30 08/21/23 08:45 Insulin Aspart Per Unit Charge SC 09/17/23 16:29 6 units ACHS ILIANA Administration Isosorbide Mononitrate 30 mg 08/18/23 09:00 08/21/23 08:50 Isosorbide [place] Extended Rel 30 Mg Tabcr PO 09/17/23 08:59 30 mg QAM ILIANA Administration Lactobacillus Acidophilus 2 cap 08/18/23 21:00 08/20/23 20:39 Advanced Probiotic 1250 Mg Capsule PO 09/17/23 20:59 2 cap QPM ILIANA Administration Levothyroxine Sodium 100 mcg 08/18/23 06:30 08/21/23 04:34 Levothyroxine Sodium 100 Mcg Tablet PO 09/17/23 06:29 100 mcg DAILYBB ILIANA Administration Multivitamins/Minerals 1 tab 08/18/23 09:00 08/21/23 08:51 Cerovite Adv Formula Tab PO 09/17/23 08:59 1 tab DAILY ILIANA Administration Pantoprazole Sodium 40 mg 08/18/23 09:00 08/21/23 08:51 Pantoprazole 40 Mg Tab PO 09/17/23 08:59 40 mg BID ILIANA Administration Roflumilast 250 mcg 08/18/23 09:00 08/21/23 08:51 Roflumilast 500 Mcg Tab PO 09/17/23 08:59 250 mcg DAILY ILIANA Administration Sodium Chloride 4 ml 08/18/23 19:00 08/21/23 07:31 Sodium Chlor 7% 4 Ml Neb NEB 09/17/23 18:59 4 ml BIDR ILIANA Administration Sucralfate 1 gm 08/18/23 09:00 08/21/23 08:51 Sucralfate 1 Gm/10 Ml Udc PO 09/17/23 08:59 1 gm BID ILIANA Administration Umeclidinium [place] 1 puffs 08/18/23 09:00 08/21/23 08:45 Umeclidinium [place] 62.5mcg/Blister 7 Puffs/Inhaler INH 09/17/23 08:59 1 puffs DAILY ILIANA Administration
[2023-08-22 06:58] LABS: BUN Creatinine Ratio 21.4 (10-20); Calcium 8.1 mg/dl (8.6-10.3); Creatinine Clr Calc Pharmacy 23.3 ml/min; Est GFR (African American) 33.1 ml/min; Est GFR (Non-African American) 28.6 ml/min; Potassium 4.2 mmol/L (3.5-5.1)
[2023-08-22] MEDS: predniSONE 20 MG TAB PO SCH (08:31)
[2023-08-22 11:25] LABS: Creatinine Urine Random 81.4 mg/dl; Protein Creatinine Ratio Urine 0.3 (0-0.2); Total Protein Urine Random 22.7 mg/dl (0-11.9); Urine Potassium 27.6 mmol/L
--- NOTE | 2023-08-22 14:59 | Nephrology Consultation ---
Date of Consultation August 22, 2023 Assessment & Plan (1) Acute renal failure superimposed on stage 3 chronic kidney disease: At baseline he does have Mild CKD with labile creat. on Admission had 1.2 but on US does have renal Cortical atrophy and Chornic Changes. Creat went up first likely with contrast exposure and resp failure but then was improving till today's labs. cause is still likely hemodynamic changes related with Chronic resp failure in a vulnerable patient has lot of Crackles and mostly rhonchi b/l--most likely lung related but not always easy to tell the difference with CHF. Given this give only 1000 ml 1/2 NS today. do UA and do i and O charting. As long as Creat tomorrow Similar or even better improving he can be discharged. He was initially not happy to stay more days in hospital after he was all changed and ready to go home. (2) COPD exacerbation: Still has Sig lung findings and Symptoms but seems es good as it gets as per Pulmonary note. History of Present Illness Reason for Consultation: ZURDO on CKD 3 Attending Physician: Latoya Henning MD History of Present Illness 87/M admitted with COPD flare up on 08/17/2023. 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 he was admitted recently in the hospital for COPD exacerbation also. Lives with his family. Denies any headache. No runny nose or sore throat. No chest pain. Appetite is okay. No nausea. No abdominal pain. Normal bowel and bladder movements. was Supposed to be discharged but creat went from 1.4 yesterday to 2.1 overnight and led to nephrology Consult. On admission creat was 1.2 and then peaked at 1.7 and then dropped but went up again. Not on nephrotoxic agents. he did get CT contrast but that was on 08/17/2023. No low BP events noted. Pulmonary did see the patient. ROS----has Chronic SOB and Cough from COPD. No fever or chest pain. No issues with urine. Does have some Nocturia. otherwise 12 Systems reviewed and negative. Physical Exam Physical Exam: GENERAL - no acute distress. Normal accurate Speech SKIN - Without rashes or lesions. NOSE - Midline and without cyanosis. MOUTH/OROPHARYNX - Without cyanosis. NECK - Supple. No JVD LUNGS - Auscultation reveals coarse breath sounds b/l with diffuse wheezes ( seems chronic As per Pulmonary note) CARDIAC - RRR with S1/S2. No murmur, rubs, or gallops appreciated. ABDOMEN - Soft. No tenderness, palpable masses, or ascites noted. EXTREMITIES - Trace pretibial edema present. PSYCH - A&Ox3 and cooperates fully with examiner. Pt is very pleasant and interacts well with examiner. Hard of hearing. Allergies Allergy/AdvReac Type Severity Reaction Status Date / Time cefuroxime Allergy Intermediate Rash and Verified 08/17/23 18:01 beta-lactams = rash ertapenem Allergy Unknown CAN'T Verified 08/17/23 18:01 REMEMBER levofloxacin [From Levaquin] Allergy Unknown CAN'T Verified 08/17/23 18:01 REMEMBER Home Medications Medication Instructions Recorded Confirmed Type albuterol sulfate 2.5 mg/3 mL 3 ml inhalation QID PRN Shortness 10/04/18 08/17/23 History (0.083 %) solution for nebulization Of Breath albuterol sulfate 90 mcg/actuation 2 puff inhalation Q4H PRN SHORT OF 10/04/18 08/17/23 History aerosol inhaler BREATH/COUGH/WHEEZING ferrous sulfate 325 mg (65 mg 325 mg PO Q OTHER DAY 10/04/18 08/17/23 History iron) tablet tiotropium bromide 2.5 2 puff inhalation DAILY 10/04/18 08/17/23 History mcg/actuation mist for inhalation isosorbide mononitrate 60 mg 30 mg PO QAM 09/29/22 08/17/23 History tablet,extended release 24 hr amlodipine 5 mg tablet 5 mg PO DAILY 01/19/23 08/17/23 History fluticasone 250 mcg-salmeterol 50 1 inh inhalation BID 01/19/23 08/17/23 History mcg/dose blistr powdr for inhalation peg 400-propylene glycol (PF) 0.4 1 drp OPL DIRECTED PRN Dry Eyes 01/19/23 08/17/23 History %-0.3 % eye drops in a dropperette (Lubricant Eye (PG-PEG 400) (PF)) ascorbic acid (vitamin C) 500 mg 500 mg PO BID 04/28/23 08/17/23 History tablet aspirin 81 mg tablet,delayed 81 mg PO DAILY 04/28/23 08/17/23 History release gabapentin 100 mg capsule 100 mg PO QAM 04/28/23 08/17/23 History multivitamin with minerals 1 tab PO DAILY 04/28/23 08/17/23 History (Multiple Vitamin-Minerals tablet) nitroglycerin 0.4 mg sublingual 0.4 mg sublingual .PRN/UD PRN 04/28/23 08/17/23 History tablet Chest Pain roflumilast 250 mcg tablet 250 mcg PO DAILY 04/28/23 08/17/23 History pantoprazole 40 mg tablet,delayed 40 mg PO BID 30 days #60 tabs 05/10/23 08/17/23 Rx release (Protonix) sucralfate 100 mg/mL oral 1 g (10 mL) PO BID 14 days #280 mL 05/10/23 08/17/23 Rx suspension Lactobacil.acidophilus-Bifido.animalis 1 cap PO QPM 07/28/23 08/17/23 History 5 billion cell sprinkle capsule (Probiotic) gabapentin 300 mg capsule 300 mg PO HS 07/28/23 08/17/23 History levalbuterol HCl 1.25 mg/3 mL 1.25 mg NEB Q4H PRN Wheezing 07/28/23 08/17/23 History solution for nebulization levothyroxine 100 mcg tablet 100 mcg PO DAILYBB 07/28/23 08/17/23 History polyvinyl alcohol 1.4 % eye drops 1 drp ophthalmic (eye) QID 07/28/23 08/17/23 History Patient History Medical History Squamous cell carcinoma of left ear Tobacco use Encounter for pre-operative examination COPD (chronic obstructive pulmonary disease) 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 Chronic anemia Hypothyroidism Hypertension Hx of agent [place] exposure Family History Other Family history non-contributory Social History Smoking Status: Former smoker Tobacco Type: Smokeless Tobacco (Dip or Chew) Second Hand Exposure: No; Do You Dip or Chew Tobacco: Yes; Hx Alcohol Use: No Hx Substance Use: No Preferred Language: Upper Sorbian Communication Ability: Impaired Communication Ability Comment: pt cannot see to read Communication Tools: Other 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 Required: No Beliefs That Will Affect Care: None marital status: Current Living Situation: Family Current Living Situation Comment: 2 sons current occupational status: retired Feels Safe at Home: Yes Assistive Devices: CPAP, Oxygen - Continuous and Walker Results & Data Vital Signs (Past 12 Hours) Vital Signs Temp Pulse Pulse Resp BP BP Pulse Ox 08/22/23 14:48 37.0 C 76 18 127/61 94 08/22/23 11:18 36.6 C 75 18 148/83 H 92 08/22/23 08:00 64 08/22/23 08:00 08/22/23 07:54 17 96 08/22/23 07:24 36.5 C 72 18 127/57 L 92 08/22/23 03:36 36.6 C 70 16 131/56 L 95 O2 Del Method O2 Flow Rate 08/22/23 14:48 Nasal Cannula 2 08/22/23 11:18 Nasal Cannula 2 08/22/23 08:00 08/22/23 08:00 Nasal Cannula 3 08/22/23 07:54 Nasal Cannula 2 08/22/23 07:24 Nasal Cannula 2 08/22/23 03:36 Nasal Cannula Laboratory Results reviewed. Diagnostic Findings reviewed.
[2023-08-22] MEDS: SODIUM CHLORIDE 0.45 % 1,000 ML IV SCH (16:12)
--- NOTE | 2023-08-22 16:44 | Hospitalist Progress Note ---
Date of Service August 22, 2023 Assessment & Plan (1) COPD exacerbation: Plan: Mr. 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 Patient notable presented to the ED 07/28 with COPD exacerbation after symptoms starting on 07/25. He was discharged on prolonged taper for 9 days on 08/03. Patient states that shortly after discontinuing the steroids, he felt worse each day thereafter--ultimately leading to presentation on 08/17. He responded promptly to IV methylprednisolone. Pulmonary consulted. Continue with IV steroid and nebs as follows. Plan to transition to PO prednisone with possible discharge tomorrow #ZURDO on CKD III: cr up to 1.47>>1.7>>1.4>>2.0 s/p LR 250cc/hr, appears dry; concern for possible ATN given contrast upon ED presentation for CTA evaluation Repeat BMP in afternoon, if uptrending plan for nephro ultrasound cortical thinning Encourage PO intake, Nephrology consulted -Repeat UA -BMP in am IVF x 1 L #Acute exacerbation of COPD *improving Baseline oxygen use:3 L 24/7 Started on solumedrol, transitioning to prednisone x5-7 more days Continue duonebs and albuterol nebs prn Pulmonary consult -Continue perforomist BID and budesonide BID Continue roflumilast Continue guaifensin 600mg BID Completed azithromycin 500mg x 3 days Continue hypertonic nebs to aid in secretions Encouraged flutter valve Will determine if patient can follow up with Pulm at [facility] Prednisone 40mg daily #HTN #Chronic heart failure with preserved EF Chronic, euvolemic on exam. Continue Imdur, amlodipine Continue ASA #DMTII c/b Neuropathy Continue Gabapentin Prior A1C 6.4% in 08/19/2023 A1C in am #Chronic iron deficiency anemia -Continue EOD iron supplement #Hypothyroidism: Chronic, continue home levothyroxine. #Tobacco use: Chronic, patient continues to use tobacco/use. Recommended cessation, patient does not want to quit tobacco. #Squamous cell carcinoma of left ear: Chronic, follows [facility] for immunotherapy which has recently been completed. Follows Dr. Ayala DVT prophylaxis Heparin subcu Disposition Med/tele Full code Admission and Anticipated Discharge Date Admission Date: August 17, 2023 Subjective Patient evaluated at bedside Reports feeling at baseline, occasional sputum production but overall feels great Physical Exam Constitutional: WD/WN, vitals as above Respiratory: decreased bibasilar lung sounds, improved overall in comparison to prior Results & Data Results & Data Vital Signs (Past 12 Hours) Vital Signs Temp Pulse Pulse Resp BP BP Pulse Ox 08/22/23 14:48 37.0 C 76 18 127/61 94 08/22/23 11:18 36.6 C 75 18 148/83 H 92 08/22/23 08:00 64 08/22/23 08:00 08/22/23 07:54 17 96 08/22/23 07:24 36.5 C 72 18 127/57 L 92 O2 Del Method O2 Flow Rate 08/22/23 14:48 Nasal Cannula 2 08/22/23 11:18 Nasal Cannula 2 08/22/23 08:00 08/22/23 08:00 Nasal Cannula 3 08/22/23 07:54 Nasal Cannula 2 08/22/23 07:24 Nasal Cannula 2 Laboratory Results BMP 08/22/23 06:20 Sodium 139 Potassium 4.2 Chloride 106 Carbon Dioxide 31 BUN 43 H Creatinine 2.01 H D Glucose 127 H Calcium 8.1 L Medications Administered Home Medications Medication Instructions Recorded Confirmed Last Taken albuterol sulfate 2.5 mg/3 mL 3 ml inhalation QID PRN Shortness 10/04/18 08/17/23 Unknown (0.083 %) solution for nebulization Of Breath albuterol sulfate 90 mcg/actuation 2 puff inhalation Q4H PRN SHORT OF 10/04/18 08/17/23 Unknown aerosol inhaler BREATH/COUGH/WHEEZING ferrous sulfate 325 mg (65 mg 325 mg PO Q OTHER DAY 10/04/18 08/17/23 08/16/23 iron) tablet tiotropium bromide 2.5 2 puff inhalation DAILY 10/04/18 08/17/23 08/17/23 mcg/actuation mist for inhalation isosorbide mononitrate 60 mg 30 mg PO QAM 09/29/22 08/17/23 08/17/23 tablet,extended release 24 hr amlodipine 5 mg tablet 5 mg PO DAILY 01/19/23 08/17/23 08/17/23 fluticasone 250 mcg-salmeterol 50 1 inh inhalation BID 01/19/23 08/17/2307/22 08:00 mcg/dose blistr powdr for inhalation peg 400-propylene glycol (PF) 0.4 1 drp OPL DIRECTED PRN Dry Eyes 01/19/23 08/17/23 01/19/23 08:00 %-0.3 % eye drops in a dropperette (Lubricant Eye (PG-PEG 400) (PF)) ascorbic acid (vitamin C) 500 mg 500 mg PO BID 04/28/23 08/17/23 08/17/23 08:00 tablet aspirin 81 mg tablet,delayed 81 mg PO DAILY 04/28/23 08/17/23 08/17/23 release gabapentin 100 mg capsule 100 mg PO QAM 04/28/23 08/17/23 08/17/23 multivitamin with minerals 1 tab PO DAILY 04/28/23 08/17/23 08/17/23 (Multiple Vitamin-Minerals tablet) nitroglycerin 0.4 mg sublingual 0.4 mg sublingual .PRN/UD PRN 04/28/23 08/17/23 Unknown tablet Chest Pain roflumilast 250 mcg tablet 250 mcg PO DAILY 04/28/23 08/17/23 08/17/23 pantoprazole 40 mg tablet,delayed 40 mg PO BID 30 days #60 tabs 05/10/23 08/17/23 08/17/23 08:00 release (Protonix) sucralfate 100 mg/mL oral 1 g (10 mL) PO BID 14 days #280 mL 05/10/23 08/17/23 08/17/23 08:00 suspension Lactobacil.acidophilus-Bifido.animalis 1 cap PO QPM 07/28/23 08/17/23 08/16/23 5 billion cell sprinkle capsule (Probiotic) gabapentin 300 mg capsule 300 mg PO HS 07/28/23 08/17/23 08/16/23 levalbuterol HCl 1.25 mg/3 mL 1.25 mg NEB Q4H PRN Wheezing 07/28/23 08/17/23 Unknown solution for nebulization levothyroxine 100 mcg tablet 100 mcg PO DAILYBB 07/28/23 08/17/23 08/17/23 polyvinyl alcohol 1.4 % eye drops 1 drp ophthalmic (eye) QID 07/28/23 08/17/23 08/17/23 12:00 Active Medications Generic Name Dose Route Start Last Admin Trade Name Freq PRN Reason Stop Dose Admin Acetaminophen 650 mg 08/18/23 00:28 08/18/23 14:55 Acetaminophen 325 Mg Tab PO 09/17/23 00:27 650 mg Q4H PRN Administration Pain or Fever Albuterol 3 ml 08/18/23 11:52 08/22/23 00:52 Albut/Ipratrop 3mg/0.5mg Neb 3 Ml Vial NEB 09/17/23 06:59 3 ml QIDR PRN Administration Wheezing Protocol Amlodipine Besylate 5 mg 08/18/23 09:00 08/22/23 08:32 Amlodipine Besylate 5 Mg Tab PO 09/17/23 08:59 5 mg DAILY ILIANA Administration Artificial Tears 1 drops 08/18/23 09:00 08/22/23 12:42 Artificial Tears OP 09/17/23 08:59 1 drops QID ILIANA Administration Ascorbic Acid 500 mg 08/18/23 09:00 08/22/23 08:33 Ascorbic Acid 500 Mg Tab PO 09/17/23 08:59 500 mg BID ILIANA Administration Aspirin 81 mg 08/18/23 09:00 08/22/23 08:32 Aspirin 81 Mg Ectab PO 09/17/23 08:59 81 mg DAILY ILIANA Administration Budesonide 0.5 mg 08/18/23 19:00 08/22/23 07:42 Budesonide 0.5 Mg/2 Ml Vial (Pulmicort) INH 09/17/23 18:59 0.5 mg BIDR ILIANA Administration Ferrous Sulfate 325 mg 08/18/23 09:00 08/22/23 08:35 Ferrous Sulfate 325 Mg Tab PO 09/17/23 08:59 325 mg Q2D@0900 ILIANA Administration Formoterol Fumarate 20 mcg 08/18/23 19:00 08/22/23 07:42 Formoterol 20 Mcg/2 Ml Vial INH 09/17/23 18:59 20 mcg BIDR ILIANA Administration Gabapentin 100 mg 08/18/23 09:00 08/22/23 08:30 Gabapentin 100 Mg Cap PO 09/17/23 08:59 100 mg QAM ILIANA Administration Gabapentin 300 mg 08/18/23 21:00 08/21/23 20:27 Gabapentin 300 Mg Cap PO 09/17/23 20:59 300 mg HS ILIANA Administration Guaifenesin 600 mg 08/18/23 21:00 08/22/23 08:33 Guaifenesin 600 Mg Tabcr PO 09/17/23 20:59 600 mg Q12 ILIANA Administration Heparin Sodium (Porcine) 5,000 units 08/18/23 09:00 08/22/23 08:37 Heparin Sod 5,000 Unit/0.5 Ml Vial SQ 09/17/23 08:59 5,000 units Q12 ILIANA Administration Sodium Chloride 1,000 mls @ 80 mls/hr 08/22/23 15:15 08/22/23 16:12 1/2 Nss IV 09/21/23 15:14 80 mls/hr .[id number] ILIANA Administration Insulin Aspart 0 units 08/18/23 16:30 08/22/23 12:41 Insulin Aspart Per Unit Charge SC 09/17/23 16:29 5 units ACHS ILIANA Administration Isosorbide Mononitrate 30 mg 08/18/23 09:00 08/22/23 08:34 Isosorbide [place] Extended Rel 30 Mg Tabcr PO 09/17/23 08:59 30 mg QAM ILIANA Administration Lactobacillus Acidophilus 2 cap 08/18/23 21:00 08/21/23 20:26 Advanced Probiotic 1250 Mg Capsule PO 09/17/23 20:59 2 cap QPM ILIANA Administration Levothyroxine Sodium 100 mcg 08/18/23 06:30 08/22/23 05:15 Levothyroxine Sodium 100 Mcg Tablet PO 09/17/23 06:29 100 mcg DAILYBB ILIANA Administration Multivitamins/Minerals 1 tab 08/18/23 09:00 08/22/23 08:31 Cerovite Adv Formula Tab PO 09/17/23 08:59 1 tab DAILY ILIANA Administration Pantoprazole Sodium 40 mg 08/18/23 09:00 08/22/23 08:33 Pantoprazole 40 Mg Tab PO 09/17/23 08:59 40 mg BID ILIANA Administration Prednisone 40 mg 08/22/23 09:00 08/22/23 08:31 Prednisone 20 Mg Tab PO 09/21/23 08:59 40 mg DAILY ILIANA Administration Roflumilast 250 mcg 08/18/23 09:00 08/22/23 08:34 Roflumilast 500 Mcg Tab PO 09/17/23 08:59 250 mcg DAILY ILIANA Administration Sodium Chloride 4 ml 08/18/23 19:00 08/22/23 07:43 Sodium Chlor 7% 4 Ml Neb NEB 09/17/23 18:59 4 ml BIDR ILIANA Administration Sucralfate 1 gm 08/18/23 09:00 08/22/23 08:36 Sucralfate 1 Gm/10 Ml Udc PO 09/17/23 08:59 1 gm BID ILIANA Administration Umeclidinium Jerome 1 puffs 08/18/23 09:00 08/22/23 08:36 Umeclidinium Jerome 62.5mcg/Blister 7 Puffs/Inhaler INH 09/17/23 08:59 1 puffs DAILY ILIANA Administration
[2023-08-23 01:33] LABS: Appearance Urine Clear (Clear); Bacteria Urine Automated Negative (Negative); Bilirubin Urine Negative (Negative); Blood Urine Negative (Negative); Cast Urine Automated 0 /lpf (0-5); Color Urine Yellow; Epithelial Cell Urine Auto 0-5 /lpf (0-5); Glucose Urine UA Negative (Negative); Ketones Urine Negative (Negative); Leukocyte Esterase Urine Negative (Negative); Nitrite Urine Negative (Negative); Protein Urine Trace (Negative); RBC Urine Automated 0-4 /hpf (0-4); Urobilinogen Urine Negative (Negative); WBC Urine Automated 0 /hpf (0-5); pH Urine 5.5 (4.5-7.5)
[2023-08-23 07:28] LABS: BUN Creatinine Ratio 25.8 (10-20); Calcium 7.9 mg/dl (8.6-10.3); Creatinine Clr Calc Pharmacy 29.4 ml/min; Est GFR (Non-African American) 37.9 ml/min; Potassium 4.3 mmol/L (3.5-5.1)
--- NOTE | 2023-08-23 12:17 | Nephrology Progress Note ---
Date of Service August 23, 2023 Assessment & Plan Admission and Anticipated Discharge Date Admission Date: August 17, 2023 Subjective Assessment & Plan (1) Acute renal failure superimposed on stage 3 chronic kidney disease: At baseline he does have Mild CKD with labile creat. on Admission had 1.2 but on US does have renal Cortical atrophy and Chornic Changes. Creat went up first likely with contrast exposure and resp failure but then was improving till today's labs. cause is still likely hemodynamic changes related with Chronic resp failure in a vulnerable patient has lot of Crackles and mostly rhonchi b/l--most likely lung related but not always easy to tell the difference with CHF. Creat down to 1.5 today. Stable for Discharge from renal Standpoint. No f/u Needed with nephrology (2) COPD exacerbation: Still has Sig lung findings and Symptoms but seems he is good as it gets as per Pulmonary note. S-------has Chronic SOB and Cough from COPD. No fever or chest pain. No issues with urine. Does have some Nocturia. otherwise 12 Systems reviewed and negative. Physical Exam Physical Exam: GENERAL - no acute distress. Normal accurate Speech SKIN - Without rashes or lesions. NOSE - Midline and without cyanosis. MOUTH/OROPHARYNX - Without cyanosis. NECK - Supple. No JVD LUNGS - Auscultation reveals coarse breath sounds b/l with diffuse wheezes ( seems chronic As per Pulmonary note) CARDIAC - RRR with S1/S2. No murmur, rubs, or gallops appreciated. ABDOMEN - Soft. No tenderness, palpable masses, or ascites noted. EXTREMITIES - Trace pretibial edema present. PSYCH - A&Ox3 and cooperates fully with examiner. Pt is very pleasant and interacts well with examiner. Hard of hearing. Results & Data Vital Signs (Past 12 Hours) Vital Signs Temp Pulse Pulse Resp BP BP Pulse Ox 08/23/23 11:42 36.3 C L 73 18 145/61 H 98 08/23/23 08:00 58 L 08/23/23 08:00 08/23/23 07:36 36.6 C 60 18 139/52 L 99 08/23/23 07:26 59 L 18 98 08/23/23 02:30 36.9 C 63 18 136/65 97 O2 Del Method O2 Flow Rate 08/23/23 11:42 Nasal Cannula 2 08/23/23 08:00 08/23/23 08:00 Nasal Cannula 3 08/23/23 07:36 Room Air 08/23/23 07:26 Nasal Cannula 2 08/23/23 02:30 Nasal Cannula 2
--- NOTE | 2023-08-23 14:22 | Discharge Summary ---
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 Patient states last night he coughed all night. Having shortness of breath. Complains of pain in the left thigh region. Lives with his family. Denies any headache. No runny nose or sore throat. No chest pain. Appetite is okay. No nausea. No abdominal pain. Normal bowel and bladder movements. States ambulates sometimes with a cane and sometimes with walker. Currently resting comfortably and hemodynamically stable. Past medical history. As mentioned above. Past surgical history. Surgery for squamous cell carcinoma left ear. Social history. Former smoker. No alcohol use. No substance use. Family history. No family history on file Admission Exam Per Admitting Provider General- Not in distress Head- atraumatic Eyes- Left eye in cover ENT- oropharynx dry Neck- supple, no JVD. Lungs- clear to auscultation b/l rhonchi heard Heart- regular rhythm; no murmur, no gallop. Abdomen- normal bowel sounds, soft, nontender, no distension. Extremities- no pretibial edema, no erythema seen. Neuro- alert, oriented PERRL, no facial palsy; no dysarthria; moves extremities. Skin- warm & dry Principal Dx & Hospital Course #1 = Principal Diagnosis (1) COPD exacerbation: Mr. 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 Patient notable presented to the ED 07/28 with COPD exacerbation after symptoms starting on 07/25. He was discharged on prolonged taper for 9 days on 08/03. Patient states that shortly after discontinuing the steroids, he felt worse each day thereafter--ultimately leading to presentation on 08/17. He responded promptly to IV methylprednisolone. Pulmonary consulted.Patient improved to baseline and notes increased improvement with metanebs. Course complicated by widely fluctating renal function. Nephrology followed, no need for further nephrology follow up #ZURDO on CKD III: cr up to 1.47>>1.7>>1.4>>2.0 s/p LR 250cc/hr, appears dry; concern for possible ATN given contrast upon ED presentation for CTA evaluation Repeat BMP in afternoon, if uptrending plan for nephro ultrasound cortical thinning Encourage PO intake, Nephrology consulted -like secondary to chronic resp failure ongoing hemodynamic changes IVF x 1 L #Acute exacerbation of COPD *improving Baseline oxygen use:3 L 10/01 Started on solumedrol, prolong taper planned for OP Continue duonebs and albuterol nebs prn at home Pulmonary consult Continue roflumilast Continue guaifensin 600mg BID Completed azithromycin 500mg x 3 days Encouraged flutter valve Will determine if patient can follow up with Pulm at [facility] Prednisone 40mg daily x 3 days, 20mg x 3 days, 10mg x 3 days upon discharge #HTN #Chronic heart failure with preserved EF Chronic, euvolemic on exam. Continue Imdur, amlodipine Continue ASA #DMTII c/b Neuropathy Continue Gabapentin Prior A1C 6.4% in 08/19/2023 #Chronic iron deficiency anemia -Continue EOD iron supplement #Hypothyroidism: Chronic, continue home levothyroxine. #Tobacco use: Chronic, patient continues to use tobacco/use. Recommended cessation, patient does not want to quit tobacco. #Squamous cell carcinoma of left ear: Chronic, follows [facility] for immunotherapy which has recently been completed. Follows Dr. Ayala On day of discharge, patient reports being at baseline. He denies any acute concerns and understands the need for prompt OP follow up with Pulm. Discharge Exam Constitutional WD/WN, vitals as above Respiratory rhonchorous breath sounds, much improved from day prior Cardiovascular RRR, no murmur, no edema Updated Medication List Medication Instructions Recorded Confirmed Type albuterol sulfate 2.5 mg/3 mL 3 ml inhalation QID PRN Shortness 10/04/18 08/17/23 History (0.083 %) solution for nebulization Of Breath albuterol sulfate 90 mcg/actuation 2 puff inhalation Q4H PRN SHORT OF 10/04/18 08/17/23 History aerosol inhaler BREATH/COUGH/WHEEZING ferrous sulfate 325 mg (65 mg 325 mg PO Q OTHER DAY 10/04/18 08/17/23 History iron) tablet tiotropium bromide 2.5 2 puff inhalation DAILY 10/04/18 08/17/23 History mcg/actuation mist for inhalation isosorbide mononitrate 60 mg 30 mg PO QAM 09/29/22 08/17/23 History tablet,extended release 24 hr amlodipine 5 mg tablet 5 mg PO DAILY 01/19/23 08/17/23 History fluticasone 250 mcg-salmeterol 50 1 inh inhalation BID 01/19/23 08/17/23 History mcg/dose blistr powdr for inhalation peg 400-propylene glycol (PF) 0.4 1 drp OPL DIRECTED PRN Dry Eyes 01/19/23 08/17/23 History %-0.3 % eye drops in a dropperette (Lubricant Eye (PG-PEG 400) (PF)) ascorbic acid (vitamin C) 500 mg 500 mg PO BID 04/28/23 08/17/23 History tablet aspirin 81 mg tablet,delayed 81 mg PO DAILY 04/28/23 08/17/23 History release gabapentin 100 mg capsule 100 mg PO QAM 04/28/23 08/17/23 History multivitamin with minerals 1 tab PO DAILY 04/28/23 08/17/23 History (Multiple Vitamin-Minerals tablet) nitroglycerin 0.4 mg sublingual 0.4 mg sublingual .PRN/UD PRN 04/28/23 08/17/23 History tablet Chest Pain roflumilast 250 mcg tablet 250 mcg PO DAILY 04/28/23 08/17/23 History pantoprazole 40 mg tablet,delayed 40 mg PO BID 30 days #60 tabs 05/10/23 08/17/23 Rx release (Protonix) sucralfate 100 mg/mL oral 1 g (10 mL) PO BID 14 days #280 mL 05/10/23 08/17/23 Rx suspension Lactobacil.acidophilus-Bifido.animalis 1 cap PO QPM 07/28/23 08/17/23 History 5 billion cell sprinkle capsule (Probiotic) gabapentin 300 mg capsule 300 mg PO HS 07/28/23 08/17/23 History levalbuterol HCl 1.25 mg/3 mL 1.25 mg NEB Q4H PRN Wheezing 07/28/23 08/17/23 History solution for nebulization levothyroxine 100 mcg tablet 100 mcg PO DAILYBB 07/28/23 08/17/23 History polyvinyl alcohol 1.4 % eye drops 1 drp ophthalmic (eye) QID 07/28/23 08/17/23 History guaifenesin 600 mg tablet, 600 mg PO Q12 #60 tabs 08/23/23 Rx extended release 12 hr (Mucinex) prednisone 10 mg tablet See Rx Instructions .Route 08/23/23 Rx .COMPLEX #21 tabs Hospital Stay Data Consultations 08/17/23 20:20 ED Decision to Admit Stat 08/18/23 09:12 Consult Pulmonology Routine 08/22/23 14:14 Consult Nephrology Routine Diagnostic Imagining Performed 08/17/23 18:02 CT angio chest PE protocol Stat 08/18/23 00:28 US doppler leg [US arterial duplex LE LT] Routine US venous doppler LE LT Routine 08/20/23 07:38 US Renal Bladder [US renal/blad retro comp] Routine Pending Results Patient Have Any Pending Studies at Discharge: No Discharge Instructions Given to Patient (Per Discharging Provider) You were admitted for acute COPD exacerbation. Please continue the following taper: 40mg Prednisone for three days, 20mg Prednisone for three days, 10mg Prednisone for three days Please continue Mucinex 600mg two times daily Please continue to use flutter valve and use the chest vest provided to you at home. Please ensure you follow up with Pulmonology in 1-2 weeks as an outpatient Total Time Total Time Spent Total Time Spent (In Minutes): 45
== END 2023-08-23 15:18 | disposition home or self-care (01) | DRG 191 ==
LOC: ED 16:54 → EDINP 22:51 → 2N 08-18 00:27